=== PATIENT | male | born 1975 | race Caucasian/White ===

== ENCOUNTER 2017-05-19 12:49 | Emergency (ER) | payer OTHER ==
[2017-05-19] MEDS ORDERED: cefTRIAXone 250 MG VIAL IM STA (13:38)
[2017-05-19] MEDS ORDERED: metroNIDAZOLE 500 MG TAB PO STA (13:38)
[2017-05-19] MEDS ORDERED: HYDROcodone/APAP 7.5-325MG 1 EACH TAB PO ONE (13:38)
[2017-05-19] MEDS ORDERED: AZITHROMYCIN 500 MG TAB PO STA (13:38)
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
[2017-05-19 14:44] VITALS: BP 125/80; PULSE 99; RESP 18; TEMP 97.6
== END 2017-05-19 14:45 | disposition home or self-care (01) ==
LOC: EC 12:49
DX: N48.5 Ulcer of penis (principal); F17.200 Nicotine dependence, unspecified, uncomplicated
CPT/HCPCS: 99283; 96372; J0696

== ENCOUNTER 2017-05-25 21:03 | Emergency (ER) | payer OTHER ==
[2017-05-25 21:48] VITALS: RESP 18
[2017-05-25 22:52] VITALS: BP 121/72; PULSE 88; TEMP 97.8
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
--- NOTE | 2017-05-25 23:05 | XR ---
EXAM: XR Left Foot Complete, 3 or More Views XR Right Foot Complete, 3 or More Views CLINICAL HISTORY: Reason: Pain TECHNIQUE: Frontal, lateral and oblique views of the bilateral feet. COMPARISON: No relevant prior studies available. FINDINGS: Bones/joints: Tiny calcaneal spurs are seen bilaterally. No acute fracture. No dislocation. Soft tissues: Unremarkable. No radiopaque foreign body. Other findings: Patient is status post ORIF of the bilateral calcanei. IMPRESSION: Patient is status post ORIF of the bilateral calcanei. No evidence of acute findings. Correlation with prior studies may be performed to assess hardware more thoroughly.
[2017-05-25] MEDS ORDERED: IBUPROFEN 800 MG TAB PO STA (23:20)
== END 2017-05-25 23:17 | disposition home or self-care (01) ==
LOC: EC 21:03
DX: M79.672 Pain in left foot (principal); M79.671 Pain in right foot; G89.29 Other chronic pain; F17.200 Nicotine dependence, unspecified, uncomplicated; Z79.899 Other long term (current) drug therapy; Z88.5 Allergy status to narcotic agent; Z88.8 Allergy status to other drugs, medicaments and biological substances
CPT/HCPCS: 99283

== ENCOUNTER 2017-05-26 19:19 | Emergency (ER) | payer OTHER ==
[2017-05-26 19:28] VITALS: BP 134/81; PULSE 112; RESP 20; TEMP 98.7
--- NOTE | 2017-05-26 19:45 | ED ---
General Adult HPI - General Chief complaint: Back Pain/Injury Stated complaint: feet & back pain Time Seen by Provider: 05/26/17 19:36 Source: patient, RN notes reviewed Mode of arrival: ambulatory Limitations: no limitations - History of Present Illness Initial comments: This a 41-year-old male presents emergency for department for chronic pain. Patient states that his chronic feet, back and multiple other orthopedic issues. Patient states he recently moved back to the area and has not seen a local physician. Patient denies any new injuries. Patient seen in emergency department last night and one week ago. Patient states he just needs pain medication. Patient is requesting narcotics at this time. Patient did state he had back pain to she has been mention of back pain to me. Patient denies any bowel bladder incontinence or retention. Patient states that he feels that his muscles are . - Related Data Home Medications Medication Instructions Recorded Confirmed Baclofen [Lioresal] 10 mg PO TID 05/25/17 05/26/17 Gabapentin 800 mg PO TID 05/25/17 05/26/17 Ibuprofen [Motrin] 800 mg PO TID PRN 05/25/17 05/26/17 Metoprolol Tartrate [Lopressor] 25 mg PO BID 05/26/17 05/26/17 Previous Rx's Medication Instructions Recorded traMADol HCl [Ultram] 50 mg PO Q6H PRN #12 tab 05/25/17 Allergies Allergy/AdvReac Type Severity Reaction Status Date / Time ketorolac [From Toradol] Allergy Swelling Verified 05/26/17 19:36 oxycodone Allergy Swelling Verified 05/26/17 19:36 Review of Systems ROS Statement: Those systems with pertinent positive or pertinent negative responses have been documented in the HPI. ROS Other: All systems not noted in ROS Statement are negative. Past Medical History Past Medical History: No Reported History History of Any Multi-Drug Resistant Organisms: None Reported Past Surgical History: Back Surgery, Orthopedic Surgery Additional Past Surgical History / Comment(s): pins and plates in feet Past Psychological History: No Psychological Hx Reported, Bipolar Smoking Status: Current every day smoker Past Alcohol Use History: None Reported Past Drug Use History: None Reported General Exam Limitations: no limitations General appearance: alert, in no apparent distress Head exam: Present: atraumatic, normocephalic, normal inspection Eye exam: Present: normal appearance, PERRL, EOMI. Absent: scleral icterus, conjunctival injection, periorbital swelling Respiratory exam: Present: normal lung sounds bilaterally. Absent: respiratory distress, wheezes, rales, rhonchi, stridor Cardiovascular Exam: Present: regular rate, normal rhythm, normal heart sounds. Absent: systolic murmur, diastolic murmur, rubs, gallop, clicks GI/Abdominal exam: Present: soft, normal bowel sounds. Absent: distended, tenderness, guarding, rebound, rigid Extremities exam: Present: other (Bilateral lower extremities full range of motion, patient is reported pain over the heel the right foot. There is old surgical scars noted neurovascular intact) Back exam: Present: full ROM. Absent: tenderness Neurological exam: Present: alert, oriented X3, CN II-XII intact, reflexes normal. Absent: motor sensory deficit Course Vital Signs 05/26/17 19:24 Temperature 98.7 F Pulse Rate 112 H Respiratory 20 Rate Blood Pressure 134/81 O2 Sat by Pulse 96 Oximetry Medical Decision Making - Medical Decision Making 41-year-old male presented emergency department for chronic pain. Patient has no new injury. Patient is requesting narcotic pain medication which he states he did not prescribe for chronic pain. He'll be follow-up with orthopedics return parameters were discussed. Disposition Clinical Impression: Foot pain, bilateral, Chronic foot pain Disposition: HOME SELF-CARE Condition: Stable Instructions: Chronic Pain (ED) Additional Instructions: Please return to the Emergency Department if symptoms worsen or any other concerns. Referrals: None,Stated [Primary Care Provider] - 1-2 days Audi Henning MD [Medical Doctor] - 1-2 days Time of Disposition: 19:45
== END 2017-05-26 19:58 | disposition home or self-care (01) ==
LOC: EC 19:19
DX: M79.671 Pain in right foot (principal); M79.672 Pain in left foot; G89.29 Other chronic pain; M54.9 Dorsalgia, unspecified; F31.9 Bipolar disorder, unspecified; F17.200 Nicotine dependence, unspecified, uncomplicated; Z79.899 Other long term (current) drug therapy; Z88.5 Allergy status to narcotic agent; Z88.6 Allergy status to analgesic agent
CPT/HCPCS: 99283

== ENCOUNTER 2017-06-03 10:13 | Emergency (ER) | payer OTHER ==
[2017-06-03 10:21] VITALS: BP 121/77; PULSE 77; RESP 18; TEMP 97.6
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
== END 2017-06-03 10:47 | disposition home or self-care (01) ==
LOC: EC 10:13
DX: G89.29 Other chronic pain (principal); M79.671 Pain in right foot; F31.9 Bipolar disorder, unspecified; F17.200 Nicotine dependence, unspecified, uncomplicated; Z79.899 Other long term (current) drug therapy; Z88.6 Allergy status to analgesic agent; Z88.8 Allergy status to other drugs, medicaments and biological substances
CPT/HCPCS: 99283

== ENCOUNTER 2017-06-05 03:09 | Emergency (ER) | payer OTHER ==
[2017-06-05 03:18] VITALS: BP 110/60; PULSE 83; RESP 16; TEMP 96.3
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
== END 2017-06-05 04:59 | disposition home or self-care (01) ==
LOC: EC 03:09
DX: G89.4 Chronic pain syndrome (principal); M79.671 Pain in right foot; M54.9 Dorsalgia, unspecified; F17.200 Nicotine dependence, unspecified, uncomplicated; Z88.6 Allergy status to analgesic agent; Z88.5 Allergy status to narcotic agent; Z79.899 Other long term (current) drug therapy
CPT/HCPCS: 99283

== ENCOUNTER 2017-06-09 13:54 | Emergency (ER) | payer OTHER ==
[2017-06-09 13:59] VITALS: TEMP 98.6
--- NOTE | 2017-06-09 14:15 | ED ---
General Adult HPI - General Chief complaint: Back Pain/Injury Stated complaint: Back and Feet Pain Time Seen by Provider: 06/09/17 14:00 Source: patient Mode of arrival: ambulatory Limitations: no limitations - History of Present Illness Initial comments: This 41-year-old white male presents complaining of chronic pain issues. He is complaining of chronic pain to his bilateral feet stemming from an old injury. He is also complaining of chronic back pain. This has been going on for years. He previously was under pain management. He states that he is noted to the area and has not followed up with orthopedics or primary care as of yet. He has been to the emergency department 5 times previously this month for chronic pain issues. He is requesting admission to the hospital for pain management. He is also requesting narcotic medications. He denies any recent injuries. No other modifying factors or complaints. - Related Data Home Medications Medication Instructions Recorded Confirmed Baclofen [Lioresal] 10 mg PO TID 05/25/17 06/09/17 Gabapentin 800 mg PO TID 05/25/17 06/09/17 Ibuprofen [Motrin] 800 mg PO TID PRN 05/25/17 06/09/17 Metoprolol Tartrate [Lopressor] 25 mg PO BID 05/26/17 06/09/17 Aspirin EC [Ecotrin Low Dose] 81 mg PO DAILY 06/09/17 06/09/17 Previous Rx's Medication Instructions Recorded predniSONE 20 mg PO BID #10 tab 06/09/17 Allergies Allergy/AdvReac Type Severity Reaction Status Date / Time ketorolac [From Toradol] Allergy Swelling Verified 06/09/17 14:06 oxycodone Allergy Swelling Verified 06/09/17 14:06 Review of Systems ROS Statement: Those systems with pertinent positive or pertinent negative responses have been documented in the HPI. ROS Other: All systems not noted in ROS Statement are negative. Past Medical History Past Medical History: No Reported History Additional Past Medical History / Comment(s): back pain, spinal and sacral fractures History of Any Multi-Drug Resistant Organisms: None Reported Past Surgical History: Back Surgery, Orthopedic Surgery Additional Past Surgical History / Comment(s): pins and plates in feet Past Psychological History: Bipolar Smoking Status: Current every day smoker Past Alcohol Use History: None Reported Past Drug Use History: None Reported General Exam Limitations: no limitations General appearance: alert, in no apparent distress Extremities exam: Present: tenderness (Tenderness to bilateral feet. There is no swelling noted. There are old surgical scars noted to the lateral posterior aspects of both feet. There is no ankle pain or swelling. There is excellent range of motion to bilateral feet.) Back exam: Present: normal inspection, full ROM, tenderness (There is some mild back tenderness inferiorly. There is no swelling identified. There is no muscle spasm noted. Patient has excellent range of motion without any difficulty.) Neurological exam: Present: alert, oriented X3. Absent: motor sensory deficit Psychiatric exam: Present: normal affect, normal mood Skin exam: Absent: rash Course Vital Signs 06/09/17 13:57 Temperature 98.6 F Pulse Rate 83 Respiratory 18 Rate Blood Pressure 113/59 O2 Sat by Pulse 98 Oximetry Medical Decision Making - Medical Decision Making The patient was seen and examined. Old records were reviewed. His been here 5 times previously this month for chronic pain issues. He is previously been told that he would not be receiving any further narcotics from the ER. It is not felt as though he requires admission to the hospital for pain management. It is not felt as though he requires any narcotic medications. Is instructed to follow-up with primary care physician and orthopedics as previously instructed. He is agreeable to a prednisone prescription and leaves in no distress. Disposition Clinical Impression: Chronic foot pain, Chronic back pain Disposition: HOME SELF-CARE Condition: Good Instructions: Chronic Back Pain (ED), Chronic Pain (ED) Prescriptions: predniSONE 20 mg PO BID #10 tab Referrals: None,Stated [Primary Care Provider] - 1-2 days Time of Disposition: 14:14
[2017-06-09 14:38] VITALS: BP 132/78; PULSE 68; RESP 20
== END 2017-06-09 14:38 | disposition home or self-care (01) ==
LOC: EC 13:54
DX: G89.29 Other chronic pain (principal); M54.9 Dorsalgia, unspecified; M79.672 Pain in left foot; M79.671 Pain in right foot; F17.200 Nicotine dependence, unspecified, uncomplicated; Z79.82 Long term (current) use of aspirin; Z79.899 Other long term (current) drug therapy; Z88.6 Allergy status to analgesic agent; Z88.8 Allergy status to other drugs, medicaments and biological substances; Z87.828 Personal history of other (healed) physical injury and trauma; Z98.890 Other specified postprocedural states
CPT/HCPCS: 99283

== ENCOUNTER 2017-06-10 06:30 | Emergency (ER) | payer OTHER ==
[2017-06-10 06:47] VITALS: BP 129/77; PULSE 91; RESP 20; TEMP 97.6
--- NOTE | 2017-06-10 08:45 | ED ---
General Adult HPI - General Chief complaint: Extremity Injury, Lower Stated complaint: pain Time Seen by Provider: 06/10/17 07:00 Source: patient, RN notes reviewed Mode of arrival: ambulatory Limitations: no limitations - History of Present Illness Initial comments: This is a 41-year-old male with a history of chronic pain who is here again today with complaints of right foot pain he states he wants be admitted to have the pain taken care of. He has been referred to orthopedics he did recently moved back to this area from [place] where he had his surgery done. He was previously advised needs to follow up outpatient. He states he can't take Motrin for pain he has taken Ultram for pain in the past he has taken morphine and Vicodin in the past. He does have a history depression and he is not suicidal or homicidal. - Related Data Home Medications Medication Instructions Recorded Confirmed Baclofen [Lioresal] 10 mg PO TID 05/25/17 06/10/17 Gabapentin 800 mg PO TID 05/25/17 06/10/17 Ibuprofen [Motrin] 800 mg PO TID PRN 05/25/17 06/10/17 Metoprolol Tartrate [Lopressor] 25 mg PO BID 05/26/17 06/10/17 Aspirin EC [Ecotrin Low Dose] 81 mg PO DAILY 06/09/17 06/10/17 Previous Rx's Medication Instructions Recorded predniSONE 20 mg PO BID #10 tab 06/09/17 Ibuprofen 800 mg PO Q6HR PRN #20 tablet 06/10/17 traMADol HCL [Ultram] 50 mg PO Q6HR PRN #20 tab 06/10/17 Allergies Allergy/AdvReac Type Severity Reaction Status Date / Time ketorolac [From Toradol] Allergy Swelling Verified 06/10/17 08:08 oxycodone Allergy Swelling Verified 06/10/17 08:08 Review of Systems ROS Statement: Those systems with pertinent positive or pertinent negative responses have been documented in the HPI. ROS Other: All systems not noted in ROS Statement are negative. Past Medical History Past Medical History: No Reported History Additional Past Medical History / Comment(s): back pain, spinal and sacral fractures History of Any Multi-Drug Resistant Organisms: None Reported Past Surgical History: Back Surgery, Orthopedic Surgery Additional Past Surgical History / Comment(s): pins and plates in feet Past Psychological History: Bipolar Smoking Status: Current every day smoker Past Alcohol Use History: None Reported Past Drug Use History: None Reported General Exam - General Exam Comments Initial Comments: Is a well-developed well-nourished awake alert oriented 3 male the patient would not allow me to examine his foot other than by inspection Limitations: no limitations General appearance: alert, in no apparent distress Head exam: Present: atraumatic, normocephalic, normal inspection Eye exam: Present: normal appearance, PERRL, EOMI. Absent: scleral icterus, conjunctival injection, periorbital swelling ENT exam: Present: mucous membranes moist Neck exam: Present: normal inspection. Absent: tenderness, meningismus, lymphadenopathy Respiratory exam: Absent: respiratory distress, wheezes, rales, rhonchi, stridor Cardiovascular Exam: Present: normal heart sounds. Absent: systolic murmur, diastolic murmur, rubs, gallop, clicks GI/Abdominal exam: Present: normal bowel sounds. Absent: distended, tenderness , guarding, rebound, rigid Extremities exam: Present: normal inspection, full ROM, other (No obvious deformity well-healed scars are noted along the lateral aspect of the right foot. Color appears be normal). Absent: tenderness, pedal edema, joint swelling, calf tenderness Neurological exam: Present: alert, oriented X3, CN II-XII intact Psychiatric exam: Present: normal affect, normal mood Skin exam: Present: dry, intact, normal color. Absent: rash Course Vital Signs 06/10/17 06:37 Temperature 97.6 F Pulse Rate 91 Respiratory 20 Rate Blood Pressure 129/77 O2 Sat by Pulse 97 Oximetry - Reevaluation(s) Reevaluation #1: 06/10/17 08:43 Discussion with the patient regarding follow-up with orthopedics he does not require admission at the hospital at this time. He'll be given a prescription for tramadol and Motrin. He states the steroids made pain worse he is to stop those. He was offered crutches he states he can't use them he would take a wheelchair and the ramp which I did inform and was not reasonable at this time. He was noted to be inability without difficulty and the emergency department. Disposition Clinical Impression: Chronic foot pain Disposition: HOME SELF-CARE Condition: Good Prescriptions: Ibuprofen 800 mg PO Q6HR PRN #20 tablet PRN Reason: Pain traMADol HCL [Ultram] 50 mg PO Q6HR PRN #20 tab PRN Reason: Pain Referrals: None,Stated [Primary Care Provider] - 1-2 days
--- NOTE | 2017-06-10 08:48 | ED ---
Disposition Clinical Impression: Chronic foot pain Disposition: HOME SELF-CARE Condition: Good Instructions: Chronic Pain (ED) Additional Instructions: Ambulate as tolerated, follow up with orthopedics as previously planned. Stop taking the prednisone. Prescriptions: Ibuprofen 800 mg PO Q6HR PRN #20 tablet PRN Reason: Pain traMADol HCL [Ultram] 50 mg PO Q6HR PRN #20 tab PRN Reason: Pain Referrals: None,Stated [Primary Care Provider] - 1-2 days
== END 2017-06-10 08:56 | disposition home or self-care (01) ==
LOC: EC 06:30
DX: G89.29 Other chronic pain (principal); M79.671 Pain in right foot; F17.200 Nicotine dependence, unspecified, uncomplicated; Z79.82 Long term (current) use of aspirin; Z79.899 Other long term (current) drug therapy; Z88.6 Allergy status to analgesic agent; Z88.8 Allergy status to other drugs, medicaments and biological substances; Z87.39 Personal history of other diseases of the musculoskeletal system and connective tissue
CPT/HCPCS: 99282

== ENCOUNTER 2017-06-14 10:44 | Emergency (ER) | payer OTHER ==
[2017-06-14 10:52] VITALS: BP 136/81; PULSE 89; RESP 18; TEMP 98.2
--- NOTE | 2017-06-14 11:51 | ED ---
Extremity Problem HPI - General Chief complaint: Extremity Problem,Nontraumatic Stated complaint: Foot pain Time Seen by Provider: 06/14/17 10:44 Source: patient, RN notes reviewed Mode of arrival: ambulatory Limitations: no limitations - History of Present Illness Initial comments: This is a 42-year-old male who presents with complaints of bilateral foot pain. This is a chronic condition this is the eighth time in the last month he had been here for the same reason. He does have orthopedic follow-up. He does state he ran his pain medication and some other medication. He denies any fevers chills or sweats he was noted to be able ambulate without difficulty. EMS and per observation in the emergency department. MD Complaint: extremity pain - Related Data Home Medications Medication Instructions Recorded Confirmed Gabapentin 800 mg PO TID 05/25/17 06/14/17 Metoprolol Tartrate [Lopressor] 25 mg PO BID 05/26/17 06/14/17 Aspirin EC [Ecotrin Low Dose] 81 mg PO DAILY 06/09/17 06/14/17 Previous Rx's Medication Instructions Recorded Gabapentin 800 mg PO TID #45 tab 06/14/17 Metoprolol Tartrate 25 mg PO BID #30 tab 06/14/17 traMADol HCL [Ultram] 50 mg PO Q6HR PRN #20 tab 06/14/17 Allergies Allergy/AdvReac Type Severity Reaction Status Date / Time ketorolac [From Toradol] Allergy Swelling Verified 06/14/17 10:52 oxycodone Allergy Swelling Verified 06/14/17 10:52 Review of Systems ROS Statement: Those systems with pertinent positive or pertinent negative responses have been documented in the HPI. ROS Other: All systems not noted in ROS Statement are negative. Past Medical History Past Medical History: No Reported History Additional Past Medical History / Comment(s): back pain, spinal and sacral fractures History of Any Multi-Drug Resistant Organisms: None Reported Past Surgical History: Back Surgery, Orthopedic Surgery Additional Past Surgical History / Comment(s): pins and plates in feet Past Psychological History: Bipolar Smoking Status: Current every day smoker Past Alcohol Use History: None Reported Past Drug Use History: None Reported General Exam - General Exam Comments Initial Comments: This is a well-developed well-nourished awake alert oriented times female Limitations: no limitations General appearance: alert, in no apparent distress Head exam: Present: atraumatic, normocephalic, normal inspection Eye exam: Present: normal appearance, PERRL, EOMI. Absent: scleral icterus, conjunctival injection, periorbital swelling Neck exam: Present: normal inspection Respiratory exam: Present: normal lung sounds bilaterally. Absent: respiratory distress, wheezes, rales, rhonchi, stridor Cardiovascular Exam: Present: regular rate, normal rhythm, normal heart sounds. Absent: systolic murmur, diastolic murmur, rubs, gallop, clicks Extremities exam: Present: normal inspection, full ROM, normal capillary refill , other (No tenderness on my exam of the feet today he states the right one hurts more than the left the opposite of the last visit.). Absent: tenderness Back exam: Present: full ROM Neurological exam: Present: alert, oriented X3, CN II-XII intact Psychiatric exam: Present: normal affect, normal mood Skin exam: Present: warm, dry, intact, normal color. Absent: rash Course Vital Signs 06/14/17 10:48 Temperature 98.2 F Pulse Rate 89 Respiratory 18 Rate Blood Pressure 136/81 O2 Sat by Pulse 94 L Oximetry Medical Decision Making - Medical Decision Making At this time no further workup is indicated patient be given a prescription for Ultram and replace his needed prescriptions he is to keep his orthopedic follow- up in 3 days as planned Disposition Clinical Impression: Chronic foot pain Disposition: HOME SELF-CARE Condition: Good Prescriptions: Gabapentin 800 mg PO TID #45 tab Metoprolol Tartrate 25 mg PO BID #30 tab traMADol HCL [Ultram] 50 mg PO Q6HR PRN #20 tab PRN Reason: Pain Referrals: None,Stated [Primary Care Provider] - 1-2 days
[2017-06-14] MEDS ORDERED: traMADol 50 MG TAB PO STA (11:52)
== END 2017-06-14 12:02 | disposition home or self-care (01) ==
LOC: EC 10:44
DX: G89.29 Other chronic pain (principal); M79.671 Pain in right foot; M79.672 Pain in left foot; F17.200 Nicotine dependence, unspecified, uncomplicated; Z88.5 Allergy status to narcotic agent; Z79.82 Long term (current) use of aspirin; Z79.899 Other long term (current) drug therapy
CPT/HCPCS: 99283

== ENCOUNTER 2017-06-14 19:02 | Emergency (ER) | payer OTHER ==
[2017-06-14 19:14] VITALS: BP 131/80; PULSE 99; RESP 18; TEMP 98.2
--- NOTE | 2017-06-14 19:48 | ED ---
General Adult HPI - General Chief complaint: Extremity Injury, Lower Stated complaint: Foot Pain Time Seen by Provider: 06/14/17 19:32 Source: patient, RN notes reviewed Mode of arrival: ambulatory Limitations: no limitations - History of Present Illness Initial comments: patient is a 42-year-old male who presents emergency room today with chief complaint of chronic foot pain. He does admit that he has a chronic problem but believes that there is a chance getting worse. He states he has been here in the emergency room multiple times for this. He is requesting further pain medication as he states the medication that he was given earlier is not helping. Patient denies any new injury or trauma to the area. Patient denies any recent fever, chills, shortness of breath, chest pain, back pain, abdominal pain, nausea or vomiting, numbness or tingling, dysuria or hematuria, constipation or diarrhea, headaches or visual changes, or any other complaints. - Related Data Home Medications Medication Instructions Recorded Confirmed Gabapentin 800 mg PO TID 05/25/17 06/14/17 Metoprolol Tartrate [Lopressor] 25 mg PO BID 05/26/17 06/14/17 Aspirin EC [Ecotrin Low Dose] 81 mg PO DAILY 06/09/17 06/14/17 Previous Rx's Medication Instructions Recorded Gabapentin 800 mg PO TID #45 tab 06/14/17 Metoprolol Tartrate 25 mg PO BID #30 tab 06/14/17 traMADol HCL [Ultram] 50 mg PO Q6HR PRN #20 tab 06/14/17 Allergies Allergy/AdvReac Type Severity Reaction Status Date / Time ketorolac [From Toradol] Allergy Swelling Verified 06/14/17 19:13 oxycodone Allergy Swelling Verified 06/14/17 19:13 Review of Systems ROS Statement: Those systems with pertinent positive or pertinent negative responses have been documented in the HPI. ROS Other: All systems not noted in ROS Statement are negative. Past Medical History Past Medical History: No Reported History Additional Past Medical History / Comment(s): back pain, spinal and sacral fractures History of Any Multi-Drug Resistant Organisms: None Reported Past Surgical History: Back Surgery, Orthopedic Surgery Additional Past Surgical History / Comment(s): pins and plates in feet Past Psychological History: Bipolar Smoking Status: Current every day smoker Past Alcohol Use History: None Reported Past Drug Use History: None Reported General Exam - General Exam Comments Initial Comments: General: The patient is awake and alert, in no distress, and does not appear acutely ill. Eye: Pupils are equal, round and reactive to light, extra-ocular movements are intact. No nystagmus. There is normal conjunctiva bilaterally. No signs of icterus. Neck: there is no tenderness or JVD. Musculoskeletal: Normal ROM, no tenderness. Strength 5/5. Sensation intact. Pulses equal bilaterally 2+. Neurological: A&O x 3. CN II-XII intact, There are no obvious motor or sensory deficits. Coordination appears grossly intact. Speech is normal. Skin: Skin is warm and dry and no rashes or lesions are noted. Limitations: no limitations Course Vital Signs 06/14/17 19:09 Temperature 98.2 F Pulse Rate 99 Respiratory 18 Rate Blood Pressure 131/80 O2 Sat by Pulse 96 Oximetry Medical Decision Making - Medical Decision Making patient was seen here earlier in the day by attending physician Dr. Corcoran. I did discuss this case with him. Patient's requesting further pain medication. Denies patient that he would not receive any narcotics here that Ultram that was given to him earlier was all that we would be willing to give him for his chronic pain. He is advised that he does need to follow-up with specialist. Patient requesting to see physician and further pain medication. patient was refusing to leave and had to be escorted out by security. Disposition Clinical Impression: Chronic pain Disposition: HOME SELF-CARE Condition: Good Instructions: Chronic Pain (ED) Referrals: None,Stated [Primary Care Provider] - 1-2 days Time of Disposition: 19:47
== END 2017-06-14 19:48 | disposition home or self-care (01) ==
LOC: EC 19:02
DX: G89.29 Other chronic pain (principal); M79.673 Pain in unspecified foot; F17.200 Nicotine dependence, unspecified, uncomplicated; Z98.890 Other specified postprocedural states; Z79.82 Long term (current) use of aspirin; Z79.899 Other long term (current) drug therapy; Z88.6 Allergy status to analgesic agent; Z88.8 Allergy status to other drugs, medicaments and biological substances; Z53.8 Procedure and treatment not carried out for other reasons
CPT/HCPCS: 99283

== ENCOUNTER 2017-06-16 21:04 | Emergency (ER) | payer OTHER ==
[2017-06-16 21:14] VITALS: BP 144/74; PULSE 96; RESP 18; TEMP 97.4
[2017-06-16] MEDS ORDERED: HYDROcodone/APAP 5-325MG 1 EACH TAB PO STA (21:35)
--- NOTE | 2017-06-16 21:41 | ED ---
General Adult HPI - General Chief complaint: Extremity Injury, Lower Stated complaint: foot pain-revist Time Seen by Provider: 06/16/17 21:25 Source: patient, EMS, RN notes reviewed Mode of arrival: EMS Limitations: no limitations - History of Present Illness Initial comments: 42-year-old male presents to the emergency department with a chief complaint of right foot pain. Patient does suffer from chronic foot pain. Patient has had surgeries to the right from the past. He states that he is in excruciating pain. He was seen here 2 days ago and was given Ultram. He can have another prescription of something stronger. Patient states he used to have a pain doctor niece me and morphine but he does not get that anymore. He already takes baclofen as well as Motrin at home which are not helping him with his pain. Patient is concerned that something with his chronic foot pain is worsening. Patient states he has never followed up with or so for this pain just comes here and is hoping to have pain control.Patient denies any recent fever, chills, shortness of breath, chest pain, back pain, abdominal pain, nausea vomiting, numbness or tingling, dysuria or hematuria, constipation or diarrhea, headaches or visual changes, or any other current symptoms. - Related Data Home Medications Medication Instructions Recorded Confirmed Aspirin EC [Ecotrin Low Dose] 81 mg PO DAILY 06/09/17 06/16/17 Previous Rx's Medication Instructions Recorded Gabapentin 800 mg PO TID #45 tab 06/14/17 Metoprolol Tartrate 25 mg PO BID #30 tab 06/14/17 Allergies Allergy/AdvReac Type Severity Reaction Status Date / Time ketorolac [From Toradol] Allergy Swelling Verified 06/16/17 21:20 oxycodone Allergy Swelling Verified 06/16/17 21:20 Review of Systems ROS Statement: Those systems with pertinent positive or pertinent negative responses have been documented in the HPI. ROS Other: All systems not noted in ROS Statement are negative. Past Medical History Past Medical History: No Reported History Additional Past Medical History / Comment(s): back pain, spinal and sacral fractures History of Any Multi-Drug Resistant Organisms: None Reported Past Surgical History: Back Surgery, Orthopedic Surgery Additional Past Surgical History / Comment(s): pins and plates in feet Past Psychological History: Bipolar Smoking Status: Current every day smoker Past Alcohol Use History: None Reported Past Drug Use History: None Reported General Exam - General Exam Comments Initial Comments: General: The patient is awake and alert, in no distress, and does not appear acutely ill. Neck: The neck is supple, there is no tenderness. Cardiovascular: There is a regular rate and rhythm. No murmur, rub or gallop is appreciated. Respiratory: Lungs are clear to auscultation, respirations are non-labored, breath sounds are equal. No wheezes, stridor, rales, or rhonchi. Musculoskeletal: Sensation sensation intact with 2+ pulses. She appeared friend [place] for ankle and right foot. Some tenderness patient of the left heel. Mild swelling noted to the ankle. Neurological: CN II-XII intact, There are no obvious motor or sensory deficits. Coordination appears grossly intact. Speech is normal. Skin: Skin is warm and dry and no rashes or lesions are noted. Psychiatric: Normal mood and affect. Limitations: no limitations Course Vital Signs 06/16/17 21:11 Temperature 97.4 F L Pulse Rate 96 Respiratory 18 Rate Blood Pressure 144/74 O2 Sat by Pulse 97 Oximetry Medical Decision Making - Medical Decision Making 41-year-old male presents for right foot pain. Patient has been seen here for the third time for this pain. This time we discussed that we will not be giving him a prescription of narcotics. We stated that we would give him one pill prior discharge. We did discuss with the patient as well that we will give him orthopedic follow-up. We did discuss to care of the area we did discuss return parameters and all his questions. He stated that he understood. He continued to ask for narcotic pain medication once we told him that we would not be giving a CBC and became very irritated and unhappy with his care. Disposition Clinical Impression: Chronic pain syndrome, Chronic foot pain Disposition: HOME SELF-CARE Condition: Stable Instructions: Foot Contusion (ED) Additional Instructions: Please use medication as discussed. Please follow up with family doctor if symptoms have not improved over the next two days. Please return to the emergency room if your symptoms increase or worsen or for any other concerns. Referrals: Lisseth Spence MD [STAFF PHYSICIAN] - 1-2 days Audi Henning MD [Medical Doctor] - 1-2 days Time of Disposition: 21:40
== END 2017-06-16 21:49 | disposition home or self-care (01) ==
LOC: EC 21:04
DX: G89.4 Chronic pain syndrome (principal); M79.671 Pain in right foot; F17.200 Nicotine dependence, unspecified, uncomplicated; Z88.6 Allergy status to analgesic agent; Z88.5 Allergy status to narcotic agent; Z79.82 Long term (current) use of aspirin
CPT/HCPCS: 99283

== ENCOUNTER 2017-06-18 12:27 | Emergency (ER) | payer OTHER ==
[2017-06-18 12:30] VITALS: BP 123/78; PULSE 102; RESP 20; TEMP 98.3
--- NOTE | 2017-06-18 12:36 | ED ---
General Adult HPI - General Chief complaint: Extremity Injury, Lower Stated complaint: foot pain Time Seen by Provider: 06/18/17 12:34 Source: patient, EMS, RN notes reviewed Mode of arrival: EMS Limitations: no limitations - History of Present Illness Initial comments: This a 42-year-old male presents emergency Department via EMS for chronic pain. Patient states that he has had for pain states this is new police 11 visits in one month here for same chronic pain. Patient had a reticulocyte injury years ago and has seen orthopedics in the past. Patient has not followed up as directed. Patient states that there is no paresthesias. Denies any fever, chills, erythema. Patient denies any rash. Patient offers no complaints. - Related Data Home Medications Medication Instructions Recorded Confirmed Aspirin EC [Ecotrin Low Dose] 81 mg PO DAILY 06/09/17 06/18/17 Previous Rx's Medication Instructions Recorded Gabapentin 800 mg PO TID #45 tab 06/14/17 Metoprolol Tartrate 25 mg PO BID #30 tab 06/14/17 Meloxicam [Mobic] 7.5 mg PO DAILY #14 tab 06/18/17 Allergies Allergy/AdvReac Type Severity Reaction Status Date / Time ketorolac [From Toradol] Allergy Swelling Verified 06/18/17 12:30 oxycodone Allergy Swelling Verified 06/18/17 12:30 Review of Systems ROS Statement: Those systems with pertinent positive or pertinent negative responses have been documented in the HPI. ROS Other: All systems not noted in ROS Statement are negative. Past Medical History Past Medical History: Asthma Additional Past Medical History / Comment(s): back pain, spinal and sacral fractures History of Any Multi-Drug Resistant Organisms: None Reported Past Surgical History: Back Surgery, Orthopedic Surgery Additional Past Surgical History / Comment(s): pins and plates in feet Past Psychological History: Bipolar Smoking Status: Current every day smoker Past Alcohol Use History: None Reported Past Drug Use History: None Reported General Exam Limitations: no limitations General appearance: alert, in no apparent distress Respiratory exam: Present: normal lung sounds bilaterally. Absent: respiratory distress, wheezes, rales, rhonchi, stridor Cardiovascular Exam: Present: regular rate, normal rhythm, normal heart sounds. Absent: systolic murmur, diastolic murmur, rubs, gallop, clicks Extremities exam: Present: other (Right foot there is old scars noted there is no erythema, swelling, rash. Patient has no tenderness with palpation patient' s reports she states is just pain all over dorsal palpation. Pedal pulses equal bilaterally) Neurological exam: Present: alert, CN II-XII intact, reflexes normal. Absent: motor sensory deficit Skin exam: Present: warm, dry, intact, normal color. Absent: rash Course Vital Signs 06/18/17 12:28 Temperature 98.3 F Pulse Rate 102 H Respiratory 20 Rate Blood Pressure 123/78 O2 Sat by Pulse 99 Oximetry Medical Decision Making - Medical Decision Making 42-year-old male presents emergency from for chronic pain. I did explain the patient that we do not do chronic pain management here. He needs to follow up with primary care physician with orthopedics as his been told in his previous visits. Explain that emergency department is not the place for chronic pain medication. That he'll not prescribe narcotics now or further visits. Disposition Clinical Impression: Drug-seeking behavior, Chronic pain, Chronic foot pain Disposition: HOME SELF-CARE Condition: Stable Instructions: Chronic Pain (ED) Additional Instructions: Please return to the Emergency Department if symptoms worsen or any other concerns. Prescriptions: Meloxicam [Mobic] 7.5 mg PO DAILY #14 tab Referrals: Dread Coley MD [REFERRING] - 1-2 days Time of Disposition: 12:34
== END 2017-06-18 12:45 | disposition home or self-care (01) ==
LOC: EC 12:27
DX: M79.671 Pain in right foot (principal); G89.29 Other chronic pain; F17.200 Nicotine dependence, unspecified, uncomplicated; Z76.5 Malingerer [conscious simulation]; Z79.82 Long term (current) use of aspirin; Z88.6 Allergy status to analgesic agent; Z88.8 Allergy status to other drugs, medicaments and biological substances; Z98.890 Other specified postprocedural states
CPT/HCPCS: 99283

== ENCOUNTER 2017-06-18 21:43 | Emergency (ER) | payer OTHER ==
[2017-06-18 21:46] VITALS: BP 118/70; PULSE 78; RESP 16; TEMP 97.8
--- NOTE | 2017-06-18 21:56 | ED ---
Lower Extremity Injury HPI - General Chief Complaint: Extremity Injury, Lower Stated Complaint: pain Time Seen by Provider: 06/18/17 21:47 Source: patient Mode of arrival: EMS Limitations: no limitations - History of Present Illness Initial Comments: This patient is a 42-year-old man who presents with complaint of right foot pain. Patient relates that he had foot fractures a number of years ago, which were repaired and that he has had chronic pain issues since that time. He indicates that the pain is located on the plantar aspect of the foot below the calcaneus and that is made worse with walking on it. Patient denies any acute injury. Denies any loss of neurologic function. MD Complaint: other -: year(s) Injury: Foot: Right Improves With: nothing Worsens With: weight bearing Context: other - Related Data Home Medications Medication Instructions Recorded Confirmed Aspirin EC [Ecotrin Low Dose] 81 mg PO DAILY 06/09/17 06/18/17 Previous Rx's Medication Instructions Recorded Gabapentin 800 mg PO TID #45 tab 06/14/17 Metoprolol Tartrate 25 mg PO BID #30 tab 06/14/17 Meloxicam [Mobic] 7.5 mg PO DAILY #14 tab 06/18/17 Allergies Allergy/AdvReac Type Severity Reaction Status Date / Time ketorolac [From Toradol] Allergy Swelling Verified 06/18/17 22:01 oxycodone Allergy Swelling Verified 06/18/17 22:01 Review of Systems ROS Statement: Those systems with pertinent positive or pertinent negative responses have been documented in the HPI. ROS Other: All systems not noted in ROS Statement are negative. Constitutional: Denies: fever, chills, weakness Musculoskeletal: Reports: as per HPI, arthralgia Skin: Denies: rash, lesions Neurological: Denies: weakness, numbness, paresthesias Past Medical History Past Medical History: Asthma Additional Past Medical History / Comment(s): back pain, spinal and sacral fractures History of Any Multi-Drug Resistant Organisms: None Reported Past Surgical History: Back Surgery, Orthopedic Surgery Additional Past Surgical History / Comment(s): pins and plates in feet Past Psychological History: Bipolar Smoking Status: Current every day smoker Past Alcohol Use History: None Reported Past Drug Use History: None Reported General Exam Limitations: no limitations General appearance: alert, in no apparent distress Cardiovascular Exam: Present: other (Normal dorsalis pedis pulse and capillary refill) Extremities exam: Present: normal inspection, full ROM, normal capillary refill , other (There is an old surgical incision which is well-healed. I'm not able to elicit any tenderness on the exam. Neurovascular function throughout the foot is normal.). Absent: tenderness, pedal edema Neurological exam: Present: normal gait. Absent: motor sensory deficit Skin exam: Present: warm, dry, intact, normal color. Absent: rash Course Vital Signs 06/18/17 21:45 Temperature 97.8 F Pulse Rate 78 Respiratory 16 Rate Blood Pressure 118/70 O2 Sat by Pulse 100 Oximetry Medical Decision Making - Medical Decision Making Patient is a 42-year-old man with history of chronic foot pain was requesting narcotic medication. There is no evidence of acute injury. The patient is observed to ambulate throughout the department without any difficulty. The patient does display number behaviors which raises concern for dispensing medication at this time. I had seen the patient previously and did provide prescription with instructions that he needs to find a local physician to manage his chronic pain. HE has not done so, and I will refer him to a paint grinder for dispensing any further narcotic medications. I discussed return parameters. Disposition Clinical Impression: Chronic pain Disposition: HOME SELF-CARE Condition: Good Instructions: Chronic Pain (ED), Arthralgia (ED) Referrals: Chi Cabrera MD [STAFF PHYSICIAN] - 1-2 days Naveen Merino MD [STAFF PHYSICIAN] - 1-2 days
== END 2017-06-18 22:03 | disposition home or self-care (01) ==
LOC: EC 21:43
DX: G89.29 Other chronic pain (principal); M79.671 Pain in right foot; F17.200 Nicotine dependence, unspecified, uncomplicated; Z79.82 Long term (current) use of aspirin; Z88.6 Allergy status to analgesic agent; Z88.8 Allergy status to other drugs, medicaments and biological substances; Z98.890 Other specified postprocedural states
CPT/HCPCS: 99283

== ENCOUNTER 2017-06-25 11:36 | Emergency (ER) | payer OTHER ==
[2017-06-25] MEDS ORDERED: ACETAMINOPHEN TAB 500 MG TAB PO STA (11:59)
--- NOTE | 2017-06-25 12:25 | XR ---
EXAMINATION TYPE: XR thoracic spine complete DATE OF EXAM: 06/25/2017 CLINICAL HISTORY: pain TECHNIQUE: Frontal, lateral, and swimmer's view of thoracic spine are obtained. COMPARISON: None. FINDINGS: Thoracic spine show satisfactory alignment without evidence of acute fracture or dislocatio n. Vertebral body heights are preserved. Disc spaces are well preserved. Visualized ribs are unrem arkable. Mild curvature convex to the right. IMPRESSION: No acute fracture or dislocation is seen in the thoracic spine. ICD 10 NO FRACTURE, INIT IAL EVALUATION
--- NOTE | 2017-06-25 12:26 | XR ---
EXAMINATION TYPE: XR lumbar spine 2 or 3V DATE OF EXAM: 06/25/2017 CLINICAL HISTORY: pain TECHNIQUE: Three views of the lumbar spine are submitted. COMPARISON: None. FINDINGS: There are 5 lumbar type vertebral bodies identified. The lumbar spine shows satisfactory alignment w ithout evidence of acute fracture or dislocation. Vertebral body heights are within normal limits. Disc spaces are within normal limits. The overlying soft tissue appears unremarkable. IMPRESSION: No acute fracture or dislocation is seen in the lumbar spine. ICD 10 NO FRACTURE, INITIAL EVALUATION
[2017-06-25 12:28] VITALS: BP 123/83; PULSE 89; RESP 20; TEMP 97
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
== END 2017-06-25 13:00 | disposition home or self-care (01) ==
LOC: EC 11:36
DX: M79.671 Pain in right foot (principal); M54.2 Cervicalgia; M54.9 Dorsalgia, unspecified; F17.200 Nicotine dependence, unspecified, uncomplicated; Z79.1 Long term (current) use of non-steroidal anti-inflammatories (NSAID); Z79.82 Long term (current) use of aspirin; Z79.899 Other long term (current) drug therapy; Z88.6 Allergy status to analgesic agent; Z88.8 Allergy status to other drugs, medicaments and biological substances; Z98.890 Other specified postprocedural states; Z53.29 Procedure and treatment not carried out because of patient's decision for other reasons
CPT/HCPCS: 72072; 72100; 99283

== ENCOUNTER 2017-06-28 16:51 | Emergency (ER) | payer OTHER ==
[2017-06-28 17:02] VITALS: BP 104/68; PULSE 106; RESP 18; TEMP 99.4
--- NOTE | 2017-06-28 17:24 | ED ---
General Adult HPI - General Chief complaint: Back Pain/Injury Stated complaint: Leg/sciatica pain Time Seen by Provider: 06/28/17 17:12 Source: patient, RN notes reviewed Mode of arrival: wheelchair Limitations: no limitations - History of Present Illness Initial comments: 42-year-old male presents emergency department requesting pain management for chronic pain. He states that he wants tramadol or Narco for his pain. He does not want Toradol he states it does not work. He is enjoying no improvement. Patient states isn't like his normal pain in his legs and tenderness of the it seems to getting worse. He has follow-up with his family care doctor pain specialist that he has not made his family care doctor yet. Patient denies any other symptoms with this. Patient states he simply needs something to help with his pain.Patient denies any recent fever, chills, shortness of breath, chest pain, abdominal pain, nausea vomiting, numbness or tingling, dysuria or hematuria, constipation or diarrhea, headaches or visual changes, or any other current symptoms. - Related Data Home Medications Medication Instructions Recorded Confirmed Baclofen [Lioresal] 10 - 20 mg PO TID 06/18/17 06/25/17 Ibuprofen [Motrin] 800 mg PO Q8H PRN 06/18/17 06/25/17 Metoprolol Tartrate 25 mg PO DAILY 06/18/17 06/25/17 Aspirin EC [Ecotrin Low Dose] 81 mg PO DAILY 06/25/17 06/25/17 Meloxicam [Mobic] 7.5 mg PO DAILY 06/25/17 06/25/17 Previous Rx's Medication Instructions Recorded traMADol HCl [Ultram] 50 mg PO Q6H PRN #10 tab 06/25/17 Naproxen [Naprosyn] 250 mg PO BID #10 tab 06/28/17 Allergies Allergy/AdvReac Type Severity Reaction Status Date / Time ketorolac [From Toradol] Allergy Swelling Verified 06/28/17 17:02 oxycodone Allergy Swelling Verified 06/28/17 17:02 Review of Systems ROS Statement: Those systems with pertinent positive or pertinent negative responses have been documented in the HPI. ROS Other: All systems not noted in ROS Statement are negative. Past Medical History Past Medical History: Asthma Additional Past Medical History / Comment(s): back pain, spinal and sacral fractures, chronic foot and shoulder pain History of Any Multi-Drug Resistant Organisms: None Reported Past Surgical History: Back Surgery, Orthopedic Surgery Additional Past Surgical History / Comment(s): pins and plates in feet Past Psychological History: Bipolar Smoking Status: Current every day smoker Past Alcohol Use History: None Reported Past Drug Use History: None Reported General Exam Limitations: no limitations General appearance: alert, in no apparent distress Neck exam: Present: normal inspection. Absent: tenderness, meningismus, lymphadenopathy Respiratory exam: Present: normal lung sounds bilaterally. Absent: respiratory distress, wheezes, rales, rhonchi, stridor Cardiovascular Exam: Present: regular rate, normal rhythm, normal heart sounds. Absent: systolic murmur, diastolic murmur, rubs, gallop, clicks Back exam: Present: normal inspection, full ROM. Absent: tenderness Neurological exam: Present: alert, oriented X3 Psychiatric exam: Present: normal affect, normal mood Course Vital Signs 06/28/17 16:59 Temperature 99.4 F Pulse Rate 106 H Respiratory 18 Rate Blood Pressure 104/68 O2 Sat by Pulse 96 Oximetry Medical Decision Making - Medical Decision Making 42-year-old male presents emergency requesting narcotic pain medication for pain control. We discussed will not be giving him narcotics he has multiple visits here to the emergency department multiple providers providing him with multiple different narcotic prescriptions. We stated that we will give him naproxen. He requested Neurontin however we did not see a current prescription of this. This time patient stated that he understood and he is in agreement plan. All questions have been answered. He will be discharged. Disposition Clinical Impression: Chronic pain Disposition: HOME SELF-CARE Condition: Stable Instructions: Chronic Pain (ED) Additional Instructions: Please use medication as discussed. Please follow up with family doctor if symptoms have not improved over the next two days. Please return to the emergency room if your symptoms increase or worsen or for any other concerns. Prescriptions: Naproxen [Naprosyn] 250 mg PO BID #10 tab Referrals: Peri Kaye MD [STAFF PHYSICIAN] - 1-2 days Time of Disposition: 17:25
== END 2017-06-28 17:34 | disposition home or self-care (01) ==
LOC: EC 16:51
DX: G89.29 Other chronic pain (principal); M54.9 Dorsalgia, unspecified; J45.909 Unspecified asthma, uncomplicated; F31.9 Bipolar disorder, unspecified; F17.200 Nicotine dependence, unspecified, uncomplicated; Z79.82 Long term (current) use of aspirin; Z79.1 Long term (current) use of non-steroidal anti-inflammatories (NSAID); Z79.899 Other long term (current) drug therapy; Z88.6 Allergy status to analgesic agent; Z88.8 Allergy status to other drugs, medicaments and biological substances
CPT/HCPCS: 99283

== ENCOUNTER 2017-07-03 13:58 | Emergency (ER) | payer OTHER ==
[2017-07-03 14:06] VITALS: BP 107/62; PULSE 100; RESP 18; TEMP 97.6
--- NOTE | 2017-07-03 14:25 | ED ---
General Adult HPI - General Chief complaint: Extremity Injury, Lower Stated complaint: feet & back pain Time Seen by Provider: 07/03/17 14:07 Source: patient, RN notes reviewed Mode of arrival: ambulatory Limitations: no limitations - History of Present Illness Initial comments: 42-year-old male presents to the emergency department with a chief complaint of excruciating pain. Patient suffers from chronic pain is seen here often for this. Patient is requesting narcotic medication help this pain. He states he is taking Motrin Tylenol with no relief. Patient does come frequently. He requests to be admitted because he tried follow-up and he is sleeping on paperwork to see the doctors. Patient states he hasn't had any new falls or injuries. Patient states is exactly like his chronic pain. Patient states he is trying Motrin he's been taking more than he has been prescribed and still not helping. Patient denies any recent fever, chills, shortness of breath, chest pain, back pain, abdominal pain, nausea vomiting, numbness or tingling, dysuria or hematuria, constipation or diarrhea, headaches or visual changes, or any other current symptoms. - Related Data Home Medications Medication Instructions Recorded Confirmed Baclofen [Lioresal] 10 - 20 mg PO TID 06/18/17 06/25/17 Ibuprofen [Motrin] 800 mg PO Q8H PRN 06/18/17 06/25/17 Metoprolol Tartrate 25 mg PO DAILY 06/18/17 06/25/17 Aspirin EC [Ecotrin Low Dose] 81 mg PO DAILY 06/25/17 06/25/17 Meloxicam [Mobic] 7.5 mg PO DAILY 06/25/17 06/25/17 Previous Rx's Medication Instructions Recorded traMADol HCl [Ultram] 50 mg PO Q6H PRN #10 tab 06/25/17 Naproxen [Naprosyn] 250 mg PO BID #10 tab 06/28/17 Naproxen [Naprosyn] 250 mg PO TID #10 tab 07/03/17 Allergies Allergy/AdvReac Type Severity Reaction Status Date / Time ketorolac [From Toradol] Allergy Swelling Verified 07/03/17 14:01 oxycodone Allergy Swelling Verified 07/03/17 14:01 Review of Systems ROS Statement: Those systems with pertinent positive or pertinent negative responses have been documented in the HPI. ROS Other: All systems not noted in ROS Statement are negative. Past Medical History Past Medical History: Asthma Additional Past Medical History / Comment(s): back pain, spinal and sacral fractures, chronic foot and shoulder pain History of Any Multi-Drug Resistant Organisms: None Reported Past Surgical History: Back Surgery, Orthopedic Surgery Additional Past Surgical History / Comment(s): pins and plates in feet Past Psychological History: Bipolar Smoking Status: Current every day smoker Past Alcohol Use History: None Reported Past Drug Use History: None Reported General Exam Limitations: no limitations General appearance: alert, in no apparent distress ENT exam: Present: normal exam, mucous membranes moist Neck exam: Present: normal inspection. Absent: tenderness, meningismus, lymphadenopathy Respiratory exam: Present: normal lung sounds bilaterally. Absent: respiratory distress, wheezes, rales, rhonchi, stridor Cardiovascular Exam: Present: regular rate, normal rhythm, normal heart sounds. Absent: systolic murmur, diastolic murmur, rubs, gallop, clicks Extremities exam: Present: normal inspection, full ROM, normal capillary refill. Absent: tenderness, pedal edema, joint swelling, calf tenderness Neurological exam: Present: alert, oriented X3 Psychiatric exam: Present: normal affect, normal mood Skin exam: Present: warm, dry, intact, normal color. Absent: rash Course Vital Signs 07/03/17 14:02 Temperature 97.6 F Pulse Rate 100 Respiratory 18 Rate Blood Pressure 107/62 O2 Sat by Pulse 95 Oximetry Medical Decision Making - Medical Decision Making 42-year-old male presents emergency Department chief complaint of chronic pain. We discussed we will give him naproxen help with his discomfort. We did discuss follow-up with or so in the pain clinic which is very been referred to. We discussed return parameters all patient's questions. He stated he understood and he is given plan. All questions have been answered. He will be discharged. Disposition Clinical Impression: Chronic pain Disposition: HOME SELF-CARE Condition: Stable Instructions: Chronic Pain (ED) Additional Instructions: Please use medication as discussed. Please follow up with family doctor if symptoms have not improved over the next two days. Please return to the emergency room if your symptoms increase or worsen or for any other concerns. Prescriptions: Naproxen [Naprosyn] 250 mg PO TID #10 tab Referrals: Lisseth Spence MD [STAFF PHYSICIAN] - 1-2 days Time of Disposition: 14:25
== END 2017-07-03 14:34 | disposition home or self-care (01) ==
LOC: EC 13:58
DX: G89.29 Other chronic pain (principal); M54.9 Dorsalgia, unspecified; M79.673 Pain in unspecified foot; F17.200 Nicotine dependence, unspecified, uncomplicated; Z88.5 Allergy status to narcotic agent; Z79.1 Long term (current) use of non-steroidal anti-inflammatories (NSAID); Z79.82 Long term (current) use of aspirin; Z79.899 Other long term (current) drug therapy
CPT/HCPCS: 99283

== ENCOUNTER 2017-07-09 10:51 | Emergency (ER) | payer OTHER ==
[2017-07-09 11:22] VITALS: BP 119/79; PULSE 89; RESP 16; TEMP 98.7
[2017-07-09] MEDS ORDERED: traMADol 50 MG TAB PO STA (12:19)
[2017-07-09] MEDS ORDERED: IBUPROFEN 800 MG TAB PO STA (12:19)
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
--- NOTE | 2017-07-09 12:40 | ED ---
Disposition Clinical Impression: Chronic pain Disposition: HOME SELF-CARE Condition: Good Instructions: Chronic Pain (ED) Additional Instructions: Follow-up with your insurance carrier and get assigned to a physician. Prescriptions: Ibuprofen 800 mg PO Q6HR PRN #20 tablet PRN Reason: Pain traMADol HCL [Ultram] 50 mg PO Q6HR PRN #12 tab PRN Reason: Pain Referrals: None,Stated [Primary Care Provider] - 1-2 days
== END 2017-07-09 12:45 | disposition home or self-care (01) ==
LOC: EC 10:51
DX: G89.29 Other chronic pain (principal); M79.671 Pain in right foot; M79.672 Pain in left foot; S05.11XA Contusion of eyeball and orbital tissues, right eye, initial encounter; F17.200 Nicotine dependence, unspecified, uncomplicated; Z79.82 Long term (current) use of aspirin; Z88.5 Allergy status to narcotic agent; Z88.6 Allergy status to analgesic agent; Z87.39 Personal history of other diseases of the musculoskeletal system and connective tissue; Z98.890 Other specified postprocedural states; W22.8XXA Striking against or struck by other objects, initial encounter
CPT/HCPCS: 99283

== ENCOUNTER 2017-07-22 11:36 | Emergency (ER) | payer OTHER ==
[2017-07-22 12:23] VITALS: BP 113/70; PULSE 103; RESP 18; TEMP 98.3
--- NOTE | 2017-07-22 13:38 | ED ---
Back Pain HPI - General Chief Complaint: Back Pain/Injury Stated Complaint: Feet Pain Time Seen by Provider: 07/22/17 13:05 Source: patient Limitations: physical limitation - History of Present Illness Initial Comments: 42-year-old male patient presents for evaluation of lower back and foot pain. Patient states that he has chronic pain in his lower back from a history of sacral fractures and lower back surgery. He states that he has also had surgery performed on both of his feet with several pins and plates placed. He states that his pain has been worsening over the last couple of weeks. Patient states he has been seen here for this before. States that his primary care physician will only give him anti-inflammatory pain medication which does not help his pain. He denies any new symptoms. Denies any new injuries. States this pain is consistent with his usual chronic pain symptoms. He states that he has been to see the orthopedic physician however then changes his story and states that he has an appointment with an orthopedic physician in [place]. He states that he was in to see a pain specialist however they told him they would only do injections for him and would not give him prescriptions so he is trying to get in to see someone else. He denies any loss of bowel or bladder control, denies any saddle anesthesia, denies any current numbness or tingling to his lower extremities. Patient denies any recent fever, chills, shortness breath, chest pain, abdominal pain, nausea, vomiting, diarrhea, constipation, weakness, headache, visual changes, hematuria, dysuria, urinary frequency, urinary urgency , or any other complaints. - Related Data Home Medications Medication Instructions Recorded Confirmed Acetaminophen [Tylenol] 650 mg PO BID PRN 07/09/17 07/09/17 Ibuprofen [Motrin] 400 mg PO Q6HR PRN 07/09/17 07/09/17 Baclofen [Baclofen] 10 - 20 mg PO TID 07/22/17 07/22/17 Metoprolol Tartrate [Metoprolol 25 mg PO DAILY 07/22/17 07/22/17 Tartrate] Previous Rx's Medication Instructions Recorded Naproxen [EC-Naprosyn] 500 mg PO BID PRN #30 tablet. 07/22/17 Allergies Allergy/AdvReac Type Severity Reaction Status Date / Time ketorolac [From Toradol] Allergy Swelling Verified 07/22/17 13:37 oxycodone Allergy Swelling Verified 07/22/17 13:37 Review of Systems ROS Statement: Those systems with pertinent positive or pertinent negative responses have been documented in the HPI. ROS Other: All systems not noted in ROS Statement are negative. Past Medical History Past Medical History: Asthma Additional Past Medical History / Comment(s): back pain, spinal and sacral fractures, chronic foot and shoulder pain History of Any Multi-Drug Resistant Organisms: None Reported Past Surgical History: Back Surgery, Orthopedic Surgery Additional Past Surgical History / Comment(s): pins and plates in feet Past Psychological History: Bipolar Smoking Status: Current every day smoker Past Alcohol Use History: None Reported Past Drug Use History: None Reported General Exam Limitations: physical limitation General appearance: alert, in no apparent distress, other (This is a well- developed, well-nourished adult male patient in no acute distress. Vital signs on presentation temperature 98.3F, pulse 103, respirations 18, blood pressure 113/70, pulse ox 99% on room air.) Neck exam: Present: normal inspection. Absent: tenderness, meningismus, lymphadenopathy Respiratory exam: Present: normal lung sounds bilaterally. Absent: respiratory distress, wheezes, rales, rhonchi, stridor Cardiovascular Exam: Present: regular rate, normal rhythm, normal heart sounds. Absent: systolic murmur, diastolic murmur, rubs, gallop, clicks GI/Abdominal exam: Present: soft, normal bowel sounds. Absent: distended, tenderness, guarding, rebound, rigid Extremities exam: Present: normal inspection, full ROM, tenderness (Tenderness to the plantar aspect of the right and left heel.), normal capillary refill, other (Skin to bilateral feet is pink, warm, and dry. Well-healed surgical scars noted. Cap refill is less than 3 seconds. Pedal pulses are 2+ and equal bilaterally.). Absent: pedal edema, joint swelling, calf tenderness Back exam: Present: normal inspection, other (Well-healed surgical scar over the lumbar vertebrae. No evidence of rash. Skin is pink, warm, and dry.). Absent: tenderness, vertebral tenderness Neurological exam: Present: alert, oriented X3, CN II-XII intact Psychiatric exam: Present: normal affect, normal mood Skin exam: Present: warm, dry, intact, normal color. Absent: rash Course Vital Signs 07/22/17 07/22/17 12:20 13:54 Temperature 98.3 F 98.3 F Pulse Rate 103 H 103 H Respiratory 18 18 Rate Blood Pressure 113/70 113/70 O2 Sat by Pulse 99 99 Oximetry Medical Decision Making - Medical Decision Making 42-year-old male patient presented for evaluation of chronic lower back and foot pain. Patient was requesting narcotic pain prescriptions as his anti- inflammatory prescriptions do not work. I did explain to patient that we do not give narcotics for chronic pain in the emergency department. I did do a physical exam which was unremarkable. Patient had no concerning symptoms. He does have follow-up appointments with orthopedics and pain management. I did refill his naproxen prescription for him. He was also requesting a refill on his 800 mg Neurontin as he has been unable to get in to see his psychiatrist. I informed him that this is not our specialty and that he should follow-up with his primary doctor or his psychiatrist for refills of this medication. I instructed him to return here for any new, worsening, or concerning symptoms. He verbalized understanding and agreed with this plan. Disposition Clinical Impression: Chronic back pain, Chronic foot pain Disposition: HOME SELF-CARE Condition: Good Instructions: Arthralgia (ED), Chronic Back Pain (ED) Additional Instructions: Take medications as directed. Follow-up with orthopedics and pain management as you have scheduled. Follow up with her primary care physician for recheck in 1-2 days. Return here immediately for any new, worsening, or concerning symptoms. Prescriptions: Naproxen [EC-Naprosyn] 500 mg PO BID PRN #30 tablet.dr DEL ROSARIO Reason: Pain Referrals: None,Stated [Primary Care Provider] - 1-2 days Time of Disposition: 13:37
== END 2017-07-22 13:54 | disposition home or self-care (01) ==
LOC: EC 11:36
DX: M54.5 Low back pain (principal); M79.671 Pain in right foot; M79.672 Pain in left foot; G89.29 Other chronic pain; F17.200 Nicotine dependence, unspecified, uncomplicated; Z98.890 Other specified postprocedural states; Z79.899 Other long term (current) drug therapy; Z88.5 Allergy status to narcotic agent; Z88.6 Allergy status to analgesic agent
CPT/HCPCS: 99283

== ENCOUNTER 2017-07-24 10:13 | Emergency (ER) | payer OTHER ==
[2017-07-24 10:25] VITALS: BP 110/74; PULSE 81; RESP 18; TEMP 98.8
--- NOTE | 2017-07-24 10:54 | ED ---
General Adult HPI - General Chief complaint: Extremity Injury, Lower Stated complaint: Feet and lower back pain Time Seen by Provider: 07/24/17 10:27 Source: patient, RN notes reviewed Mode of arrival: ambulatory Limitations: no limitations - History of Present Illness Initial comments: Patient is a pleasant 42-year-old male presenting to the emergency department with complaints of chronic pain. Patient states pain has been present since 1994. Patient states he had maximum at that point. Patient states since that time he has had chronic back and chronic bilateral foot pain. Patient requests pain medication. Patient states he is new to the area because he did not like the medical care in the area he was previously at. Patient did go once to see her primary care physician however only saw a practitioner and will not go back there. Patient aggressively negotiates for narcotic pain medication. Patient admits no new problems. Patient denies any weakness. -: year(s) - Related Data Home Medications Medication Instructions Recorded Confirmed Acetaminophen [Tylenol] 650 mg PO BID PRN 07/09/17 07/24/17 Ibuprofen [Motrin] 400 mg PO Q6HR PRN 07/09/17 07/24/17 Baclofen [Baclofen] 10 - 20 mg PO TID 07/22/17 07/24/17 Metoprolol Tartrate [Metoprolol 25 mg PO DAILY 07/22/17 07/24/17 Tartrate] Previous Rx's Medication Instructions Recorded Naproxen [EC-Naprosyn] 500 mg PO BID PRN #30 tablet. 07/22/17 Allergies Allergy/AdvReac Type Severity Reaction Status Date / Time ketorolac [From Toradol] Allergy Swelling Verified 07/24/17 10:27 oxycodone Allergy Swelling Verified 07/24/17 10:27 Review of Systems ROS Statement: Those systems with pertinent positive or pertinent negative responses have been documented in the HPI. ROS Other: All systems not noted in ROS Statement are negative. Constitutional: Denies: fever Eyes: Denies: eye pain ENT: Denies: ear pain Respiratory: Denies: cough Cardiovascular: Denies: chest pain Endocrine: Denies: fatigue Gastrointestinal: Denies: abdominal pain Genitourinary: Denies: dysuria Musculoskeletal: Reports: back pain (Chronic) Skin: Denies: rash Neurological: Denies: weakness Past Medical History Past Medical History: Asthma Additional Past Medical History / Comment(s): back pain, spinal and sacral fractures, chronic foot and shoulder pain History of Any Multi-Drug Resistant Organisms: None Reported Past Surgical History: Back Surgery, Orthopedic Surgery Additional Past Surgical History / Comment(s): pins and plates in feet Past Psychological History: Bipolar Smoking Status: Current every day smoker Past Alcohol Use History: None Reported Past Drug Use History: None Reported General Exam Limitations: no limitations General appearance: alert, in no apparent distress Head exam: Present: atraumatic Eye exam: Present: normal appearance, PERRL ENT exam: Present: normal oropharynx Neck exam: Present: normal inspection Respiratory exam: Present: normal lung sounds bilaterally Cardiovascular Exam: Present: regular rate, normal rhythm Expanded Peripheral pulses: 2+: Dorsalis Pedis (R), Dorsalis Pedis (L) GI/Abdominal exam: Present: soft. Absent: tenderness Extremities exam: Absent: tenderness Back exam: Present: normal inspection. Absent: tenderness Neurological exam: Present: alert. Absent: motor sensory deficit Expanded Sensory exam: Lower Extremity Light Touch: Normal Motor strength exam: RLE: 5, LLE: 5 Psychiatric exam: Present: normal affect, normal mood Skin exam: Present: normal color Course Vital Signs 07/24/17 10:22 Temperature 98.8 F Pulse Rate 81 Respiratory 18 Rate Blood Pressure 110/74 O2 Sat by Pulse 99 Oximetry - Reevaluation(s) Reevaluation #1: 07/24/17 10:53 MAPS report was done. Medical Decision Making - Medical Decision Making Patient reevaluated and resting comfortably in bed. Patient continues to repeatedly request narcotic pain medication. Patient updated on results and need to follow-up with primary care physician. Patient refuses anti- inflammatories when offered. - Radiology Data Radiology results: image reviewed (Lumbar x-ray reveals no acute process) Disposition Clinical Impression: Chronic pain Disposition: HOME SELF-CARE Condition: Stable Instructions: Chronic Pain (ED) Additional Instructions: Please follow-up with primary care physician in the next day or 2 for recheck. Return for change or worsening of symptoms. Referrals: Peri Kaye MD [STAFF PHYSICIAN] - 1-2 days Abhijit Valentine DO [Doctor of Osteopathic Medicine] - 1-2 days Raymond Gonzalez DPM [STAFF PHYSICIAN] - 1-2 days Time of Disposition: 12:00
--- NOTE | 2017-07-24 11:24 | XR ---
EXAMINATION TYPE: XR lumbar spine 2 or 3V DATE OF EXAM: 07/24/2017 CLINICAL HISTORY: pain TECHNIQUE: Three views of the lumbar spine are submitted. COMPARISON: None. FINDINGS: There are 5 lumbar type vertebral bodies identified. The lumbar spine shows satisfactory alignment w ithout evidence of acute fracture or dislocation. Vertebral body heights are within normal limits. Disc spaces are within normal limits. The overlying soft tissue appears unremarkable. IMPRESSION: No acute fracture or dislocation is seen in the lumbar spine. ICD 10 NO FRACTURE, INITIAL EVALUATION
== END 2017-07-24 12:20 | disposition home or self-care (01) ==
LOC: EC 10:13
DX: G89.29 Other chronic pain (principal); M54.5 Low back pain; M79.672 Pain in left foot; M79.671 Pain in right foot; F17.200 Nicotine dependence, unspecified, uncomplicated; Z79.899 Other long term (current) drug therapy; Z88.5 Allergy status to narcotic agent; Z88.6 Allergy status to analgesic agent; Z87.39 Personal history of other diseases of the musculoskeletal system and connective tissue; Z98.890 Other specified postprocedural states
CPT/HCPCS: 72100; 99283

== ENCOUNTER 2017-07-28 11:44 | Emergency (ER) | payer OTHER ==
[2017-07-28 11:56] VITALS: BP 126/59; PULSE 80; RESP 16; TEMP 97.7
[2017-07-28] MEDS ORDERED: IBUPROFEN 800 MG TAB PO STA (12:31)
[2017-07-28] MEDS ORDERED: HYDROmorphone 0.5 MG/0.5 ML SYRINGE IVP STA (12:31)
--- NOTE | 2017-07-28 12:36 | ED ---
General Adult HPI - General Chief complaint: Back Pain/Injury Stated complaint: Back Pain Time Seen by Provider: 07/28/17 11:59 Source: patient, RN notes reviewed, old records reviewed Mode of arrival: ambulatory Limitations: no limitations - History of Present Illness Initial comments: This is a 42-year-old male to the ER for evaluation. This patient presents today for evaluation regarding back pain. Acute on chronic back pain history of chronic back pain. Patient coming dearly is a second visit in 3 days as needed follow-up back pain for pain. Patient has history of multiple surgeries , denies any new trauma. No significant neurological deficit - Related Data Home Medications Medication Instructions Recorded Confirmed Baclofen [Baclofen] 10 - 20 mg PO TID 07/22/17 07/28/17 Metoprolol Tartrate [Metoprolol 25 mg PO BID 07/22/17 07/28/17 Tartrate] Aspirin EC [Ecotrin Low Dose] 81 mg PO DAILY 07/28/17 07/28/17 Gabapentin 800 mg PO TID 07/28/17 07/28/17 Ibuprofen [Motrin] 800 mg PO Q8H PRN 07/28/17 07/28/17 Previous Rx's Medication Instructions Recorded Naproxen [EC-Naprosyn] 500 mg PO BID PRN #30 tablet. 07/22/17 Allergies Allergy/AdvReac Type Severity Reaction Status Date / Time ketorolac [From Toradol] Allergy Unknown Verified 07/28/17 12:15 oxycodone Allergy Unknown Verified 07/28/17 12:15 Review of Systems ROS Statement: Those systems with pertinent positive or pertinent negative responses have been documented in the HPI. ROS Other: All systems not noted in ROS Statement are negative. Past Medical History Past Medical History: Asthma Additional Past Medical History / Comment(s): back pain, spinal and sacral fractures, chronic foot and shoulder pain History of Any Multi-Drug Resistant Organisms: None Reported Past Surgical History: Back Surgery, Orthopedic Surgery Additional Past Surgical History / Comment(s): pins and plates in feet Past Psychological History: Bipolar Smoking Status: Current every day smoker Past Alcohol Use History: None Reported Past Drug Use History: None Reported General Exam Limitations: no limitations General appearance: alert, in no apparent distress Head exam: Present: atraumatic, normocephalic, normal inspection Eye exam: Present: normal appearance, PERRL, EOMI. Absent: scleral icterus, conjunctival injection, periorbital swelling ENT exam: Present: normal exam, mucous membranes moist Neck exam: Present: normal inspection. Absent: tenderness, meningismus, lymphadenopathy Respiratory exam: Present: normal lung sounds bilaterally. Absent: respiratory distress, wheezes, rales, rhonchi, stridor Cardiovascular Exam: Present: regular rate, normal rhythm, normal heart sounds. Absent: systolic murmur, diastolic murmur, rubs, gallop, clicks GI/Abdominal exam: Present: soft, normal bowel sounds. Absent: distended, tenderness, guarding, rebound, rigid Extremities exam: Present: normal inspection, full ROM, normal capillary refill. Absent: tenderness, pedal edema, joint swelling, calf tenderness Back exam: Present: normal inspection Neurological exam: Present: alert, oriented X3, CN II-XII intact Psychiatric exam: Present: normal affect, normal mood Skin exam: Present: warm, dry, intact, normal color. Absent: rash Course Vital Signs 07/28/17 11:54 Temperature 97.7 F Pulse Rate 80 Respiratory 16 Rate Blood Pressure 126/59 O2 Sat by Pulse 98 Oximetry - Reevaluation(s) Reevaluation #1: 07/28/17 12:35 medical record is reviewed Medical Decision Making - Medical Decision Making 42 maleate with acute on chronic back pain. Patient's back pain is chronic in nature as well as heel pain. Patient will be given follow-up for podiatry regarding heel pain and back pain medication for his chronic pain Disposition Clinical Impression: Chronic pain, Chronic back pain, Chronic foot pain Disposition: HOME SELF-CARE Condition: Good Instructions: Acute Low Back Pain (ED), Chronic Back Pain (ED) Referrals: Raymond Gonzalez DPM [STAFF PHYSICIAN] - 1-2 days
[2017-07-28] MEDS ORDERED: HYDROmorphone 2 MG/ML 1 ML SYRINGE IVP STA (12:40)
== END 2017-07-28 12:50 | disposition home or self-care (01) ==
LOC: EC 11:44
DX: G89.29 Other chronic pain (principal); M54.9 Dorsalgia, unspecified; M79.673 Pain in unspecified foot; F17.200 Nicotine dependence, unspecified, uncomplicated; Z88.5 Allergy status to narcotic agent; Z79.82 Long term (current) use of aspirin; Z79.899 Other long term (current) drug therapy
CPT/HCPCS: 99284 ×2; 96374 ×2; J1170

== ENCOUNTER 2017-08-05 10:08 | Emergency (ER) | payer OTHER ==
[2017-08-05 10:17] VITALS: BP 116/62; PULSE 82; RESP 16; TEMP 98.2
[2017-08-05] MEDS ORDERED: ACETAMINOPHEN TAB 500 MG TAB PO STA (10:36)
--- NOTE | 2017-08-05 10:41 | ED ---
General Adult HPI - General Chief complaint: Back Pain/Injury Stated complaint: Lower Back and Feet Pain Time Seen by Provider: 08/05/17 10:24 Source: patient, RN notes reviewed Mode of arrival: ambulatory Limitations: no limitations - History of Present Illness Initial comments: 42-year-old male presents to the emergency department with a chief complaint of chronic pain. He states that he would like something better than Motrin. . He states that this is a chronic pain and he always has. He states that he sustained see a fitness sales associate sneezing pain management. He states that he is here for something to help control his pain. He states that his pain is excruciating.Patient denies any recent fever, chills, shortness of breath, chest pain, abdominal pain, nausea vomiting, numbness or tingling, dysuria or hematuria, constipation or diarrhea, headaches or visual changes, or any other current symptoms. - Related Data Home Medications Medication Instructions Recorded Confirmed Baclofen [Baclofen] 10 - 20 mg PO TID 07/22/17 08/05/17 Metoprolol Tartrate [Metoprolol 25 mg PO BID 07/22/17 08/05/17 Tartrate] Aspirin EC [Ecotrin Low Dose] 81 mg PO DAILY 07/28/17 08/05/17 Ibuprofen [Motrin] 800 mg PO Q8H PRN 07/28/17 08/05/17 Previous Rx's Medication Instructions Recorded Naproxen [EC-Naprosyn] 500 mg PO BID PRN #30 tablet. 07/22/17 Allergies Allergy/AdvReac Type Severity Reaction Status Date / Time No Known Allergies Allergy Verified 08/05/17 10:27 Review of Systems ROS Statement: Those systems with pertinent positive or pertinent negative responses have been documented in the HPI. ROS Other: All systems not noted in ROS Statement are negative. Past Medical History Past Medical History: Asthma Additional Past Medical History / Comment(s): back pain, spinal and sacral fractures, chronic foot and shoulder pain History of Any Multi-Drug Resistant Organisms: None Reported Past Surgical History: Back Surgery, Orthopedic Surgery Additional Past Surgical History / Comment(s): pins and plates in feet Past Psychological History: Bipolar Smoking Status: Current every day smoker Past Alcohol Use History: None Reported Past Drug Use History: None Reported General Exam Limitations: no limitations General appearance: alert, in no apparent distress ENT exam: Present: normal exam, mucous membranes moist Neck exam: Present: normal inspection. Absent: tenderness, meningismus, lymphadenopathy Respiratory exam: Present: normal lung sounds bilaterally. Absent: respiratory distress, wheezes, rales, rhonchi, stridor Cardiovascular Exam: Present: regular rate, normal rhythm, normal heart sounds. Absent: systolic murmur, diastolic murmur, rubs, gallop, clicks Extremities exam: Present: normal inspection, full ROM, normal capillary refill. Absent: tenderness, pedal edema, joint swelling, calf tenderness Back exam: Present: normal inspection, full ROM. Absent: tenderness Neurological exam: Present: alert, oriented X3 Psychiatric exam: Present: normal affect, normal mood Course Vital Signs 08/05/17 10:15 Temperature 98.2 F Pulse Rate 82 Respiratory 16 Rate Blood Pressure 116/62 O2 Sat by Pulse 98 Oximetry Medical Decision Making - Medical Decision Making 42-year-old male who is a frequent visitor to the emergency department who frequently once narcotic medication and whose maps report shows multiple medications is requesting a narcotic prescription. This time we discussed we will give him Tylenol for his pain. We discussed will not give him any narcotics. We did discuss that he needs to follow-up with his primary care doctor or pain management doctor for further pain issues. At this time the patient will be discharged. He stated he understood. Return parameters were discussed. Disposition Clinical Impression: Chronic back pain, Drug-seeking behavior Disposition: HOME SELF-CARE Condition: Stable Instructions: Chronic Back Pain (ED) Additional Instructions: Please use medication as discussed. Please follow up with family doctor if symptoms have not improved over the next two days. Please return to the emergency room if your symptoms increase or worsen or for any other concerns. Referrals: Boston Dwyer MD [STAFF PHYSICIAN] - 1-2 days Time of Disposition: 10:41
== END 2017-08-05 10:57 | disposition home or self-care (01) ==
LOC: EC 10:08
DX: M54.5 Low back pain (principal); G89.29 Other chronic pain; M79.671 Pain in right foot; M79.672 Pain in left foot; Z76.5 Malingerer [conscious simulation]; F17.200 Nicotine dependence, unspecified, uncomplicated; Z98.890 Other specified postprocedural states; Z79.82 Long term (current) use of aspirin; Z79.899 Other long term (current) drug therapy
CPT/HCPCS: 99283

== ENCOUNTER 2017-08-06 10:52 | Emergency (ER) | payer OTHER ==
[2017-08-06 10:56] VITALS: BP 140/77; PULSE 90; RESP 20; TEMP 98
--- NOTE | 2017-08-06 11:11 | ED ---
General Adult HPI - General Chief complaint: Back Pain/Injury Stated complaint: feet and lower back pain Time Seen by Provider: 08/06/17 10:55 Source: patient, RN notes reviewed Mode of arrival: ambulatory Limitations: no limitations - History of Present Illness Initial comments: This is a 42-year-old male who presents emergency Department asking for pain medication. Patient has been emergency department many times in the last 2 months asking for pain medication. Patient states she's got chronic pain in his feet and his back. Patient denies any recent fever chills patient denies any new injury or trauma. Patient states all the pain that he is here for is chronic. Patient states he wants pain medication when I informed him that he was not going to get any pain medication he got up and left. - Related Data Home Medications Medication Instructions Recorded Confirmed Baclofen [Baclofen] 10 - 20 mg PO TID 07/22/17 08/06/17 Metoprolol Tartrate [Metoprolol 25 mg PO BID 07/22/17 08/06/17 Tartrate] Aspirin EC [Ecotrin Low Dose] 81 mg PO DAILY 07/28/17 08/06/17 Ibuprofen [Motrin] 800 mg PO Q8H PRN 07/28/17 08/06/17 Previous Rx's Medication Instructions Recorded Naproxen [EC-Naprosyn] 500 mg PO BID PRN #30 tablet. 07/22/17 Allergies Allergy/AdvReac Type Severity Reaction Status Date / Time No Known Allergies Allergy Verified 08/06/17 11:01 Review of Systems ROS Statement: Those systems with pertinent positive or pertinent negative responses have been documented in the HPI. ROS Other: All systems not noted in ROS Statement are negative. Past Medical History Past Medical History: Asthma Additional Past Medical History / Comment(s): back pain, spinal and sacral fractures, chronic foot and shoulder pain History of Any Multi-Drug Resistant Organisms: None Reported Past Surgical History: Back Surgery, Orthopedic Surgery Additional Past Surgical History / Comment(s): pins and plates in feet Past Psychological History: Bipolar Smoking Status: Current every day smoker Past Alcohol Use History: None Reported Past Drug Use History: None Reported General Exam - General Exam Comments Initial Comments: GENERAL Patient is well-developed and well-nourished. Patient is in no acute distress EYES Patient's pupils are equal and round. Extraocular motion is intact SKIN Unremarkable NEURO The patient is alert and oriented 3 PYSCH Patient has normal interpersonal interactions. MUSCULOSKELETAL All 4 times and full range of motion Limitations: no limitations Course Vital Signs 08/06/17 10:54 Temperature 98.0 F Pulse Rate 90 Respiratory 20 Rate Blood Pressure 140/77 O2 Sat by Pulse 98 Oximetry Disposition Clinical Impression: Drug-seeking behavior, Chronic foot pain Disposition: HOME SELF-CARE Referrals: None,Stated [Primary Care Provider] - 1-2 days Time of Disposition: 11:10
== END 2017-08-06 11:26 | disposition home or self-care (01) ==
LOC: EC 10:52
DX: M79.671 Pain in right foot (principal); M79.672 Pain in left foot; G89.29 Other chronic pain; M54.5 Low back pain; Z76.5 Malingerer [conscious simulation]; F17.200 Nicotine dependence, unspecified, uncomplicated; Z79.82 Long term (current) use of aspirin; Z79.899 Other long term (current) drug therapy; Z98.890 Other specified postprocedural states
CPT/HCPCS: 99282

== ENCOUNTER 2017-08-11 10:51 | Emergency (ER) | payer OTHER ==
[2017-08-11 11:09] VITALS: BP 141/88; PULSE 102; RESP 16; TEMP 98
--- NOTE | 2017-08-11 11:52 | ED ---
General Adult HPI - General Chief complaint: Back Pain/Injury Stated complaint: Foot/Back pain Time Seen by Provider: 08/11/17 11:15 Source: patient, RN notes reviewed, old records reviewed Mode of arrival: ambulatory Limitations: no limitations - History of Present Illness Initial comments: Patient is a 42-year-old male who is well-known to the emergency room who is presenting for chronic pain. He states that he is to see dial painter. He states he has chronic back and chronic feet pain. Patient states that he does not have any pain medication at home. He denies any injury or trauma. Patient states that he would like to be admitted to the hospital for his chronic problem specific recent surgery for them. He states he has been trying follow-up with a new pain specialist. He is unsure the name. He states he did go to a nurses director earlier who would not provide pain management for him. Patient denies any new symptoms. He denies any new injuries. Patient denies any recent fever, chills, shortness of breath, chest pain, abdominal pain , nausea or vomiting, dysuria or hematuria, constipation or diarrhea, headaches or visual changes, or any other complaints. - Related Data Home Medications Medication Instructions Recorded Confirmed Baclofen [Baclofen] 10 - 20 mg PO TID 07/22/17 08/11/17 Metoprolol Tartrate [Metoprolol 25 mg PO DAILY 07/22/17 08/11/17 Tartrate] Aspirin EC [Ecotrin Low Dose] 81 mg PO DAILY 07/28/17 08/11/17 Ibuprofen [Motrin] 800 mg PO Q8H PRN 07/28/17 08/11/17 Previous Rx's Medication Instructions Recorded Naproxen [EC-Naprosyn] 500 mg PO BID PRN #30 tablet. 07/22/17 Allergies Allergy/AdvReac Type Severity Reaction Status Date / Time No Known Allergies Allergy Verified 08/11/17 11:19 Review of Systems ROS Statement: Those systems with pertinent positive or pertinent negative responses have been documented in the HPI. ROS Other: All systems not noted in ROS Statement are negative. Past Medical History Past Medical History: Asthma Additional Past Medical History / Comment(s): back pain, spinal and sacral fractures, chronic foot and shoulder pain History of Any Multi-Drug Resistant Organisms: None Reported Past Surgical History: Back Surgery, Orthopedic Surgery Additional Past Surgical History / Comment(s): pins and plates in feet Past Psychological History: Bipolar Smoking Status: Current every day smoker Past Alcohol Use History: None Reported Past Drug Use History: None Reported General Exam - General Exam Comments Initial Comments: General: The patient is awake and alert, in no distress, and does not appear acutely ill. Eye: Pupils are equal, round and reactive to light, extra-ocular movements are intact. No nystagmus. There is normal conjunctiva bilaterally. No signs of icterus. Ears, nose, mouth and throat: There are moist mucous membranes and no oral lesions. Neck: The neck is supple, there is no tenderness or JVD. Musculoskeletal: Normal ROM. Strength 5/5. Sensation intact. Pulses equal bilaterally 2+. Neurological: A&O x 3. CN II-XII intact, There are no obvious motor or sensory deficits. Coordination appears grossly intact. Speech is normal. Skin: Skin is warm and dry and no rashes or lesions are noted. Psychiatric: Cooperative, appropriate mood & affect, normal judgment. Limitations: no limitations Course Vital Signs 08/11/17 11:07 Temperature 98.0 F Pulse Rate 102 H Respiratory 16 Rate Blood Pressure 141/88 O2 Sat by Pulse 97 Oximetry Medical Decision Making - Medical Decision Making Case discussed in detail with attending physician Dr. Turner. Long conversation was had with patient at bedside about his chronic pain. He is advised that we will not be able to fill any of his chronic pain medications. He is advised that he does need follow-up with a pain specialist. Is advised to is no reason that he needs to be admitted here today for these chronic conditions. Patient states he has been trying follow-up with pain management. He is advised he may also try to follow-up with orthopedic doctor. He will be provided the vehicle monitor technician [place] as a option. Patient will be discharged. Disposition Clinical Impression: Chronic pain Disposition: HOME SELF-CARE Condition: Good Instructions: Chronic Back Pain (ED) Additional Instructions: Please continue to follow up with pain management as discussed. Please follow- up with orthopedic doctor. Please return here to the emergency room symptoms increase worsen appropriate concerns. Referrals: None,Stated [Primary Care Provider] - 1-2 days Audi Henning MD [Medical Doctor] - 1-2 days Time of Disposition: 11:50
== END 2017-08-11 12:11 | disposition home or self-care (01) ==
LOC: EC 10:51
DX: G89.29 Other chronic pain (principal); M54.9 Dorsalgia, unspecified; M79.671 Pain in right foot; M79.672 Pain in left foot; F17.200 Nicotine dependence, unspecified, uncomplicated; Z79.82 Long term (current) use of aspirin; Z79.899 Other long term (current) drug therapy
CPT/HCPCS: 99283

== ENCOUNTER 2017-08-25 10:52 | Emergency (ER) | payer OTHER ==
[2017-08-25 11:03] VITALS: BP 117/80; PULSE 76; RESP 16; TEMP 97.8
[2017-08-25] MEDS ORDERED: ORPHENADRINE 30 MG/ML 2 ML VIAL IM STA (11:28)
--- NOTE | 2017-08-25 11:30 | ED ---
Extremity Problem HPI - General Chief complaint: Extremity Problem,Nontraumatic Stated complaint: Foot Pain Time Seen by Provider: 08/25/17 11:06 Source: patient, RN notes reviewed, old records reviewed Mode of arrival: ambulatory Limitations: no limitations - History of Present Illness Initial comments: This is a 42-year-old male presents emergency Department chief complaining of chronic pain in his back and feet. Patient reports no recent falls or any new trauma. Patient states that he believes that he is a candidate for narcotic pain medicine. He states multiple times that he used to be on morphine, and now he does not get this anymore. Patient states that he feels like he has not been treated well here in the past. Patient states that he has no recent fever or chills, denies any saddle anesthesias. Patient reports that his pain is mainly in his bilateral feet. He reports he has surgery 1994 to repair bilateral calcaneal fractures after he fell. Patient has well-healed incisions.Patient denies any recent fever, chills, shortness of breath, chest pain, back pain, abdominal pain, nausea vomiting, numbness or tingling, dysuria or hematuria, constipation or diarrhea, headaches or visual changes, or any other current symptoms - Related Data Home Medications Medication Instructions Recorded Confirmed Baclofen [Baclofen] 10 - 20 mg PO TID 07/22/17 08/25/17 Previous Rx's Medication Instructions Recorded Naproxen [EC-Naprosyn] 500 mg PO BID PRN #30 tablet. 07/22/17 Aspirin EC [Ecotrin Low Dose] 81 mg PO DAILY #30 tablet. 08/19/17 Ibuprofen [Motrin] 800 mg PO Q8H PRN 30 Days tab 08/19/17 Metoprolol Tartrate [Metoprolol 25 mg PO DAILY #30 tablet 08/19/17 Tartrate] predniSONE 50 mg PO DAILY #5 tab 08/19/17 Allergies Allergy/AdvReac Type Severity Reaction Status Date / Time No Known Allergies Allergy Verified 08/25/17 11:18 Review of Systems ROS Statement: Those systems with pertinent positive or pertinent negative responses have been documented in the HPI. ROS Other: All systems not noted in ROS Statement are negative. Past Medical History Past Medical History: Asthma Additional Past Medical History / Comment(s): back pain, spinal and sacral fractures, chronic foot and shoulder pain History of Any Multi-Drug Resistant Organisms: None Reported Past Surgical History: Back Surgery, Orthopedic Surgery Additional Past Surgical History / Comment(s): pins and plates in feet Past Psychological History: Bipolar Smoking Status: Current every day smoker Past Alcohol Use History: None Reported Past Drug Use History: None Reported General Exam - General Exam Comments Initial Comments: This is a 42-year-old. No acute distress. Limitations: no limitations General appearance: alert, in no apparent distress Head exam: Present: atraumatic, normocephalic, normal inspection Eye exam: Present: normal appearance, PERRL, EOMI. Absent: scleral icterus, conjunctival injection, periorbital swelling ENT exam: Present: normal exam, mucous membranes moist Neck exam: Present: normal inspection. Absent: tenderness, meningismus, lymphadenopathy Respiratory exam: Present: normal lung sounds bilaterally. Absent: respiratory distress, wheezes, rales, rhonchi, stridor Cardiovascular Exam: Present: regular rate, normal rhythm, normal heart sounds. Absent: systolic murmur, diastolic murmur, rubs, gallop, clicks GI/Abdominal exam: Present: soft, normal bowel sounds. Absent: distended, tenderness, guarding, rebound, rigid Extremities exam: Present: normal inspection, full ROM, normal capillary refill , other (Healed incision site over bilateral feet. No erythema. Normal pulses distally. Normal capillary refill. Normal sensation.). Absent: tenderness, pedal edema, joint swelling, calf tenderness Back exam: Present: normal inspection Neurological exam: Present: alert, oriented X3, CN II-XII intact Psychiatric exam: Present: normal affect, normal mood Skin exam: Present: warm, dry, intact, normal color. Absent: rash Course Vital Signs 08/25/17 11:00 Temperature 97.8 F Pulse Rate 76 Respiratory 16 Rate Blood Pressure 117/80 O2 Sat by Pulse 100 Oximetry Medical Decision Making - Medical Decision Making 42-year-old male presents emergency room chief complaint chronic pain in his back and bilateral feet. Patient states that he feels that he is a candidate for narcotic pain medicine. Discussed that will not manage his chronic pain in the emergency department. He has been seen multiple times for similar complaints. He has normal sensation in his feet, normal pulses distally. No erythema or obvious deformities. His back also appears to be normal. Patient made multiple statements stating that he needs narcotic pain medicine. Discussed I can give him a shot of Toradol and Norflex. Patient states he does not take Toradol as it does not work. She was offered 39 g of Norflex IM. Patient was given this. Patient will be discharged with follow-up with pain management. Disposition Clinical Impression: Drug-seeking behavior, Chronic pain Disposition: HOME SELF-CARE Condition: Good Instructions: Chronic Pain (ED) Additional Instructions: Patient advised to continue to take Motrin and Tylenol for pain. Follow-up with ear ornamental painter. Return to emergency department if any alarming signs or symptoms occur. Referrals: None,Stated [Primary Care Provider] - 1-2 days Time of Disposition: 11:29
== END 2017-08-25 11:47 | disposition home or self-care (01) ==
LOC: EC 10:52
DX: G89.29 Other chronic pain (principal); M79.671 Pain in right foot; M79.672 Pain in left foot; M54.9 Dorsalgia, unspecified; Z76.5 Malingerer [conscious simulation]; F31.9 Bipolar disorder, unspecified; F17.200 Nicotine dependence, unspecified, uncomplicated; Z87.828 Personal history of other (healed) physical injury and trauma; Z79.899 Other long term (current) drug therapy
CPT/HCPCS: 99283; 96372; J2360

== ENCOUNTER 2017-09-08 14:40 | Emergency (ER) | payer OTHER ==
[2017-09-08 14:44] VITALS: BP 128/91; PULSE 88; RESP 20; TEMP 97.8
[2017-09-08] MEDS ORDERED: KETOROLAC 30 MG/ML 1 ML VIAL IM STA (15:03)
--- NOTE | 2017-09-08 15:16 | ED ---
General Adult HPI - General Chief complaint: Recheck/Abnormal Lab/Rx Stated complaint: pain Time Seen by Provider: 09/08/17 14:47 Source: patient, RN notes reviewed Mode of arrival: ambulatory Limitations: no limitations - History of Present Illness Initial comments: This is a 42-year-old male who presents to the emergency department chief complaint of feet pain. Patient has a known history of chronic pain and has been seen at the emergency department multiple times for this complaint. He states that he believes he has compound fractures in both feet, however he states he ambulates normally. He states he was seen by his PCP this morning who refused to prescribe him pain medication other than Ultram and ibuprofen. He states that his PCP is no longer his PCP and will not see him in the future. He states he believes he should be receiving narcotic pain medication for his chronic, excruciating pain. Patient denies any new falls, injury or trauma. Patient states that if he receives x-rays of his feet today in the emergency department he would like to be monitored and have me read the x-rays myself so that he is not "duped." He states in the past he was seen at an emergency department and they misdiagnosed him on purpose. Refuses x-ray of feet when told fractures of feet do not warrant admission to the hospital. Denies recent fever, chills, chest pain, shortness of breath, abdominal pain, nausea or vomiting, constipation or diarrhea, dysuria or hematuria, numbness or tingling, headache or vision changes. - Related Data Home Medications Medication Instructions Recorded Confirmed Baclofen [Baclofen] 10 - 20 mg PO TID 07/22/17 08/25/17 Previous Rx's Medication Instructions Recorded Naproxen [EC-Naprosyn] 500 mg PO BID PRN #30 tablet. 07/22/17 Aspirin EC [Ecotrin Low Dose] 81 mg PO DAILY #30 tablet. 08/19/17 Ibuprofen [Motrin] 800 mg PO Q8H PRN 30 Days tab 08/19/17 Metoprolol Tartrate [Metoprolol 25 mg PO DAILY #30 tablet 08/19/17 Tartrate] predniSONE 50 mg PO DAILY #5 tab 08/19/17 Allergies Allergy/AdvReac Type Severity Reaction Status Date / Time No Known Allergies Allergy Verified 09/08/17 14:44 Review of Systems ROS Statement: Those systems with pertinent positive or pertinent negative responses have been documented in the HPI. ROS Other: All systems not noted in ROS Statement are negative. Past Medical History Past Medical History: Asthma Additional Past Medical History / Comment(s): back pain, spinal and sacral fractures, chronic foot and shoulder pain History of Any Multi-Drug Resistant Organisms: None Reported Past Surgical History: Back Surgery, Orthopedic Surgery Additional Past Surgical History / Comment(s): pins and plates in feet Past Psychological History: Bipolar Smoking Status: Current every day smoker Past Alcohol Use History: None Reported Past Drug Use History: None Reported General Exam - General Exam Comments Initial Comments: General: Awake and alert, well-developed; in no apparent distress. HEENT: Head atraumatic, normocephalic. Pupils are equal, round and reactive to light. Extraocular movements intact. Oropharynx moist without erythema or exudate. Neck: Supple. Normal ROM. Cardiovascular: Regular rate and rhythm. No murmurs, rubs or gallops. Chest symmetrical. Respiratory: Lungs clear to auscultation bilaterally. No wheezes, rales or rhonchi. Normal respiratory effort with no use of accessory muscles. Musculoskeletal: Normal ROM and no tenderness on palpation of bilateral feet. Sensation is intact. Pedal pulses are 2+ equal and palpable bilaterally. No swelling or erythema noted. Skin: [place], warm and dry without rashes or lesions. Neurological: Alert and oriented x3. CN II-XII grossly intact. Speech is fluent and answers are appropriate. No focal neuro deficits. Psychiatric: Normal mood and affect. No overt signs of depression or anxiety noted. Limitations: no limitations Course Vital Signs 09/08/17 14:42 Temperature 97.8 F Pulse Rate 88 Respiratory 20 Rate Blood Pressure 128/91 O2 Sat by Pulse 98 Oximetry Medical Decision Making - Medical Decision Making This is a 42-year-old male who presents to the emergency department with chief complaint of bilateral foot pain. He believes he has compound fractures, however states he is ambulating normally. Refuses x-ray of bilateral feet when informed that feet fractures do not warrant admission to the hospital. Patient has been seen here multiple times with complaints of chronic pain. Discussed with patient that we will not manage chronic pain in the emergency department. Recommended follow-up with his primary care provider. Offered Toradol to the patient, which he accepted. He is in no acute distress. Patient will be discharged home. Disposition Clinical Impression: Chronic pain, Drug-seeking behavior Disposition: HOME SELF-CARE Condition: Good Instructions: Non-pharmacological Pain Management Therapies for Adults (ED) Additional Instructions: Take ibuprofen or Motrin as needed for pain management. Please follow up with primary care provider within 1-2 days. Return to emergency department if alarming symptoms should occur. Referrals: None,Stated [Primary Care Provider] - 1-2 days Time of Disposition: 15:17
== END 2017-09-08 15:30 | disposition home or self-care (01) ==
LOC: EC 14:40
DX: G89.29 Other chronic pain (principal); M79.671 Pain in right foot; M79.672 Pain in left foot; F17.200 Nicotine dependence, unspecified, uncomplicated; Z76.5 Malingerer [conscious simulation]; Z79.899 Other long term (current) drug therapy
CPT/HCPCS: 99283; 96372; J1885

== ENCOUNTER 2017-09-13 10:07 | Emergency (ER) | payer OTHER ==
[2017-09-13 10:18] VITALS: BP 109/72; PULSE 99; RESP 18; TEMP 98
--- NOTE | 2017-09-13 11:11 | ED ---
General Adult HPI - General Chief complaint: Back Pain/Injury Stated complaint: pain in feet and back Time Seen by Provider: 09/13/17 10:38 Source: patient, RN notes reviewed Mode of arrival: ambulatory Limitations: no limitations - History of Present Illness Initial comments: Patient is a 42-year-old male who presents emergency room today with a chief complaint of chronic back and foot pain. Patient's been seen multiple times for this complaint in the emergency room. He states that he needs something for his pain. He states he has been trying to follow-up family doctor. He denies any new injury or trauma. Patient denies any recent fever, chills, shortness of breath, chest pain, headaches or visual changes, or any other complaints. - Related Data Home Medications Medication Instructions Recorded Confirmed Baclofen [Baclofen] 10 - 20 mg PO TID 07/22/17 08/25/17 Previous Rx's Medication Instructions Recorded Naproxen [EC-Naprosyn] 500 mg PO BID PRN #30 tablet. 07/22/17 Aspirin EC [Ecotrin Low Dose] 81 mg PO DAILY #30 tablet. 08/19/17 Ibuprofen [Motrin] 800 mg PO Q8H PRN 30 Days tab 08/19/17 Metoprolol Tartrate [Metoprolol 25 mg PO DAILY #30 tablet 08/19/17 Tartrate] predniSONE 50 mg PO DAILY #5 tab 08/19/17 Baclofen 10 mg PO TID #20 tab 09/13/17 Ibuprofen [Motrin] 800 mg PO Q6HR #30 tab 09/13/17 Allergies Allergy/AdvReac Type Severity Reaction Status Date / Time No Known Allergies Allergy Verified 09/13/17 10:18 Review of Systems ROS Statement: Those systems with pertinent positive or pertinent negative responses have been documented in the HPI. ROS Other: All systems not noted in ROS Statement are negative. Past Medical History Past Medical History: Asthma Additional Past Medical History / Comment(s): back pain, spinal and sacral fractures, chronic foot and shoulder pain History of Any Multi-Drug Resistant Organisms: None Reported Past Surgical History: Back Surgery, Orthopedic Surgery Additional Past Surgical History / Comment(s): pins and plates in feet Past Psychological History: Bipolar Smoking Status: Current every day smoker Past Alcohol Use History: None Reported Past Drug Use History: None Reported General Exam - General Exam Comments Initial Comments: General: The patient is awake and alert, in no distress, and does not appear acutely ill. Eye: Pupils are equal, round and reactive to light, extra-ocular movements are intact. No nystagmus. There is normal conjunctiva bilaterally. No signs of icterus. Ears, nose, mouth and throat: There are moist mucous membranes and no oral lesions. Neck: The neck is supple, there is no tenderness or JVD. Musculoskeletal: Normal ROM, no tenderness. Strength 5/5. Sensation intact. Pulses equal bilaterally 2+. Neurological: A&O x 3. CN II-XII intact, There are no obvious motor or sensory deficits. Coordination appears grossly intact. Speech is normal. Skin: Skin is warm and dry and no rashes or lesions are noted. Psychiatric: Cooperative, appropriate mood & affect, normal judgment. Limitations: no limitations Course Vital Signs 09/13/17 10:16 Temperature 98.0 F Pulse Rate 99 Respiratory 18 Rate Blood Pressure 109/72 O2 Sat by Pulse 95 Oximetry Medical Decision Making - Medical Decision Making I advised patient that we would not write him any narcotic pain medications. He has requested refills HIS ibuprofen and baclofen. We will try to refills for this prescription today. Advised that he needs to follow-up with pain management or family doctor for any narcotic prescription. Disposition Clinical Impression: Chronic pain Disposition: HOME SELF-CARE Condition: Good Instructions: Chronic Back Pain (ED) Additional Instructions: Please use medication as discussed. Please follow-up with family doctor in the next 2 days of symptoms have not improved. Please return to emergency room if the symptoms increase or worsen or for any other concerns. Prescriptions: Baclofen 10 mg PO TID #20 tab Ibuprofen [Motrin] 800 mg PO Q6HR #30 tab Referrals: None,Stated [Primary Care Provider] - 1-2 days Time of Disposition: 11:10
== END 2017-09-13 11:18 | disposition home or self-care (01) ==
LOC: EC 10:07
DX: G89.29 Other chronic pain (principal); M54.9 Dorsalgia, unspecified; M79.671 Pain in right foot; M79.672 Pain in left foot; F17.200 Nicotine dependence, unspecified, uncomplicated; Z79.899 Other long term (current) drug therapy; Z98.890 Other specified postprocedural states
CPT/HCPCS: 99283

== ENCOUNTER 2018-03-14 09:33 | Emergency (ER) | payer OTHER ==
[2018-03-14 09:41] VITALS: BP 157/87; PULSE 88; RESP 18; TEMP 98
--- NOTE | 2018-03-14 10:37 | ED ---
Skin/Abscess/FB HPI - General Source: patient, EMS, RN notes reviewed Mode of arrival: EMS Limitations: no limitations <Joaquin Keller - Last Filed: 03/14/18 10:33> <Ruben Corcoran - Last Filed: 03/14/18 12:02> - General Chief complaint: Skin/Abscess/Foreign Body Stated complaint: Sore on bottom Time Seen by Provider: 03/14/18 10:31 - History of Present Illness Initial comments: 42-year-old male presents emergency Department chief complaint of sore to his right buttocks region. Patient states has been present for 1 week. Patient believes he sat on something punctured area. Patient states that he's had no fever no chills he states his been draining some blood in process like material. Patient has no history of skin infections no history of MRSA VRE. ( Joaquin Keller) - Related Data Home Medications Medication Instructions Recorded Confirmed Baclofen [Baclofen] 10 - 20 mg PO TID 07/22/17 09/22/17 Previous Rx's Medication Instructions Recorded Aspirin EC [Ecotrin Low Dose] 81 mg PO DAILY #30 tablet. 08/19/17 Metoprolol Tartrate [Metoprolol 25 mg PO DAILY #30 tablet 08/19/17 Tartrate] Ibuprofen [Motrin] 800 mg PO Q6HR #30 tab 09/13/17 Naproxen [Naprosyn] 500 mg PO Q12HR #20 tab 09/20/17 valACYclovir HCL [Valtrex] 2,000 mg PO Q12HR #4 tab 09/20/17 Ibuprofen [Motrin] 600 mg PO Q8HR PRN #30 tab 03/14/18 Mupirocin 2% Oint [Bactroban 2% 1 applic TOPICAL TID #22 gm 03/14/18 Oint] Sulfamethox-Tmp 800-160Mg [Bactrim 1 each PO Q12HR #20 tab 03/14/18 Ds] Allergies Allergy/AdvReac Type Severity Reaction Status Date / Time No Known Allergies Allergy Verified 09/22/17 09:45 Review of Systems ROS Other: All systems not noted in ROS Statement are negative. <Joaquin Keller - Last Filed: 03/14/18 10:33> ROS Other: All systems not noted in ROS Statement are negative. <Ruben Corcoran - Last Filed: 03/14/18 12:02> ROS Statement: Those systems with pertinent positive or pertinent negative responses have been documented in the HPI. Past Medical History Past Medical History: Asthma Additional Past Medical History / Comment(s): back pain, spinal and sacral fractures, chronic foot and shoulder pain History of Any Multi-Drug Resistant Organisms: None Reported Past Surgical History: Back Surgery, Orthopedic Surgery Additional Past Surgical History / Comment(s): pins and plates in feet Past Psychological History: Anxiety, Bipolar, Depression Smoking Status: Current every day smoker Past Alcohol Use History: None Reported Past Drug Use History: None Reported <Joaquin Keller - Last Filed: 03/14/18 10:33> General Exam Limitations: no limitations General appearance: alert, in no apparent distress Head exam: Present: atraumatic, normocephalic, normal inspection Respiratory exam: Present: normal lung sounds bilaterally. Absent: respiratory distress, wheezes, rales, rhonchi, stridor Cardiovascular Exam: Present: regular rate, normal rhythm, normal heart sounds. Absent: systolic murmur, diastolic murmur, rubs, gallop, clicks Skin exam: Present: other (Right buttocks, right upper thigh region there is a 2 and half some your open wound with no obvious drainage there is some mild blood-tinged area mild surrounding erythema there is open and nonfluctuant at this time.) <Joaquin Keller - Last Filed: 03/14/18 10:33> Course <Joaquin Keller - Last Filed: 03/14/18 10:33> <Ruben Corcoran - Last Filed: 03/14/18 12:02> Vital Signs 03/14/18 09:37 Temperature 98 F Pulse Rate 88 Respiratory 18 Rate Blood Pressure 157/87 O2 Sat by Pulse 97 Oximetry - Reevaluation(s) Reevaluation #1: 03/14/18 11:54 I did personally do a [id number] evaluation the patient was very obnoxious to staff members demanding pain medication that was not ibuprofen. Patient was given a prescription for ibuprofen he was directed to get this filled. Patient is demonstrated evidence of a mood disorder. (Ruben Corcoran) Medical Decision Making <Joaquin Keller - Last Filed: 03/14/18 10:33> <Ruben Corcoran - Last Filed: 03/14/18 12:02> - Medical Decision Making 42 year old male presented for sore on buttocks. Patient has open infected wound and will be started on antibiotics and topical ointment. Patient will be given ibuprofen for his pain. Return parameters were discussed. He is advised to have a recheck within 48 hours. (Joaquin Keller) Disposition Is patient prescribed a controlled substance at d/c from ED?: No Time of Disposition: 10:36 <Joaquin Keller - Last Filed: 03/14/18 10:33> Is patient prescribed a controlled substance at d/c from ED?: No <Ruben Corcoran - Last Filed: 03/14/18 12:02> Clinical Impression: Open wound of buttock, Cellulitis of buttock, right, Mood disorder Disposition: HOME SELF-CARE Condition: Stable Instructions: Cellulitis (ED) Additional Instructions: Please return to the Emergency Department if symptoms worsen or any other concerns. Prescriptions: Ibuprofen [Motrin] 600 mg PO Q8HR PRN #30 tab PRN Reason: Pain Mupirocin 2% Oint [Bactroban 2% Oint] 1 applic TOPICAL TID #22 gm Sulfamethox-Tmp 800-160Mg [Bactrim Ds] 1 each PO Q12HR #20 tab Referrals: Shane Rosas MD [STAFF PHYSICIAN] - 1-2 days
== END 2018-03-14 10:50 | disposition home or self-care (01) ==
LOC: EC 09:33
DX: S31.819A Unspecified open wound of right buttock, initial encounter (principal); L03.317 Cellulitis of buttock; F39 Unspecified mood [affective] disorder; L08.9 Local infection of the skin and subcutaneous tissue, unspecified; G89.29 Other chronic pain; F17.200 Nicotine dependence, unspecified, uncomplicated; Z79.899 Other long term (current) drug therapy; X58.XXXA Exposure to other specified factors, initial encounter
CPT/HCPCS: 99283

== ENCOUNTER 2018-04-18 10:08 | Emergency (ER) | payer OTHER ==
[2018-04-18 10:24] VITALS: BP 123/86; PULSE 83; RESP 16; TEMP 98.4
--- NOTE | 2018-04-18 10:39 | ED ---
Extremity Problem HPI - General Chief complaint: Extremity Problem,Nontraumatic Stated complaint: Feet Pain Time Seen by Provider: 04/18/18 10:25 Source: patient, RN notes reviewed Mode of arrival: ambulatory Limitations: no limitations - History of Present Illness Initial comments: This a 42-year-old male presented to the emergency Department with chief complaint of chronic pain of his feet. Patient states that he's had pins and surgery in the past. He was seen Dr. Christie but states he had an argument with him and he is out of his morphine. Patient is requesting pain medications with no new injuries. Patient denies any swelling redness discoloration. Denies any trauma. Patient is requesting be admitted for his chronic issues. Patient denies any calf pain no other injuries. - Related Data Home Medications Medication Instructions Recorded Confirmed Baclofen 10 - 20 mg PO TID 07/22/17 09/22/17 Previous Rx's Medication Instructions Recorded Aspirin EC [Ecotrin Low Dose] 81 mg PO DAILY #30 tablet. 08/19/17 Metoprolol Tartrate 25 mg PO DAILY #30 tablet 08/19/17 Ibuprofen [Motrin] 800 mg PO Q6HR #30 tab 09/13/17 Naproxen [Naprosyn] 500 mg PO Q12HR #20 tab 09/20/17 valACYclovir HCL [Valtrex] 2,000 mg PO Q12HR #4 tab 09/20/17 Ibuprofen [Motrin] 600 mg PO Q8HR PRN #30 tab 03/14/18 Mupirocin 2% Oint [Bactroban 2% 1 applic TOPICAL TID #22 gm 03/14/18 Oint] Sulfamethox-Tmp 800-160Mg [Bactrim 1 each PO Q12HR #20 tab 03/14/18 Ds] Naproxen 500 mg PO BID #30 tablet 04/18/18 Allergies Allergy/AdvReac Type Severity Reaction Status Date / Time No Known Allergies Allergy Verified 04/18/18 10:24 Review of Systems ROS Statement: Those systems with pertinent positive or pertinent negative responses have been documented in the HPI. ROS Other: All systems not noted in ROS Statement are negative. Past Medical History Past Medical History: Asthma Additional Past Medical History / Comment(s): back pain, spinal and sacral fractures, chronic foot and shoulder pain History of Any Multi-Drug Resistant Organisms: None Reported Past Surgical History: Back Surgery, Orthopedic Surgery Additional Past Surgical History / Comment(s): pins and plates in feet Past Psychological History: Anxiety, Bipolar, Depression Smoking Status: Current every day smoker Past Alcohol Use History: None Reported Past Drug Use History: None Reported General Exam Limitations: no limitations General appearance: alert, in no apparent distress Head exam: Present: atraumatic, normocephalic, normal inspection Respiratory exam: Present: normal lung sounds bilaterally. Absent: respiratory distress, wheezes, rales, rhonchi, stridor Cardiovascular Exam: Present: regular rate, normal rhythm, normal heart sounds. Absent: systolic murmur, diastolic murmur, rubs, gallop, clicks Extremities exam: Present: other (Bilateral lower extremities neurovascular intact pedal pulses equal bilaterally there is no discoloration no erythema there is no change in warmth of either extremity compared. There is old scars noted there is no localized tenderness.) Course Vital Signs 04/18/18 10:22 Temperature 98.4 F Pulse Rate 83 Respiratory 16 Rate Blood Pressure 123/86 O2 Sat by Pulse 98 Oximetry Medical Decision Making - Medical Decision Making 42-year-old male presented requesting pain meds for his chronic pain. I did explain that he will not receive a refill of his morphine that he needs to see a pain management for morphine and he'll be started on naproxen. Patient also advised that he can follow-up with his PCP for further meds. Disposition Clinical Impression: Chronic foot pain Disposition: HOME SELF-CARE Condition: Stable Instructions: Chronic Pain (ED) Additional Instructions: Please return to the Emergency Department if symptoms worsen or any other concerns. Prescriptions: Naproxen 500 mg PO BID #30 tablet Is patient prescribed a controlled substance at d/c from ED?: No Referrals: None,Stated [Primary Care Provider] - 1-2 days Time of Disposition: 10:38
== END 2018-04-18 10:46 | disposition home or self-care (01) ==
LOC: EC 10:08
DX: G89.29 Other chronic pain (principal); M79.672 Pain in left foot; M79.671 Pain in right foot; F17.200 Nicotine dependence, unspecified, uncomplicated; Z79.899 Other long term (current) drug therapy
CPT/HCPCS: 99283

== ENCOUNTER 2018-05-12 10:35 | Emergency (ER) | payer OTHER ==
[2018-05-12] MEDS ORDERED: ACETAMINOPHEN TAB 500 MG TAB PO STA (11:19)
--- NOTE | 2018-05-12 11:58 | XR ---
EXAMINATION TYPE: XR foot complete bilateral DATE OF EXAM: 05/12/2018 COMPARISON: 05/25/2017 HISTORY: 42-year-old male bilateral foot pain TECHNIQUE: 3 views each side FINDINGS: There is mild degenerative change at both first MTP joints. Bilateral osteopenia is demonstrated Prior plate and screw fixation of the bilateral calcaneus. There appears to be some sclerosis along t he subarticular portions of the subtalar joint. No acute fracture is seen. On the right, the distal aspect of the lateral plate abuts the proximal cuboid. Tiny calcaneal heel spurs. 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 IMPRESSION: 1. Osteopenia. 2. Lateral plate and screw fixation of the bilateral calcanei. 3. On the left, the distal aspect of the plate abuts the proximal cuboid. Correlate as to if this con tributes to some of the patient's symptoms. 4. 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 5. 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
--- NOTE | 2018-05-12 12:01 | ED ---
Lower Extremity Injury HPI - General Chief Complaint: Extremity Injury, Lower Stated Complaint: Foot Pain Time Seen by Provider: 05/12/18 11:04 Source: EMS Mode of arrival: EMS Limitations: no limitations - History of Present Illness Initial Comments: 42 years old male sets with the pain in the both feet he said the pain is ongoing for quite a long time he denies any new trauma to the feet and is mostly on the dorsal surface of the both feet and it affects the middle area of the both feet she'll complaining about the pain over the both heels. He is requesting a admission and requesting a surgery on his feet because he believe that would help his pain. Also complaining about term lumbar area pain which is ongoing for a long long time he has a MRI disc with him which was done approximately 2 years ago and he has a severe disc disease. He denies any recent trauma or fall or recent injury to his back weakness of his lower extremity denies any bowel or bladder dysfunction. Requesting to have his morphine and he felt and now admission and emergent surgery on his back area denies any headaches no neck stiffness no chest pain or shortness of breath no abdominal pain no frequency urgency dysuria - Related Data Home Medications Medication Instructions Recorded Confirmed Ibuprofen [Motrin] 800 mg PO Q6HR PRN 05/12/18 05/12/18 Metoprolol Tartrate 25 mg PO BID 05/12/18 05/12/18 methylPREDNISolone [Medrol Dose See Taper PO DIRECTED 05/12/18 05/12/18 Pack] traZODone HCL 150 mg PO HS 05/12/18 05/12/18 Previous Rx's Medication Instructions Recorded Aspirin EC [Ecotrin Low Dose] 81 mg PO DAILY #30 tablet. 08/19/17 Naproxen [Naprosyn] 500 mg PO Q12HR #20 tab 09/20/17 HYDROcodone/APAP 5-325MG [[place] 5] 1 each PO Q6HR PRN #8 tab 05/12/18 Allergies Allergy/AdvReac Type Severity Reaction Status Date / Time No Known Allergies Allergy Verified 05/12/18 10:43 Review of Systems ROS Statement: Those systems with pertinent positive or pertinent negative responses have been documented in the HPI. ROS Other: All systems not noted in ROS Statement are negative. Past Medical History Past Medical History: Asthma Additional Past Medical History / Comment(s): back pain, spinal and sacral fractures, chronic foot and shoulder pain History of Any Multi-Drug Resistant Organisms: None Reported Past Surgical History: Back Surgery, Orthopedic Surgery Additional Past Surgical History / Comment(s): pins and plates in feet Past Psychological History: Anxiety, Bipolar, Depression Smoking Status: Current every day smoker Past Alcohol Use History: None Reported Past Drug Use History: None Reported General Exam - General Exam Comments Initial Comments: General: The patient is awake and alert, in no distress, and does not appear acutely ill. Skin: Skin is warm and dry and no rashes or lesions are noted. Eye: Pupils are equal, round and reactive to light, extra-ocular movements are intact; there is normal conjunctiva bilaterally. Ears, nose, mouth and throat: There are moist mucous membranes and no oral lesions. Neck: The neck is supple, there is no tenderness or signs of any meningitis no focal tenderness noticed over the cervical spine Cardiovascular: There is a regular rate and rhythm. No murmur, rub or gallop is appreciated. Respiratory: To auscultation bilateral, no wheezing no rhonchi no distress respiratory reece noticed Gastrointestinal: Soft, non-distended, non-tender abdomen without masses or organomegaly noted. There is no rebound or guarding present. Bowel sounds are unremarkable. Back: palpation of the lumbar spine Musculoskeletal: Examination of the both feet reveals no signs of any infection obvious deformity noticed no neurovascular compromise noticed Neurological: CN II-XII intact, Cranial nerves III through XII are intact. There are no obvious motor or sensory deficits. Coordination appears grossly intact. Speech is normal. Psychiatric: Cooperative, appropriate mood & affect, normal judgment. Limitations: no limitations Course Vital Signs 05/12/18 05/12/18 10:57 11:16 Temperature 97.9 F Pulse Rate 94 98 Respiratory 16 18 Rate Blood Pressure 98/61 102/72 O2 Sat by Pulse 98 97 Oximetry Itching of his feet as well as lumbar spine was reviewed and some chronic changes he has a chronic sacral fracture deformity with a posterior displaced displacement and he also has some hardware in his both feet with the trauma was long time ago no new fracture noticed these findings were discussed with the patient is requesting some pain medication he was used to get some morphine from his family doctor and is trying to get into a pain management clinic and he does not have a family doctor this point Disposition Clinical Impression: Chronic back pain Disposition: HOME SELF-CARE Condition: Good Instructions: Foot Sprain (ED), Chronic Back Pain (ED) Prescriptions: HYDROcodone/APAP 5-325MG [[place] 5] 1 each PO Q6HR PRN #8 tab PRN Reason: Pain Is patient prescribed a controlled substance at d/c from ED?: Yes Referrals: None,Stated [Primary Care Provider] - 1-2 days
--- NOTE | 2018-05-12 12:02 | XR ---
EXAMINATION TYPE: XR lumbar spine 2 or 3V DATE OF EXAM: 05/12/2018 COMPARISON: 07/24/2017 and 05/01/2012. HISTORY: 42-year-old male with chronic low back pain TECHNIQUE: 3 views FINDINGS: 5 lumbar type vertebral bodies. Minimal anterior wedging at L2 and L3 remain unchanged from 2017. No new vertebral body height loss. Facet arthropathy lower lumbar spine. There appears to be an anterior angulation deformity along the upper sacrum with posterior displacement. This was present back on . IMPRESSION: Chronic upper sacral fracture deformity with posterior displacement and anterior angulation. Slight a nterior wedging of L2 and L3 are also unchanged. The patient's sacral fractures are probably contribu tory to the clinical symptoms.
[2018-05-12 12:58] VITALS: BP 100/69; PULSE 92; RESP 16; TEMP 98
== END 2018-05-12 12:55 | disposition home or self-care (01) ==
LOC: EC 10:35
DX: M54.5 Low back pain (principal); G89.29 Other chronic pain; M53.3 Sacrococcygeal disorders, not elsewhere classified; M79.672 Pain in left foot; M79.671 Pain in right foot; F31.9 Bipolar disorder, unspecified; F41.9 Anxiety disorder, unspecified; F17.200 Nicotine dependence, unspecified, uncomplicated; Z79.899 Other long term (current) drug therapy; Z98.890 Other specified postprocedural states
CPT/HCPCS: 72100; 99283

== ENCOUNTER 2018-06-04 09:41 | Emergency (ER) | payer OTHER ==
[2018-06-04 09:48] VITALS: RESP 16; TEMP 98.9
--- NOTE | 2018-06-04 10:42 | ED ---
General Adult HPI - General Chief complaint: Skin/Abscess/Foreign Body Stated complaint: FEET AND BUTTOCKS PAIN Time Seen by Provider: 06/04/18 10:19 Source: patient Mode of arrival: EMS Limitations: no limitations - History of Present Illness Initial comments: 42 years old male who was doing some follow-up on his chronic wound on his right buttocks, he said this wound has been there for about 3 months now noticed some discharge from there denies any fever no chills no recent trauma. He also has a chronic pain syndrome he said he has been discharged from his primary care doctor and is waiting to see the pain management doctor he has chronic fractures we sent he is requesting some pain medication. Denies any headaches no chest pain or shortness of breath no abdominal pain, no frequency urgency dysuria no symptoms of TIA or CVA - Related Data Home Medications Medication Instructions Recorded Confirmed Ibuprofen [Motrin] 800 mg PO Q6HR PRN 05/12/18 06/04/18 Metoprolol Tartrate 25 mg PO BID 05/12/18 06/04/18 traZODone HCL 150 mg PO HS 05/12/18 06/04/18 Previous Rx's Medication Instructions Recorded Aspirin EC [Ecotrin Low Dose] 81 mg PO DAILY #30 tablet. 08/19/17 Naproxen [Naprosyn] 500 mg PO Q12HR #20 tab 09/20/17 Cephalexin [Keflex] 500 mg PO TID #30 capsule 06/04/18 Pregabalin [Lyrica] 50 mg PO TID 3 Days #9 cap 06/04/18 Allergies Allergy/AdvReac Type Severity Reaction Status Date / Time No Known Allergies Allergy Verified 06/04/18 09:57 Review of Systems ROS Statement: Those systems with pertinent positive or pertinent negative responses have been documented in the HPI. ROS Other: All systems not noted in ROS Statement are negative. Past Medical History Past Medical History: Asthma Additional Past Medical History / Comment(s): back pain, spinal and sacral fractures, chronic foot and shoulder pain History of Any Multi-Drug Resistant Organisms: None Reported Past Surgical History: Back Surgery, Orthopedic Surgery Additional Past Surgical History / Comment(s): pins and plates in feet Past Psychological History: Anxiety, Bipolar, Depression Smoking Status: Current every day smoker Past Alcohol Use History: None Reported Past Drug Use History: None Reported General Exam - General Exam Comments Initial Comments: General: The patient is awake and alert, in no distress, and does not appear acutely ill. Skin: Skin is warm and dry and no rashes or lesions are noted. Noticed a wound on his right buttocks, it some 4 x 4 centimeter mild discharge noticed no surrounding induration noticed. Eye: Pupils are equal, round and reactive to light, extra-ocular movements are intact; there is normal conjunctiva bilaterally. Ears, nose, mouth and throat: There are moist mucous membranes and no oral lesions. Neck: The neck is supple, there is no tenderness or JVD. Cardiovascular: There is a regular rate and rhythm. No murmur, rub or gallop is appreciated. Respiratory: To auscultation bilateral, no wheezing no rhonchi no distress respiratory reece noticed Gastrointestinal: Soft, non-distended, non-tender abdomen without masses or organomegaly noted. There is no rebound or guarding present. Bowel sounds are unremarkable. Back: There is no tenderness to palpation in the midline. There is no obvious deformity. Musculoskeletal: Normal ROM, no tenderness, There is no pedal edema. There is no calf tenderness or swelling. No cords were appreciated. Neurological: CN II-XII intact, Cranial nerves III through XII are intact. There are no obvious motor or sensory deficits. Coordination appears grossly intact. Speech is normal. Psychiatric: Cooperative, appropriate mood & affect, normal judgment. Limitations: no limitations Course Vital Signs 06/04/18 09:43 Temperature 98.9 F Pulse Rate 97 Respiratory 16 Rate Blood Pressure 140/63 O2 Sat by Pulse 99 Oximetry Disposition Clinical Impression: Chronic pain syndrome, Wound of right buttock Disposition: HOME SELF-CARE Condition: Good Instructions: Chronic Wounds (ED) Prescriptions: Cephalexin [Keflex] 500 mg PO TID #30 capsule Pregabalin [Lyrica] 50 mg PO TID 3 Days #9 cap Is patient prescribed a controlled substance at d/c from ED?: No Referrals: None,Stated [Primary Care Provider] - 1-2 days Ricky Baldwin MD [STAFF PHYSICIAN] - 1-2 days
[2018-06-04 12:43] VITALS: BP 132/63; PULSE 95
== END 2018-06-04 12:43 | disposition home or self-care (01) ==
LOC: EC 09:41
DX: S31.819A Unspecified open wound of right buttock, initial encounter (principal); G89.4 Chronic pain syndrome; M79.673 Pain in unspecified foot; F31.9 Bipolar disorder, unspecified; F41.9 Anxiety disorder, unspecified; F17.200 Nicotine dependence, unspecified, uncomplicated; Z79.899 Other long term (current) drug therapy
CPT/HCPCS: 87070; 87205; 99284

== ENCOUNTER 2018-12-26 17:31 | Emergency (ER) | payer OTHER ==
[2018-12-26 17:40] VITALS: BP 109/70; PULSE 78; RESP 18; TEMP 98.3
[2018-12-26] MEDS ORDERED: KETOROLAC 60 MG/2 ML VIAL IM STA (17:41)
--- NOTE | 2018-12-26 17:45 | ED ---
Extremity Problem HPI - General Chief complaint: Extremity Problem,Nontraumatic Stated complaint: lumbar and foot pain Time Seen by Provider: 12/26/18 17:34 Source: patient, EMS, RN notes reviewed Mode of arrival: EMS Limitations: no limitations - History of Present Illness Initial comments: 43-year-old male presents emergency Department with complaints of chronic pain. Patient is chronic for, back pain. Patient also states he has an open wound on his buttocks. Patient states he has not seen anybody for this recently. Patient denies any fevers or chills. Patient states that the wound has been on and off for over a year. Patient denies any difficulty and bleeding other than pain. Denies any bowel bladder incontinence or retention. Patient denies any abdominal pain. Patient offers no complaints. - Related Data Home Medications Medication Instructions Recorded Confirmed Ibuprofen [Motrin] 800 mg PO Q6HR PRN 05/12/18 06/04/18 Metoprolol Tartrate 25 mg PO BID 05/12/18 06/04/18 traZODone HCL 150 mg PO HS 05/12/18 06/04/18 Previous Rx's Medication Instructions Recorded Aspirin EC [Ecotrin Low Dose] 81 mg PO DAILY #30 tablet. 08/19/17 Naproxen [Naprosyn] 500 mg PO Q12HR #20 tab 09/20/17 Cephalexin [Keflex] 500 mg PO TID #30 capsule 06/04/18 Pregabalin [Lyrica] 50 mg PO TID 3 Days #9 cap 06/04/18 Etodolac [Lodine] 200 mg PO Q8HR #15 capsule 12/26/18 Mupirocin 2% Oint [Bactroban 2% 1 applic TOPICAL TID #22 gm 12/26/18 Oint] Sulfamethox-Tmp 800-160Mg [Bactrim 1 each PO Q12HR #20 tab 12/26/18 Ds] Allergies Allergy/AdvReac Type Severity Reaction Status Date / Time No Known Allergies Allergy Verified 12/26/18 17:35 Review of Systems ROS Statement: Those systems with pertinent positive or pertinent negative responses have been documented in the HPI. ROS Other: All systems not noted in ROS Statement are negative. Past Medical History Past Medical History: Asthma Additional Past Medical History / Comment(s): back pain, spinal and sacral fractures, chronic foot and shoulder pain History of Any Multi-Drug Resistant Organisms: None Reported Past Surgical History: Back Surgery, Orthopedic Surgery Additional Past Surgical History / Comment(s): pins and plates in feet Past Psychological History: Anxiety, Bipolar, Depression Smoking Status: Current every day smoker Past Alcohol Use History: None Reported Past Drug Use History: None Reported General Exam Limitations: no limitations General appearance: alert, in no apparent distress Head exam: Present: atraumatic, normocephalic, normal inspection Neck exam: Present: normal inspection. Absent: tenderness, meningismus, lymphadenopathy Respiratory exam: Present: normal lung sounds bilaterally. Absent: respiratory distress, wheezes, rales, rhonchi, stridor Cardiovascular Exam: Present: regular rate, normal rhythm, normal heart sounds. Absent: systolic murmur, diastolic murmur, rubs, gallop, clicks Extremities exam: Present: other (Lower extremity neurovascular intact, full range of motion ulcers no scars noted, no focal tenderness.) Back exam: Present: normal inspection, full ROM, paraspinal tenderness. Absent: tenderness, vertebral tenderness Neurological exam: Present: alert, oriented X3, CN II-XII intact, reflexes normal. Absent: motor sensory deficit Skin exam: Present: warm, dry, intact, normal color, other (Right buttocks there is no open wound approximately 2 and half centimeters in diameter, irregular, mild. Drainage no surrounding erythema, no deep tracking noted). Absent: rash Course Vital Signs 12/26/18 17:35 Temperature 98.3 F Pulse Rate 78 Respiratory 18 Rate Blood Pressure 109/70 O2 Sat by Pulse 98 Oximetry Medical Decision Making - Medical Decision Making 43-year-old male presented for open wound on his buttocks, chronic pain. Patient given Toradol. Patient be given antibiotics for his wound, topical antibiotics and follow-up with wound center. Disposition Clinical Impression: Chronic ulcer of buttock, Chronic pain Disposition: HOME SELF-CARE Condition: Stable Instructions (If sedation given, give patient instructions): Chronic Pain (ED), Care For Your Stitches (ED), Chronic Wound Care (ED) Additional Instructions: Please return to the Emergency Department if symptoms worsen or any other concerns. Prescriptions: Sulfamethox-Tmp 800-160Mg [Bactrim Ds] 1 each PO Q12HR #20 tab Mupirocin 2% Oint [Bactroban 2% Oint] 1 applic TOPICAL TID #22 gm Etodolac [Lodine] 200 mg PO Q8HR #15 capsule Is patient prescribed a controlled substance at d/c from ED?: No Referrals: Nonstaff,Physician [Primary Care Provider] - 1-2 days Time of Disposition: 17:45
== END 2018-12-26 17:55 | disposition home or self-care (01) ==
LOC: EC 17:31 → SUPCPDRO 17:31 → EC 17:55
DX: L98.419 Non-pressure chronic ulcer of buttock with unspecified severity (principal); G89.29 Other chronic pain; F32.9 Major depressive disorder, single episode, unspecified; F41.9 Anxiety disorder, unspecified; F17.200 Nicotine dependence, unspecified, uncomplicated; Z79.899 Other long term (current) drug therapy; Z96.698 Presence of other orthopedic joint implants
CPT/HCPCS: 99283; 96372; J1885

== ENCOUNTER 2019-01-02 09:27 | Emergency (ER) | payer OTHER ==
[2019-01-02 09:34] VITALS: RESP 18; TEMP 97.9
[2019-01-02] MEDS ORDERED: HYDROcodone/APAP 5-325MG 1 EACH TAB PO STA (10:10)
--- NOTE | 2019-01-02 10:14 | ED ---
General Adult HPI - General Chief complaint: Extremity Injury, Lower Stated complaint: BILATERAL FOOT PAIN, BACK PAIN Time Seen by Provider: 01/02/19 09:34 Source: patient Mode of arrival: ambulatory Limitations: no limitations - History of Present Illness Initial comments: Dictation was produced using [employer] dictation software. please excuse any grammatical, word or spelling errors. Chief Complaint: 43-year-old male who is homeless presents with bilateral foot pain and back pain. History of Present Illness: Patient's 43-year-old male. He has history of bilateral calcaneal fracture and lumbar fracture. Patient is homeless. [place] Patient states [place] 1994 he had acute traumatic bilateral fracture lumbar fracture. He has had multiple surgeries for this. States he is homeless. Patient is been ambulatory without much complication. He states his pain has been worse over the past 24 hours. Patient does have chronic pain. He requests that he be admitted to the hospital. The ROS documented in this emergency department record has been reviewed and confirmed by me. Those systems with pertinent positive or negative responses have been documented in the HPI. All other systems are other negative and/or noncontributory. PHYSICAL EXAM: General Impression: Alert and oriented x3, not in acute distress HEENT: Normocephalic atraumatic, extra-ocular movements intact, pupils equal and reactive to light bilaterally, mucous membranes moist. Cardiovascular: Heart regular rate and rhythm, S1&S2 audible, no murmurs, rubs or gallops Chest: Lungs clear to auscultation bilaterally, no rhonchi, no wheeze, no rales Abdomen: Bowel sounds present, abdomen soft, non-tender, non-distended, no organomegaly Musculoskeletal: Pulses present and equal in all extremities, no peripheral edema Motor: no focal deficits noted Neurological: CN II-XII grossly intact, no focal motor or sensory deficits noted Skin: Intact with no visualized rashes Psych: Normal affect and mood Bilateral foot: No tenderness to palpation about the whole bilateral feet ED course: 43-year-old male presents with acute on chronic lower back pain and bilateral calcaneal pain. Vital signs upon arrival are within acceptable limits. Patient openly states that he is homeless. Patient and motor in the emergency department without complications. X-rays of the bilateral feet shows no acute osseous lesions. Patient given information on homeless shelters. Patient given by mouth analgesia. Patient clear for discharge. Given outpatient referral to primary care physician and orthopedic foot and ankle specialist. - Related Data Home Medications Medication Instructions Recorded Confirmed Metoprolol Tartrate 25 mg PO BID 05/12/18 01/02/19 traZODone HCL 150 mg PO HS 05/12/18 01/02/19 Baclofen [Lioresal] 10 mg PO TID 01/02/19 01/02/19 Buprenorphine [Butrans 10 MCG/HOUR] 1 patch TRANSDERM Q7D 01/02/19 01/02/19 Ibuprofen [Motrin] 600 mg PO Q8HR PRN 01/02/19 01/02/19 Naproxen Sodium [Aleve] 220 mg PO DAILY 01/02/19 01/02/19 traMADol HCL [Ultram] 50 mg PO Q6HR PRN 01/02/19 01/02/19 Allergies Allergy/AdvReac Type Severity Reaction Status Date / Time No Known Allergies Allergy Verified 01/02/19 10:17 Review of Systems ROS Statement: Those systems with pertinent positive or pertinent negative responses have been documented in the HPI. ROS Other: All systems not noted in ROS Statement are negative. Past Medical History Past Medical History: Asthma Additional Past Medical History / Comment(s): back pain, spinal and sacral fractures, chronic foot and shoulder pain History of Any Multi-Drug Resistant Organisms: None Reported Past Surgical History: Back Surgery, Orthopedic Surgery Additional Past Surgical History / Comment(s): pins and plates in feet Past Psychological History: Anxiety, Bipolar, Depression Smoking Status: Current every day smoker Past Alcohol Use History: None Reported Past Drug Use History: None Reported General Exam Limitations: no limitations Course Vital Signs 01/02/19 09:29 Temperature 97.9 F Pulse Rate 66 Respiratory 18 Rate Blood Pressure 120/76 O2 Sat by Pulse 98 Oximetry Disposition Clinical Impression: Ankle pain, chronic, Back pain Disposition: HOME SELF-CARE Condition: Good Instructions (If sedation given, give patient instructions): Arthralgia (ED) Is patient prescribed a controlled substance at d/c from ED?: No Referrals: Dread Coley MD [REFERRING] - 1-2 days Audi Henning MD [Medical Doctor] - 1-2 days Time of Disposition: 11:42
--- NOTE | 2019-01-02 10:49 | XR ---
EXAMINATION TYPE: XR foot complete bilateral , 6 VIEWS DATE OF EXAM ORDERED: 01/02/2019 HISTORY: Pain. COMPARISON: Previous study dated 05/12/2018. FINDINGS: There is been previous sideplate and screw fixation of both calcanei. The side plate on th e left abuts the adjacent cuboid. There is a tiny calcaneal spur seen on the left. No fracture or dislocation is seen. IMPRESSION: 1. NO ACUTE OSSEOUS LESION. 2. POSTSURGICAL CHANGE.
--- NOTE | 2019-01-02 11:54 | ED ---
Disposition Clinical Impression: Ankle pain, chronic, Back pain Disposition: HOME SELF-CARE Condition: Good Instructions (If sedation given, give patient instructions): Arthralgia (ED) Prescriptions: traMADol HCL [Ultram] 50 mg PO Q6HR PRN 3 Days #10 tab PRN Reason: Pain Is patient prescribed a controlled substance at d/c from ED?: Yes If prescribed controlled substance>3 days was MAPS reviewed?: Prescribed <3 Days Referrals: Dread Coley MD [REFERRING] - 1-2 days Audi Henning MD [Medical Doctor] - 1-2 days
[2019-01-02 12:19] VITALS: BP 112/70; PULSE 87
== END 2019-01-02 12:49 | disposition home or self-care (01) ==
LOC: EC 09:27
DX: M25.579 Pain in unspecified ankle and joints of unspecified foot (principal); G89.29 Other chronic pain; M54.5 Low back pain; M79.671 Pain in right foot; M79.672 Pain in left foot; F17.200 Nicotine dependence, unspecified, uncomplicated; Z79.1 Long term (current) use of non-steroidal anti-inflammatories (NSAID); Z79.891 Long term (current) use of opiate analgesic; Z79.899 Other long term (current) drug therapy; Z87.81 Personal history of (healed) traumatic fracture; Z96.698 Presence of other orthopedic joint implants; Z59.0 Homelessness; Z98.890 Other specified postprocedural states
CPT/HCPCS: 99283

== ENCOUNTER 2019-01-15 12:24 | Emergency (ER) | payer OTHER ==
[2019-01-15] MEDS ORDERED: traMADol 50 MG TAB PO STA ×2 (13:10→18:32)
--- NOTE | 2019-01-15 13:13 | ED ---
General Adult HPI - General Chief complaint: Psychiatric Symptoms Stated complaint: Mental health Time Seen by Provider: 01/15/19 12:51 Source: patient, RN notes reviewed, old records reviewed Mode of arrival: ambulatory Limitations: no limitations - History of Present Illness Initial comments: 43-year-old male patient with past medical history of chronic pain, chronic lumbar back pain presents to ED with approximately 3 days of fleeting suicidal ideations. Patient denies any plan to hurt himself or any other people. Patient denies any actions taken hurt himself or hurt any other people. Patient states that he takes trazodone, states that he is also prescribed tramadol however has been on his medications since 01/11. Patient has significant compl aint of chronic lumbar back pain. Patient denies any recent falls, recent trauma, red flag symptoms. Pt denies all other complaints. Systemic: Pt denies fatigue, fever/chills, rash. Pt denies weakness, night sweats, weight loss. Neuro: Pt denies headache, visual disturbances, syncope or pre-syncope. HEENT: Pt denies ocular discharge or irritation, otalgia, rhinorrhea, pharyngitis or notable lymphadenopathy. Cardiopulmonary: Pt denies chest pain, SOB, heart palpitations, dyspnea on exertion. Abdominal/GI: Pt denies abdominal pain, n/v/d. : Pt denies dysuria, burning w/ urination, frequency/urgency. Denies new onset urinary or bowel incontinence. MSK: Pt denies loss of strength or function in extremities. Neuro: Pt denies new onset weakness, paresthesias. - Related Data Home Medications Medication Instructions Recorded Confirmed Metoprolol Tartrate 25 mg PO BID 05/12/18 01/15/19 traZODone HCL 150 mg PO HS 05/12/18 01/15/19 Baclofen [Lioresal] 10 mg PO TID 01/02/19 01/15/19 Buprenorphine [Butrans 10 MCG/HOUR] 1 patch TRANSDERM Q7D 01/02/19 01/15/19 Aspirin EC [Ecotrin Low Dose] 81 mg PO DAILY 01/03/19 01/15/19 traMADol HCL [Ultram] 50 mg PO QID PRN 01/03/19 01/15/19 Ibuprofen [Motrin] 800 mg PO TID PRN 01/15/19 01/15/19 Allergies Allergy/AdvReac Type Severity Reaction Status Date / Time No Known Allergies Allergy Verified 01/15/19 13:02 Review of Systems ROS Statement: Those systems with pertinent positive or pertinent negative responses have been documented in the HPI. ROS Other: All systems not noted in ROS Statement are negative. Past Medical History Past Medical History: Asthma Additional Past Medical History / Comment(s): back pain, spinal and sacral fractures, chronic foot and shoulder pain History of Any Multi-Drug Resistant Organisms: None Reported Past Surgical History: Back Surgery, Orthopedic Surgery Additional Past Surgical History / Comment(s): pins and plates in feet Past Psychological History: Anxiety, Bipolar, Depression Smoking Status: Current every day smoker Past Alcohol Use History: None Reported Past Drug Use History: None Reported General Exam - General Exam Comments Initial Comments: Constitutional: NAD, AOX3, Pt has pleasant affect. HEENT: NC/AT, trachea midline, neck supple, no lymphadenopathy. Posterior pharynx non erythematous, without exudates. External ears appear normal, without discharge. Mucous membranes moist. Eyes PERRLA, EOM intact. There is no scleral icterus. No pallor noted. Cardiopulmonary: RRR, no murmurs, rubs or gallops, no JVD noted. Lungs CTAB in anterior and posterior mancia. No peripheral edema. Abdominal exam: Abdomen soft and non-distended. Abdomen non-tender to palpation in all 4 quadrants. Bowel sounds active in LLQ. No hepatosplenomegaly. No ecchymosis Neuro: CN II-XII grossly intact. No nuchal rigidity. MSK: No posterior calf tenderness bilaterally, homans sign negative bilaterally. Posterior tibialis and radial pulse +2 bilaterally. Sensation intact in upper and lower extremities. Full active ROM in upper and lower extremities, 5/5 stregnth. Limitations: no limitations Course Vital Signs 01/15/19 01/15/19 12:46 14:15 Temperature 98.2 F Pulse Rate 114 H Respiratory 20 16 Rate Blood Pressure 120/75 O2 Sat by Pulse 99 Oximetry Medical Decision Making - Medical Decision Making 43-year-old male patient with past medical history of chronic pain, chronic lumbar back pain presents to ED with approximately 3 days of fleeting suicidal ideations. Patient denies any plan to hurt himself or any other people. Patient denies any actions taken hurt himself or hurt any other people. Patient states that he takes trazodone, states that he is also prescribed tramadol however has been on his medications since 01/11. Patient has secondary complaint of chronic lumbar back pain. Patient denies any recent falls, recent trauma, red flag symptoms. Pt denies all other complaints. Physical exam did not display acute pathology. Patient administered home dose of pain medication. EPS evaluated Patient and recommended discharge. Repeat exam, patient denies any suicidal ideations. States that he will not hurt himself or hurt people. Patient provided outpatient psychiatric resources. Patient will follow-up with primary care provider in 1-2 days. Patient will return to ER if condition worsens in any way. Case discussed with Dr. Che. - Lab Data Lab Results 01/15/19 Range/Units 13:00 Urine Opiates Screen Not Detected (NotDetected) Ur Oxycodone Screen Not Detected (NotDetected) Urine Methadone Screen Not Detected (NotDetected) Ur Propoxyphene Screen Not Detected (NotDetected) Ur Barbiturates Screen Not Detected (NotDetected) U Tricyclic Antidepress Not Detected (NotDetected) Ur Phencyclidine Scrn Not Detected (NotDetected) Ur Amphetamines Screen Not Detected (NotDetected) U Methamphetamines Scrn Not Detected (NotDetected) U Benzodiazepines Scrn Detected H (NotDetected) Urine Cocaine Screen Not Detected (NotDetected) U Marijuana (THC) Screen Not Detected (NotDetected) Disposition Clinical Impression: Depression Disposition: HOME SELF-CARE Condition: Stable Instructions (If sedation given, give patient instructions): Depression (ED) Additional Instructions: Patient to adhere to previously discussed treatment plan and will take med ication(s) as directed. Patient to follow up with PCP in 1-2 days. Patient to return to ED if symptoms do not improve. This follow-up with psychiatric resource tomorrow. Is patient prescribed a controlled substance at d/c from ED?: No Referrals: None,Stated [Primary Care Provider] - 1-2 days [facility] [NON-STAFF] - 1-2 days
[2019-01-15 13:49] LABS: Amphetamine Screen,Urine Not Detected (NotDetected); Barbiturate Screen,Urine Not Detected (NotDetected); Benzodiazepines Screen,Urine Detected (NotDetected); Cocaine Screen,Urine Not Detected (NotDetected); Methadone Screen, Urine Not Detected (NotDetected); Opiate Screen,Urine Not Detected (NotDetected); Oxycodone Screen, Urine Not Detected (NotDetected); Phencyclidine Screen,Urine Not Detected (NotDetected); Tricyclic Antidepressant,Urine Not Detected (NotDetected); Urn Cannabinoid Scrn Not Detected (NotDetected)
[2019-01-15 15:09] VITALS: RESP 16
[2019-01-15 19:54] VITALS: BP 121/79; PULSE 85; TEMP 98.4
== END 2019-01-15 18:50 | disposition home or self-care (01) ==
LOC: EC 12:24
DX: F31.30 Bipolar disorder, current episode depressed, mild or moderate severity, unspecified (principal); M54.5 Low back pain; G89.29 Other chronic pain; R45.851 Suicidal ideations; F41.9 Anxiety disorder, unspecified; F17.200 Nicotine dependence, unspecified, uncomplicated; Z79.82 Long term (current) use of aspirin; Z79.891 Long term (current) use of opiate analgesic; Z79.899 Other long term (current) drug therapy; Z96.698 Presence of other orthopedic joint implants
CPT/HCPCS: 80306; 99285

== ENCOUNTER 2019-01-19 15:31 | Emergency (ER) | payer OTHER ==
[2019-01-19] MEDS ORDERED: traMADol 50 MG STARTER PACK 3 TAB BTL PO STA (15:37)
--- NOTE | 2019-01-19 15:39 | ED ---
General Adult HPI - General Stated complaint: back/leg pain Time Seen by Provider: 01/19/19 15:33 Source: patient, EMS, RN notes reviewed Mode of arrival: EMS Limitations: no limitations - History of Present Illness Initial comments: 43-year-old male presents emergency department for chronic pain. Patient states that he has an appointment 2 weeks with his physician for performed pain meds. Patient has chronic symptoms including low back pain, leg pain, foot pain. Patient states is all no new injuries. Patient denies any bowel bladder incontinence or retention. Denies any abdominal pain. Patient offers no other complaints. - Related Data Home Medications Medication Instructions Recorded Confirmed Metoprolol Tartrate 25 mg PO BID 05/12/18 01/15/19 traZODone HCL 150 mg PO HS 05/12/18 01/15/19 Baclofen [Lioresal] 10 mg PO TID 01/02/19 01/15/19 Buprenorphine [Butrans 10 MCG/HOUR] 1 patch TRANSDERM Q7D 01/02/19 01/15/19 Aspirin EC [Ecotrin Low Dose] 81 mg PO DAILY 01/03/19 01/15/19 traMADol HCL [Ultram] 50 mg PO QID PRN 01/03/19 01/15/19 Ibuprofen [Motrin] 800 mg PO TID PRN 01/15/19 01/15/19 Allergies Allergy/AdvReac Type Severity Reaction Status Date / Time No Known Allergies Allergy Verified 01/15/19 13:02 Review of Systems ROS Statement: Those systems with pertinent positive or pertinent negative responses have been documented in the HPI. ROS Other: All systems not noted in ROS Statement are negative. Past Medical History Past Medical History: Asthma Additional Past Medical History / Comment(s): back pain, spinal and sacral fractures, chronic foot and shoulder pain History of Any Multi-Drug Resistant Organisms: None Reported Past Surgical History: Back Surgery, Orthopedic Surgery Additional Past Surgical History / Comment(s): pins and plates in feet Past Psychological History: Anxiety, Bipolar, Depression Smoking Status: Current every day smoker Past Alcohol Use History: None Reported Past Drug Use History: None Reported General Exam General appearance: alert, in no apparent distress Head exam: Present: atraumatic, normocephalic, normal inspection Neck exam: Present: normal inspection, full ROM. Absent: tenderness, lymphadenopathy, thyromegaly Respiratory exam: Present: normal lung sounds bilaterally. Absent: respiratory distress, wheezes, rales, rhonchi, stridor Cardiovascular Exam: Present: regular rate, normal rhythm, normal heart sounds. Absent: systolic murmur, diastolic murmur, rubs, gallop, clicks GI/Abdominal exam: Present: soft, normal bowel sounds. Absent: distended, tenderness, guarding, rebound, rigid Extremities exam: Present: other (Bilateral lower shunted full range of motion neurovascular intact equal strength equal color equal warmth) Back exam: Present: full ROM, tenderness, paraspinal tenderness. Absent: CVA tenderness (R), CVA tenderness (L), vertebral tenderness Neurological exam: Present: alert, oriented X3, CN II-XII intact, reflexes normal. Absent: motor sensory deficit Medical Decision Making - Medical Decision Making 43-year-old male presented for pain. This pain is chronic in nature. Patient has no red flag symptoms. Patient has no new injury. Patient will be discharged this time return parameters were discussed. Disposition Clinical Impression: Chronic pain, Back pain Disposition: HOME SELF-CARE Condition: Stable Instructions (If sedation given, give patient instructions): Chronic Back Pain (ED) Additional Instructions: Please return to the Emergency Department if symptoms worsen or any other concerns. Is patient prescribed a controlled substance at d/c from ED?: No Referrals: None,Stated [Primary Care Provider] - 1-2 days Time of Disposition: 15:38
== END 2019-01-19 16:07 | disposition home or self-care (01) ==
LOC: EC 15:31
DX: G89.29 Other chronic pain (principal); M54.5 Low back pain; F41.9 Anxiety disorder, unspecified; F32.9 Major depressive disorder, single episode, unspecified; M79.606 Pain in leg, unspecified; M79.673 Pain in unspecified foot; F17.200 Nicotine dependence, unspecified, uncomplicated; Z87.81 Personal history of (healed) traumatic fracture; Z79.82 Long term (current) use of aspirin; Z79.899 Other long term (current) drug therapy
CPT/HCPCS: 99283

== ENCOUNTER 2019-01-22 09:50 | Emergency (ER) | payer OTHER ==
[2019-01-22 10:06] VITALS: RESP 16
[2019-01-22] MEDS ORDERED: KETOROLAC 30 MG/ML 1 ML VIAL IVP STA (10:40)
--- NOTE | 2019-01-22 10:45 | ED ---
Back Pain HPI - General Chief Complaint: Back Pain/Injury Stated Complaint: Back pain Time Seen by Provider: 01/22/19 10:12 Source: patient, RN notes reviewed Limitations: no limitations - History of Present Illness Initial Comments: This a 43-year-old male who presents with complaints of increasing chronic low back pain and pain in his feet. He states he had a fall 25 years ago where he broke his heel and had lumbar fractures. He has had surgery since then. [facility] did [facility] [place] [facility] [place]. He has pending appointments apparently with his previous providers. He is on nonsteroidal anti-inflammatories at this time is run out of his other pain medication. He denies any fevers chills nausea vomiting sweats he states he does have a wound on his right buttock to he's had for over a year that is not healing. MD Complaint: back pain, other - Related Data Home Medications Medication Instructions Recorded Confirmed Metoprolol Tartrate 25 mg PO BID 05/12/18 01/22/19 traZODone HCL 150 mg PO HS 05/12/18 01/22/19 Baclofen [Lioresal] 10 mg PO QID 01/02/19 01/22/19 Ibuprofen [Motrin] 800 mg PO QID PRN 01/15/19 01/22/19 Acetaminophen [Tylenol Extra 1,000 mg PO TID 01/22/19 01/22/19 Strength] Naproxen 500 mg PO BID PRN 01/22/19 01/22/19 Previous Rx's Medication Instructions Recorded Buprenorphine [Buprenorphine 1 patch TRANSDERM WEEKLY #1 patch 01/22/19 10MCG/HR] traMADol HCL [Conzip] 100 mg PO DAILY #28 cap 01/22/19 Allergies Allergy/AdvReac Type Severity Reaction Status Date / Time No Known Allergies Allergy Verified 01/22/19 10:15 Review of Systems ROS Statement: Those systems with pertinent positive or pertinent negative responses have been documented in the HPI. ROS Other: All systems not noted in ROS Statement are negative. Past Medical History Past Medical History: Asthma Additional Past Medical History / Comment(s): back pain, spinal and sacral fractures, chronic foot and shoulder pain History of Any Multi-Drug Resistant Organisms: None Reported Past Surgical History: Back Surgery, Orthopedic Surgery Additional Past Surgical History / Comment(s): pins and plates in feet Past Psychological History: Anxiety, Bipolar, Depression Smoking Status: Current every day smoker Past Alcohol Use History: None Reported Past Drug Use History: None Reported General Exam - General Exam Comments Initial Comments: This is a well-developed well-nourished awake alert oriented 3 male Limitations: no limitations General appearance: alert, anxious, in distress Head exam: Present: atraumatic, normocephalic, normal inspection Eye exam: Present: normal appearance, PERRL, EOMI. Absent: scleral icterus, conjunctival injection, periorbital swelling ENT exam: Present: normal exam, mucous membranes moist Neck exam: Present: normal inspection. Absent: tenderness, meningismus, lymphadenopathy Respiratory exam: Present: normal lung sounds bilaterally. Absent: respiratory distress, wheezes, rales, rhonchi, stridor Cardiovascular Exam: Present: regular rate, normal rhythm, normal heart sounds. Absent: systolic murmur, diastolic murmur, rubs, gallop, clicks GI/Abdominal exam: Present: soft, normal bowel sounds. Absent: distended, tenderness, guarding, rebound, rigid Extremities exam: Present: full ROM, normal capillary refill, other (There is a wound on the right buttock approximately 3.5 x 3 cm in the area). Absent: tenderness, pedal edema, joint swelling, calf tenderness Back exam: Present: normal inspection Neurological exam: Present: alert, oriented X3, CN II-XII intact Psychiatric exam: Present: normal mood, flat affect Skin exam: Present: warm, dry, normal color. Absent: intact (He has noted above in the right buttock), rash Course Vital Signs 01/22/19 01/22/19 10:03 13:18 Temperature 98.3 F 98.2 F Pulse Rate 86 76 Respiratory 16 16 Rate Blood Pressure 102/73 104/64 O2 Sat by Pulse 97 98 Oximetry Medical Decision Making - Medical Decision Making Patient did finally some relief after pain medication. He does have an appointment at 24th of this month to see his doctor. He is follow-up as planned she will be given a short course of pain medication. - Lab Data Result diagrams: 01/22/19 10:52 01/22/19 10:52 Lab Results 01/22/19 01/22/19 01/22/19 Range/Units 10:52 10:52 10:52 WBC 6.3 (3.8-10.6) k/uL RBC 3.79 L (4.30-5.90) m/uL Hgb 12.7 L (13.0-17.5) gm/dL Hct 38.0 L (39.0-53.0) % MCV 100.1 H (80.0-100.0) fL MCH 33.6 (25.0-35.0) pg MCHC 33.6 (31.0-37.0) g/dL RDW 14.2 (11.5-15.5) % Plt Count 444 (150-450) k/uL Neutrophils % 61 % Lymphocytes % 26 % Monocytes % 4 % Eosinophils % 6 % Basophils % 1 % Neutrophils # 3.8 (1.3-7.7) k/uL Lymphocytes # 1.6 (1.0-4.8) k/uL Monocytes # 0.3 (0-1.0) k/uL Eosinophils # 0.4 (0-0.7) k/uL Basophils # 0.1 (0-0.2) k/uL Sodium 138 (137-145) mmol/L Potassium 4.3 (3.5-5.1) mmol/L Chloride 107 (98-107) mmol/L Carbon Dioxide 22 (22-30) mmol/L Anion Gap 9 mmol/L BUN 9 (9-20) mg/dL Creatinine 0.73 (0.66-1.25) mg/dL Est GFR (CKD-EPI)AfAm >90 (>60 ml/min/1.73 sqM) Est GFR (CKD-EPI)NonAf >90 (>60 ml/min/1.73 sqM) Glucose 84 (74-99) mg/dL Calcium 9.0 (8.4-10.2) mg/dL Magnesium 2.2 (1.6-2.3) mg/dL Total Bilirubin 0.4 (0.2-1.3) mg/dL AST 18 (17-59) U/L ALT 18 L (21-72) U/L Alkaline Phosphatase 67 (38-126) U/L Total Creatine Kinase 132 (55-170) U/L CK-MB (CK-2) 1.7 (0.0-2.4) ng/mL CK-MB (CK-2) Rel Index 1.3 Total Protein 6.3 (6.3-8.2) g/dL Albumin 3.7 (3.5-5.0) g/dL Urine Color Urine Appearance (Clear) Urine pH (5.0-8.0) Ur Specific [place] (1.001-1.035) Urine Protein (Negative) Urine Glucose (UA) (Negative) Urine Ketones (Negative) Urine Blood (Negative) Urine Nitrite (Negative) Urine Bilirubin (Negative) Urine Urobilinogen (<2.0) mg/dL Ur Leukocyte Esterase (Negative) 01/22/19 Range/Units 11:45 WBC (3.8-10.6) k/uL RBC (4.30-5.90) m/uL Hgb (13.0-17.5) gm/dL Hct (39.0-53.0) % MCV (80.0-100.0) fL MCH (25.0-35.0) pg MCHC (31.0-37.0) g/dL RDW (11.5-15.5) % Plt Count (150-450) k/uL Neutrophils % % Lymphocytes % % Monocytes % % Eosinophils % % Basophils % % Neutrophils # (1.3-7.7) k/uL Lymphocytes # (1.0-4.8) k/uL Monocytes # (0-1.0) k/uL Eosinophils # (0-0.7) k/uL Basophils # (0-0.2) k/uL Sodium (137-145) mmol/L Potassium (3.5-5.1) mmol/L Chloride (98-107) mmol/L Carbon Dioxide (22-30) mmol/L Anion Gap mmol/L BUN (9-20) mg/dL Creatinine (0.66-1.25) mg/dL Est GFR (CKD-EPI)AfAm (>60 ml/min/1.73 sqM) Est GFR (CKD-EPI)NonAf (>60 ml/min/1.73 sqM) Glucose (74-99) mg/dL Calcium (8.4-10.2) mg/dL Magnesium (1.6-2.3) mg/dL Total Bilirubin (0.2-1.3) mg/dL AST (17-59) U/L ALT (21-72) U/L Alkaline Phosphatase (38-126) U/L Total Creatine Kinase (55-170) U/L CK-MB (CK-2) (0.0-2.4) ng/mL CK-MB (CK-2) Rel Index Total Protein (6.3-8.2) g/dL Albumin (3.5-5.0) g/dL Urine Color Light Yellow Urine Appearance Clear (Clear) Urine pH 6.5 (5.0-8.0) Ur Specific [place] 1.006 (1.001-1.035) Urine Protein Negative (Negative) Urine Glucose (UA) Negative (Negative) Urine Ketones Negative (Negative) Urine Blood Negative (Negative) Urine Nitrite Negative (Negative) Urine Bilirubin Negative (Negative) Urine Urobilinogen <2.0 (<2.0) mg/dL Ur Leukocyte Esterase Negative (Negative) - Radiology Data Radiology results: report reviewed (I did review the imaging and report no acute findings.), image reviewed Disposition Clinical Impression: Mechanical back pain, Chronic ulcer of buttock, Chronic pain Disposition: HOME SELF-CARE Condition: Good Instructions (If sedation given, give patient instructions): Chronic Back Pain (ED) Prescriptions: Buprenorphine [Buprenorphine 10MCG/HR] 1 patch TRANSDERM WEEKLY #1 patch traMADol HCL [Conzip] 100 mg PO DAILY #28 cap Is patient prescribed a controlled substance at d/c from ED?: Yes When asked, does pt state using other controlled substances?: Yes If prescribed controlled substance>3 days was MAPS reviewed?: Yes If opioid is for acute pain is fill amount 7 days or less?: Yes If Rx opioid, was Start Talking consent form obtained?: Yes Referrals: None,Stated [Primary Care Provider] - 1-2 days
[2019-01-22 11:18] LABS: Basophils # (A) 0.1 k/uL (0-0.2); Basophils % (A) 1 %; Eosinophils # (A) 0.4 k/uL (0-0.7); Eosinophils % (A) 6 %; HGB 12.7 gm/dL (13.0-17.5); Lymphocytes # (A) 1.6 k/uL (1.0-4.8); Lymphocytes % (A) 26 %; MCH 33.6 pg (25.0-35.0); MCHC 33.6 g/dL (31.0-37.0); MCV 100.1 fL (80.0-100.0); Mean Platelet Volume 6.5; Monocytes # (A) 0.3 k/uL (0-1.0); Monocytes % (A) 4 %; Neutrophils # (A) 3.8 k/uL (1.3-7.7); Neutrophils % (A) 61 %; Platelet Count 444 k/uL (150-450); RBC 3.79 m/uL (4.30-5.90); RDW 14.2 % (11.5-15.5); WBC 6.3 k/uL (3.8-10.6)
[2019-01-22] MEDS ORDERED: fentaNYL (PF) 50 MCG/ML 2 ML AMP IVP STA (11:23)
--- NOTE | 2019-01-22 11:26 | XR ---
EXAMINATION TYPE: XR chest 2V DATE OF EXAM: 01/22/2019 COMPARISON: 07/16/2012 HISTORY: Chest pain TECHNIQUE: Frontal and lateral views of the chest are obtained. FINDINGS: There is no focal air space opacity. No evidence for pneumothorax. No pleural effusion. The cardiac silhouette size is within normal limits. The osseous structures are grossly intact. IMPRESSION: 1. No acute cardiopulmonary process.
[2019-01-22 11:27] LABS: ALT 18 U/L (21-72); AST 18 U/L (17-59); Albumin 3.7 g/dL (3.5-5.0); Alkaline Phosphatase 67 U/L (38-126); Anion Gap 9 mmol/L; Blood Urea Nitrogen 9 mg/dL (9-20); Carbon Dioxide 22 mmol/L (22-30); Chloride 107 mmol/L (98-107); Glucose 84 mg/dL (74-99); Magnesium 2.2 mg/dL (1.6-2.3); Potassium 4.3 mmol/L (3.5-5.1); Sodium 138 mmol/L (137-145); Total Bilirubin 0.4 mg/dL (0.2-1.3); Total Protein 6.3 g/dL (6.3-8.2)
--- NOTE | 2019-01-22 11:27 | XR ---
EXAMINATION TYPE: XR lumbosacral spine min 4V DATE OF EXAM: 01/22/2019 CLINICAL HISTORY: pain COMPARISON: 05/12/2018 TECHNIQUE: Frontal, lateral, and oblique images of the lumbar spine are obtained. FINDINGS: There are 5 lumbar type vertebral bodies identified. The lumbar spine shows satisfactory alignment without evidence of acute fracture or dislocation. Vertebral body heights are within normal limits. Degenerative change L5-S1 unchanged from prior study. Facet joint arthropathy also noted. The overlying soft tissue appears unremarkable. IMPRESSION: No acute fracture or dislocation is seen in the lumbar spine.ICD 10 NO FRACTURE, INITIAL EVALUATION
[2019-01-22 11:46] LABS: Creatine Kinase MB 1.7 ng/mL (0.0-2.4)
[2019-01-22 11:54] LABS: Appearance,Urine Clear (Clear); Bilirubin,Urine Negative (Negative); Blood,Urine Negative (Negative); Color,Urine Light Yellow; Glucose,Urine (UA) Negative (Negative); Ketones,Urine Negative (Negative); Leukocyte Esterase,Urine Negative (Negative); Nitrite,Urine Negative (Negative); PH, Urine 6.5 (5.0-8.0); Protein,Urine Negative (Negative); Specific Gravity,Urine 1.006 (1.001-1.035); Urobilinogen,Urine <2.0 mg/dL (<2.0)
[2019-01-22] MEDS ORDERED: traMADol 50 MG TAB PO STA (12:33)
[2019-01-22 14:07] VITALS: BP 106/67; PULSE 75; TEMP 97.9
== END 2019-01-22 14:06 | disposition home or self-care (01) ==
LOC: EC 09:50
DX: G89.29 Other chronic pain (principal); M54.5 Low back pain; L98.419 Non-pressure chronic ulcer of buttock with unspecified severity; F41.9 Anxiety disorder, unspecified; F31.9 Bipolar disorder, unspecified; F17.200 Nicotine dependence, unspecified, uncomplicated; Z79.899 Other long term (current) drug therapy
CPT/HCPCS: 36415; 80053; 82550; 82553; 83735; 85025; 81003; 72110; 71046; 99283; 96374; J3010

== ENCOUNTER 2019-01-28 09:15 | Emergency (ER) | payer OTHER ==
[2019-01-28 09:19] VITALS: BP 105/76; PULSE 75; RESP 16; TEMP 98.6
[2019-01-28] MEDS ORDERED: LIDOCAINE 5% PATCH TOPICAL STA (09:48)
[2019-01-28] MEDS ORDERED: traMADol 50 MG STARTER PACK 3 TAB BTL PO STA (09:50)
--- NOTE | 2019-01-28 09:57 | ED ---
Back Pain HPI - General Chief Complaint: Back Pain/Injury Stated Complaint: back, neck and foot pain Time Seen by Provider: 01/28/19 09:22 Source: patient, RN notes reviewed, old records reviewed Limitations: no limitations - History of Present Illness Initial Comments: Patient is a 43-year-old male well-known to the emergency department for chronic pain and drug-seeking behavior. He presents today with complaints of bilateral foot pain and back pain. Patient states this is chronic pain. He denies any falls or recent trauma. No red flag symptoms. Patient states that he was given a prescription for Ultram last week as well as beeping her friend. Patient is unable to fill the EpiPen or from patch. Patient has had a maps report completed and is positive for multiple providers for her medications within the past month. Patient has not established with a primary care doctor as of this time. Patient states that he recently moved back from [place]. He Patient re ports is chronic pain stems from a traumatic injury in 1994. - Related Data Home Medications Medication Instructions Recorded Confirmed Metoprolol Tartrate 25 mg PO BID 05/12/18 01/28/19 traZODone HCL 150 mg PO HS 05/12/18 01/28/19 Baclofen [Lioresal] 10 mg PO QID 01/02/19 01/28/19 Ibuprofen [Motrin] 800 mg PO QID PRN 01/15/19 01/28/19 Aspirin EC [Ecotrin Low Dose] 81 mg PO DAILY 01/28/19 01/28/19 Previous Rx's Medication Instructions Recorded traMADol HCL [Conzip] 100 mg PO DAILY #28 cap 01/22/19 Allergies Allergy/AdvReac Type Severity Reaction Status Date / Time No Known Allergies Allergy Verified 01/28/19 09:43 Review of Systems ROS Statement: Those systems with pertinent positive or pertinent negative responses have been documented in the HPI. ROS Other: All systems not noted in ROS Statement are negative. Past Medical History Past Medical History: Asthma Additional Past Medical History / Comment(s): back pain, spinal and sacral f ractures, chronic foot and shoulder pain History of Any Multi-Drug Resistant Organisms: None Reported Past Surgical History: Back Surgery, Orthopedic Surgery Additional Past Surgical History / Comment(s): pins and plates in feet Past Psychological History: Anxiety, Bipolar, Depression Smoking Status: Current every day smoker Past Alcohol Use History: None Reported Past Drug Use History: None Reported General Exam - General Exam Comments Initial Comments: 43-year-old male. Well appearing and pudding without difficulty. No significant distress. Limitations: no limitations General appearance: alert, in no apparent distress Head exam: Present: atraumatic, normocephalic, normal inspection Eye exam: Present: normal appearance, PERRL, EOMI. Absent: scleral icterus, conjunctival injection, periorbital swelling ENT exam: Present: normal exam, mucous membranes moist Neck exam: Present: normal inspection. Absent: tenderness, meningismus, lymphadenopathy Respiratory exam: Present: normal lung sounds bilaterally. Absent: respiratory distress, wheezes, rales, rhonchi, stridor Cardiovascular Exam: Present: regular rate, normal rhythm, normal heart sounds. Absent: systolic murmur, diastolic murmur, rubs, gallop, clicks GI/Abdominal exam: Present: soft, normal bowel sounds. Absent: distended, tenderness, guarding, rebound, rigid Extremities exam: Present: normal inspection, full ROM, normal capillary refill. Absent: tenderness, pedal edema, joint swelling, calf tenderness Back exam: Present: normal inspection, other (Extremities are warm and dry. Less than 2 second capillary refill. Full range of motion of the extremities.) Neurological exam: Present: alert, oriented X3, CN II-XII intact Psychiatric exam: Present: normal affect, normal mood Skin exam: Present: warm, dry, intact, normal color. Absent: rash Course Vital Signs 01/28/19 09:16 Temperature 98.6 F Pulse Rate 75 Respiratory 16 Rate Blood Pressure 105/76 O2 Sat by Pulse 98 Oximetry Medical Decision Making - Medical Decision Making 33-year-old male presents for his from today for chronic pain exacerbation. He is having a difficult time having to be better for patch filled by prescription. Patient presents today with complaints of bilateral foot pain and back pain. At this time report was ran. He said multiple prescriptions for tramadol. I discussed no further prescriptions from the ER at this time. She give Patient one dose of tramadol and ED. Patient will be given a lidocaine patch. I discussed that he needs follow-up with a primary care doctor. He is adamant he wants me to check his insurance as to why he cannot get his buprenorphine patch. Discussed this is not a appropriate for ED personal. Discussed strict return parameters. 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 Is patient prescribed a controlled substance at d/c from ED?: No Referrals: None,Stated [Primary Care Provider] - 1-2 days Dread Coley MD [REFERRING] - 1-2 days Peri Kaye MD [STAFF PHYSICIAN] - 1-2 days Chi Cabrera MD [STAFF PHYSICIAN] - 1-2 days Time of Disposition: 09:56
== END 2019-01-28 10:19 | disposition home or self-care (01) ==
LOC: EC 09:15
DX: G89.29 Other chronic pain (principal); M25.571 Pain in right ankle and joints of right foot; M25.572 Pain in left ankle and joints of left foot; M54.9 Dorsalgia, unspecified; M54.2 Cervicalgia; M79.671 Pain in right foot; M79.672 Pain in left foot; F32.9 Major depressive disorder, single episode, unspecified; F41.9 Anxiety disorder, unspecified; F17.200 Nicotine dependence, unspecified, uncomplicated; Z98.890 Other specified postprocedural states; Z87.81 Personal history of (healed) traumatic fracture; Z79.82 Long term (current) use of aspirin; Z79.899 Other long term (current) drug therapy
CPT/HCPCS: 99284

== ENCOUNTER 2019-02-01 08:39 | Emergency (ER) | payer OTHER ==
[2019-02-01 09:01] VITALS: RESP 18
[2019-02-01] MEDS ORDERED: ACETAMINOPHEN TAB 325 MG TAB PO STA (09:49)
--- NOTE | 2019-02-01 09:51 | ED ---
Back Pain HPI - General Chief Complaint: Back Pain/Injury Stated Complaint: Neck/back pain Time Seen by Provider: 02/01/19 09:35 Source: patient, RN notes reviewed Mode of arrival: ambulatory Limitations: no limitations - History of Present Illness Initial Comments: This a 43-year-old male well-known emergency department presents today for chronic pain issues. Patient has had no new injuries. This pain is chronic in nature and has been there for several years with no acute changes. Patient states he has feet, leg, back, neck pain. Patient is requesting pain medication. Patient has had multiple ER visits and has received tramadol starter packs. Patient states that he is not continued come emergency from for pain meds because he does not have a primary care doctor nor has he attempted to sit up pain management. Patient denies any bowel bladder incontinence or retention. Denies fevers or chills. Denies any trauma at this time. - Related Data Home Medications Medication Instructions Recorded Confirmed Metoprolol Tartrate 25 mg PO BID 05/12/18 02/01/19 traZODone HCL 150 mg PO HS 05/12/18 02/01/19 Baclofen [Lioresal] 10 mg PO QID 01/02/19 02/01/19 Ibuprofen [Motrin] 800 mg PO QID PRN 01/15/19 02/01/19 Aspirin EC [Ecotrin Low Dose] 81 mg PO DAILY 01/28/19 02/01/19 Allergies Allergy/AdvReac Type Severity Reaction Status Date / Time No Known Allergies Allergy Verified 02/01/19 09:45 Review of Systems ROS Statement: Those systems with pertinent positive or pertinent negative responses have been documented in the HPI. ROS Other: All systems not noted in ROS Statement are negative. Past Medical History Past Medical History: Asthma Additional Past Medical History / Comment(s): back pain, spinal and sacral fractures, chronic foot and shoulder pain History of Any Multi-Drug Resistant Organisms: None Reported Past Surgical History: Back Surgery, Orthopedic Surgery Additional Past Surgical History / Comment(s): pins and plates in feet Past Psychological History: Anxiety, Bipolar, Depression Smoking Status: Current every day smoker Past Alcohol Use History: None Reported Past Drug Use History: None Reported General Exam Limitations: no limitations General appearance: alert, in no apparent distress Head exam: Present: atraumatic, normocephalic, normal inspection Respiratory exam: Present: normal lung sounds bilaterally. Absent: respiratory distress, wheezes, rales, rhonchi, stridor Cardiovascular Exam: Present: regular rate, normal rhythm, normal heart sounds. Absent: systolic murmur, diastolic murmur, rubs, gallop, clicks Extremities exam: Present: full ROM, normal capillary refill. Absent: normal inspection (Old scarring noted of the feet), tenderness, pedal edema, joint swelling, calf tenderness Back exam: Present: full ROM, tenderness (Patient reports diffuse tenderness with palpation), paraspinal tenderness, vertebral tenderness Skin exam: Present: warm, dry, intact, normal color. Absent: rash Course Vital Signs 02/01/19 08:59 Temperature 98.8 F Pulse Rate 75 Respiratory 18 Rate Blood Pressure 123/80 O2 Sat by Pulse 100 Oximetry Medical Decision Making - Medical Decision Making 43-year-old male presented for chronic pain. I did have discussion with the patient that the ER is not the place for chronic pain management. Patient is requesting that he received his pain meds as he does not have a primary care physician and that he needs to be on tramadol. I did explain that he has had multiple ER visits for this and has received them. Patient we given Tylenol today he is advised to follow-up with PCP or pain management and he is to schedule this appointment for that. Patient understands that he will not receive any further prescriptions from emergency department for his chronic pain. Disposition Clinical Impression: Chronic pain Disposition: HOME SELF-CARE Condition: Stable Instructions (If sedation given, give patient instructions): Chronic Back Pain (ED) Additional Instructions: Please return to the Emergency Department if symptoms worsen or any other concerns. Is patient prescribed a controlled substance at d/c from ED?: No Referrals: None,Stated [Primary Care Provider] - 1-2 days Time of Disposition: 09:51
[2019-02-01 10:27] VITALS: BP 128/78; PULSE 78; TEMP 98.3
== END 2019-02-01 10:27 | disposition home or self-care (01) ==
LOC: EC 08:39
DX: G89.29 Other chronic pain (principal); M54.9 Dorsalgia, unspecified; M54.2 Cervicalgia; F31.9 Bipolar disorder, unspecified; F41.9 Anxiety disorder, unspecified; F17.200 Nicotine dependence, unspecified, uncomplicated; Z79.82 Long term (current) use of aspirin; Z79.899 Other long term (current) drug therapy
CPT/HCPCS: 99283

== ENCOUNTER 2019-02-04 09:25 | Emergency (ER) | payer OTHER ==
[2019-02-04 09:33] VITALS: BP 123/75; PULSE 78; RESP 18; TEMP 98.3
[2019-02-04] MEDS ORDERED: ACETAMINOPHEN TAB 325 MG TAB PO STA (09:38)
--- NOTE | 2019-02-04 09:39 | ED ---
Back Pain HPI - General Chief Complaint: Back Pain/Injury Stated Complaint: Severe Body Pain Time Seen by Provider: 02/04/19 09:35 Source: patient, RN notes reviewed Limitations: no limitations - History of Present Illness Initial Comments: 43-year-old male presents emergency from for chronic pain issues. Patient is well-known emergency d who is new to him and did not prescribe pain meds and he was advised to see pain management. Patient has been told emergency department that he see pain management. Patient denies any new injuries, trauma. Patient states is chronic back, neck, leg, foot pain. Patient denies any red flag symptoms. Patient denies any abdominal pain no fevers or chills. Patient offers no other complaints.epartment. Patient states she saw PCP yesterday - Related Data Home Medications Medication Instructions Recorded Confirmed Metoprolol Tartrate 25 mg PO BID 05/12/18 02/01/19 traZODone HCL 150 mg PO HS 05/12/18 02/01/19 Baclofen [Lioresal] 10 mg PO QID 01/02/19 02/01/19 Ibuprofen [Motrin] 800 mg PO QID PRN 01/15/19 02/01/19 Aspirin EC [Ecotrin Low Dose] 81 mg PO DAILY 01/28/19 02/01/19 Allergies Allergy/AdvReac Type Severity Reaction Status Date / Time No Known Allergies Allergy Verified 02/04/19 09:33 Review of Systems ROS Statement: Those systems with pertinent positive or pertinent negative responses have been documented in the HPI. ROS Other: All systems not noted in ROS Statement are negative. Past Medical History Past Medical History: Asthma Additional Past Medical History / Comment(s): back pain, spinal and sacral fractures, chronic foot and shoulder pain History of Any Multi-Drug Resistant Organisms: None Reported Past Surgical History: Back Surgery, Orthopedic Surgery Additional Past Surgical History / Comment(s): pins and plates in feet Past Psychological History: Anxiety, Bipolar, Depression Smoking Status: Current every day smoker Past Alcohol Use History: None Reported Past Drug Use History: None Reported General Exam Limitations: no limitations General appearance: alert, in no apparent distress Neck exam: Present: normal inspection, tenderness, full ROM. Absent: meningismus, lymphadenopathy Respiratory exam: Present: normal lung sounds bilaterally. Absent: respiratory distress, wheezes, rales, rhonchi, stridor Cardiovascular Exam: Present: regular rate, normal rhythm, normal heart sounds. Absent: systolic murmur, diastolic murmur, rubs, gallop, clicks GI/Abdominal exam: Present: soft, normal bowel sounds. Absent: distended, tenderness, guarding, rebound, rigid Extremities exam: Present: normal inspection, full ROM, normal capillary refill. Absent: tenderness, pedal edema, joint swelling, calf tenderness Back exam: Present: normal inspection, full ROM, tenderness (diffuse nonfocal), paraspinal tenderness, vertebral tenderness Neurological exam: Present: alert, oriented X3, CN II-XII intact Skin exam: Present: warm, dry, intact, normal color. Absent: rash Course Vital Signs 02/04/19 09:31 Temperature 98.3 F Pulse Rate 78 Respiratory 18 Rate Blood Pressure 123/75 O2 Sat by Pulse 98 Oximetry Medical Decision Making - Medical Decision Making 43-year-old male presented for chronic pain issues. Patient has had no new injuries. Patient is here for narcotic pain meds. Patient was advised that he'll not receive narcotic pain meds and he was advised that he'll not receive narcotics for chronic pain in emergency department on further visits. Patient is advised follow-up with PCP or pain management for chronic pain meds. Disposition Clinical Impression: Chronic pain Disposition: HOME SELF-CARE Condition: Stable Instructions (If sedation given, give patient instructions): Chronic Back Pain (ED) Additional Instructions: Please return to the Emergency Department if symptoms worsen or any other concerns. Is patient prescribed a controlled substance at d/c from ED?: No Referrals: None,Stated [Primary Care Provider] - 1-2 days Time of Disposition: 09:39
== END 2019-02-04 09:51 | disposition home or self-care (01) ==
LOC: EC 09:25
DX: G89.29 Other chronic pain (principal); M54.2 Cervicalgia; M54.9 Dorsalgia, unspecified; M79.673 Pain in unspecified foot; F41.9 Anxiety disorder, unspecified; F31.9 Bipolar disorder, unspecified; F17.200 Nicotine dependence, unspecified, uncomplicated; Z79.82 Long term (current) use of aspirin; Z79.899 Other long term (current) drug therapy
CPT/HCPCS: 99283

== ENCOUNTER 2019-02-06 09:22 | Emergency (ER) | payer OTHER ==
[2019-02-06 09:27] VITALS: BP 116/73; PULSE 73; RESP 18; TEMP 97.7
[2019-02-06] MEDS ORDERED: ACETAMINOPHEN TAB 500 MG TAB PO STA (09:55)
--- NOTE | 2019-02-06 09:57 | ED ---
General Adult HPI - General Chief complaint: Back Pain/Injury Stated complaint: Feet/back Pain Time Seen by Provider: 02/06/19 09:36 Source: patient, RN notes reviewed Mode of arrival: ambulatory Limitations: no limitations - History of Present Illness Initial comments: Patient is a pleasant 43-year-old male returning to the emergency department for chronic pain. Patient states he is recently new to the area again. Patient states he does not see a primary care physician because his pain is too great. Patient then later admits that he does see a practitioner with [facility]. Patient feels his medications are not controlling his pain good enough. Patient complains of chronic back and chronic foot pain. Patient states his open present for greater than 20 years. No recent change. No weakness. No fevers. - Related Data Home Medications Medication Instructions Recorded Confirmed Metoprolol Tartrate 25 mg PO BID 05/12/18 02/01/19 traZODone HCL 150 mg PO HS 05/12/18 02/01/19 Baclofen [Lioresal] 10 mg PO QID 01/02/19 02/01/19 Ibuprofen [Motrin] 800 mg PO QID PRN 01/15/19 02/01/19 Aspirin EC [Ecotrin Low Dose] 81 mg PO DAILY 01/28/19 02/01/19 Allergies Allergy/AdvReac Type Severity Reaction Status Date / Time No Known Allergies Allergy Verified 02/04/19 09:33 Review of Systems ROS Statement: Those systems with pertinent positive or pertinent negative responses have been documented in the HPI. ROS Other: All systems not noted in ROS Statement are negative. Constitutional: Denies: fever Eyes: Denies: eye pain ENT: Denies: ear pain Respiratory: Denies: cough Cardiovascular: Denies: chest pain Endocrine: Denies: fatigue Gastrointestinal: Denies: abdominal pain Genitourinary: Denies: dysuria Musculoskeletal: Reports: back pain (Chronic) Skin: Denies: rash Neurological: Denies: weakness Past Medical History Past Medical History: Asthma Additional Past Medical History / Comment(s): back pain, spinal and sacral fractures, chronic foot and shoulder pain History of Any Multi-Drug Resistant Organisms: None Reported Past Surgical History: Back Surgery, Orthopedic Surgery Additional Past Surgical History / Comment(s): pins and plates in feet Past Psychological History: Anxiety, Bipolar, Depression Smoking Status: Current every day smoker Past Alcohol Use History: None Reported Past Drug Use History: None Reported General Exam Limitations: no limitations General appearance: alert, in no apparent distress Head exam: Present: atraumatic Neck exam: Present: normal inspection. Absent: tenderness Respiratory exam: Present: normal lung sounds bilaterally Cardiovascular Exam: Present: regular rate, normal rhythm GI/Abdominal exam: Present: soft. Absent: tenderness Extremities exam: Present: normal inspection. Absent: tenderness Back exam: Present: normal inspection. Absent: tenderness, vertebral tenderness Neurological exam: Present: alert. Absent: motor sensory deficit Psychiatric exam: Present: normal affect, normal mood Skin exam: Present: normal color Course Vital Signs 02/06/19 09:24 Temperature 97.7 F Pulse Rate 73 Respiratory 18 Rate Blood Pressure 116/73 O2 Sat by Pulse 100 Oximetry Disposition Clinical Impression: Chronic pain Disposition: HOME SELF-CARE Condition: Stable Instructions (If sedation given, give patient instructions): Chronic Back Pain (ED) Additional Instructions: Please do follow-up with primary care physician and orthopedics for your chronic pain. Return for worsening or changing symptoms. Is patient prescribed a controlled substance at d/c from ED?: No Referrals: Dread Coley MD [REFERRING] - 1-2 days Brendon Neal DO [Doctor of Osteopathic Medicine] - 1-2 days Time of Disposition: 09:57
== END 2019-02-06 10:29 | disposition home or self-care (01) ==
LOC: EC 09:22
DX: G89.29 Other chronic pain (principal); M54.9 Dorsalgia, unspecified; M79.673 Pain in unspecified foot; F32.9 Major depressive disorder, single episode, unspecified; F17.200 Nicotine dependence, unspecified, uncomplicated; Z79.82 Long term (current) use of aspirin; Z79.899 Other long term (current) drug therapy; Z96.698 Presence of other orthopedic joint implants; Z98.890 Other specified postprocedural states
CPT/HCPCS: 99283

== ENCOUNTER 2019-02-07 10:04 | Emergency (ER) | payer OTHER ==
[2019-02-07 10:11] VITALS: BP 115/79; PULSE 96; RESP 16; TEMP 97.4
--- NOTE | 2019-02-07 10:47 | ED ---
General Adult HPI - General Chief complaint: Back Pain/Injury Stated complaint: Pain Time Seen by Provider: 02/07/19 10:13 Source: patient, RN notes reviewed Mode of arrival: ambulatory Limitations: no limitations - History of Present Illness Initial comments: Patient is a pleasant 43-year-old male returning to the emergency department for chronic back pain. Patient states he has had this for years. Patient states he took Tylenol and Motrin this morning. Patient states he also took baclofen this morning. Patient states he is supposed be on narcotic pain medication and requests this. Patient states there are 3 narcotics she is supposed to be on including a patch. No change in symptoms. No weakness. No tendons retention of bowel or bladder. - Related Data Home Medications Medication Instructions Recorded Confirmed Metoprolol Tartrate 25 mg PO BID 05/12/18 02/01/19 traZODone HCL 150 mg PO HS 05/12/18 02/01/19 Baclofen [Lioresal] 10 mg PO QID 01/02/19 02/01/19 Ibuprofen [Motrin] 800 mg PO QID PRN 01/15/19 02/01/19 Aspirin EC [Ecotrin Low Dose] 81 mg PO DAILY 01/28/19 02/01/19 Allergies Allergy/AdvReac Type Severity Reaction Status Date / Time No Known Allergies Allergy Verified 02/07/19 10:11 Review of Systems ROS Statement: Those systems with pertinent positive or pertinent negative responses have been documented in the HPI. ROS Other: All systems not noted in ROS Statement are negative. Constitutional: Denies: fever Eyes: Denies: eye pain ENT: Denies: ear pain Respiratory: Denies: cough Cardiovascular: Denies: chest pain Endocrine: Denies: fatigue Gastrointestinal: Denies: abdominal pain Genitourinary: Denies: dysuria Musculoskeletal: Reports: as per HPI, back pain Skin: Denies: rash Neurological: Denies: weakness Past Medical History Past Medical History: Asthma Additional Past Medical History / Comment(s): back pain, spinal and sacral fractures, chronic foot and shoulder pain History of Any Multi-Drug Resistant Organisms: None Reported Past Surgical History: Back Surgery, Orthopedic Surgery Additional Past Surgical History / Comment(s): pins and plates in feet Past Psychological History: Anxiety, Bipolar, Depression Smoking Status: Current every day smoker Past Alcohol Use History: None Reported Past Drug Use History: None Reported General Exam Limitations: no limitations General appearance: alert, in no apparent distress Head exam: Present: atraumatic Eye exam: Present: normal appearance Neck exam: Present: normal inspection Respiratory exam: Present: normal lung sounds bilaterally Cardiovascular Exam: Present: regular rate, normal rhythm Expanded Peripheral pulses: 2+: Posterior Tibialis (R), Posterior Tibialis (L) GI/Abdominal exam: Present: soft. Absent: tenderness Extremities exam: Present: normal inspection Back exam: Present: normal inspection. Absent: tenderness Neurological exam: Present: alert. Absent: motor sensory deficit Psychiatric exam: Present: normal affect, normal mood Skin exam: Present: normal color Course Vital Signs 02/07/19 10:09 Temperature 97.4 F L Pulse Rate 96 Respiratory 16 Rate Blood Pressure 115/79 O2 Sat by Pulse 100 Oximetry Disposition Clinical Impression: Chronic pain, Drug-seeking behavior Disposition: HOME SELF-CARE Condition: Stable Instructions (If sedation given, give patient instructions): Chronic Back Pain (ED), Pain Management (ED), Opioid Use Disorder (ED) Additional Instructions: Follow-up with primary care physician tomorrow. Please do establish a primary care physician. Return for change or worsening symptoms, weakness, incontinence or retention of bowel or bladder, or other concerns. Is patient prescribed a controlled substance at d/c from ED?: No Referrals: Dread Coley MD [REFERRING] - 1-2 days Time of Disposition: 10:42
== END 2019-02-07 10:52 | disposition home or self-care (01) ==
LOC: EC 10:04
DX: G89.29 Other chronic pain (principal); M54.9 Dorsalgia, unspecified; Z76.5 Malingerer [conscious simulation]; F32.9 Major depressive disorder, single episode, unspecified; F41.9 Anxiety disorder, unspecified; F17.200 Nicotine dependence, unspecified, uncomplicated; Z79.82 Long term (current) use of aspirin; Z79.899 Other long term (current) drug therapy; Z98.890 Other specified postprocedural states; Z96.698 Presence of other orthopedic joint implants
CPT/HCPCS: 99283

== ENCOUNTER 2019-02-13 08:35 | Emergency (ER) | payer OTHER ==
[2019-02-13 08:38] VITALS: BP 124/78; PULSE 77; RESP 18; TEMP 98.1
[2019-02-13] MEDS ORDERED: KETOROLAC 30 MG/ML 1 ML VIAL IM STA (08:50)
[2019-02-13] MEDS ORDERED: ACETAMINOPHEN TAB 500 MG TAB PO STA ×2 (08:53→08:54)
--- NOTE | 2019-02-13 08:55 | ED ---
General Adult HPI - General Chief complaint: Back Pain/Injury Stated complaint: Feet pain Time Seen by Provider: 02/13/19 08:39 Source: patient, RN notes reviewed Mode of arrival: ambulatory Limitations: no limitations - History of Present Illness Initial comments: 43-year-old male well to know to the ED with a past medical history of chronic foot pain presents to the emergency department for a chief complaint of chronic foot pain. States this has been ongoing since he lived in [place] where the streets were very uneven. States usually his pain management doctor writes tramadol so he is requesting this. Patient states his primary care doctor here in [place] will not refill this. Patient denies any worsening pain. Denies any saddle anesthesia, bladder or bowel changes. Denies any fevers or chills.Patient has no other complaints at this time including shortness of breath, chest pain, abdominal pain, nausea or vomiting, headache, or visual ch anges. - Related Data Home Medications Medication Instructions Recorded Confirmed Naproxen [Naprosyn] 500 mg PO Q12HR PRN 02/13/19 02/13/19 Allergies Allergy/AdvReac Type Severity Reaction Status Date / Time No Known Allergies Allergy Verified 02/13/19 08:52 Review of Systems ROS Statement: Those systems with pertinent positive or pertinent negative responses have been documented in the HPI. ROS Other: All systems not noted in ROS Statement are negative. Past Medical History Past Medical History: Asthma Additional Past Medical History / Comment(s): back pain, spinal and sacral fractures, chronic foot and shoulder pain History of Any Multi-Drug Resistant Organisms: None Reported Past Surgical History: Back Surgery, Orthopedic Surgery Additional Past Surgical History / Comment(s): pins and plates in feet Past Psychological History: Anxiety, Bipolar, Depression Smoking Status: Current every day smoker Past Alcohol Use History: None Reported Past Drug Use History: None Reported General Exam Limitations: no limitations General appearance: alert, in no apparent distress Head exam: Present: atraumatic, normocephalic, normal inspection Eye exam: Present: normal appearance, PERRL, EOMI. Absent: scleral icterus, conjunctival injection, periorbital swelling ENT exam: Present: normal exam, mucous membranes moist Neck exam: Present: normal inspection, full ROM. Absent: tenderness, meningismus, lymphadenopathy Respiratory exam: Present: normal lung sounds bilaterally. Absent: respiratory distress, wheezes, rales, rhonchi, stridor Cardiovascular Exam: Present: regular rate, normal rhythm, normal heart sounds. Absent: systolic murmur, diastolic murmur, rubs, gallop, clicks Extremities exam: Present: normal inspection, full ROM (In bilateral lower extremities), normal capillary refill (Vinnie refill less than 2 seconds, DP pulse 2+ bilaterally). Absent: tenderness, pedal edema, joint swelling, calf tenderness Back exam: Present: full ROM. Absent: tenderness, vertebral tenderness Neurological exam: Present: alert, oriented X3, CN II-XII intact, normal gait (Patient ambulatory) Psychiatric exam: Present: normal affect, normal mood Course Vital Signs 02/13/19 08:37 Temperature 98.1 F Pulse Rate 77 Respiratory 18 Rate Blood Pressure 124/78 O2 Sat by Pulse 100 Oximetry Medical Decision Making - Medical Decision Making 43-year-old male with a past medical history of chronic pain presents to the emergency department for a chief complaint of chronic foot pain. Patient is well-known to this emergency department for similar complaints. Patient denies any worsening symptoms states this has been ongoing since you have been [place]. Exam is unremarkable. Neurovascular status intact in bilateral lower extremities. Patient denies any saddle anesthesia or bladder or bowel changes. Patient is requesting tramadol, showing signs of drug-seeking behavior. Vitals are stable. At this time patient will be given Tylenol. Discussed he will not be giving he manage her medications emergency department and he will need to follow up with primary care for this. Discussed returning here if he has any worsening symptoms. Disposition Clinical Impression: Chronic pain, Drug-seeking behavior Disposition: HOME SELF-CARE Condition: Good Instructions (If sedation given, give patient instructions): Chronic Pain (ED), Chronic Back Pain (ED) Additional Instructions: Please follow up with primary care for pain management. Please return here to the emergency department if you have any worsening symptoms. Is patient prescribed a controlled substance at d/c from ED?: No Referrals: [facility] [Primary Care Provider] - 1-2 days Time of Disposition: 08:54
== END 2019-02-13 09:11 | disposition home or self-care (01) ==
LOC: SUPCPDRO 08:35 → EC 08:35
DX: G89.29 Other chronic pain (principal); M79.671 Pain in right foot; M79.672 Pain in left foot; Z76.5 Malingerer [conscious simulation]; F17.200 Nicotine dependence, unspecified, uncomplicated; Z96.698 Presence of other orthopedic joint implants; Z53.8 Procedure and treatment not carried out for other reasons
CPT/HCPCS: 99283

== ENCOUNTER 2019-02-13 13:17 | Emergency (ER) | payer OTHER ==
[2019-02-13 13:24] VITALS: BP 112/74; PULSE 98; RESP 18; TEMP 98
--- NOTE | 2019-02-13 13:39 | ED ---
General Adult HPI - General Chief complaint: Back Pain/Injury Stated complaint: Back pain Time Seen by Provider: 02/13/19 13:20 Source: patient, RN notes reviewed Mode of arrival: ambulatory Limitations: no limitations - History of Present Illness Initial comments: Patient states he has chronic foot pain and he wants pain medications his primary medical doctor would not give him any pain medications. Patient states his been no recent injury he just is out of all pain medications. Patient states it's like at least a prescription for tramadol. When I told the patient he would not get any pain medications he would not show me his feet and he demanded to be admitted to the hospital. Patient denies any other problems at this time. - Related Data Home Medications Medication Instructions Recorded Confirmed Naproxen [Naprosyn] 500 mg PO Q12HR PRN 02/13/19 02/13/19 Allergies Allergy/AdvReac Type Severity Reaction Status Date / Time No Known Allergies Allergy Verified 02/13/19 13:24 Review of Systems ROS Statement: Those systems with pertinent positive or pertinent negative responses have been documented in the HPI. ROS Other: All systems not noted in ROS Statement are negative. Past Medical History Past Medical History: Asthma Additional Past Medical History / Comment(s): back pain, spinal and sacral fractures, chronic foot and shoulder pain History of Any Multi-Drug Resistant Organisms: None Reported Past Surgical History: Back Surgery, Orthopedic Surgery Additional Past Surgical History / Comment(s): pins and plates in feet Past Psychological History: Anxiety, Bipolar, Depression Smoking Status: Current every day smoker Past Alcohol Use History: None Reported Past Drug Use History: None Reported General Exam - General Exam Comments Initial Comments: GENERAL Patient is well-developed and well-nourished. Patient is in mild distress. EYES Patient's pupils are equal and round. Extraocular motion is intact SKIN Unremarkable NEURO The patient is alert and oriented 3 PYSCH Patient has normal interpersonal interactions. MUSCULOSKELETAL Patient was able to ambulate as he normally does. Limitations: no limitations Course Vital Signs 02/13/19 13:22 Temperature 98.0 F Pulse Rate 98 Respiratory 18 Rate Blood Pressure 112/74 O2 Sat by Pulse 99 Oximetry Disposition Clinical Impression: Drug-seeking behavior Disposition: HOME SELF-CARE Additional Instructions: Stopped seeking drugs in the emergency department Is patient prescribed a controlled substance at d/c from ED?: No Referrals: None,Stated [Primary Care Provider] - 1-2 days Time of Disposition: 13:38
== END 2019-02-13 13:55 | disposition home or self-care (01) ==
LOC: EC 13:17
DX: Z76.5 Malingerer [conscious simulation] (principal); F17.200 Nicotine dependence, unspecified, uncomplicated
CPT/HCPCS: 99283

== ENCOUNTER 2019-02-13 18:01 | Emergency (ER) | payer OTHER ==
[2019-02-13 18:19] VITALS: BP 102/65; PULSE 94; RESP 18; TEMP 98.4
--- NOTE | 2019-02-13 18:51 | ED ---
General Adult HPI - General Source: patient, RN notes reviewed Limitations: no limitations <Camron Monroy - Last Filed: 02/17/19 03:38> <Henny Wade - Last Filed: 02/17/19 04:32> - General Chief complaint: Psychiatric Symptoms Stated complaint: Mental Health Time Seen by Provider: 02/13/19 18:21 - History of Present Illness Initial comments: 43-year-old male presents to the emergency department for a chief complaint of suicidal thoughts. Patient states he has chronic pain in his neck back and feet. Patient states he ran out of his pain medication. Patient has been to the ER 3 times today for this pain medication. Patient has been seen several times over the past month for prescription refills of pain medication. Denies any acute injury. Patient does have a history of bipolar disorder, he is stating he is taking his medications. Patient does not have a plan of suicide.Patient has no other complaints at this time including shortness of breath, chest pain, abdominal pain, nausea or vomiting, headache, or visual changes. (Camron Monroy) - Related Data Home Medications Medication Instructions Recorded Confirmed Naproxen [Naprosyn] 500 mg PO Q12HR PRN 02/13/19 02/15/19 Allergies Allergy/AdvReac Type Severity Reaction Status Date / Time No Known Allergies Allergy Verified 02/15/19 10:02 Review of Systems ROS Other: All systems not noted in ROS Statement are negative. <Camron Monroy - Last Filed: 02/17/19 03:38> ROS Other: All systems not noted in ROS Statement are negative. <Henny Wade P - Last Filed: 02/17/19 04:32> ROS Statement: Those systems with pertinent positive or pertinent negative responses have been documented in the HPI. Past Medical History Past Medical History: Asthma Additional Past Medical History / Comment(s): back pain, spinal and sacral fractures, chronic foot and shoulder pain History of Any Multi-Drug Resistant Organisms: None Reported Past Surgical History: Back Surgery, Orthopedic Surgery Additional Past Surgical History / Comment(s): pins and plates in feet Past Psychological History: Anxiety, Bipolar, Depression Smoking Status: Current every day smoker Past Alcohol Use History: None Reported Past Drug Use History: None Reported <Camron Monroy - Last Filed: 02/17/19 03:38> General Exam Limitations: no limitations General appearance: alert, in no apparent distress Head exam: Present: atraumatic, normocephalic, normal inspection Eye exam: Present: normal appearance, PERRL, EOMI. Absent: scleral icterus, conjunctival injection, periorbital swelling ENT exam: Present: normal exam, mucous membranes moist Neck exam: Present: normal inspection, full ROM. Absent: tenderness, meningismus, lymphadenopathy Respiratory exam: Present: normal lung sounds bilaterally. Absent: respiratory distress, wheezes, rales, rhonchi, stridor Cardiovascular Exam: Present: regular rate, normal rhythm, normal heart sounds. Absent: systolic murmur, diastolic murmur, rubs, gallop, clicks Extremities exam: Present: normal capillary refill (Capillary refill less than 2 seconds in bilateral lower extremities) Neurological exam: Present: alert, oriented X3, CN II-XII intact Psychiatric exam: Present: normal affect, normal mood <Camron Monroy P - Last Filed: 02/17/19 03:38> Course Vital Signs 02/13/19 18:16 Temperature 98.4 F Pulse Rate 94 Respiratory 18 Rate Blood Pressure 102/65 O2 Sat by Pulse 97 Oximetry Medical Decision Making <Camron Monroy P - Last Filed: 02/17/19 03:38> <Henny Wade P - Last Filed: 02/17/19 04:32> - Medical Decision Making 43-year-old male presents for suicidal thoughts. Patient has a history of bi polar disorder, currently taking medications. Patient denies plan for suicide. Patient states his chronic pain is what is causing him to have these thoughts. Patient has been seen multiple times throughout this month for pain medication refills in this emergency department. In fact, he has been seen 3 times today. Patient is overdosed risk or a 570 and shows drug seeking tendencies. Patient was evaluated by EPS, recommend discharge home for outpatient follow-up. Referrals given. (Camron Monroy) I personally saw and evaluated the patient after he had been evaluated by EPS. Patient been medically cleared for discharge home. I advised the patient of this. Patient insisted that because his ankles crack when he is walking his feet are both broken despite his ability to walk on it. He also states that his broken back for months or years ago has been not misdiagnosed and explored. Patient requesting to be admitted for IV narcotic pain medications. I advised the patient that he should follow-up with his primary care physician or pain management physician for management of his chronic pain. Patient was discharged home. (Henny Wade) Disposition Is patient prescribed a controlled substance at d/c from ED?: No <Camron Monroy P - Last Filed: 02/17/19 03:38> Is patient prescribed a controlled substance at d/c from ED?: No <Henny Wade P - Last Filed: 02/17/19 04:32> Clinical Impression: Chronic pain Disposition: HOME SELF-CARE Condition: Stable Instructions (If sedation given, give patient instructions): Chronic Back Pain (ED), Lower Back Exercises (ED), Neck Pain (ED) Referrals: [facility] [Primary Care Provider] - 1-2 days
== END 2019-02-13 22:10 | disposition home or self-care (01) ==
LOC: EC 18:01
DX: G89.29 Other chronic pain (principal); M54.2 Cervicalgia; M54.9 Dorsalgia, unspecified; M79.673 Pain in unspecified foot; F31.9 Bipolar disorder, unspecified; F17.200 Nicotine dependence, unspecified, uncomplicated
CPT/HCPCS: 82075; 99283; 99284

== ENCOUNTER 2019-02-15 09:56 | Emergency (ER) | payer OTHER ==
[2019-02-15 10:02] VITALS: BP 112/72; PULSE 103; RESP 18; TEMP 97.9
--- NOTE | 2019-02-15 10:25 | ED ---
Back Pain HPI - General Chief Complaint: Back Pain/Injury Stated Complaint: in excrutiating pain Time Seen by Provider: 02/15/19 10:03 Source: patient, RN notes reviewed Limitations: no limitations - History of Present Illness Initial Comments: 43-year-old male presents emergency Department for chronic pain issues. Patient has had no new injuries. Denies any bowel bladder incontinence or retention with his back pain. Patient states he has neck back foot states he has pain all over. Patient claims that he has not been seen by outpatient resources because they will not see him. Patient denies any nausea vomiting diarrhea constipation denies any illicit drug use. States he has no current pain meds. - Related Data Home Medications Medication Instructions Recorded Confirmed Naproxen [Naprosyn] 500 mg PO Q12HR PRN 02/13/19 02/15/19 Allergies Allergy/AdvReac Type Severity Reaction Status Date / Time No Known Allergies Allergy Verified 02/15/19 10:02 Review of Systems ROS Statement: Those systems with pertinent positive or pertinent negative responses have been documented in the HPI. ROS Other: All systems not noted in ROS Statement are negative. Past Medical History Past Medical History: Asthma Additional Past Medical History / Comment(s): back pain, spinal and sacral fractures, chronic foot and shoulder pain History of Any Multi-Drug Resistant Organisms: None Reported Past Surgical History: Back Surgery, Orthopedic Surgery Additional Past Surgical History / Comment(s): pins and plates in feet Past Psychological History: Anxiety, Bipolar, Depression Smoking Status: Current every day smoker Past Alcohol Use History: None Reported Past Drug Use History: None Reported General Exam Limitations: no limitations General appearance: alert, in no apparent distress Head exam: Present: atraumatic, normocephalic, normal inspection Neck exam: Present: normal inspection. Absent: tenderness, meningismus, lymphadenopathy Respiratory exam: Present: normal lung sounds bilaterally. Absent: respiratory distress, wheezes, rales, rhonchi, stridor Cardiovascular Exam: Present: regular rate, normal rhythm, normal heart sounds. Absent: systolic murmur, diastolic murmur, rubs, gallop, clicks Extremities exam: Present: other (All extremities IS FULL RANGE OF MOTION, PATIENT REPORTS PAIN WITH ANY PALPATION TO EXTREMITIES) Back exam: Present: full ROM, tenderness, paraspinal tenderness, vertebral tenderness Neurological exam: Present: alert, oriented X3, CN II-XII intact, reflexes normal. Absent: motor sensory deficit Course Vital Signs 02/15/19 09:59 Temperature 97.9 F Pulse Rate 103 H Respiratory 18 Rate Blood Pressure 112/72 O2 Sat by Pulse 97 Oximetry Medical Decision Making - Medical Decision Making 43-year-old male well-known emergency department for chronic pain. He's had no new injuries. Patient is advised follow-up with outpatient resources. We did have a discussion that emergency Department is not for chronic pain. He will follow-up pain management as directed multiple times and return for any worsening symptoms. Disposition Clinical Impression: Drug-seeking behavior, Chronic pain Disposition: HOME SELF-CARE Condition: Stable Instructions (If sedation given, give patient instructions): Chronic Back Pain (ED) Additional Instructions: Please return to the Emergency Department if symptoms worsen or any other concerns. Is patient prescribed a controlled substance at d/c from ED?: No [facility]errals: [facility] [Primary Care Provider] - 1-2 days Jamie Munoz MD [Medical Doctor] - 1-2 days Shaan Yost MD [STAFF PHYSICIAN] - 1-2 days Chi Cabrera MD [STAFF PHYSICIAN] - 1-2 days Mann Amezcua MD [STAFF PHYSICIAN] - 1-2 days Time of Disposition: 10:25
== END 2019-02-15 11:03 | disposition home or self-care (01) ==
LOC: EC 09:56
DX: G89.29 Other chronic pain (principal); Z76.5 Malingerer [conscious simulation]; M54.9 Dorsalgia, unspecified; M54.2 Cervicalgia; M79.673 Pain in unspecified foot; F17.200 Nicotine dependence, unspecified, uncomplicated; Z87.81 Personal history of (healed) traumatic fracture; Z98.890 Other specified postprocedural states
CPT/HCPCS: 99283

== ENCOUNTER 2019-02-19 17:44 | Emergency (ER) | payer OTHER ==
[2019-02-19 18:14] VITALS: RESP 16
[2019-02-19] MEDS ORDERED: HYDROcodone/APAP 7.5-325MG 1 EACH TAB PO ONE (18:48)
--- NOTE | 2019-02-19 19:36 | XR ---
EXAMINATION TYPE: XR ribs LT w pa chest xray DATE OF EXAM: 02/19/2019 COMPARISON: NONE HISTORY: Left-sided rib pain TECHNIQUE: 5 views FINDINGS: Heart and mediastinum are normal. Lungs are clear. There is no sign of pleural effusion or pneumothorax. The left ribs appear intact. Left shoulder appears intact. IMPRESSION: Negative chest x-ray. Negative left rib exam.
[2019-02-19 19:37] VITALS: BP 142/82; PULSE 62; TEMP 98
--- NOTE | 2019-02-19 19:50 | ED ---
Back Pain HPI - General Chief Complaint: Back Pain/Injury Stated Complaint: left side pain/headache Time Seen by Provider: 02/19/19 18:36 Source: patient Limitations: no limitations - History of Present Illness Initial Comments: 43-year-old male presenting for left rib pain. Patient states she was moving boxes overhead when he fell hitting him in the left ribs in the head. He states the box and hit him in the head was at the heavy he states he has a slight headache. He states he is not concerned as much but the headache as he is the left rib pain. Patient states he has pain with deep inspiration he denies any short of breath or chest pain and absence of deep inspiration. Patient denies any bruising or trauma to the chest including laceration or abrasion. Patient denies loss of consciousness nausea vomiting he denies visual changes speech changes muscle weakness of the upper or lower extremity. Remaining review of systems negative patient denies falling or trauma to the lower back or neck. Upon arrival patient appears well and play without difficulty no signs of acute distress or visible discomfort. - Related Data Home Medications Medication Instructions Recorded Confirmed Naproxen [Naprosyn] 500 mg PO Q12HR PRN 02/13/19 02/15/19 Allergies Allergy/AdvReac Type Severity Reaction Status Date / Time No Known Allergies Allergy Verified 02/19/19 18:14 Review of Systems ROS Statement: Those systems with pertinent positive or pertinent negative responses have been documented in the HPI. ROS Other: All systems not noted in ROS Statement are negative. Past Medical History Past Medical History: Asthma Additional Past Medical History / Comment(s): back pain, spinal and sacral fractures, chronic foot and shoulder pain History of Any Multi-Drug Resistant Organisms: None Reported Past Surgical History: Back Surgery, Orthopedic Surgery Additional Past Surgical History / Comment(s): pins and plates in feet Past Psychological History: Anxiety, Bipolar, Depression Smoking Status: Current every day smoker Past Alcohol Use History: None Reported Past Drug Use History: None Reported General Exam - General Exam Comments Initial Comments: General: The patient is awake and alert, in no distress, and does not appear acutely ill. Eye: Pupils are equal, round and reactive to light, extra-ocular movements are intact. No nystagmus. There is normal conjunctiva bilaterally. No signs of icterus. Ears, nose, mouth and throat: There are moist mucous membranes and no oral lesions. Neck: The neck is supple, there is no tenderness or JVD. Cardiovascular: There is a regular rate and rhythm. No murmur, rub or gallop is appreciated. Respiratory: Lungs are clear to auscultation, respirations are non-labored, breath sounds are equal. No wheezes, stridor, rales, or rhonchi. Present in all lung mancia Gastrointestinal: Soft, non-distended, non-tender abdomen without masses or organomegaly noted. There is no rebound or guarding present. No CVA tenderness. Bowel sounds are unremarkable. Musculoskeletal: Normal ROM, no tenderness. Strength 5/5. Sensation intact. Radial pulses equal bilaterally 2+. Neurological: A&O x 3. CN II-XII intact, There are no obvious motor or sensory deficits. Coordination appears grossly intact. Speech is normal. Skin: Skin is warm and dry and no rashes or lesions are noted. Psychiatric: Cooperative, appropriate mood & affect, normal judgment. Limitations: no limitations Course Vital Signs 02/19/19 02/19/19 18:11 19:36 Temperature 98.1 F 98 F Pulse Rate 89 62 Respiratory 16 16 Rate Blood Pressure 113/78 142/82 O2 Sat by Pulse 97 96 Oximetry Medical Decision Making - Medical Decision Making XR left lateral ribs and AP CXR (-) for acute process, including displaced fracture or thorax. Patient has lung sounds present in all lung mancia. He appears well. Has what he states is mild headache, no focal neurological deficits. He is well-appearing. He states there is no smoking trauma to the head or face. This information is stable for discharge with outpatient symptomatic treatment. Patient is agreeable to plan of care as well as discharge. Spoke with Dr. Corcoran over the phone prior to discharge. Disposition Clinical Impression: Rib pain on left side, Headache Disposition: HOME SELF-CARE Condition: Good Instructions (If sedation given, give patient instructions): Rib Contusion (ED) Additional Instructions: Please use medication as discussed. Please follow-up with family doctor in the next 2 days of symptoms have not improved. Please return to emergency room if the symptoms increase or worsen or for any other concerns. Is patient prescribed a controlled substance at d/c from ED?: No Referrals: None,Stated [Primary Care Provider] - 1-2 days [facility]2 [facility] Time of Disposition: 19:50
== END 2019-02-19 19:58 | disposition home or self-care (01) ==
LOC: EC 17:44
DX: R07.81 Pleurodynia (principal); R51 Headache; F17.200 Nicotine dependence, unspecified, uncomplicated; W22.8XXA Striking against or struck by other objects, initial encounter
CPT/HCPCS: 99283

== ENCOUNTER 2019-02-25 10:35 | Emergency (ER) | payer OTHER ==
[2019-02-25 10:38] VITALS: BP 134/83; PULSE 94; RESP 18; TEMP 98
[2019-02-25] MEDS ORDERED: ACETAMINOPHEN TAB 500 MG TAB PO STA (11:05)
--- NOTE | 2019-02-25 11:07 | ED ---
General Adult HPI - General Chief complaint: Extremity Problem,Nontraumatic Stated complaint: leg/foot pain Time Seen by Provider: 02/25/19 10:49 Source: patient, RN notes reviewed Mode of arrival: ambulatory Limitations: no limitations - History of Present Illness Initial comments: 43-year-old male presents to the emergency department for a chief complaint of chronic pain. Patient is complaining of chronic bilateral foot and back pain. Denies any difficulty urinating. Denies any saddle anesthesia. Denies any weakness in the lower extremities or numbness or tingling. States that he tried to follow-up with his primary care provider who would not write him a prescription for pain medication so he presented here for pain medication. States he just "needs a favor" and needs something for his pain. Patient has no other complaints at this time including shortness of breath, chest pain, abdominal pain, nausea or vomiting, headache, or visual changes. - Related Data Home Medications Medication Instructions Recorded Confirmed No Known Home Medications 02/25/19 02/25/19 Allergies Allergy/AdvReac Type Severity Reaction Status Date / Time No Known Allergies Allergy Verified 02/25/19 11:07 Review of Systems ROS Statement: Those systems with pertinent positive or pertinent negative responses have been documented in the HPI. ROS Other: All systems not noted in ROS Statement are negative. Past Medical History Past Medical History: Asthma Additional Past Medical History / Comment(s): back pain, spinal and sacral fractures, chronic foot and shoulder pain History of Any Multi-Drug Resistant Organisms: None Reported Past Surgical History: Back Surgery, Orthopedic Surgery Additional Past Surgical History / Comment(s): pins and plates in feet Past Psychological History: Anxiety, Bipolar, Depression Smoking Status: Current every day smoker Past Alcohol Use History: None Reported Past Drug Use History: None Reported General Exam Limitations: no limitations General appearance: alert, in no apparent distress Head exam: Present: atraumatic, normocephalic, normal inspection Eye exam: Present: normal appearance, PERRL, EOMI. Absent: scleral icterus, conjunctival injection, periorbital swelling ENT exam: Present: normal exam, mucous membranes moist Neck exam: Present: normal inspection, full ROM. Absent: tenderness, meningismus, lymphadenopathy Respiratory exam: Present: normal lung sounds bilaterally. Absent: respiratory distress, wheezes, rales, rhonchi, stridor Cardiovascular Exam: Present: regular rate, normal rhythm, normal heart sounds. Absent: systolic murmur, diastolic murmur, rubs, gallop, clicks Extremities exam: Present: normal inspection, full ROM (Of lower extremities bilaterally), normal capillary refill (Capillary refill less than 2 seconds in the lower extremities bilaterally, DP pulse 2+ bilaterally). Absent: tenderness, pedal edema, joint swelling, calf tenderness (Negative Homans sign, no tenderness of the calves), other (No evidence of traumatic injury of feet, ) Course Vital Signs 02/25/19 10:36 Temperature 98.0 F Pulse Rate 94 Respiratory 18 Rate Blood Pressure 134/83 O2 Sat by Pulse 98 Oximetry Medical Decision Making - Medical Decision Making 43-year-old male presents to the emergency department for chronic leg and foot pain. States this has been ongoing for several years. States his physician will not give him pain medication so he presented here for "a fever." Exam is unremarkable. Bilateral lower extremity. Normal limits. Neurovascular status is intact. Patient is ambulatory without any difficulty whatsoever. Patient is often seen in this emergency department for narcotics. I discussed with the patient that I will not be giving him narcotics so will give Tylenol. Patient became very angry and is showing drug-seeking tendencies. Patient left before Tylenol given and walked out of the emergency department without any difficulty. He was given referrals to primary care and orthopedics. Disposition Clinical Impression: Chronic pain, Drug-seeking behavior Disposition: HOME SELF-CARE Condition: Good Instructions (If sedation given, give patient instructions): Chronic Pain (ED) Additional Instructions: Please follow up with primary care and orthopedics in one to 2 days. Return to the emergency department for any worsening symptoms. Is patient prescribed a controlled substance at d/c from ED?: No Referrals: Peri Kaye MD [STAFF PHYSICIAN] - 1-2 days Brendon Neal DO [Doctor of Osteopathic Medicine] - 1-2 days Time of Disposition: 11:05
== END 2019-02-25 11:20 | disposition home or self-care (01) ==
LOC: EC 10:35
DX: G89.29 Other chronic pain (principal); M79.671 Pain in right foot; M79.672 Pain in left foot; M54.9 Dorsalgia, unspecified; F17.200 Nicotine dependence, unspecified, uncomplicated; Z76.5 Malingerer [conscious simulation]
CPT/HCPCS: 99283

== ENCOUNTER 2019-03-02 18:57 | Emergency (ER) | payer OTHER ==
[2019-03-02 19:09] VITALS: TEMP 97.7
--- NOTE | 2019-03-02 19:53 | XR ---
EXAMINATION TYPE: XR foot complete bilateral DATE OF EXAM: 03/02/2019 COMPARISON: NONE HISTORY: Bilateral foot pain. 3 views of each foot were obtained. FINDINGS: There is a plate with screws fixating the right calcaneus. There is similar plate with scre ws fixing the left calcaneus. There is some deformity of the subtalar joint left foot. The metatarsal s are intact. I see no acute fracture nor dislocation. IMPRESSION: Bilateral calcaneus surgery. No acute bony abnormality. 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
[2019-03-02] MEDS ORDERED: KETOROLAC 30 MG/ML 1 ML VIAL IM STA (20:17)
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
[2019-03-02 20:41] VITALS: BP 118/77; PULSE 82; RESP 16
== END 2019-03-02 20:45 | disposition home or self-care (01) ==
LOC: EC 18:57
DX: M79.672 Pain in left foot (principal); M79.671 Pain in right foot; F17.200 Nicotine dependence, unspecified, uncomplicated; Z79.1 Long term (current) use of non-steroidal anti-inflammatories (NSAID)
CPT/HCPCS: 73630; 99283; J1885

== ENCOUNTER 2019-03-19 10:42 | Emergency (ER) | payer OTHER ==
[2019-03-19 10:51] VITALS: BP 109/71; PULSE 99; RESP 18; TEMP 98.5
--- NOTE | 2019-03-19 11:05 | ED ---
Psych HPI - General Chief Complaint: Psychiatric Symptoms Stated Complaint: Mental Health Time Seen by Provider: 03/19/19 10:56 Source: patient, RN notes reviewed Mode of arrival: ambulatory Limitations: no limitations - History of Present Illness Initial Comments: This a 43-year-old male presents emergency Department with chief complaint of suicidal ideation. Patient states that he is suicidal for a while because he said chronic pain. He has no new complaints and no new injuries. Denies any alcohol or drug abuse. Patient denies any fevers chills nausea vomiting diarrhea constipation denies being homicidal. Patient does have underlying depression. - Related Data Home Medications Medication Instructions Recorded Confirmed Acetaminophen Tab [Tylenol] 1,000 mg PO TID 03/02/19 03/19/19 Ibuprofen [Motrin Ib] 800 mg PO QID 03/02/19 03/19/19 Naproxen 500 mg PO BID 03/02/19 03/19/19 Allergies Allergy/AdvReac Type Severity Reaction Status Date / Time No Known Allergies Allergy Verified 03/19/19 11:05 Review of Systems ROS Statement: Those systems with pertinent positive or pertinent negative responses have been documented in the HPI. ROS Other: All systems not noted in ROS Statement are negative. Past Medical History Past Medical History: Asthma Additional Past Medical History / Comment(s): back pain, spinal and sacral fractures, chronic foot and shoulder pain History of Any Multi-Drug Resistant Organisms: None Reported Past Surgical History: Back Surgery, Orthopedic Surgery Additional Past Surgical History / Comment(s): pins and plates in feet Past Psychological History: Anxiety, Bipolar, Depression Smoking Status: Current every day smoker Past Alcohol Use History: None Reported Past Drug Use History: None Reported General Exam Limitations: no limitations General appearance: alert, in no apparent distress Head exam: Present: atraumatic, normocephalic, normal inspection Eye exam: Present: normal appearance, PERRL, EOMI. Absent: scleral icterus, conjunctival injection, periorbital swelling Neck exam: Present: normal inspection, full ROM. Absent: tenderness, meningismus, lymphadenopathy Respiratory exam: Present: normal lung sounds bilaterally. Absent: respiratory distress, wheezes, rales, rhonchi, stridor Cardiovascular Exam: Present: regular rate, normal rhythm, normal heart sounds. Absent: systolic murmur, diastolic murmur, rubs, gallop, clicks Neurological exam: Present: alert, oriented X3, CN II-XII intact Psychiatric exam: Present: depressed, flat affect Skin exam: Present: warm, dry, intact, normal color. Absent: rash Course Vital Signs 03/19/19 10:49 Temperature 98.5 F Pulse Rate 99 Respiratory 18 Rate Blood Pressure 109/71 O2 Sat by Pulse 97 Oximetry Medical Decision Making - Medical Decision Making 43-year-old male presented for psychiatric evaluation. Patient was by EPS and case discussed with on-call psychiatrist does not recommend inpatient treatment. Patient will be discharged and advised to follow-up with psychiatry and chronic pain management - Lab Data Lab Results 03/19/19 Range/Units 11:25 Urine Opiates Screen Not Detected (NotDetected) Ur Oxycodone Screen Not Detected (NotDetected) Urine Methadone Screen Not Detected (NotDetected) Ur Propoxyphene Screen Not Detected (NotDetected) Ur Barbiturates Screen Not Detected (NotDetected) U Tricyclic Antidepress Not Detected (NotDetected) Ur Phencyclidine Scrn Not Detected (NotDetected) Ur Amphetamines Screen Not Detected (NotDetected) U Methamphetamines Scrn Detected H (NotDetected) U Benzodiazepines Scrn Not Detected (NotDetected) Urine Cocaine Screen Not Detected (NotDetected) U Marijuana (THC) Screen Not Detected (NotDetected) Disposition Clinical Impression: Depression, Chronic pain, Methamphetamine use Disposition: HOME SELF-CARE Condition: Stable Instructions (If sedation given, give patient instructions): Depression (ED) Additional Instructions: Please return to the Emergency Department if symptoms worsen or any other concerns. Is patient prescribed a controlled substance at d/c from ED?: No Referrals: [facility] [Primary Care Provider] - 1-2 days Time of Disposition: 12:17
[2019-03-19 12:06] LABS: Amphetamine Screen,Urine Not Detected (NotDetected); Barbiturate Screen,Urine Not Detected (NotDetected); Benzodiazepines Screen,Urine Not Detected (NotDetected); Cocaine Screen,Urine Not Detected (NotDetected); Methadone Screen, Urine Not Detected (NotDetected); Opiate Screen,Urine Not Detected (NotDetected); Phencyclidine Screen,Urine Not Detected (NotDetected); Tricyclic Antidepressant,Urine Not Detected (NotDetected); Urn Cannabinoid Scrn Not Detected (NotDetected)
[2019-03-19 12:07] LABS: Oxycodone Screen, Urine Not Detected (NotDetected)
== END 2019-03-19 13:07 | disposition home or self-care (01) ==
LOC: EC 10:42
DX: F32.9 Major depressive disorder, single episode, unspecified (principal); G89.29 Other chronic pain; F15.90 Other stimulant use, unspecified, uncomplicated; R45.851 Suicidal ideations; M25.519 Pain in unspecified shoulder; M79.673 Pain in unspecified foot; M54.9 Dorsalgia, unspecified; F17.200 Nicotine dependence, unspecified, uncomplicated; Z79.1 Long term (current) use of non-steroidal anti-inflammatories (NSAID); Z79.899 Other long term (current) drug therapy
CPT/HCPCS: 80306; 82075; 99285

== ENCOUNTER 2023-01-22 20:40 | Inpatient (IN) | payer MEDICAID, OTHER ==
[2023-01-22] MEDS ORDERED: MAG HYDROX/AL HYDROX/SIMETH 30 ML CUP PO PRN (20:51)
[2023-01-22] MEDS ORDERED: MAGNESIUM HYDROXIDE 2,400 MG/10 ML CUP PO PRN (20:51)
[2023-01-22] MEDS ORDERED: HALOPERIDOL LACTATE 5 MG/ML 1 ML VIAL IM PRN (20:51)
[2023-01-22] MEDS ORDERED: haloperidoL 5 MG TAB PO PRN (20:52)
[2023-01-22] MEDS ORDERED: LORazepam 2 MG/ML INJ IM PRN (20:53)
[2023-01-23] MEDS: ACETAMINOPHEN TAB 325 MG TAB PO PRN ×3 (08:56→20:46)
[2023-01-23] MEDS: NICOTINE 14MG/24HR PATCH TRANSDERM SCH (08:56)
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
[2023-01-23] MEDS: LORazepam 1 MG TAB PO PRN (15:12)
[2023-01-23] MEDS: risperiDONE 2 MG TAB PO SCH (20:46)
--- NOTE | 2023-01-24 00:09 | P.HPIM ---
History of Present Illness H&P Date: 01/24/23 The patient is a 47-year-old male with a PMH of spinal DJD who initially presented to [facility] emergency room with paranoia and delusional behavior as well as some depression and suicidal ideation. The patient was subsequently transferred to [facility] unit where he was seen and evaluated. The patient reports long-standing history of multiple fractures and chronic pain. He denied any new complaints. He denied experiencing chest discomfort, shortness of breath, fever, chills, cough, nausea, vomiting, abdominal pain, diarrhea. Reports ongoing tobacco use with one pack of cigarettes daily. He denies substance or alcohol use. Review of systems: Pertinent positives and negatives as discussed in HPI, a complete review of systems was performed and all other systems are negative. Physical examination: General: non toxic, no distress, appears at stated age, normal weight Derm: no unusual rashes/lesions, no unusual ecchymoses, warm, dry Head: atraumatic, normocephalic, symmetric Eyes: EOMI, no lid lag, anicteric sclera ENT: Nose and ears atraumatic, no thrush, no pharyngeal erythema Neck: trachea midline, supple Mouth: no lip lesion, mucus membranes moist Cardiovascular: S1S2 reg, no murmur, no edema Lungs: CTA bilateral, no rhonchi, no rales , no accessory muscle use Abdominal: soft, nontender to palpation, no guarding Ext: no gross muscle atrophy, no contractures, Neuro: No gross focal neuro deficits noted Psych: Alert, oriented, appropriate affect Assessment: Spinal DJD Depression and suicidal ideation with psychosis Imaging: None performed Plan: Advised patient on side effects of long-term NSAID use. Strongly urged patient to follow-up with pain management Defer management of depression and suicidal ideation with psychosis to primary psychiatry service Thank you for allowing us to participate in the care of this patient. We will follow peripherally. Do not hesitate to contact us with questions. Someone can be reached from the [facility] hospitalist group at all hours of the day at [phone]. Past Medical History Past Medical History: Asthma Additional Past Medical History / Comment(s): back pain, spinal and sacral fractures, chronic foot and shoulder pain History of Any Multi-Drug Resistant Organisms: None Reported Past Surgical History: Back Surgery, Orthopedic Surgery Additional Past Surgical History / Comment(s): pins and plates in feet Past Psychological History: Anxiety, Bipolar, Depression Smoking Status: Current every day smoker Past Alcohol Use History: None Reported Past Drug Use History: Marijuana - Past Family History Mother Family Medical History: CVA/TIA Medications and Allergies Home Medications Medication Instructions Recorded Confirmed Type Acetaminophen Tab [Tylenol] 1,000 mg PO TID 03/02/19 01/23/23 History Ibuprofen [Motrin Ib] 800 mg PO QID 03/02/19 01/23/23 History Naproxen 500 mg PO BID 03/02/19 01/23/23 History Allergies Allergy/AdvReac Type Severity Reaction Status Date / Time No Known Allergies Allergy Verified 01/23/23 03:42 Physical Exam Vitals: Vital Signs Temp Pulse Resp BP Pulse Ox 01/23/23 02:39 99.0 F 98 16 148/91 95 Thrombosis Risk Factor Assmnt - Choose All That Apply Any of the Below Risk Factors Present?: Yes Each Factor Represents 1 point: Age 41-60 years, Obesity (BMI >25) Other Risk Factors: No Other congenital or acquired thrombophilia - If yes, enter type in comment: No Thrombosis Risk Factor Assessment Total Risk Factor Score: 2 Thrombosis Risk Factor Assessment Level: Low Risk
[2023-01-24] MEDS: LORazepam 1 MG TAB PO PRN ×2 (08:09→19:57)
[2023-01-24] MEDS: ACETAMINOPHEN TAB 325 MG TAB PO PRN (08:09)
[2023-01-24] MEDS: NICOTINE 14MG/24HR PATCH TRANSDERM SCH (08:09)
[2023-01-24] MEDS: DULoxetine HCL 30 MG CAPSULE.DR PO SCH (16:46)
[2023-01-24] MEDS: IBUPROFEN 600 MG TAB PO PRN (16:46)
[2023-01-24] MEDS: risperiDONE 2 MG TAB PO SCH (19:58)
[2023-01-25] MEDS: NICOTINE 14MG/24HR PATCH TRANSDERM SCH (08:04)
[2023-01-25] MEDS: DULoxetine HCL 30 MG CAPSULE.DR PO SCH (08:04)
[2023-01-25] MEDS: LORazepam 1 MG TAB PO PRN ×2 (08:04→17:25)
[2023-01-25] MEDS: IBUPROFEN 600 MG TAB PO PRN ×2 (08:05→17:22)
--- NOTE | 2023-01-25 18:04 | P.PN ---
Progress Note - Text Progress Note Date: 01/24/23 Interval History: I evaluated patient on 01/24/23. Patient was seen resting in bed and was directable, and agreeable to speak with justowriter operator in the office. He appears withdrawn, isolative. He reports his mood is "not so good". He reports feeling "depressed". He reports he has tried Prozac in the past, and may have tried cymbalta as well. He prefers to restart Cymbalta. At this time, patient denies any suicidal or homicidal ideation, intent or plan. Patient denies any auditory, visual hallucinations, and denies any paranoia or delusions. Patient denies any side effects from the medications and has been compliant with meds. He reports chronic pain and requests pain medications, and we discussed he can have motrin for pain. Mental Status Exam: General Appearance: Patient appears to be stated age is alert, directable, and cooperative. Behavior: Patient is calmly laying in bed without any agitated behavior, appears withdrawn and isolative. Speech: Patient's speech is fluent and non-pressured. Mood/Affect: Mood is "depressed", affect is congruent and constricted. Suicidality/Homicidality: Patient denies having any suicidal or homicidal ideation intent or plan. Perceptions: Patient denies any visual hallucinations and denies any auditory hallucinations. Though content/process: There is no evidence of any delusional thought content and thought process is linear and goal-directed. Memory and concentration: AOX3, grossly intact for the purposes of this session Judgment and insight: Improving mildly Assessment Major depressive disorder, recurrent Cannabis use disorder, unspecified Plan: -Patient continues to meet criteria for inpatient psychiatric admission for symptom stabilization and safety. -Medications: Start Cymbalta 30 mg daily for depression. Start Motrin 600 mg Q8H PRN for pain. Continue Risperdal 2 mg QHS for mood/psychosis. -When necessary Ativan and Haldol for agitation/aggression. -NRT - nicotine patch -SW on board for discharge planning. Encouraged the patient to participate in milieu.
--- NOTE | 2023-01-25 18:28 | P.PN ---
Progress Note - Text Progress Note Date: 01/25/23 Interval History: I evaluated patient on 01/25/23. Patient was seen standing in the dining room, filling his coffee. He appears to be in jovial mood. On assessment he reports he is having a better day today, has showered, however he continues to seek pain medications for his chronic pain. He has been compliant with his medication and denies side effects. He declines an increase in his Cymbalta today, and requests pain meds. At this time, patient denies any suicidal or homicidal ideation, intent or plan. Patient denies any auditory, visual hallucinations, and denies any paranoia or delusions. He reports chronic pain and requests pain medications, and we discussed he can have increase in dose of his motrin for pain. He is homeless. Mental Status Exam: General Appearance: Patient appears to be stated age, showered, dressed in hospital gown. Behavior: Patient is calmly laying in bed without any agitated behavior, appears withdrawn and isolative. Speech: Patient's speech is fluent and non-pressured. Mood/Affect: Mood is "ummmm, maybe more agitated", affect is mood-incongruent and constricted. Suicidality/Homicidality: Patient denies having any suicidal or homicidal ideation intent or plan. Perceptions: Patient denies any visual hallucinations and denies any auditory hallucinations. Though content/process: There is no evidence of any delusional thought content and thought process is linear and goal-directed. Memory and concentration: AOX3, grossly intact for the purposes of this session Judgment and insight: Improving mildly Assessment: Major depressive disorder, recurrent Cannabis use disorder, unspecified Plan: -Patient continues to meet criteria for inpatient psychiatric admission for symptom stabilization and safety. -Medications: Continue Cymbalta 30 mg daily for depression. Increase Motrin to 800 mg Q8H PRN for pain. Continue Risperdal 2 mg QHS for mood/psychosis. -When necessary Ativan and Haldol for agitation/aggression. -NRT - nicotine patch -SW on board for discharge planning. Encouraged the patient to participate in milieu.
[2023-01-25] MEDS: risperiDONE 2 MG TAB PO SCH (20:23)
[2023-01-26] MEDS: NICOTINE 14MG/24HR PATCH TRANSDERM SCH (08:03)
[2023-01-26] MEDS: DULoxetine HCL 30 MG CAPSULE.DR PO SCH ×2 (08:03→20:32)
[2023-01-26] MEDS: LORazepam 1 MG TAB PO PRN ×2 (08:03→16:47)
[2023-01-26] MEDS: IBUPROFEN 800 MG TAB PO PRN (08:04)
[2023-01-26] MEDS: NICOTINE GUM (POLACRILEX) 2 MG GUM BUCCAL PRN (17:08)
--- NOTE | 2023-01-26 18:45 | P.PN ---
Progress Note - Text Progress Note Date: 01/26/23 Interval History: I evaluated patient on 01/26/23. Patient was seen resting in bed and appears to be in irritable mood. He reports improved sleep but mood is "not so great", reports feeling irritable and "a little depressed". He reports feeling "agitated and angry". He has been compliant with his medication and denies side effects. At this time, patient denies any suicidal or homicidal ideation, intent or plan. Patient denies any auditory, visual hallucinations, and denies any paranoia or delusions. He reports chronic pain in his feet that limits his mobility, however later in the day he was seen walking on the unit. He requests nicotine gum. Mental Status Exam: General Appearance: Patient appears to be stated age, showered, dressed in hospital gown. Behavior: Patient is calmly laying in bed without any agitated behavior, appears withdrawn with irritable edge. Speech: Patient's speech is fluent and non-pressured. Mood/Affect: Mood is "agitated and angry", affect is mood-congruent and constricted. Suicidality/Homicidality: Patient denies having any suicidal or homicidal ideation intent or plan. Perceptions: Patient denies any visual hallucinations and denies any auditory hallucinations. Though content/process: There is no evidence of any delusional thought content and thought process is linear and goal-directed. Memory and concentration: AOX3, grossly intact for the purposes of this session Judgment and insight: Fair Assessment: Major depressive disorder, recurrent Cannabis use disorder, unspecified Plan: -Patient continues to meet criteria for inpatient psychiatric admission for symptom stabilization and safety. -Medications: Increase Cymbalta to 30 mg BID for depression. Increase Risperdal to 0.5 mg daily plus 2 mg QHS for mood/psychosis. -When necessary Ativan and Haldol for agitation/aggression. -NRT - nicotine patch -SW on board for discharge planning. Encouraged the patient to participate in milieu.
[2023-01-26] MEDS: risperiDONE 2 MG TAB PO SCH (20:32)
[2023-01-27] MEDS: NICOTINE GUM (POLACRILEX) 2 MG GUM BUCCAL PRN ×4 (04:16→20:02)
[2023-01-27] MEDS: IBUPROFEN 800 MG TAB PO PRN ×2 (04:16→12:10)
[2023-01-27] MEDS: LORazepam 1 MG TAB PO PRN ×2 (04:17→16:07)
[2023-01-27] MEDS: risperiDONE 0.5 MG TAB PO SCH (08:31)
[2023-01-27] MEDS: ACETAMINOPHEN TAB 325 MG TAB PO PRN ×3 (08:32→20:02)
[2023-01-27] MEDS: DULoxetine HCL 30 MG CAPSULE.DR PO SCH ×2 (08:35→20:01)
--- NOTE | 2023-01-27 18:02 | P.PN ---
Progress Note - Text Progress Note Date: 01/27/23 Interval History: I evaluated patient on 01/27/23. Patient was in his room and was agreeable to meet with this comic book writer. He reports his mood is improving with the increase in the Cymbalta and Risperdal. He reports feeling "lonely". He continues to seek pain medications, reports his feet cause him pain, but he is observed to ambulate without difficulty. He has been compliant with his medication and denies side effects. At this time, patient denies any suicidal or homicidal ideation, intent or plan. Patient denies any auditory, visual hallucinations, and denies any paranoia or delusions. He reports chronic pain and we discussed he can be referred to an outpatient pain clinic but he is ambivalent. Mental Status Exam: General Appearance: Patient appears to be stated age, hair brushed with part, dressed in hospital gown. Behavior: Patient is calmly sitting on his bed without any agitated behavior, appears withdrawn with irritable edge. Speech: Patient's speech is fluent and non-pressured. Mood/Affect: Mood is "lonely", affect is mood-congruent and constricted. Suicidality/Homicidality: Patient denies having any suicidal or homicidal ideation intent or plan. Perceptions: Patient denies any visual hallucinations and denies any auditory hallucinations. Though content/process: There is no evidence of any delusional thought content and thought process is linear and goal-directed. Memory and concentration: AOX3, grossly intact for the purposes of this session Judgment and insight: Fair Assessment: Major depressive disorder, recurrent Cannabis use disorder, unspecified Rule out opioid use disorder Plan: -Patient continues to meet criteria for inpatient psychiatric admission for symptom stabilization and safety. He is awaiting court hearing. -Medications: Continue Cymbalta 30 mg BID for depression. Continue Risperdal 0.5 mg daily plus 2 mg QHS for mood/psychosis. -When necessary Ativan and Haldol for agitation/aggression. -NRT - nicotine gum -SW on board for discharge planning. Encouraged the patient to participate in milieu.
[2023-01-27] MEDS: risperiDONE 2 MG TAB PO SCH (20:01)
[2023-01-28] MEDS: NICOTINE GUM (POLACRILEX) 2 MG GUM BUCCAL PRN ×4 (07:39→20:54)
[2023-01-28] MEDS: DULoxetine HCL 30 MG CAPSULE.DR PO SCH (08:48)
[2023-01-28] MEDS: risperiDONE 0.5 MG TAB PO SCH (08:48)
[2023-01-28] MEDS: IBUPROFEN 800 MG TAB PO PRN ×2 (08:49→20:54)
[2023-01-28] MEDS: LORazepam 1 MG TAB PO PRN (09:42)
--- NOTE | 2023-01-28 12:04 | P.PN ---
Progress Note - Text Progress Note Date: 01/28/23 Interval History: Patient was seen wandering the hallways today after group and was agreeable to speak to play writer in the office. patient was speaking of his situation before coming into the hospital and having an increase in his depression. He states that the Cymbalta has been helping however continues to have anxiety. He was asking about controlled medications for pain which we spoke about the different options that are nonscheduled. Patient was also speaking about being homeless and different options for housing. He states that he did not sleep well last night, has a mildly improving appetite. He states that he is going to some groups. At this time, patient denies any suicidal or homicidal ideation, intent or plan. Patient denies any auditory, visual hallucinations, and denies any paranoia or delusions. He reports chronic pain and we discussed he can be re ferred to an outpatient pain clinic but he is ambivalent. Mental Status Exam: General Appearance: Patient appears to be unshaven, stated age, hair brushed with part, dressed in hospital gown. Behavior: Patient is calmly sitting on his bed without any agitated behavior, appears withdrawn, improving mildly Speech: Patient's speech is fluent and non-pressured. Mood/Affect: Mood is "a little bit better", affect is mood-congruent and constricted, improving mildly Suicidality/Homicidality: Patient denies having any suicidal or homicidal ideation intent or plan. Perceptions: Patient denies any visual hallucinations and denies any auditory hallucinations. Though content/process: There is no evidence of any delusional thought content and thought process is linear and goal-directed. Manti Memory and concentration: AOX3, grossly intact for the purposes of this session Judgment and insight: Fair Assessment: depressive disorder, r/o bipolar depression Cannabis use disorder, unspecified Rule out opioid use disorder Plan: -Patient continues to meet criteria for inpatient psychiatric admission for symptom stabilization and safety. He is awaiting court hearing, currently involuntary. -Medications: increase Cymbalta 90 mg HS for depression/anxiety/pain, Continue Risperdal 0.5 mg daily plus 2 mg QHS for mood/psychosis. -When necessary Ativan and Haldol for agitation/aggression. -NRT - nicotine gum -SW on board for discharge planning. Encouraged the patient to participate in milieu. will await deferral today. likely discharge tomorrow vs with referral to long-term.
[2023-01-28] MEDS: ACETAMINOPHEN TAB 325 MG TAB PO PRN ×2 (12:48→16:19)
[2023-01-28] MEDS: risperiDONE 2 MG TAB PO SCH (20:52)
[2023-01-28] MEDS ORDERED: DULoxetine HCL 30 MG CAPSULE.DR PO SCH (21:00)
[2023-01-29] MEDS: ACETAMINOPHEN TAB 325 MG TAB PO PRN ×2 (04:34→10:45)
[2023-01-29] MEDS: NICOTINE GUM (POLACRILEX) 2 MG GUM BUCCAL PRN ×2 (04:34→08:41)
[2023-01-29 04:36] VITALS: BP 136/96; PULSE 85; RESP 18; TEMP 97.1
[2023-01-29] MEDS: risperiDONE 0.5 MG TAB PO SCH (08:40)
[2023-01-29] MEDS: LORazepam 1 MG TAB PO PRN (08:41)
[2023-01-29] MEDS: IBUPROFEN 800 MG TAB PO PRN (08:42)
[2023-01-29] MEDS ORDERED: DULoxetine HCL 30 MG CAPSULE.DR PO SCH (10:15)
--- NOTE | 2023-01-29 10:35 | P.DS ---
Providers Date of admission: 01/23/23 02:38 Expected date of discharge: 01/29/23 Attending physician: Brandon Charles MD Consults: 01/22/23 20:51 Consult Physician Routine Consulting Provider: Jared Physician Consult Reason/Comments: H&P Do you want consulting provider notified?: Yes Primary care physician: Stated None - Discharge Diagnosis(es) (1) Depressive disorder Current Visit: Yes Status: Acute Priority: High (2) Cannabis use disorder Current Visit: Yes Status: Acute Priority: Medium (3) Nicotine dependence Current Visit: Yes Status: Acute Priority: Low Hospital Course: Admission HPI: Admission note was completed by Dr Irby "Tripp Schneider is a 47 years old single white male from [facility]. He was sent here from [facility] since he was thought to be psychotic. He is here under a mental health petition. Patient is not a good reliable consistent historian. When he was asked for the reasons for coming here he went on saying that he has been in severe depression agitated and has been without medication not able to sleep well, was in assisted for a while and when he came out he didn't go and see the doctor for his treatment. Then he went on saying he has bipolar disorder for about 30 years and was treated on and off. When he was asked to describe the symptoms of bipolar disorder he was not able to say anything he said he was never manic. He said he has been depressed for 30 some years off and on later on he said the depression is continuous and gets worse at times and could not tell me how long it status worse. He also said he does not talk much and does not mingle with other people. He said when he is depressed he cries sometimes. He said he was never been suicidal, does not hear voices and his mind does not play tricks on him he said he does not have any anger issues. Even though earlier he had told me that he was not able to sleep later on he said he sleeps very well. He could not tell me work as a reason he was in the assisted for or for how long. He said he does not remember all the details." Hospital course: Upon admission to the unit patient was directable and agreeable to commence treatment. Patient mainly kept to himself treatment he eventually got along well with other patients on the unit and followed unit protocol. Patient was compliant with the medications and denied any side effects throughout hospital course. Patient was started on Cymbalta and increased to a dose of 30 mg twice a day for depression/anxiety/pain, Risperdal was started at 0.5 mg daily +2 mg daily at bedtime for mood stabilization/adjunct. Patient spoke of his stressors and engaged in therapy both group and individual. Patient was also seen by medical team for history and physical exam. Throughout the course of the hospitalization patient gradually improved with regards to mood, anxiety, mood lability, sleep and returned back to their baseline level of functioning. On the day of discharge patient denied any suicidal or homicidal ideations intent or plan denied any auditory or visual hallucinations. Patient endorsed wanting to live for his future and to find housing, and health. The patient denied any access to guns or weapons. Patient denied any paranoia and did not endorse any delusions. Patient does have a significant history of substance abuse and was counseled on abstaining from all substances including alcohol and marijuana. Patient was offered however declined inpatient substance-abuse rehab. Patient was also counseled on the medications and need for regular compliance and was encouraged to follow-up with their outpatient appointment for mental health and also for primary care. Patient will be discharged today to care home with [facility] follow-up. Mental status exam: General Appearance: Patient appears to be then, unshaven, stated age is alert, pleasant, and cooperative. Patient is in no acute distress and has improved hygiene and grooming Behavior: Patient is calmly seated without any agitated behavior. Speech: Patient's speech is fluent and nonpressured. Mood/Affect: Patient reports their mood is "good", affect is congruent Suicidality/Homicidality: Patient denies having any suicidal or homicidal ideation intent or plan. Perceptions: Patient denies any auditory or visual hallucinations. Though content/process: There is no evidence of any delusional thought content and thought process is linear and goal-directed. Memory and concentration: AOX3, grossly intact for the purposes of this session. Can spell "WORLD" backwards correctly. Judgment and insight: chronically poor, however has improved with guarded prognosis Impression: Depressive disorder unspecified, rule out bipolar depression Cannabis use disorder Nicotine dependence Plan: -Continue with discharge today as patient has improved and stabilized psychiatrically and is not currently an imminent threat to himself and/or others. Patient will remain at chronically elevated risk for harm to self and/or others due to his impulsivity and substance abuse. -Continue medications: Cymbalta 30 mg twice a day for depression/anxiety/pain, Risperdal 0.5 mg daily +2 mg daily at bedtime for mood stabilization/adjunct. -Patient was counseled on the need for medication compliance and appropriate follow-up at mental health and also primary care for medical issues. Patient verbalized understanding and agreed. -Social work to help patient with referral to care home today and transportation. Social work also to arrange for patients follow up appointments with [facility] for psychiatric care along with follow up with primary care provider. -Patient counseled on abstaining from recreational drugs and marijuana and al cohol. Was informed/educated on the adverse effects on their physical and mental health. Patient verbally agreed and understood. Patient was offered substance abuse treatment however declined at this time. -Patient was instructed to return to the hospital or seek immediate medical care if their psychiatric or medical symptoms do worsen or reoccur. Allergies Allergy/AdvReac Type Severity Reaction Status Date / Time No Known Allergies Allergy Verified 01/23/23 03:42 Vital Signs Temp 97.1 F L 01/29/23 04:35 Pulse 85 01/29/23 04:35 Resp 18 01/29/23 04:35 BP 136/96 01/29/23 04:35 Pulse Ox 98 01/29/23 04:35 FiO2 Patient Condition at Discharge: Stable Plan - Discharge Summary Discharge Rx Participant: Yes New Discharge Prescriptions: New DULoxetine HCL [Cymbalta] 30 mg PO BID 30 Days #60 cap Acetaminophen Tab [Tylenol] 650 mg PO Q6HR PRN #120 tab PRN Reason: Pain/Discomfort Ibuprofen [Motrin] 800 mg PO Q8H PRN 30 Days #90 tab PRN Reason: Moderate To Severe Pain (4-10) Nicotine Gum (Polacrilex) [Nicorette] 2 mg BUCCAL Q4HR PRN 28 Days #168 pieceofgum PRN Reason: Nicotine Cravings risperiDONE [RisperDAL] 0.5 mg PO DAILY 30 Days #30 tab risperiDONE [RisperDAL] 2 mg PO HS 30 Days #30 tab Discontinued Ibuprofen [Motrin Ib] 800 mg PO QID Acetaminophen Tab [Tylenol] 1,000 mg PO TID Naproxen 500 mg PO BID Discharge Medication List Acetaminophen Tab [Tylenol] 650 mg PO Q6HR PRN #120 tab 01/29/23 [Rx] DULoxetine HCL [Cymbalta] 30 mg PO BID 30 Days #60 cap 01/29/23 [Rx] Ibuprofen [Motrin] 800 mg PO Q8H PRN 30 Days #90 tab 01/29/23 [Rx] Nicotine Gum (Polacrilex) [Nicorette] 2 mg BUCCAL Q4HR PRN 28 Days #168 pieceofgum 01/29/23 [Rx] risperiDONE [RisperDAL] 0.5 mg PO DAILY 30 Days #30 tab 01/29/23 [Rx] risperiDONE [RisperDAL] 2 mg PO HS 30 Days #30 tab 01/29/23 [Rx] Patient Instructions/Handouts: How to Stop Smoking (DC), Depression (DC) Activity/Diet/Wound Care/Special Instructions: Avoid the use of street drugs and alcohol. Take all medications as prescribed. When you are in need of refills on your medications, please contact your medical provider and/or outpatient psychiatrist to have this done. Please go to scheduled outpatient appointments for aftercare treatment. If symptoms return or become worse, call the crisis line at and/or go to the nearest emergency room for evaluation. Discharge Disposition: OTHER INSTITUTION NOT DEFINED
== END 2023-01-29 12:05 | disposition home or self-care (01) | DRG 754 ==
LOC: 3MHU 01-23 02:38
PROVIDERS: ADMIT Psychiatry & Neurology Psychiatry; ATTEND Psychiatry & Neurology Psychiatry
DX: F32.A Depression, unspecified (principal); F41.9 Anxiety disorder, unspecified; G89.29 Other chronic pain; M79.673 Pain in unspecified foot; M25.519 Pain in unspecified shoulder; R45.851 Suicidal ideations; Z55.5 Less than a high school diploma; I10 Essential (primary) hypertension; F12.10 Cannabis abuse, uncomplicated; F17.210 Nicotine dependence, cigarettes, uncomplicated; F22 Delusional disorders; J45.909 Unspecified asthma, uncomplicated; M47.9 Spondylosis, unspecified; Z79.899 Other long term (current) drug therapy; Z71.51 Drug abuse counseling and surveillance of drug abuser; Z71.89 Other specified counseling; Z28.310 Unvaccinated for COVID-19; Z28.21 Immunization not carried out because of patient refusal; Z79.1 Long term (current) use of non-steroidal anti-inflammatories (NSAID)

== ENCOUNTER 2023-02-10 19:53 | Inpatient (IN) | payer MEDICAID, OTHER ==
--- NOTE | 2023-02-10 22:25 | ED ---
General Adult HPI - General Chief complaint: Psychiatric Symptoms Stated complaint: MENTAL HEALTH Time Seen by Provider: 02/10/23 21:59 Source: patient Mode of arrival: ambulatory - History of Present Illness Initial comments: Dictation was produced using [employer] ASA dictation software. please excuse any grammatical, word or spelling errors. Chief Complaint: This 47-year-old male presents emergency department for suicidal ideation History of Present Illness: Patient is a 47-year-old male he is feeling suicidal. Patient states he has a history of chronic orthopedic issues. He suffered lower extremity injuries several years ago. Since then he's been having chronic pain. He reports that a lot of his issues have been unaddressed which is causing to suffer from chronic pain and he is feeling suicidal because of that. Patient has any homicidal ideation. He does not have a specific plan is to suicide. He does feel depressed. He has any visual or auditory hallucinations. Denies any medical complaints. The ROS documented in this emergency department record has been reviewed and confirmed by me. Those systems with pertinent positive or negative responses have been documented in the HPI. All other systems are other negative and/or noncontributory. - Related Data Home Medications Medication Instructions Recorded Confirmed No Known Home Medications 02/10/23 02/10/23 Allergies Allergy/AdvReac Type Severity Reaction Status Date / Time No Known Allergies Allergy Verified 02/10/23 22:29 Review of Systems ROS Statement: Those systems with pertinent positive or pertinent negative responses have been documented in the HPI. ROS Other: All systems not noted in ROS Statement are negative. Past Medical History Past Medical History: Asthma Additional Past Medical History / Comment(s): back pain, spinal and sacral fractures, chronic foot and shoulder pain History of Any Multi-Drug Resistant Organisms: None Reported Past Surgical History: Back Surgery, Orthopedic Surgery Additional Past Surgical History / Comment(s): pins and plates in feet Past Psychological History: Anxiety, Bipolar, Depression Smoking Status: Current every day smoker Past Alcohol Use History: None Reported Past Drug Use History: Marijuana - Past Family History Mother Family Medical History: CVA/TIA General Exam - General Exam Comments Initial Comments: PHYSICAL EXAM: General Impression: Alert and oriented x3, not in acute distress HEENT: Normocephalic atraumatic, extra-ocular movements intact, pupils equal and reactive to light bilaterally, mucous membranes moist. Cardiovascular: Heart regular rate and rhythm Chest: Able to complete full sentences, no retractions, no tachypnea Abdomen: abdomen soft, non-tender, non-distended, no organomegaly Musculoskeletal: Pulses present and equal in all extremities, no peripheral edema Motor: no focal deficits noted Neurological: CN II-XII grossly intact, no focal motor or sensory deficits noted Skin: Intact with no visualized rashes Psych: Normal affect and mood Course Vital Signs 02/10/23 20:36 Temperature 98.2 F Pulse Rate 107 H Respiratory 18 Rate Blood Pressure 142/77 O2 Sat by Pulse 95 Oximetry Medical Decision Making - Medical Decision Making Was pt. sent in by a medical professional or institution (, PA, GEOSCIENCE LABORATORY TECHNICIAN, urgent care, hospital, or half-way...) When possible be specific @ -No Did you speak to anyone other than the patient for history (EMS, parent, family, police, friend...)? What history was obtained from this source @ -No Did you review nursing and triage notes (agree or disagree)? Why? @ -I reviewed and agree with nursing and triage notes Were old charts reviewed (outside hosp., previous admission, EMS record, old EKG, old radiological studies, urgent care reports/EKG's, half-way records)? Report findings @ -No old charts were reviewed Differential Diagnosis (chest pain, altered mental status, abdominal pain women, abdominal pain men, vaginal bleeding, musculoskeletal, weakness, fever, dyspnea, syncope, headache, dizziness, GI bleed, back pain, seizure, CVA, palpatations, mental health)? @ -Differential Mental Health: Depression, anxiety, bipolar, psychosis, schizophrenia, borderline personality, situational depression, adjustment disorder, behavioral disorder, brain tumor, malingering, substance abuse, encephalopathy, medication reaction, dementia, hypothyroidism, degenerative neurologic disorder, lupus.... This is not meant to be all-inclusive list EKG interpreted by me (3pts min.). @ -None done X-rays interpreted by me (1pt min.). @ -None done CT interpreted by me (1pt min.). @ -None done U/S interpreted by me (1pt. min.). @ -None done What testing was considered but not performed or refused? (CT, X-rays, U/S, labs)? Why? @ -None What meds were considered but not given or refused? Why? @ -None Did you discuss the management of the patient with other professionals (professionals i.e. , PA, GEOSCIENCE LABORATORY TECHNICIAN, lab, RT, psych nurse, social science research assistant, shirt sorter, teacher, surface to air weapons officer, assistant case manager)? Give summary @ -No Was smoking cessation discussed for >3mins.? @ -No Was critical care preformed (if so, how long)? @ -No Were there social determinants of health that impacted care today? How? (Homelessness, low income, unemployed, alcoholism, drug addiction, transportation, low edu. Level, literacy, decrease access to med. care, senior care, rehab)? @ -No Was there de-escalation of care discussed even if they declined (Discuss DNR or withdrawal of care, Hospice)? DNR status @ -No What co-morbidities impacted this encounter? (DM, HTN, Smoking, COPD, CAD, Cancer, CVA, ARF, Chemo, Hep., AIDS, mental health diagnosis, sleep apnea, morbid obesity)? @ -Chronic pain Was patient admitted / discharged? Hospital course, mention meds given and route, prescriptions, significant lab abnormalities, going to OR and other pertinent info. @ -47 Year-old male presents with mental health evaluation for depression and suicidal ideation. Patient is to medical complaints. Cleared for EPS evaluation. EPS will admit patient to inpatient psychiatric unit. Undiagnosed new problem with uncertain prognosis? @ -No Drug Therapy requiring intensive monitoring for toxicity (Heparin, Nitro, Insulin, Cardizem)? @ -No Were any procedures done? @ -No Diagnosis/symptom? Acute, or Chronic, or Acute on Chronic? Uncomplicated (without systemic symptoms) or Complicated (systemic symptoms)? @ -1. Acute suicidal ideation Side effects of treatment? @ -No Exacerbation, Progression, or Severe Exacerbation? @ -No Poses a threat to life or bodily function? How? (Chest pain, [place], [place], pneumonia, PE, COPD, DKA, ARF, appy, cholecystitis, CVA, Diverticulitis, Homicidal, Suicidal, threat to staff... and all critical care pts) @ -yes - Lab Data Lab Results 02/11/23 Range/Units 00:40 Coronavirus (PCR) Not Detected (Not Detectd) Disposition Clinical Impression: Depression, Suicidal ideation Disposition: ADMITTED IP TO THIS HOSP Condition: Fair Referrals: None,Stated [Primary Care Provider] - 1-2 days
[2023-02-11] MEDS ORDERED: hydrOXYzine HCL 25 MG TAB PO PRN (00:18)
[2023-02-11] MEDS ORDERED: traZODone HCL 50 MG TAB PO PRN (00:18)
[2023-02-11] MEDS ORDERED: ACETAMINOPHEN TAB 325 MG TAB PO PRN (00:18)
[2023-02-11] MEDS ORDERED: IBUPROFEN 600 MG TAB PO PRN (00:18)
[2023-02-11] MEDS ORDERED: MAGNESIUM HYDROXIDE 2,400 MG/10 ML CUP PO PRN (00:18)
[2023-02-11] MEDS ORDERED: MAG HYDROX/AL HYDROX/SIMETH 30 ML CUP PO PRN (00:18)
--- NOTE | 2023-02-11 04:59 | P.PN ---
Progress Note - Text Progress Note Date: 02/11/23 notified of new consult , patient sedated and sleeping at this time
[2023-02-11] MEDS ORDERED: NICOTINE 14MG/24HR PATCH TRANSDERM SCH (09:00)
[2023-02-11] MEDS: ARIPiprazole 5 MG TAB PO SCH (11:51)
[2023-02-11] MEDS: DULoxetine HCL 30 MG CAPSULE.DR PO SCH (11:51)
[2023-02-11] MEDS: NAPROXEN 250 MG TAB PO SCH ×2 (11:52→20:33)
[2023-02-11] MEDS ORDERED: HALOPERIDOL LACTATE 5 MG/ML 1 ML VIAL IM PRN (12:02)
[2023-02-11] MEDS ORDERED: haloperidoL 5 MG TAB PO PRN (12:02)
[2023-02-11] MEDS ORDERED: hydrOXYzine pamoate 25 MG CAP PO PRN (12:03)
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
--- NOTE | 2023-02-11 14:21 | P.HPMEDMHU ---
History of Present Illness H&P Date: 02/11/23 Patient is a 47-year-old male with a history of hypertension and nicotine dependence presented with major depression. [facility] has been consulted for medical management. He claims that he was previously on metoprolol, but has not been taking his medications. Currently smokes 2 packs per day, denies any alcohol use or illicit drug use. He denies any chest pain, shortness of breath, abdominal pain, nausea, vomiting, diarrhea, constipation, or urinary complaints. Pertinent positives and negatives as discussed in HPI, a complete review of systems was performed and all other systems are negative. Patient seen and examined at bedside. Vital signs reviewed General: nontoxic, no distress, appears at stated age Derm: warm, dry Head: atraumatic, normocephalic, symmetric Eyes: EOMI, no lid lag, anicteric sclera, pupils equal round reactive to light ENT: Nose and ears atraumatic Neck: No thyromegaly, supple Mouth: no lip lesion, mucus membranes moist Cardiovascular: S1S2 reg, tachycardic, no murmur, no edema Lungs: clear to auscultation bilateral, no rhonchi, no rales, no wheeze, no accessory muscle use Abdominal: soft, nontender to palpation, no guarding, no appreciable organomegaly Ext: no gross muscle atrophy, muscle strength muscle strength 5 out of 5 in all 4 extremities, no contractures Neuro: CN II-XII grossly intact Psych: Alert, oriented, appropriate affect Assessment/Plan: Hypertension Nicotine dependence Major depression -Started on amlodipine 5 mg daily and hydrochlorothiazide 12.5 daily -Increased nicotine patch to 21 mg -Rest of the care per psychiatry Thank you for allowing us to participate in the care of this pleasant patient. Do not hesitate to contact us with questions. Someone can be reached from the [facility] hospitalist group all hours of the day at [phone] or via [employer]. Past Medical History Past Medical History: Asthma Additional Past Medical History / Comment(s): back pain, spinal and sacral fractures, chronic foot and shoulder pain History of Any Multi-Drug Resistant Organisms: None Reported Past Surgical History: Back Surgery, Orthopedic Surgery Additional Past Surgical History / Comment(s): pins and plates in feet Past Psychological History: Anxiety, Bipolar, Depression Smoking Status: Current every day smoker Past Alcohol Use History: None Reported Past Drug Use History: Marijuana - Past Family History Mother Family Medical History: CVA/TIA Medications and Allergies Home Medications Medication Instructions Recorded Confirmed Type No Known Home Medications 02/10/23 02/10/23 History Allergies Allergy/AdvReac Type Severity Reaction Status Date / Time No Known Allergies Allergy Verified 02/10/23 22:29 Physical Exam Vitals: Vital Signs Temp Pulse Pulse Resp BP BP Pulse Ox 02/11/23 02:45 97.4 F L 100 18 171/88 96 02/11/23 02:18 86 16 128/78 95 02/10/23 20:36 98.2 F 107 H 18 142/77 95 Intake and Output 02/10/23 02/11/23 02/11/23 22:59 06:59 14:59 Other: Weight 79.379 kg Cranial Nerve Examination - Cranial Nerves Cranial Nerve II- Optic: Intact Cranial Nerve III- Oculomotor: Intact Cranial Nerve IV- Trochlear: Intact Cranial Nerve V- Trigeminal: Intact Cranial Nerve - Abducens: Intact Cranial Nerve VII- Facial: Intact Cranial Nerve VIII- Auditory: Intact Cranial Nerve IX- Glossopharyngeal: Intact Cranial Nerve X- Vagus: Intact Cranial Nerve XI- Accessory: Intact Cranial Nerve XII- Hypoglossal: Intact Thrombosis Risk Factor Assmnt - Choose All That Apply Any of the Below Risk Factors Present?: Yes Each Factor Represents 1 point: Age 41-60 years Other Risk Factors: No Thrombosis Risk Factor Assessment Total Risk Factor Score: 1 Thrombosis Risk Factor Assessment Level: Low Risk
[2023-02-11] MEDS: NICOTINE 21MG/24HR PATCH TRANSDERM SCH (14:59)
[2023-02-11] MEDS: hydroCHLOROthiazide 12.5 MG CAP PO SCH (14:59)
[2023-02-11] MEDS: amLODIPine 5 MG TAB PO SCH (14:59)
[2023-02-11] MEDS: diphenhydrAMINE 25 MG CAP PO PRN (20:33)
[2023-02-12] MEDS: amLODIPine 5 MG TAB PO SCH (08:40)
[2023-02-12] MEDS: DULoxetine HCL 30 MG CAPSULE.DR PO SCH ×2 (08:40→20:53)
[2023-02-12] MEDS: ARIPiprazole 5 MG TAB PO SCH (08:40)
[2023-02-12] MEDS: NICOTINE 21MG/24HR PATCH TRANSDERM SCH (08:40)
[2023-02-12] MEDS: NAPROXEN 250 MG TAB PO SCH ×2 (08:40→20:52)
[2023-02-12] MEDS: hydroCHLOROthiazide 12.5 MG CAP PO SCH (08:41)
[2023-02-12] MEDS ORDERED: NAPROXEN 250 MG TAB PO STA (11:49)
--- NOTE | 2023-02-12 11:55 | P.PN ---
Progress Note - Text Progress Note Date: 02/12/23 Interval History: Patient was seen lying in bed today and was directable and agreeable to speak with insurance writer in the office. Patient continues to be preoccupied with his pain. In his feet. He states that this is an ongoing issue for him. He was complaining of the lower dose of the naproxen and wanted it increased. He continues to ask about opioid medications. She was asked about if he has seen a financial developer and he states that "I have and they stole my medication from me". When insurance writer asked more about this he states that "they're just junkies looking for pain meds". He was endorsing some paranoia towards others today and illogical thought process. He claims that he did sleep better last night about 7 hours. He continues to endorse depression and anxiety mainly relates to his pain. At this time patient denies any suicidal or homical ideations, intent or plan. Patient denies any auditory, visual hallucinations. Patient denies any side effects from the medications and has been compliant with meds. Mental Status Exam: General Appearance: Patient appears to be tall, currently hair, perez, stated age is alert, poor eye contact, irritable. Some paranoia, evasive, Patient appears to have poor hygiene and grooming. Behavior: Patient is seated without any agitated behavior. Poor eye contact. Bizarre at times. Speech: Patient's speech is fluent and nonpressured. [place]. Mood/Affect: Patient reports their mood is depressed and anxious, affect is congruent and constricted. Suicidality/Homicidality: Patient denies having any homicidal ideation intent or plan. Denies any suicidal ideations intent or plan Perceptions: Patient denies any visual hallucinations and denies any auditory hallucinations Though content/process: There is no evidence of any delusional thought content and thought process is linear and goal-directed. focused on pain medications and also somatically preoccupied. Memory and concentration: AOX3, grossly intact for the purposes of this session Judgment and insight: poor IMPRESSIONS: Major depressive disorder with psychotic features chronic pain possible opioid abuse homelessness cannabis use disorder mild nicotine dependence PLAN: -Patient is admitted under voluntary status to MHU for stabilization of psychiatric symptoms and safety. Patient has signed adult voluntary form and medication consent and is placed in patient's chart. -Medications : increase cymbalta 30 mg bid for mood/anxiety/pain. increase naprosyn 500 mg bid laron for pain, benadryl 25 mg qhs prn for sleep. increase abilify 5 mg daily for mood adjunct. -vistaril and Haldol PRN for agitation/aggression -Patient was informed of the risks, benefits and side effects of the medication and patient verbally consented to taking the medications. Patient signed med consent form and was placed in chart. -Internal Medicine consult to perform medical evaluation and physical. -NRT - nicotine patch -SW on board for discharge planning. Encourage patient to participate in groups to work on coping skills. patient is homeless and likely will need to be referred to nursing home upon d/c
[2023-02-12 16:48] LABS: Appearance,Urine Clear (Clear); Bilirubin,Urine Negative (Negative); Blood,Urine Negative (Negative); Color,Urine Light Yellow; Glucose,Urine (UA) Negative (Negative); Ketones,Urine Negative (Negative); Leukocyte Esterase,Urine Negative (Negative); Nitrite,Urine Negative (Negative); Protein,Urine Negative (Negative); Specific Gravity,Urine 1.007 (1.001-1.035); Urobilinogen,Urine <2.0 mg/dL (<2.0)
[2023-02-12] MEDS: diphenhydrAMINE 25 MG CAP PO PRN (20:54)
[2023-02-13] MEDS: NICOTINE 21MG/24HR PATCH TRANSDERM SCH (08:27)
[2023-02-13] MEDS: NAPROXEN 250 MG TAB PO SCH ×2 (08:27→20:49)
[2023-02-13] MEDS: ARIPiprazole 5 MG TAB PO SCH (08:28)
[2023-02-13] MEDS: amLODIPine 5 MG TAB PO SCH (08:28)
[2023-02-13] MEDS: DULoxetine HCL 30 MG CAPSULE.DR PO SCH ×2 (08:28→20:49)
[2023-02-13] MEDS: hydroCHLOROthiazide 12.5 MG CAP PO SCH (08:28)
[2023-02-13] MEDS: METOPROLOL TARTRATE 25 MG TAB PO SCH ×2 (10:23→20:49)
--- NOTE | 2023-02-13 10:24 | P.PN ---
Progress Note - Text Progress Note Date: 02/13/23 Interval History: Patient was seen lying in bed today and was directable and agreeable to speak with health technical writer in the office. Patient was less preoccupied with his pain today however was speaking significantly about his antihypertensive medications. He claims that they're not helping him and causing him bag side effects. He states that he did very well in the past with Lopressor 25 mg twice a day it was recommended by his product safety technician. Patient states that his mood is mildly improving since yesterday was to continue on the same medications. He claims that they Benadryl did not help him last night and once he switched onto a low- dose of trazodone. Claims that he is not interested in going to many groups. States that his appetite is fair at this time. Not endorsing paranoia today. At this time patient denies any suicidal or homical ideations, intent or plan. Patient denies any auditory, visual hallucinations. Patient denies any side effects from the medications and has been compliant with meds. Mental Status Exam: General Appearance: Patient appears to be tall, currently hair, perez, stated age is alert, poor eye contact, less irritable. evasive, Patient appears to have poor hygiene and grooming. Behavior: Patient is seated without any agitated behavior. Poor eye contact. Speech: Patient's speech is fluent and nonpressured. Mood/Affect: Patient reports their mood is mildly improving, affect is congruent and constricted. Suicidality/Homicidality: Patient denies having any homicidal ideation intent or plan. Denies any suicidal ideations intent or plan Perceptions: Patient denies any visual hallucinations and denies any auditory hallucinations Though content/process: There is no evidence of any delusional thought content and thought process is linear and goal-directed. focused on medications and also somatically preoccupied. Memory and concentration: AOX3, grossly intact for the purposes of this session Judgment and insight: poor IMPRESSIONS: Major depressive disorder with psychotic features chronic pain possible opioid abuse homelessness cannabis use disorder mild nicotine dependence PLAN: -Patient is admitted under voluntary status to MHU for stabilization of psychiatric symptoms and safety. Patient has signed adult voluntary form and medication consent and is placed in patient's chart. -Medications : continue cymbalta 30 mg bid for mood/anxiety/pain. naprosyn 500 mg bid laron for pain, d/c benadryl and replace with trazodone 25 mg qhs for sleep. abilify 5 mg daily for mood adjunct. -vistaril and Haldol PRN for agitation/aggression -patient claims that he is not tolerating his antihypertensives well and wanted to be switched back onto lopressor 25 mg bid as was recommended by his product safety technician. -NRT - nicotine patch -SW on board for discharge planning. Encourage patient to participate in groups to work on coping skills. patient is homeless and likely will need to be referred to half-way upon d/c
[2023-02-13] MEDS: ACETAMINOPHEN TAB 500 MG TAB PO PRN (17:04)
[2023-02-13] MEDS ORDERED: traZODone HCL 50 MG TAB PO SCH (21:00)
[2023-02-14] MEDS: NAPROXEN 250 MG TAB PO SCH ×2 (08:03→20:32)
[2023-02-14] MEDS: NICOTINE 21MG/24HR PATCH TRANSDERM SCH (08:03)
[2023-02-14] MEDS: ARIPiprazole 5 MG TAB PO SCH (08:03)
[2023-02-14] MEDS: ACETAMINOPHEN TAB 500 MG TAB PO PRN ×2 (08:03→14:14)
[2023-02-14] MEDS: METOPROLOL TARTRATE 25 MG TAB PO SCH ×2 (08:03→20:32)
[2023-02-14] MEDS: DULoxetine HCL 30 MG CAPSULE.DR PO SCH ×2 (08:03→20:32)
[2023-02-14] MEDS ORDERED: DULoxetine HCL 30 MG CAPSULE.DR PO ONE (10:12)
--- NOTE | 2023-02-14 10:20 | P.PN ---
Progress Note - Text Progress Note Date: 02/14/23 Interval History: Patient was seen lying in bed today and was directable and agreeable to speak with proposal lead writer in the office. Patient claims that he is still feeling depressed at this time. He claims that his anxiety is mildly improving however. We spoke about medication options and he is still not convinced that Cymbalta is helping him. We spoke about increasing the dose which he was okay with. He claims that he slept fairly last night however did want an increase in his current trazodone to 50 mg. He states that he feels his blood pressure is under better control with the metoprolol. Claims that he is only going to some groups however is not interested in them much. Claims that he is eating meals. He did ask proposal lead writer a bizarre question if he would be his "primary care doctor and psychiatrist" and states that he would pay him a "salary" that we could negotiate if he would accept. Not endorsing paranoia today. At this time patient denies any suicidal or homical ideations, intent or plan. Patient denies any auditory, visual hallucinations. Patient denies any side effects from the medications and has been compliant with meds. Mental Status Exam: General Appearance: Patient appears to be tall, currently hair, perez, stated age is alert, improving eye contact, less irritable. Patient appears to have improving hygiene and grooming. Behavior: Patient is seated without any agitated behavior. Improving eye contact. Speech: Patient's speech is fluent and nonpressured. Mood/Affect: Patient reports their mood is mildly improving, affect is congruent and constricted. Suicidality/Homicidality: Patient denies having any homicidal ideation intent or plan. Denies any suicidal ideations intent or plan Perceptions: Patient denies any visual hallucinations and denies any auditory hallucinations Though content/process: There is no evidence of any delusional thought content and thought process is linear and goal-directed. focused on medications and pain control. Memory and concentration: AOX3, grossly intact for the purposes of this session Judgment and insight: poor, improving mildly IMPRESSIONS: Major depressive disorder with psychotic features chronic pain possible opioid abuse homelessness cannabis use disorder mild nicotine dependence PLAN: -Patient is admitted under voluntary status to MHU for stabilization of psychiatric symptoms and safety. Patient has signed adult voluntary form and medication consent and is placed in patient's chart. -Medications : increase cymbalta 30 mg qhs + 60 mg daily for mood/anxiety/pain can increase over the weekend if needed. naprosyn 500 mg bid laron for pain, increase trazodone 50 mg qhs for sleep. abilify 5 mg daily for mood adjunct. -vistaril and Haldol PRN for agitation/aggression -NRT - nicotine patch -SW on board for discharge planning. Encourage patient to participate in groups to work on coping skills. patient is homeless and likely will need to be referred to [facility] upon d/c, likely discharge early next week.
[2023-02-14] MEDS: traZODone HCL 50 MG TAB PO SCH (20:32)
[2023-02-15] MEDS: NAPROXEN 250 MG TAB PO SCH ×2 (08:39→20:56)
[2023-02-15] MEDS: ACETAMINOPHEN TAB 500 MG TAB PO PRN ×2 (08:39→16:26)
[2023-02-15] MEDS: NICOTINE 21MG/24HR PATCH TRANSDERM SCH (08:39)
[2023-02-15] MEDS: DULoxetine HCL 60 MG CAPSULE.DR PO SCH (08:40)
[2023-02-15] MEDS: METOPROLOL TARTRATE 25 MG TAB PO SCH ×2 (08:40→20:57)
[2023-02-15] MEDS: ARIPiprazole 5 MG TAB PO SCH (08:40)
--- NOTE | 2023-02-15 15:52 | P.PN ---
Progress Note - Text Progress Note Date: 02/15/23 Interval History: Patient was seen in dining room and was directable and agreeable to speak with display card writer in the office. Patient is fixated on pain and states that "the predators "prevent him from being able to get pain medications. He states that his identity has been stolen and that people are "predatorial" towards him. He says that people do not give him any pain medications because they prefer to give them to predators. He reports doing adequate on Cymbalta but says that it's not been helpful for his pain and requests to be on "something stronger "for pain. Patient reports sleeping well and fair appetite. At this time patient denies any suicidal or homicidal ideations, intent or plan. Patient denies any auditory, visual hallucinations. Patient denies any side effects from the medications and has been compliant with meds. Mental Status Exam: General Appearance: Patient appears to be tall, currently hair, perez, stated age is alert, improving eye contact, less irritable. Patient appears to have improving hygiene and grooming. Behavior: Patient is seated without any agitated behavior. Improving eye contact. Speech: Patient's speech is fluent and nonpressured. Mood/Affect: Patient reports their mood is mildly improving, affect is congruent and constricted. Suicidality/Homicidality: Patient denies having any homicidal ideation intent or plan. Denies any suicidal ideations intent or plan Perceptions: Patient denies any visual hallucinations and denies any auditory hallucinations Though content/process: Persecutory delusions. focused on medications and pain control. Memory and concentration: AOX3, grossly intact for the purposes of this session Judgment and insight: poor, improving mildly IMPRESSIONS: Major depressive disorder with psychotic features chronic pain possible opioid abuse homelessness cannabis use disorder mild nicotine dependence PLAN: -Patient is admitted under voluntary status to MHU for stabilization of psychiatric symptoms and safety. Patient has signed adult voluntary form and medication consent and is placed in patient's chart. -Medications : cymbalta 30 mg qhs + 60 mg daily for mood/anxiety/pain can increase over the weekend if needed. naprosyn 500 mg bid laron for pain, trazodone 50 mg qhs for sleep. increase abilify to 10 mg daily for psychosis -vistaril and Haldol PRN for agitation/aggression -NRT - nicotine patch -SW on board for discharge planning. Encourage patient to participate in groups to work on coping skills. patient is homeless and likely will need to be referred to intermediate upon d/c, likely discharge early next week.
[2023-02-15] MEDS: DULoxetine HCL 30 MG CAPSULE.DR PO SCH (20:57)
[2023-02-15] MEDS: traZODone HCL 50 MG TAB PO SCH (20:57)
[2023-02-16] MEDS: DULoxetine HCL 60 MG CAPSULE.DR PO SCH (08:41)
[2023-02-16] MEDS: NICOTINE 21MG/24HR PATCH TRANSDERM SCH (08:41)
[2023-02-16] MEDS: NAPROXEN 250 MG TAB PO SCH ×2 (08:42→20:41)
[2023-02-16] MEDS: ARIPiprazole 10 MG TAB PO SCH (08:43)
[2023-02-16] MEDS: METOPROLOL TARTRATE 25 MG TAB PO SCH ×2 (08:44→20:41)
--- NOTE | 2023-02-16 13:33 | P.PN ---
Progress Note - Text Progress Note Date: 02/16/23 Interval History: Patient was directable and agreeable to speak with keno writer/runner bedside. Patient is fixated on pain and states that he needs better treatment for his pain. When attempted to ask about his mood, he states that it is "depressed "due to his pain issues. He was encouraged to see a outpatient pain doctor but patient said "I will have to go through lots of doctors to find a good one ". Discussed Cymbalta and potential for increasing it for mood/pain. However, patient became paranoid and said he would like to discuss this with his weekday psychiatrist and does not want it to be increased today. Patient reports sleeping well and fair appetite. At this time patient denies any suicidal or homicidal ideation, intent or plan. Patient denies any auditory, visual hallucinations. Patient denies any side effects from the medications and has been compliant with meds. Mental Status Exam: General Appearance: Patient appears to be tall, currently hair, perez, stated age is alert, improving eye contact, less irritable. Patient appears to have improving hygiene and grooming. Behavior: Patient is seated without any agitated behavior. poor eye contact Speech: Patient's speech is fluent and nonpressured. Mood/Affect: Patient reports their mood is mildly improving, affect is congruent and constricted. Suicidality/Homicidality: Patient denies having any homicidal ideation intent or plan. Denies any suicidal ideation intent or plan Perceptions: Patient denies any visual hallucinations and denies any auditory hallucinations Though content/process: Persecutory delusions. focused on medications and pain control. Memory and concentration: AOX3, grossly intact for the purposes of this session Judgment and insight: poor, improving mildly IMPRESSIONS: Major depressive disorder with psychotic features vs schizoaffective disorder, depressive type chronic pain possible opioid abuse homelessness cannabis use disorder mild nicotine dependence PLAN: -Patient is admitted under voluntary status to MHU for stabilization of psychiatric symptoms and safety. Patient has signed adult voluntary form and medication consent and is placed in patient's chart. -Medications : cymbalta 30 mg qhs + 60 mg daily for mood/anxiety/pain. naprosyn 500 mg bid laron for pain, trazodone 50 mg qhs for sleep. continue abilify 10 mg daily for psychosis -vistaril and Haldol PRN for agitation/aggression -NRT - nicotine patch -SW on board for discharge planning. Encourage patient to participate in groups to work on coping skills. patient is homeless and likely will need to be referred to half-way upon d/c, likely discharge early next week.
[2023-02-16] MEDS: ACETAMINOPHEN TAB 500 MG TAB PO PRN ×2 (14:25→20:41)
[2023-02-16] MEDS: DULoxetine HCL 30 MG CAPSULE.DR PO SCH (20:40)
[2023-02-16] MEDS: traZODone HCL 50 MG TAB PO SCH (20:40)
[2023-02-17] MEDS: ARIPiprazole 10 MG TAB PO SCH (08:54)
[2023-02-17] MEDS: METOPROLOL TARTRATE 25 MG TAB PO SCH ×2 (08:54→20:09)
[2023-02-17] MEDS: NICOTINE 21MG/24HR PATCH TRANSDERM SCH (08:54)
[2023-02-17] MEDS: DULoxetine HCL 60 MG CAPSULE.DR PO SCH (08:54)
[2023-02-17] MEDS: ACETAMINOPHEN TAB 500 MG TAB PO PRN ×2 (08:54→20:10)
[2023-02-17] MEDS: NAPROXEN 250 MG TAB PO SCH ×2 (08:54→20:09)
--- NOTE | 2023-02-17 11:37 | P.PN ---
Progress Note - Text Progress Note Date: 02/17/23 Interval History: Patient was seen lying in bed today and was directable and agreeable to speak with senior copywriter in the office. Patient claims that he is starting to feel a bit better today. He claims that he feels the medications are helping. We spoke about increasing his Cymbalta which she is okay with. He denied any significant issues over the weekend. He does state that he is homeless and does not know where he can go. He was asking about potentially going to a "half way house". He states that he does not have an ID so he is not allowed back at the [facility]. He states that his anxiety is also improving. He claims that he is able to sleep of 5 or 6 hours last night. He did request a mild increase in his trazodone for tonight. Claims that he is going to some groups. Continues to have fairly superficial/poor insight and judgment. Not endorsing any delusions or paranoia today. Claims that he is eating meals. At this time patient denies any suicidal or homical ideations, intent or plan. Patient denies any auditory, visual hallucinations. Patient denies any side effects from the medications and has been compliant with meds. Mental Status Exam: General Appearance: Patient appears to be tall, currently hair, perez, stated age is alert, improving eye contact, less irritable. Patient appears to have improving hygiene and grooming. Behavior: Patient is seated without any agitated behavior. Improving eye contact. Speech: Patient's speech is fluent and nonpressured. Mood/Affect: Patient reports their mood is mildly improving, affect is congruent and constricted. Suicidality/Homicidality: Patient denies having any homicidal ideation intent or plan. Denies any suicidal ideations intent or plan Perceptions: Patient denies any visual hallucinations and denies any auditory hallucinations Though content/process: There is no evidence of any delusional thought content and thought process is linear and goal-directed. rambles at times. no paranoia. Memory and concentration: AOX3, grossly intact for the purposes of this session Judgment and insight: chronically poor, improving mildly IMPRESSIONS: Major depressive disorder with psychotic features chronic pain possible opioid abuse homelessness cannabis use disorder mild nicotine dependence PLAN: -Patient is admitted under voluntary status to MHU for stabilization of psychiatric symptoms and safety. Patient has signed adult voluntary form and medication consent and is placed in patient's chart. -Medications : increase cymbalta 60 mg BID for mood/anxiety/pain. naprosyn 500 mg bid laron for pain, increase trazodone 75 mg qhs for sleep. continue with abilify 10 mg daily for mood adjunct. -vistaril and Haldol PRN for agitation/aggression -NRT - nicotine patch -SW on board for discharge planning. Encourage patient to participate in groups to work on coping skills. patient is homeless and likely will need to be referred to [facility] upon, likely discharge tomorrow.
[2023-02-17] MEDS ORDERED: traZODone HCL 50 MG TAB PO SCH (21:00)
[2023-02-17] MEDS ORDERED: DULoxetine HCL 60 MG CAPSULE.DR PO SCH (21:00)
[2023-02-18 06:47] VITALS: BP 111/74; PULSE 74; RESP 18; TEMP 98.1
[2023-02-18] MEDS: ACETAMINOPHEN TAB 500 MG TAB PO PRN (08:34)
[2023-02-18] MEDS: NICOTINE 21MG/24HR PATCH TRANSDERM SCH (08:35)
[2023-02-18] MEDS: METOPROLOL TARTRATE 25 MG TAB PO SCH (08:35)
[2023-02-18] MEDS: ARIPiprazole 10 MG TAB PO SCH (08:35)
[2023-02-18] MEDS: DULoxetine HCL 60 MG CAPSULE.DR PO SCH (08:35)
[2023-02-18] MEDS: NAPROXEN 250 MG TAB PO SCH (08:35)
--- NOTE | 2023-02-18 10:28 | P.DS ---
Providers Date of admission: 02/11/23 01:13 Expected date of discharge: 02/18/23 Attending physician: Brandon Charles MD Consults: 02/11/23 00:18 Consult Physician Routine Consulting Provider: Jared Physician Consult Reason/Comments: H and P Do you want consulting provider notified?: Yes, Notify in am Primary care physician: Stated None - Discharge Diagnosis(es) (1) Major depressive disorder with psychotic features Current Visit: Yes Status: Acute Priority: High (2) Chronic pain Current Visit: Yes Status: Acute Priority: Medium (3) Homelessness Current Visit: Yes Status: Acute Priority: High (4) Cannabis use disorder, mild, abuse Current Visit: Yes Status: Acute Priority: Medium (5) Nicotine dependence Current Visit: Yes Status: Acute Priority: Low Hospital Course: Admission HPI: Admission note was completed by bond underwriter "Tripp Schneider is a 47 years old single white male from [facility]. homeless staying in shelters, unemployed, SSI, no kids, single. History of present illness: Patient has a history of depression and cannabis abuse. He also has a history of chronic pain. Patient was last discharged from the mental health unit 1.5 weeks ago and referred to a half-way with [facility] follow-up. At that time patient was discharged on Cymbalta and risperidone. Patient came back to the hospital last night and was complaining of depression and suicidal thoughts. He was endorsing hopelessness and helplessness regarding his chronic pain and not getting sufficient treatment for it. Patient was admitted voluntarily to the mental health unit. Patient was seen taking part in group this morning agreeable to seek a bond underwriter. He states that "my pain got worse in my joints and in my back. She also described "osteopenia and my feet". He states that he has been trying to get sufficient pain medications from his doctors however states that nobody is prescribing him any opiates such as morphine and [place]'s which she was requesting. He states that he has been feeling very affected by being homeless and having more pain in his feet. He states that he has been "denied for housing" and feels very upset. He states that his family has not been very supportive of him. He claims that he has been having more suicidal thoughts lately" possibly cut myself". He was fairly preoccupied with pain medications during conversation. States that he is having depression and anxiety at this time. He claims that he is still having suicidal thoughts, no plan or intent today. Denying any homicidal ideations. He states that he does not have any auditory or visual hallucinations. He claims that his sleep and appetite are fair at this time. He states that he does use cigarettes and denies any other recreational drug use. Occasional marijuana use." Hospital course: Upon admission to the unit patient was directable and agreeable to commence treatment and signed adult voluntary form . Patient mainly kept to himself initially however with time and treatment he got along well with other patients on the unit and followed unit protocol. Patient was compliant with the medications and denied any side effects throughout hospital course. Patient was started on Cymbalta and increase to dose of 60 mg twice a day for mood/anxiety/pain, naproxen and Tylenol were added to his treatment regimen for his chronic pain. Patient was med seeking opiates however these were not prescribed for him on the unit. Trazodone was increased to a dose of 75 mg daily at bedtime for sleep/mood, Abilify 10 mg daily for mood adjunct/psychosis, Vistaril when necessary for anxiety. Patient spoke of his stressors and engaged in therapy both group and individual. Patient was also seen by medical team for history and physical exam. Throughout the course of the hospitalization patient gradually improved with regards to mood, anxiety, sleep and returned back to their baseline level of functioning. On the day of discharge patient denied any suicidal or homicidal ideations intent or plan denied any auditory or visual hallucinations. Patient endorsed wanting to live for his health and future. The patient denied any access to guns or weapons. Patient denied any paranoia and did not endorse any delusions. Patient does have a significant history of substance abuse and was counseled on abstaining from all substances including alcohol and marijuana. Patient elected to do outpatient substance use treatment program through [facility]. Patient was also counseled on the medications and need for regular compliance and was encouraged to follow-up with their outpatient appointment for mental health and also for primary care. patient will be discharged back to half-way today, he is refusing to go to half-way in [facility] and wants to stay in the area. Mental status exam: General Appearance: Patient appears to have curly vasquez hair, stated age is alert, directable, and cooperative. Patient is in no acute distress and has improved hygiene and grooming Behavior: Patient is calmly seated without any agitated behavior. Speech: Patient's speech is fluent and nonpressured. Rayne Mood/Affect: Patient reports their mood is "good", affect is congruent and constricted Suicidality/Homicidality: Patient denies having any suicidal or homicidal ideation intent or plan. Perceptions: Patient denies any auditory or visual hallucinations. Though content/process: There is no evidence of any delusional thought content and thought process is linear and goal-directed. more future oriented Memory and concentration: AOX3, grossly intact for the purposes of this session. Can spell "WORLD" backwards correctly. Judgment and insight: chronically poor, however has improved with guarded prognosis Impression: Major depressive disorder with psychotic features Chronic pain Cannabis use disorder mild Homelessness Nicotine dependence Plan: -Continue with discharge today as patient has improved and stabilized psychiatrically and is not currently an imminent threat to himself and/or others. Patient will remain at chronically elevated risk for harm to self and/or others due to his impulsivity and chronically poor insight and judgment. -Continue medications: Cymbalta 60 mg twice a day for mood/anxiety/pain, naproxen and Tylenol for pain, Abilify 10 mg daily for mood adjunct/psychosis, trazodone 75 mg daily at bedtime for sleep/mood, Vistaril when necessary for anxiety. -Patient was counseled on the need for medication compliance and appropriate follow-up at mental health and also primary care for medical issues. Patient verbalized understanding and agreed. -Social work to help Kennedi patient's discharge today and referral to half-way in the area. Social work also to arrange for patients follow up appointments with [facility] for psychiatric care along with follow up with primary care provider. -Patient counseled on abstaining from recreational drugs and marijuana and al cohol. Was informed/educated on the adverse effects on their physical and mental health. Patient verbally agreed and understood. -Patient was instructed to return to the hospital or seek immediate medical care if their psychiatric or medical symptoms do worsen or reoccur. Allergies Allergy/AdvReac Type Severity Reaction Status Date / Time No Known Allergies Allergy Verified 02/10/23 22:29 Laboratory Results Urine Color Light Yellow 02/12/23 15:36 Urine Appearance Clear (Clear) 02/12/23 15:36 Urine pH 7.0 (5.0-8.0) 02/12/23 15:36 Ur Specific [place] 1.007 (1.001-1.035) 02/12/23 15:36 Urine Protein Negative (Negative) 02/12/23 15:36 Urine Glucose (UA) Negative (Negative) 02/12/23 15:36 Urine Ketones Negative (Negative) 02/12/23 15:36 Urine Blood Negative (Negative) 02/12/23 15:36 Urine Nitrite Negative (Negative) 02/12/23 15:36 Urine Bilirubin Negative (Negative) 02/12/23 15:36 Urine Urobilinogen <2.0 mg/dL (<2.0) 02/12/23 15:36 Ur Leukocyte Esterase Negative (Negative) 02/12/23 15:36 Coronavirus (PCR) Not Detected (Not Detectd) 02/11/23 00:40 Vital Signs Temp 98.1 F 02/18/23 06:46 Pulse 74 02/18/23 06:46 Resp 18 02/18/23 06:46 BP 111/74 02/18/23 06:46 Pulse Ox 98 02/18/23 06:46 FiO2 Patient Condition at Discharge: Stable Plan - Discharge Summary New Discharge Prescriptions: New DULoxetine HCL [Cymbalta] 60 mg PO BID 30 Days #60 cap hydrOXYzine pamoate [Vistaril] 50 mg PO DAILY PRN 30 Days #60 cap PRN Reason: Anxiety ARIPiprazole [Abilify] 10 mg PO DAILY 30 Days #30 tab traZODone HCL [Desyrel] 75 mg PO HS 30 Days #90 tab Nicotine 21Mg/24Hr Patch [Habitrol] 1 patch TRANSDERM DAILY 14 Days #14 patch Metoprolol Tartrate [Lopressor] 25 mg PO BID 30 Days #60 tab Naproxen [Naprosyn] 500 mg PO BID 30 Days #120 tab Acetaminophen Tab [Tylenol] 1,000 mg PO TID PRN 30 Days #100 tab PRN Reason: Pain Discharge Medication List ARIPiprazole [Abilify] 10 mg PO DAILY 30 Days #30 tab 02/18/23 [Rx] Acetaminophen Tab [Tylenol] 1,000 mg PO TID PRN 30 Days #100 tab 02/18/23 [Rx] DULoxetine HCL [Cymbalta] 60 mg PO BID 30 Days #60 cap 02/18/23 [Rx] Metoprolol Tartrate [Lopressor] 25 mg PO BID 30 Days #60 tab 02/18/23 [Rx] Naproxen [Naprosyn] 500 mg PO BID 30 Days #120 tab 02/18/23 [Rx] Nicotine 21Mg/24Hr Patch [Habitrol] 1 patch TRANSDERM DAILY 14 Days #14 patch 02/18/23 [Rx] hydrOXYzine pamoate [Vistaril] 50 mg PO DAILY PRN 30 Days #60 cap 02/18/23 [Rx] traZODone HCL [Desyrel] 75 mg PO HS 30 Days #90 tab 02/18/23 [Rx] Follow up Appointment(s)/Referral(s): [facility] [Outside] - 02/19/23 12:30 pm (with Radha[facility] Week Patient Instructions/Handouts: How to Stop Smoking (DC), Depression (DC) Activity/Diet/Wound Care/Special Instructions: Avoid the use of street drugs and alcohol. Take all medications as prescribed. When you are in need of refills on your medications, please contact your medical provider and/or outpatient psychiatrist to have this done. Please go to scheduled outpatient appointments for aftercare treatment. If symptoms return or become worse, call the crisis line at and/or go to the nearest emergency room for evaluation. Discharge/Stand Alone Forms: AA Meetings [facility] Discharge Disposition: OTHER INSTITUTION NOT DEFINED
== END 2023-02-18 13:19 | disposition home or self-care (01) | DRG 751 ==
LOC: EC 19:53 → 3MHU 02-11 01:13
PROVIDERS: ADMIT Psychiatry & Neurology Psychiatry; ATTEND Psychiatry & Neurology Psychiatry
DX: F32.3 Major depressive disorder, single episode, severe with psychotic features (principal); R45.851 Suicidal ideations; M85.872 Other specified disorders of bone density and structure, left ankle and foot; M85.871 Other specified disorders of bone density and structure, right ankle and foot; G89.29 Other chronic pain; F17.210 Nicotine dependence, cigarettes, uncomplicated; F12.10 Cannabis abuse, uncomplicated; F11.10 Opioid abuse, uncomplicated; F41.9 Anxiety disorder, unspecified; J45.909 Unspecified asthma, uncomplicated; Z62.810 Personal history of physical and sexual abuse in childhood; Z62.819 Personal history of unspecified abuse in childhood; M25.519 Pain in unspecified shoulder; Z20.822 Contact with and (suspected) exposure to COVID-19; Z76.5 Malingerer [conscious simulation]; Z87.81 Personal history of (healed) traumatic fracture; Z79.899 Other long term (current) drug therapy; Z59.00 Homelessness unspecified; Z55.5 Less than a high school diploma; Z71.51 Drug abuse counseling and surveillance of drug abuser
CPT/HCPCS: 81003; 82075; 87635; 99285

== ENCOUNTER 2023-02-19 01:20 | Emergency (ER) | payer MEDICAID, OTHER ==
[2023-02-19 01:27] VITALS: BP 94/61; PULSE 74; RESP 20; TEMP 98.2
[2023-02-19] MEDS ORDERED: ACETAMINOPHEN TAB 325 MG TAB PO STA (01:41)
--- NOTE | 2023-02-19 02:04 | ED ---
Back Pain HPI - General Chief Complaint: Back Pain/Injury Stated Complaint: PAIN IN SPINE Time Seen by Provider: 02/19/23 01:33 Source: patient, RN notes reviewed Mode of arrival: ambulatory Limitations: no limitations - History of Present Illness Initial Comments: 47-year-old male presents emergency department for low back, sacral pain. Patient is well-known emergency department. Patient states his been ongoing issue feels it is worse today. He denies any bowel, bladder incontinence or retention. Denies any saddle anesthesia. Patient is requesting narcotic pain medication. Patient denies any chest pain shortness of breath no leg weakness. - Related Data Previous Rx's Medication Instructions Recorded ARIPiprazole [Abilify] 10 mg PO DAILY 30 Days #30 tab 02/18/23 Acetaminophen Tab [Tylenol] 1,000 mg PO TID PRN 30 Days #100 02/18/23 tab DULoxetine HCL [Cymbalta] 60 mg PO BID 30 Days #60 cap 02/18/23 Metoprolol Tartrate [Lopressor] 25 mg PO BID 30 Days #60 tab 02/18/23 Naproxen [Naprosyn] 500 mg PO BID 30 Days #120 tab 02/18/23 Nicotine 21Mg/24Hr Patch [Habitrol] 1 patch TRANSDERM DAILY 14 Days 02/18/23 #14 patch hydrOXYzine pamoate [Vistaril] 50 mg PO DAILY PRN 30 Days #60 cap 02/18/23 traZODone HCL [Desyrel] 75 mg PO HS 30 Days #90 tab 02/18/23 Allergies Allergy/AdvReac Type Severity Reaction Status Date / Time No Known Allergies Allergy Verified 02/19/23 01:26 Review of Systems ROS Statement: Those systems with pertinent positive or pertinent negative responses have been documented in the HPI. ROS Other: All systems not noted in ROS Statement are negative. Past Medical History Past Medical History: Asthma Additional Past Medical History / Comment(s): back pain, spinal and sacral fr actures, chronic foot and shoulder pain History of Any Multi-Drug Resistant Organisms: None Reported Past Surgical History: Back Surgery, Orthopedic Surgery Additional Past Surgical History / Comment(s): pins and plates in feet Past Psychological History: Anxiety, Bipolar, Depression Smoking Status: Current every day smoker Past Alcohol Use History: None Reported Past Drug Use History: Marijuana - Past Family History Mother Family Medical History: CVA/TIA General Exam Limitations: no limitations General appearance: alert, in no apparent distress Head exam: Present: atraumatic, normocephalic, normal inspection Respiratory exam: Present: normal lung sounds bilaterally. Absent: respiratory distress, wheezes, rales, rhonchi, stridor Cardiovascular Exam: Present: regular rate, normal rhythm, normal heart sounds. Absent: systolic murmur, diastolic murmur, rubs, gallop, clicks GI/Abdominal exam: Present: soft, normal bowel sounds. Absent: distended, tenderness, guarding, rebound, rigid Extremities exam: Present: normal inspection, full ROM, normal capillary refill. Absent: tenderness, pedal edema, joint swelling, calf tenderness Back exam: Present: full ROM, tenderness Neurological exam: Present: alert, reflexes normal. Absent: motor sensory deficit Course Vital Signs 02/19/23 01:22 Temperature 98.2 F Pulse Rate 74 Respiratory 20 Rate Blood Pressure 94/61 O2 Sat by Pulse 94 L Oximetry Medical Decision Making - Medical Decision Making Was pt. sent in by a medical professional or institution (, PA, JERKER, urgent care, hospital, or correction...) When possible be specific @ -No Did you speak to anyone other than the patient for history (EMS, parent, family, police, friend...)? What history was obtained from this source @ -No Did you review nursing and triage notes (agree or disagree)? Why? @ -I reviewed and agree with nursing and triage notes Were old charts reviewed (outside hosp., previous admission, EMS record, old EKG, old radiological studies, urgent care reports/EKG's, correction records)? Report findings @ -Reveal multiple prior charts including imaging, after studies Differential Diagnosis (chest pain, altered mental status, abdominal pain women, abdominal pain men, vaginal bleeding, weakness, fever, dyspnea, syncope, headache, dizziness, GI bleed, back pain, seizure, CVA, palpatations, mental health, musculoskeletal)? @ -[nDifferential Back Pain: Strain, zoster, cauda equina syndrome, epidural abscess, vertebral osteomyelitis, discitis, fracture, subluxation, disc herniation, DJD, spinal stenosis, dissection, AAA, pancreatitis, peptic ulcer disease, pyelonephritis, kidney stone, this is not meant to be an all-inclusive list. by me (3pts min.). @ -As above X-rays interpreted by me (1pt min.). @ -None done CT interpreted by me (1pt min.). @ -None done U/S interpreted by me (1pt. min.). @ -None done What testing was considered but not performed or refused? (CT, X-rays, U/S, labs)? Why? @ -None What meds were considered but not given or refused? Why? @ -None Did you discuss the management of the patient with other professionals (professionals i.e. Dr., PA, JERKER, lab, RT, psych nurse, social welfare administrator, chief ii dispatcher, te acher, access control officer, geriatric case manager)? Give summary @ -No Was smoking cessation discussed for >3mins.? @ -No Was critical care preformed (if so, how long)? @ -No Were there social determinants of health that impacted care today? How? (Homelessness, low income, unemployed, alcoholism, drug addiction, transportation, low edu. Level, literacy, decrease access to med. care, halfway, rehab)? @ -No Was there de-escalation of care discussed even if they declined (Discuss DNR or withdrawal of care, Hospice)? DNR status @ -No What co-morbidities impacted this encounter? (DM, HTN, Smoking, COPD, CAD, Cancer, CVA, ARF, Chemo, Hep., AIDS, mental health diagnosis, sleep apnea, morbid obesity)? @ -Chronic pain Was patient admitted / discharged? Hospital course, mention meds given and route, prescriptions, significant lab abnormalities, going to OR and other pertinent info. @ -Discharge x-ray does not show any acute changes he does have chronic changes. Patient is well-known emergency department course and requesting narcotic pain meds advised to follow-up with his PCP and return for any worsening symptoms. Undiagnosed new problem with uncertain prognosis? @ -No Drug Therapy requiring intensive monitoring for toxicity (Heparin, Nitro, Insulin, Cardizem)? @ -No Were any procedures done? @ -No Diagnosis/symptom? @ -Chronic back pain Acute, or Chronic, or Acute on Chronic? @ -Chronic Uncomplicated (without systemic symptoms) or Complicated (systemic symptoms)? @ -Uncomplicated Side effects of treatment? @ -No Exacerbation, Progression, or Severe Exacerbation? @ -No Poses a threat to life or bodily function? How? (Chest pain, [place], [place], pneumonia, PE, COPD, DKA, ARF, appy, cholecystitis, CVA, Diverticulitis, Homicidal, Suicidal, threat to staff... and all critical care pts) @ -No Disposition Clinical Impression: Chronic pain, Back pain Disposition: HOME SELF-CARE Condition: Stable Instructions (If sedation given, give patient instructions): Chronic Back Pain (DC) Additional Instructions: Please return to the Emergency Department if symptoms worsen or any other concerns. Is patient prescribed a controlled substance at d/c from ED?: No Referrals: None,Stated [Primary Care Provider] - 1-2 days Time of Disposition: 02:03
--- NOTE | 2023-02-19 02:31 | XR ---
EXAM: XR Lumbosacral Spine, 2 or 3 Views CLINICAL HISTORY: ITS.REASON XR Reason: pain TECHNIQUE: Frontal and lateral views of the lumbar spine and sacrum. COMPARISON: 01/22/2019 FINDINGS: Vertebrae: Stable mild wedging of the L1 vertebral body. Normal alignment of the lumbar spine with preservation of the remaining vertebral body heights. Sacrum/coccyx: Unremarkable as visualized. No acute fracture. Disc spaces: Facet degeneration bilaterally at L5-S1 is unchanged. Soft tissues: Prominent stool consistent with constipation. IMPRESSION: No acute findings in the lumbar spine.
== END 2023-02-19 02:09 | disposition home or self-care (01) ==
LOC: EC 01:20
DX: G89.29 Other chronic pain (principal); M54.50 Low back pain, unspecified; J45.909 Unspecified asthma, uncomplicated; F17.200 Nicotine dependence, unspecified, uncomplicated; F12.90 Cannabis use, unspecified, uncomplicated
CPT/HCPCS: 72110; 99283; 99284

== ENCOUNTER 2023-05-09 09:25 | Emergency (ER) | payer OTHER ==
--- NOTE | 2023-05-09 10:06 | ED ---
General Adult HPI - General Chief complaint: Psychiatric Symptoms Stated complaint: Wound Time Seen by Provider: 05/09/23 09:52 Source: patient, RN notes reviewed, old records reviewed Mode of arrival: ambulatory Limitations: no limitations - History of Present Illness Initial comments: 47-year-old male presenting for evaluation of a chronic wound on his right buttock. He is requesting that this be stitched closed. His been there for 8 years according to the patient. Patient denies fever. Denies current drainage. He states he currently does not have a primary care physician. - Related Data Previous Rx's Medication Instructions Recorded ARIPiprazole [Abilify] 10 mg PO DAILY 30 Days #30 tab 02/18/23 Acetaminophen Tab [Tylenol] 1,000 mg PO TID PRN 30 Days #100 02/18/23 tab DULoxetine HCL [Cymbalta] 60 mg PO BID 30 Days #60 cap 02/18/23 Metoprolol Tartrate [Lopressor] 25 mg PO BID 30 Days #60 tab 02/18/23 Naproxen [Naprosyn] 500 mg PO BID 30 Days #120 tab 02/18/23 Nicotine 21Mg/24Hr Patch [Habitrol] 1 patch TRANSDERM DAILY 14 Days 02/18/23 #14 patch hydrOXYzine pamoate [Vistaril] 50 mg PO DAILY PRN 30 Days #60 cap 02/18/23 traZODone HCL [Desyrel] 75 mg PO HS 30 Days #90 tab 02/18/23 Allergies Allergy/AdvReac Type Severity Reaction Status Date / Time No Known Allergies Allergy Verified 05/09/23 09:37 Review of Systems ROS Statement: Those systems with pertinent positive or pertinent negative responses have been documented in the HPI. ROS Other: All systems not noted in ROS Statement are negative. Past Medical History Past Medical History: Asthma Additional Past Medical History / Comment(s): back pain, spinal and sacral fractures, chronic foot and shoulder pain History of Any Multi-Drug Resistant Organisms: None Reported Past Surgical History: Back Surgery, Orthopedic Surgery Additional Past Surgical History / Comment(s): pins and plates in feet Past Psychological History: Anxiety, Bipolar, Depression Smoking Status: Current every day smoker Past Alcohol Use History: None Reported Past Drug Use History: None Reported - Past Family History Mother Family Medical History: CVA/TIA General Exam Limitations: no limitations General appearance: alert, in no apparent distress Head exam: Present: atraumatic, normocephalic Eye exam: Present: normal appearance, PERRL ENT exam: Present: normal exam Neck exam: Present: normal inspection. Absent: tenderness, meningismus Respiratory exam: Present: normal lung sounds bilaterally. Absent: respiratory distress, wheezes Cardiovascular Exam: Present: regular rate, normal rhythm GI/Abdominal exam: Present: soft, distended Extremities exam: Present: other (There is an open wound on the right buttock 1 cm ulceration without surrounding cellulitis, no induration, no drainage) Neurological exam: Present: alert, oriented X3 Psychiatric exam: Present: other (Delusional) Skin exam: Present: warm, dry Course Vital Signs 05/09/23 09:37 Temperature 97.9 F Pulse Rate 111 H Respiratory 18 Rate Blood Pressure 159/137 O2 Sat by Pulse 95 Oximetry Medical Decision Making - Medical Decision Making Was pt. sent in by a medical professional or institution (, ANNALISE, SOLE CONDITIONER, urgent care, hospital, or [facility]...) When possible be specific @ -No Did you speak to anyone other than the patient for history (EMS, parent, family, police, friend...)? What history was obtained from this source @ -No Did you review nursing and triage notes (agree or disagree)? Why? @ -I reviewed and agree with nursing and triage notes Were old charts reviewed (outside hosp., previous admission, EMS record, old EKG, old radiological studies, urgent care reports/EKG's, [facility] records)? Report findings @ -No old charts were reviewed Differential Diagnosis (chest pain, altered mental status, abdominal pain women, abdominal pain men, vaginal bleeding, weakness, fever, dyspnea, syncope, headache, dizziness, GI bleed, back pain, seizure, CVA, palpatations, mental health, musculoskeletal)? @Cellulitis abscess, chronic wound EKG interpreted by me (3pts min.). @ -As above X-rays interpreted by me (1pt min.). @ -None done CT interpreted by me (1pt min.). @ -None done U/S interpreted by me (1pt. min.). @ -None done What testing was considered but not performed or refused? (CT, X-rays, U/S, labs)? Why? @ -None What meds were considered but not given or refused? Why? @ -None Did you discuss the management of the patient with other professionals (professionals i.e. , PA, SOLE CONDITIONER, lab, RT, psych nurse, social work manager, printed circuit board pcb draftsman, teacher, chief privacy officer, case worker)? Give summary @ -No Was smoking cessation discussed for >3mins.? @ -No Was critical care preformed (if so, how long)? @ -No Were there social determinants of health that impacted care today? How? (Homelessness, low income, unemployed, alcoholism, drug addiction, transportation, low edu. Level, literacy, decrease access to med. care, senior care, rehab)? @ -No Was there de-escalation of care discussed even if they declined (Discuss DNR or withdrawal of care, Hospice)? DNR status @ -No What co-morbidities impacted this encounter? (DM, HTN, Smoking, COPD, CAD, Cancer, CVA, ARF, Chemo, Hep., AIDS, mental health diagnosis, sleep apnea, morbid obesity)? @ -None Was patient admitted / discharged? Hospital course, mention meds given and route, prescriptions, significant lab abnormalities, going to OR and other pertinent info. @27-year-old male with chronic wound he states his been there for 8 years. It does not currently appear infected. There is a 1 cm ulceration and this will require wound care. He is referred to both an internal medicine physician and the wound center. Undiagnosed new problem with uncertain prognosis? @ -No Drug Therapy requiring intensive monitoring for toxicity (Heparin, Nitro, Insulin, Cardizem)? @ -No Were any procedures done? @ -No Diagnosis/symptom? @ -Chronic wound Acute, or Chronic, or Acute on Chronic? @ -Chronic Uncomplicated (without systemic symptoms) or Complicated (systemic symptoms)? @ -default Side effects of treatment? @ -No Exacerbation, Progression, or Severe Exacerbation? @ -No Poses a threat to life or bodily function? How? (Chest pain, [place], [place], pneumonia, PE, COPD, DKA, ARF, appy, cholecystitis, CVA, Diverticulitis, Homicidal, Suicidal, threat to staff... and all critical care pts) @ -No Disposition Clinical Impression: Chronic wound Disposition: HOME SELF-CARE Condition: Fair Instructions (If sedation given, give patient instructions): Chronic Wound Care (ED) Is patient prescribed a controlled substance at d/c from ED?: No Referrals: None,Stated [Primary Care Provider] - 1-2 days Theo Nielsen MD [REFERRING] - 1-2 days [facility] [NON-STAFF] - 1-2 days Time of Disposition: 10:05
[2023-05-09 10:07] VITALS: BP 125/84; PULSE 104; RESP 20; TEMP 97.7
== END 2023-05-09 10:23 | disposition home or self-care (01) ==
LOC: EC 09:25
DX: S31.811A Laceration without foreign body of right buttock, initial encounter (principal); J45.909 Unspecified asthma, uncomplicated; F17.200 Nicotine dependence, unspecified, uncomplicated; Z86.59 Personal history of other mental and behavioral disorders; X58.XXXA Exposure to other specified factors, initial encounter
CPT/HCPCS: 99284

== ENCOUNTER 2023-05-30 00:40 | Inpatient (IN) | payer MEDICAID, OTHER ==
[2023-05-30] MEDS ORDERED: IPRATROPIUM 0.5 MG/2.5 ML NEBU INHALATION STA (01:04)
[2023-05-30] MEDS ORDERED: ALBUTEROL NEBULIZED 2.5 MG/3 ML INHALATION STA (01:04)
[2023-05-30] MEDS: DEXAMETHASONE SOD PHOSPHATE 10 MG/ML 1 ML VIAL IVP STA ×2 (01:23→01:25)
[2023-05-30] MEDS ORDERED: DEXAMETHASONE SOD PHOSPHATE 10 MG/ML 1 ML VIAL IM STA (01:24)
--- NOTE | 2023-05-30 01:33 | ED ---
General Adult HPI <Josh Turner - Last Filed: 05/30/23 11:11> - General Source: patient Mode of arrival: ambulatory Limitations: no limitations <Quan Ladd - Last Filed: 05/30/23 20:15> - General Chief complaint: Psychiatric Symptoms Stated complaint: Mental Health Time Seen by Provider: 05/30/23 00:56 - History of Present Illness Initial comments: This is a 47-year-old male with a past medical history including asthma and hypertension presents emergency department for multiple complaints. The patient stated that he had shortness of breath that started last 3 days as well as suicidal ideation. The patient stated that he was suicidal over the last several years and stated that he is worse today without a plan. The patient stated he also had shortness of breath over the last 4 days after he was exposed to bedbugs spray over the bed that he was sleeping in. The patient stated that he did not have any bedbugs in his home but stated that he was sleeping on a mattress that was sprayed with spray. The patient stated that a room and the place that he is staying at could have bedbugs. The patient continued had tangential thoughts but was able to answer questions appropriately. The patient was resting in bed comfortably with his arms behind his head and his legs crossed. The patient stated he had continued shortness of breath and was demanding a breathing treatment in triage. The patient denied any homicidal ideation as well as any auditory or visual hallucination. The patient also stated "ever since I got Covid I feel went to my brain because have continued heaviness and I had been misdiagnosed with a lot of orthopedic injuries that causing me pain, always." (Quan Ladd) - Related Data Home Medications Medication Instructions Recorded Confirmed No Known Home Medications 05/30/23 05/30/23 Allergies Allergy/AdvReac Type Severity Reaction Status Date / Time No Known Allergies Allergy Verified 05/30/23 13:43 Review of Systems ROS Other: All systems not noted in ROS Statement are negative. <Josh Turner - Last Filed: 05/30/23 11:11> ROS Other: All systems not noted in ROS Statement are negative. <Quan Ladd - Last Filed: 05/30/23 20:15> ROS Statement: Those systems with pertinent positive or pertinent negative responses have been documented in the HPI. Past Medical History Past Medical History: Asthma Additional Past Medical History / Comment(s): back pain, spinal and sacral fractures, chronic foot and shoulder pain History of Any Multi-Drug Resistant Organisms: None Reported Past Surgical History: Back Surgery, Orthopedic Surgery Additional Past Surgical History / Comment(s): pins and plates in feet Past Psychological History: Anxiety, Bipolar, Depression Smoking Status: Current every day smoker Past Alcohol Use History: None Reported Past Drug Use History: None Reported - Past Family History Mother Family Medical History: CVA/TIA <Quan Ladd - Last Filed: 05/30/23 20:15> General Exam Limitations: no limitations General appearance: alert, in no apparent distress Head exam: Present: atraumatic, normocephalic, normal inspection Eye exam: Present: normal appearance, PERRL Pupils: Present: normal accommodation ENT exam: Present: normal exam, normal oropharynx, mucous membranes moist Neck exam: Present: normal inspection, full ROM Respiratory exam: Present: wheezes (B/L expiratory wheezing) Cardiovascular Exam: Present: normal rhythm, tachycardia, normal heart sounds GI/Abdominal exam: Present: soft, normal bowel sounds Extremities exam: Present: normal inspection, full ROM Back exam: Present: normal inspection, full ROM Neurological exam: Present: alert, oriented X3, CN II-XII intact Psychiatric exam: Present: normal affect, normal mood Skin exam: Present: warm, dry <Quan Ladd - Last Filed: 05/30/23 20:15> Course Vital Signs 05/30/23 05/30/23 05/30/23 00:41 01:26 01:50 Temperature 98.4 F Pulse Rate 132 H 110 H 104 H Pulse Rate [ Right Sitting] Respiratory 20 20 Rate Blood Pressure 128/77 Blood Pressure [Left Arm Sitting] O2 Sat by Pulse 96 Oximetry 05/30/23 05/30/23 05/30/23 06:05 11:51 11:57 Temperature 97.1 F L 98.7 F Pulse Rate 78 Pulse Rate [ 101 H Right Sitting] Respiratory 16 20 16 Rate Blood Pressure 128/77 Blood Pressure 115/68 [Left Arm Sitting] O2 Sat by Pulse 95 98 Oximetry EKG Findings - EKG Comments: EKG Findings:: An EKG was obtained and was interpreted by myself showing a rate of 128, WY interval 108, QR moravian 98 and QTC of 361. This EKG showed a sinus tachycardia with a short WY interval. There was however no ST segment elevation or depression noted. There was peaked T waves noted in the lateral l divya. <Quan Ladd - Last Filed: 05/30/23 20:15> Medical Decision Making - Lab Data Result diagrams: 05/30/23 01:30 05/30/23 01:30 <Josh Turner - Last Filed: 05/30/23 11:11> - Lab Data Result diagrams: 05/30/23 01:30 05/30/23 01:30 <Quan Ladd - Last Filed: 05/30/23 20:15> - Medical Decision Making Was patient admitted / discharged? Hospital course, mention meds given and route, prescriptions, significant lab abnormalities, going to OR and other per tinent info. @ -Patient was evaluated by EPS and patient will be going up to the psychiatric floor. Undiagnosed new problem wih ncertain prognosis? @ -[No] Drug Therapy requiring intensive monitoring for toxicity (Heparin, Stanislav,Insulin, Cardizem)? @ -[No] Wee ny procedures done? @ -[No] Diagnosis/symptom? @ -Suicidal ideations Acute, or Chronic, or Acute on Chronic? @ -Acute Uncomplicated (without systemic symptoms) or Complicated (systemic symptoms)? @ -Complicated Thom efects of treatment? @ -[No] Exacerbation, Progression, r evere Exacerbation? @ -[No] Poses a threat to life or bodily function? How? (Chest pain, [place], [place], pneumonia, PE, COPD, DKA, ARF, appy, cholecystitis, CVA, Diverticulitis, Homicidal, Suicidal, threat to staff... andal critical care pts) @ -[No] (Josh Turner) Was pt. sent in by a medical professional or institution (, PA, SECURITY ESCORT, urgent care, hospital, or chcf...) When possible be specific @ -[No] Did you speak to anyone other than the patient for history (EMS, parent, family, police, friend...)? What history was obtained from this source @ -[No] Did you review nursing and triage notes (agree or disagree)? Why? @ -[I reviewed and agree with nursing and triage notes] Were old charts reviewed (outside hosp., previous admission, EMS record, old EKG, old radiological studies, urgent care reports/EKG's, [facility] records)? Report findings @ -[No old charts were reviewed] Differential Diagnosis (chest pain, altered mental status, abdominal pain women, abdominal pain men, vaginal bleeding, weakness, fever, dyspnea, syncope, headache, dizziness, GI bleed, back pain, seizure, CVA, palpatations, mental health)? @ -Pneumonia, pneumothorax, asthma exacerbation, suicidal ideation EKG interpreted by me (3pts min.). @ -[As above] X-rays interpreted by me (1pt min.). @ -Chest x-ray was obtained and was interpreted by myself showing possible infiltrate in the right lung. CT interpreted by me (1pt min.). @ -[None done] U/S interpreted by me (1pt. min.). @ -[None done] What testing was considered but not performed or refused? (CT, X-rays, U/S, labs)? Why? @ -[None] What meds were considered but not given or refused? Why? @ -[None] Did you discuss the management of the patient with other professionals (professionals i.e. , PA, SECURITY ESCORT, lab, RT, psych nurse, case management social worker, sales branch manager, teacher, escrow officer, onsite case manager)? Give summary @ -[No] Was smoking cessation discussed for >3mins.? @ -[No] Was critical care preformed (if so, how long)? @ -[No] Were there social determinants of health that impacted care today? How? (Homelessness, low income, unemployed, alcoholism, drug addiction, transportation, low edu. Level, literacy, decrease access to med. care, [facility], rehab)? @ -[No] Was there de-escalation of care discussed even if they declined (Discuss DNR or withdrawal of care, Hospice)? DNR status @ -[No] What co-morbidities impacted this encounter? (DM, HTN, Smoking, COPD, CAD, Cancer, CVA, ARF, Chemo, Hep., AIDS, mental health diagnosis, sleep apnea, morbid obesity)? @ -Asthma, hypertension, not on medications secondary to medical noncompliance Was patient admitted / discharged? Hospital course, mention meds given and route, prescriptions, significant lab abnormalities, going to OR and other pertinent info. @ -The patient was seen and evaluated emergency department. Physical exam, the patient was resting in bed comfortably. Vital signs admission were stable. Due to the nature the patient's complaints, laboratory workup was obtained as was chest x-ray and EKG. The patient did receive a breathing treatment and steroids and on reevaluation had improvement of his symptoms. The patient refused an IV at this time because "I don't need that and any fluid in my system." The patient did continue to remain stable and was stable and cleared medically for EPS to evaluate the patient. The patient be sent out to the oncoming physician, Dr. Turner pending EPS recommendations. (Quan Ladd) - Lab Data Lab Results 05/30/23 05/30/23 05/30/23 Range/Units 01:30 01:30 01:30 WBC 10.7 H (3.8-10.6) k/uL RBC 4.94 (4.30-5.90) m/uL Hgb 16.6 (13.0-17.5) gm/dL Hct 49.0 (39.0-53.0) % MCV 99.3 (80.0-100.0) fL MCH 33.7 (25.0-35.0) pg MCHC 33.9 (31.0-37.0) g/dL RDW 12.4 (11.5-15.5) % Plt Count 357 (150-450) k/uL MPV 7.2 Neutrophils % 64 % Lymphocytes % 20 % Monocytes % 6 % Eosinophils % 5 % Basophils % 1 % Neutrophils # 6.8 (1.3-7.7) k/uL Lymphocytes # 2.1 (1.0-4.8) k/uL Monocytes # 0.7 (0-1.0) k/uL Eosinophils # 0.6 (0-0.7) k/uL Basophils # 0.1 (0-0.2) k/uL PT 9.6 (9.0-12.0) sec INR 0.9 (<1.2) APTT 26.3 (22.0-30.0) sec Sodium 138 (137-145) mmol/L Potassium 4.3 (3.5-5.1) mmol/L Chloride 100 (98-107) mmol/L Carbon Dioxide 25 (22-30) mmol/L Anion Gap 13 mmol/L BUN 11 (9-20) mg/dL Creatinine 0.90 (0.66-1.25) mg/dL Est GFR (CKD-EPI)AfAm >90 (>60 ml/min/1.73 sqM) Est GFR (CKD-EPI)NonAf >90 (>60 ml/min/1.73 sqM) Glucose 109 H (74-99) mg/dL Calcium 9.6 (8.4-10.2) mg/dL Magnesium 2.4 H (1.6-2.3) mg/dL Total Bilirubin 0.6 (0.2-1.3) mg/dL AST 22 (17-59) U/L ALT 14 (4-49) U/L Alkaline Phosphatase 129 H (38-126) U/L Troponin I (0.000-0.034) ng/mL NT-Pro-B Natriuret Pep <20 pg/mL Total Protein 8.4 H (6.3-8.2) g/dL Albumin 4.7 (3.5-5.0) g/dL Lipase 109 (23-300) U/L Serum Alcohol <10 mg/dL Influenza Type A (PCR) (Not Detectd) Influenza Type B (PCR) (Not Detectd) RSV (PCR) (Not Detectd) SARS-CoV-2 (PCR) (Not Detectd) 05/30/23 05/30/23 Range/Units 01:30 01:52 WBC (3.8-10.6) k/uL RBC (4.30-5.90) m/uL Hgb (13.0-17.5) gm/dL Hct (39.0-53.0) % MCV (80.0-100.0) fL MCH (25.0-35.0) pg MCHC (31.0-37.0) g/dL RDW (11.5-15.5) % Plt Count (150-450) k/uL MPV Neutrophils % % Lymphocytes % % Monocytes % % Eosinophils % % Basophils % % Neutrophils # (1.3-7.7) k/uL Lymphocytes # (1.0-4.8) k/uL Monocytes # (0-1.0) k/uL Eosinophils # (0-0.7) k/uL Basophils # (0-0.2) k/uL PT (9.0-12.0) sec INR (<1.2) APTT (22.0-30.0) sec Sodium (137-145) mmol/L Potassium (3.5-5.1) mmol/L Chloride (98-107) mmol/L Carbon Dioxide (22-30) mmol/L Anion Gap mmol/L BUN (9-20) mg/dL Creatinine (0.66-1.25) mg/dL Est GFR (CKD-EPI)AfAm (>60 ml/min/1.73 sqM) Est GFR (CKD-EPI)NonAf (>60 ml/min/1.73 sqM) Glucose (74-99) mg/dL Calcium (8.4-10.2) mg/dL Magnesium (1.6-2.3) mg/dL Total Bilirubin (0.2-1.3) mg/dL AST (17-59) U/L ALT (4-49) U/L Alkaline Phosphatase (38-126) U/L Troponin I <0.012 (0.000-0.034) ng/mL NT-Pro-B Natriuret Pep pg/mL Total Protein (6.3-8.2) g/dL Albumin (3.5-5.0) g/dL Lipase (23-300) U/L Serum Alcohol mg/dL Influenza Type A (PCR) Not Detected (Not Detectd) Influenza Type B (PCR) Not Detected (Not Detectd) RSV (PCR) Not Detected (Not Detectd) SARS-CoV-2 (PCR) Not Detected (Not Detectd) Disposition Time of Disposition: 11:13 <Josh Turner - Last Filed: 05/30/23 11:11> <Quan Ladd - Last Filed: 05/30/23 20:15> Clinical Impression: Suicidal ideation Disposition: ADMITTED IP TO THIS HOSP
[2023-05-30 01:37] LABS: Basophils # (A) 0.1 k/uL (0-0.2); Basophils % (A) 1 %; Eosinophils # (A) 0.6 k/uL (0-0.7); Eosinophils % (A) 5 %; HGB 16.6 gm/dL (13.0-17.5); Lymphocytes # (A) 2.1 k/uL (1.0-4.8); Lymphocytes % (A) 20 %; MCH 33.7 pg (25.0-35.0); MCHC 33.9 g/dL (31.0-37.0); MCV 99.3 fL (80.0-100.0); Mean Platelet Volume 7.2; Monocytes # (A) 0.7 k/uL (0-1.0); Monocytes % (A) 6 %; Neutrophils # (A) 6.8 k/uL (1.3-7.7); Neutrophils % (A) 64 %; Platelet Count 357 k/uL (150-450); RBC 4.94 m/uL (4.30-5.90); RDW 12.4 % (11.5-15.5); WBC 10.7 k/uL (3.8-10.6)
[2023-05-30 01:47] LABS: ALT 14 U/L (4-49); AST 22 U/L (17-59); African American GFR (CKD) >90 (>60 ml/min/1.73 sqM); Albumin 4.7 g/dL (3.5-5.0); Alcohol <10 mg/dL; Alkaline Phosphatase 129 U/L (38-126); Anion Gap 13 mmol/L; Blood Urea Nitrogen 11 mg/dL (9-20); Calcium 9.6 mg/dL (8.4-10.2); Carbon Dioxide 25 mmol/L (22-30); Chloride 100 mmol/L (98-107); Glucose 109 mg/dL (74-99); Lipase 109 U/L (23-300); Magnesium 2.4 mg/dL (1.6-2.3); Non-African American GFR(CKD) >90 (>60 ml/min/1.73 sqM); Potassium 4.3 mmol/L (3.5-5.1); Sodium 138 mmol/L (137-145); Total Bilirubin 0.6 mg/dL (0.2-1.3); Total Protein 8.4 g/dL (6.3-8.2)
[2023-05-30 01:56] LABS: NT-Pro-B-Type Natriuretic Pept <20 pg/mL
[2023-05-30 02:04] LABS: INR 0.9 (<1.2); Partial Thromboplastin Time 26.3 sec (22.0-30.0); Prothrombin Time 9.6 sec (9.0-12.0)
[2023-05-30] MEDS ORDERED: NICOTINE 21MG/24HR PATCH TRANSDERM STA (02:18)
--- NOTE | 2023-05-30 06:54 | XR ---
EXAM: XR Chest, 2 Views CLINICAL HISTORY: ITS.REASON XR Reason: CP TECHNIQUE: Frontal and lateral views of the chest. COMPARISON: Single view of the chest multiple views of the left ribs February 19, 2019 IMPRESSION: 1. Right upper lobe consolidation which may be infectious in nature. 2. No other acute findings. 3. Consider cross-sectional imaging if there is further concern.
[2023-05-30] MEDS ORDERED: AZITHROMYCIN 500 MG TAB PO STA (06:55)
[2023-05-30] MEDS ORDERED: ACETAMINOPHEN TAB 500 MG TAB PO STA (07:15)
[2023-05-30] MEDS ORDERED: MAGNESIUM HYDROXIDE 2,400 MG/30 ML CUP PO PRN (11:52)
[2023-05-30] MEDS ORDERED: MAG HYDROX/AL HYDROX/SIMETH 30 ML CUP PO PRN (11:52)
[2023-05-30] MEDS ORDERED: LORazepam 2 MG/ML INJ IM PRN (11:56)
[2023-05-30] MEDS ORDERED: HALOPERIDOL LACTATE 5 MG/ML 1 ML VIAL IM PRN (11:58)
[2023-05-30] MEDS: IBUPROFEN 400 MG TAB PO PRN ×2 (12:31→20:16)
[2023-05-30] MEDS: ACETAMINOPHEN TAB 325 MG TAB PO PRN (19:32)
[2023-05-30] MEDS: LORazepam 1 MG TAB PO PRN (20:15)
--- NOTE | 2023-05-30 23:01 | P.CONS ---
History of Present Illness - Reason for Consult Consult date: 05/30/23 - History of Present Illness The patient is a 47-year-old with a PMH of hypertension, depression, and tobacco abuse who presented to the emergency room with complaints of erratic behavior. The patient reports that he has had a long-standing history of neck and lower back pain, which has been unchanged. He also reports history of osteopenia and surgical repair of his right foot. Reports daily multiple PACs tobacco use. Patient also reports shortness of breath over the past 3-4 days somewhat worse than usual with cough productive of yellow-green phlegm. Denied illicit substance use. Denied alcohol use. Also denied any additional complaints at the time of interview including chest discomfort, fever, chills, cough, nausea, vomiting, abdominal pain, diarrhea. Review of systems: Pertinent positives and negatives as discussed in HPI, a complete review of systems was performed and all other systems are negative. Physical examination: General: non toxic, no distress, appears at stated age, normal weight Derm: no unusual rashes/lesions, no unusual ecchymoses, warm, dry Head: atraumatic, normocephalic, symmetric Eyes: EOMI, no lid lag, anicteric sclera ENT: Nose and ears atraumatic, no thrush, no pharyngeal erythema Neck: trachea midline, supple Mouth: no lip lesion, mucus membranes moist Cardiovascular: S1S2 reg, no murmur, no edema Lungs: CTA bilateral, no rhonchi, no rales , no accessory muscle use Abdominal: soft, nontender to palpation, no guarding Ext: no gross muscle atrophy, no contractures, Neuro: No gross focal neuro deficits noted Psych: Alert, oriented, appropriate affect Assessment: Leukocytosis Tobacco abuse Community acquired pneumonia Imaging: Chest x-ray revealed a right upper lobe consolidation possibly infectious in nature. EKG revealed sinus a cardiac 128 bpm as reviewed by me. Data Review: Laboratory evaluation revealed leukocytosis of 10.7, glucose 109, magnesium 2.4, alk phos 129, and total protein 8.4. Plan: Start 5 day course of Augmentin Advised on the importance of cessation from tobacco use Thank you for allowing us to participate in the care of this patient. We will follow peripherally. Do not hesitate to contact us with questions. Someone can be reached from the [facility] hospitalist group at all hours of the day at [phone]. Past Medical History Past Medical History: Asthma Additional Past Medical History / Comment(s): back pain, spinal and sacral fr actures, chronic foot and shoulder pain History of Any Multi-Drug Resistant Organisms: None Reported Past Surgical History: Back Surgery, Orthopedic Surgery Additional Past Surgical History / Comment(s): pins and plates in feet Past Psychological History: Anxiety, Bipolar, Depression Smoking Status: Current every day smoker Past Alcohol Use History: None Reported Past Drug Use History: None Reported - Past Family History Mother Family Medical History: CVA/TIA Medications and Allergies Home Medications Medication Instructions Recorded Confirmed Type No Known Home Medications 05/30/23 05/30/23 History Allergies Allergy/AdvReac Type Severity Reaction Status Date / Time No Known Allergies Allergy Verified 05/30/23 13:43 Physical Exam Vitals: Vital Signs Temp Pulse Pulse Resp BP BP Pulse Ox 05/30/23 11:57 98.7 F 78 16 128/77 98 05/30/23 11:51 97.1 F L 101 H 20 115/68 95 05/30/23 06:05 16 05/30/23 01:50 104 H 05/30/23 01:26 110 H 20 05/30/23 00:41 98.4 F 132 H 20 128/77 96 Intake and Output 05/30/23 05/30/23 05/30/23 06:59 14:59 22:59 Other: Weight 79.379 kg 77.167 kg Results CBC & Chem 7: 05/30/23 01:30 05/30/23 01:30 Labs: Abnormal Lab Results - Last 24 Hours (Table) 05/30/23 05/30/23 Range/Units 01:30 01:30 WBC 10.7 H (3.8-10.6) k/uL Glucose 109 H (74-99) mg/dL Magnesium 2.4 H (1.6-2.3) mg/dL Alkaline Phosphatase 129 H (38-126) U/L Total Protein 8.4 H (6.3-8.2) g/dL
[2023-05-30] MEDS: AMOXIC-POT CLAV 875-125MG 1 EACH TAB PO SCH (23:31)
[2023-05-31] MEDS: NICOTINE 14MG/24HR PATCH TRANSDERM SCH (08:52)
[2023-05-31] MEDS: AMOXIC-POT CLAV 875-125MG 1 EACH TAB PO SCH ×2 (08:52→21:13)
[2023-05-31] MEDS: IBUPROFEN 400 MG TAB PO PRN ×2 (08:54→21:12)
[2023-05-31] MEDS: IPRATROPIUM-ALBUTEROL 3 ML NEB INHALATION PRN (10:23)
[2023-05-31] MEDS: predniSONE 20 MG TAB PO SCH ×2 (10:58→13:22)
--- NOTE | 2023-05-31 11:33 | P.HP ---
Psychiatric H&P - . H&P Date: 05/31/23 History & Physical: Allergies Allergy/AdvReac Type Severity Reaction Status Date / Time No Known Allergies Allergy Verified 05/30/23 13:43 Vital Signs Temp 98.7 F 05/30/23 11:57 Pulse 96 05/31/23 10:25 Resp 16 05/30/23 11:57 BP 128/77 05/30/23 11:57 Pulse Ox 98 05/30/23 11:57 FiO2 Intake & Output 05/30/23 05/31/23 05/31/23 18:59 06:59 18:59 Weight 77.167 kg Laboratory Last Values WBC 10.7 k/uL (3.8-10.6) H 05/30/23 01:30 RBC 4.94 m/uL (4.30-5.90) 05/30/23 01:30 Hgb 16.6 gm/dL (13.0-17.5) 05/30/23 01:30 Hct 49.0 % (39.0-53.0) 05/30/23 01:30 MCV 99.3 fL (80.0-100.0) 05/30/23 01:30 MCH 33.7 pg (25.0-35.0) 05/30/23 01:30 MCHC 33.9 g/dL (31.0-37.0) 05/30/23 01:30 RDW 12.4 % (11.5-15.5) 05/30/23 01:30 Plt Count 357 k/uL (150-450) 05/30/23 01:30 MPV 7.2 05/30/23 01:30 Neutrophils % 64 % 05/30/23 01:30 Lymphocytes % 20 % 05/30/23 01:30 Monocytes % 6 % 05/30/23 01:30 Eosinophils % 5 % 05/30/23 01:30 Basophils % 1 % 05/30/23 01:30 Neutrophils # 6.8 k/uL (1.3-7.7) 05/30/23 01:30 Lymphocytes # 2.1 k/uL (1.0-4.8) 05/30/23 01:30 Monocytes # 0.7 k/uL (0-1.0) 05/30/23 01:30 Eosinophils # 0.6 k/uL (0-0.7) 05/30/23 01:30 Basophils # 0.1 k/uL (0-0.2) 05/30/23 01:30 PT 9.6 sec (9.0-12.0) 05/30/23 01:30 INR 0.9 (<1.2) 05/30/23 01:30 APTT 26.3 sec (22.0-30.0) 05/30/23 01:30 Sodium 138 mmol/L (137-145) 05/30/23 01:30 Potassium 4.3 mmol/L (3.5-5.1) 05/30/23 01:30 Chloride 100 mmol/L (98-107) 05/30/23 01:30 Carbon Dioxide 25 mmol/L (22-30) 05/30/23 01:30 Anion Gap 13 mmol/L 05/30/23 01:30 BUN 11 mg/dL (9-20) 05/30/23 01:30 Creatinine 0.90 mg/dL (0.66-1.25) 05/30/23 01:30 Est GFR (CKD-EPI)AfAm >90 (>60 ml/min/1.73 sqM) 05/30/23 01:30 Est GFR (CKD-EPI)NonAf >90 (>60 ml/min/1.73 sqM) 05/30/23 01:30 Glucose 109 mg/dL (74-99) H 05/30/23 01:30 Calcium 9.6 mg/dL (8.4-10.2) 05/30/23 01:30 Magnesium 2.4 mg/dL (1.6-2.3) H 05/30/23 01:30 Total Bilirubin 0.6 mg/dL (0.2-1.3) 05/30/23 01:30 AST 22 U/L (17-59) 05/30/23 01:30 ALT 14 U/L (4-49) 05/30/23 01:30 Alkaline Phosphatase 129 U/L (38-126) H 05/30/23 01:30 Troponin I <0.012 ng/mL (0.000-0.034) 05/30/23 01:30 NT-Pro-B Natriuret Pep <20 pg/mL 05/30/23 01:30 Total Protein 8.4 g/dL (6.3-8.2) H 05/30/23 01:30 Albumin 4.7 g/dL (3.5-5.0) 05/30/23 01:30 Lipase 109 U/L (23-300) 05/30/23 01:30 Procalcitonin 0.05 ng/mL (0.02-0.09) 05/30/23 22:05 Serum Alcohol <10 mg/dL 05/30/23 01:30 Influenza Type A (PCR) Not Detected (Not Detectd) 05/30/23 01:52 Influenza Type B (PCR) Not Detected (Not Detectd) 05/30/23 01:52 RSV (PCR) Not Detected (Not Detectd) 05/30/23 01:52 SARS-CoV-2 (PCR) Not Detected (Not Detectd) 05/30/23 01:52 05/31/23 11:25 Initial psychiatric evaluation: This is a 47-year-old male with multiple psychiatric hospitalizations in the past who was hospitalized on the psych unit with complaints of depression which she claims to be getting worse Patient also reports that he's been having suicidal ideations where he wanted to cut his wrists and kill himself Patient is unable to give any specific stressors but states that he's been feeling increasingly depressed and helpless and hopeless He states that he currently lives alone but other times mentioned that he was homeless Patient admits that he used to take Prozac 40 mg a day would seem to work well for him He says that he was also taking trazodone at nighttime which does not seem to work too well He does not remember any other medications Patient denies any alcohol or substance use He says that he goes to a local mental health services for outpatient follow-up and care Past history personal social history Patient remains very vague and is unable to give much details A copy from [facility] evaluation reports that the patient has had multiple psychiatric hospitalizations in the past This evaluation dated was from 03/27/2023 Patient has had multiple psychotic hospitalizations for depression and anxiety He has periods of homelessness and threatening suicidal behaviors with cutting his wrists Patient has maintained not using any alcohol or drug use Medical history from the chart shows a history of hypertension history of spinal and sacral fractures chronic pain in the shoulder and feet and osteopenia in the feet Patient also has had sacral back surgery with pin implantation There has been no ALLERGIES mentioned to any medications Patient has a history of intermittent mental health services in the past as well as 5-6 inpatient psychiatric hospitalization since he was 15 years old His previous medications that that time include Cymbalta 60 mg twice a day Trazodone 100 mg at bedtime Hydroxyzine 25 mg twice a day And Abilify 10 mg daily Mental status examination: General Appearance: Patient appears to be stated age is alert, directable, and attempts to cooperate. Patient appears to have fair hygiene and poor dentition Behavior: Patient is laying down without any agitated behavior. mildly irritable. Speech: Patient's speech is fluent and nonpressured. Mood/Affect: Patient reports their mood is depressed and anxious, affect is congruent and constricted. Suicidality/Homicidality: Patient denies having any homicidal ideation intent or plan. Denies any suicidal ideations intent or plan at this time Perceptions: Patient denies any visual hallucinations and denies any auditory hallucinations Though content/process: There is no evidence of any delusional thought content and thought process is linear and goal-directed. Severance. Memory and concentration: AOX3, grossly intact for the purposes of this session. Can spell "WORLD" backwards Judgment and insight: poor/ STRENGTHS/WEAKNESSES: strength is that patient is resilient. Weakness is that patient has poor judgment and is impulsive INTELLECT: average IMPRESSIONS: Bipolar disorder mixed type Rule out personality disorder unspecified PLAN: -Patient is admitted under voluntary status to MHU for stabilization of psychiatric symptoms and safety. Patient has signed adult voluntary form and medication consent and is placed in patient's chart. -Medications : Will start patient on Prozac if not already started for mood stabilization/suicidal thoughts, -Ativan and Haldol PRN for agitation/aggression -Patient was informed of the risks, benefits and side effects of the medication and patient verbally consented to taking the medications. -Internal Medicine consult to perform medical evaluation and physical. -NRT - nicotine patch -SW on board for discharge planning. Encourage patient to participate in groups to work on coping skills. Roge Fonseca M.D. 05/31/2023
[2023-05-31] MEDS: ACETAMINOPHEN TAB 325 MG TAB PO PRN ×2 (13:24→21:12)
[2023-05-31] MEDS: LORazepam 1 MG TAB PO PRN (13:24)
[2023-06-01] MEDS: FLUoxetine HCL 20 MG CAP PO SCH (08:32)
[2023-06-01] MEDS: predniSONE 20 MG TAB PO SCH (08:32)
[2023-06-01] MEDS: NICOTINE 14MG/24HR PATCH TRANSDERM SCH (08:32)
[2023-06-01] MEDS: IBUPROFEN 400 MG TAB PO PRN ×2 (08:32→20:27)
[2023-06-01] MEDS: AMOXIC-POT CLAV 875-125MG 1 EACH TAB PO SCH ×2 (08:33→20:26)
--- NOTE | 2023-06-01 09:13 | P.PN ---
Subjective Progress Note Date: 06/01/23 Principal diagnosis: IMPRESSIONS: Bipolar disorder mixed type Rule out personality disorder unspecified 05/31/23 11:25 Initial psychiatric evaluation: The patient was seen for a follow-up today Patient was walking on the hallway and seemed to be easily irritated Patient snaps back stating that he is still depressed suicidal and has no place to live He states that he was not using any drugs or alcohol and that he will be needing a place to live Patient seems to maintain a sense of entitlement anger and projection Insight and his problem remains impaired Mental status examination: General Appearance: Patient appears to be stated age is alert, irritable with a sense of entitlement Patient appears to have fair hygiene and poor dentition Behavior: Patient is walking without any difficulty. mildly irritable. Speech: Patient's speech is fluent and nonpressured. Mood/Affect: Patient reports their mood is depressed and anxious, affect is congruent and constricted. Suicidality/Homicidality: Patient denies having any homicidal ideation intent or plan. States that he is suicidal but denies any plans Perceptions: Patient denies any visual hallucinations and denies any auditory hallucinations Though content/process: There is no evidence of any delusional thought content and thought process is linear and goal-directed. Sharon. Memory and concentration: AOX3, grossly intact for the purposes of this session. Can spell "WORLD" backwards Judgment and insight: poor/ STRENGTHS/WEAKNESSES: strength is that patient is resilient. Weakness is that patient has poor judgment and is impulsive INTELLECT: average IMPRESSIONS: Bipolar disorder mixed type Rule out personality disorder unspecified PLAN: -Patient is admitted under voluntary status to MHU for stabilization of psychiatric symptoms and safety. Patient has signed adult voluntary form and medication consent and is placed in patient's chart. -Medications : Will start patient on Prozac if not already started for mood stabilization/suicidal thoughts, -Ativan and Haldol PRN for agitation/aggression -Patient was informed of the risks, benefits and side effects of the medication and patient verbally consented to taking the medications. -Internal Medicine consult to perform medical evaluation and physical. -NRT - nicotine patch -SW on board for discharge planning. Encourage patient to participate in groups to work on coping skills. Roge Fonseca M.D. 06/01/2023 Objective - Vital Signs Vital signs: Vital Signs Temp 98.7 F 05/30/23 11:57 Pulse 97 05/31/23 10:34 Resp 16 05/30/23 11:57 BP 128/77 05/30/23 11:57 Pulse Ox 98 05/30/23 11:57 FiO2 - Labs CBC & Chem 7: 05/30/23 01:30 05/30/23 01:30
[2023-06-01] MEDS: LORazepam 1 MG TAB PO PRN (12:58)
[2023-06-01] MEDS: ACETAMINOPHEN TAB 325 MG TAB PO PRN ×2 (12:58→20:27)
[2023-06-01] MEDS: haloperidoL 5 MG TAB PO PRN (13:30)
[2023-06-02] MEDS: NICOTINE 14MG/24HR PATCH TRANSDERM SCH (08:48)
[2023-06-02] MEDS: FLUoxetine HCL 20 MG CAP PO SCH (08:48)
[2023-06-02] MEDS: AMOXIC-POT CLAV 875-125MG 1 EACH TAB PO SCH ×2 (08:49→21:08)
[2023-06-02] MEDS: predniSONE 20 MG TAB PO SCH (08:49)
[2023-06-02] MEDS: IBUPROFEN 400 MG TAB PO PRN ×3 (08:51→19:29)
[2023-06-02] MEDS: LORazepam 1 MG TAB PO PRN ×3 (08:51→20:43)
[2023-06-02] MEDS: ACETAMINOPHEN TAB 325 MG TAB PO PRN ×3 (08:51→19:29)
[2023-06-02] MEDS ORDERED: FLUoxetine HCL 20 MG CAP PO STA (09:42)
[2023-06-02] MEDS: IPRATROPIUM-ALBUTEROL 3 ML NEB INHALATION PRN (09:42)
--- NOTE | 2023-06-02 11:39 | P.PN ---
Progress Note - Text Progress Note Date: 06/02/23 Interval History: Patient was seen pacing in his room and was directable and agreeable to speak with policy writer in his room. Currently, the patient expresses that he is frustrated with having not received a breathing treatment. He reports that he feels like he is being ignored here on the psychiatric unit. He does express that he has been suicidal and depressed. He is unable to identify any specific stressors to this provider aside ongoing issues regarding physical pain from "osteopenia." He is not reporting any homicidal ideation. He reports no auditory or visual hallucinations. He denies any paranoia or other delusions. He has been adherent with his medications and is agreeable to further titration of Prozac. He reports that Prozac has been helpful. He does however admit to irritability and anger. He is agreeable to starting Abilify to address this. The patient does report that he has a home to return to upon discharge. Mental Status Exam: General Appearance: Patient appears to be stated age is alert, directable, and cooperative. Behavior: Patient is pacing in her room. Elevated psychomotor activity. Speech: Patient's speech is fluent and nonpressured. Mood/Affect: Mood is "irritated," affect is congruent and irritable. Expansive. Suicidality/Homicidality: Patient reports suicidal ideation. Denies any homicidal ideation. Perceptions: Patient denies any visual hallucinations and denies any auditory hallucinations Though content/process: Patient appears to be very demanding. 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 Patient has signed adult voluntary form and medication consent and was placed in patient's chart. -Medications: Increase Prozac to 40 mg by mouth daily for depression/anxiety Start Abilify 10 mg by mouth daily for mood augmentation/stabilization -When necessary Ativan and Haldol for agitation/aggression. -NRT - nicotine patch -SW on board for discharge planning. Encouraged the patient to participate in milieu.
[2023-06-02] MEDS: haloperidoL 5 MG TAB PO PRN (14:27)
[2023-06-02 15:38] LABS: Appearance,Urine Clear (Clear); Bilirubin,Urine Negative (Negative); Blood,Urine Negative (Negative); Color,Urine Light Yellow; Glucose,Urine (UA) Negative (Negative); Ketones,Urine Negative (Negative); Leukocyte Esterase,Urine Negative (Negative); Nitrite,Urine Negative (Negative); Protein,Urine Negative (Negative); Specific Gravity,Urine 1.008 (1.001-1.035); Urobilinogen,Urine <2.0 mg/dL (<2.0)
[2023-06-02 15:44] LABS: Amphetamine Screen,Urine Not Detected (NotDetected); Barbiturate Screen,Urine Not Detected (NotDetected); Benzodiazepines Screen,Urine Detected (NotDetected); Cocaine Screen,Urine Not Detected (NotDetected); Methadone Screen, Urine Not Detected (NotDetected); Opiate Screen,Urine Not Detected (NotDetected); Oxycodone Screen, Urine Not Detected (NotDetected); Phencyclidine Screen,Urine Not Detected (NotDetected); Tricyclic Antidepressant,Urine Not Detected (NotDetected); Urn Cannabinoid Scrn Detected (NotDetected)
[2023-06-03] MEDS: LORazepam 1 MG TAB PO PRN (05:41)
[2023-06-03] MEDS: IBUPROFEN 400 MG TAB PO PRN ×2 (05:41→08:26)
[2023-06-03 05:50] VITALS: BP 134/84; RESP 20; TEMP 97.5
[2023-06-03] MEDS: IPRATROPIUM-ALBUTEROL 3 ML NEB INHALATION PRN ×2 (06:01→12:59)
[2023-06-03] MEDS: AMOXIC-POT CLAV 875-125MG 1 EACH TAB PO SCH (08:25)
[2023-06-03] MEDS: predniSONE 20 MG TAB PO SCH (08:25)
[2023-06-03] MEDS: ACETAMINOPHEN TAB 325 MG TAB PO PRN ×2 (08:26→12:10)
[2023-06-03] MEDS ORDERED: ARIPiprazole 10 MG TAB PO SCH (09:00)
[2023-06-03] MEDS ORDERED: NICOTINE 21MG/24HR PATCH TRANSDERM SCH (09:00)
[2023-06-03] MEDS ORDERED: FLUoxetine HCL 20 MG CAP PO SCH (09:00)
[2023-06-03] MEDS ORDERED: IBUPROFEN 600 MG TAB PO STA (10:18)
--- NOTE | 2023-06-03 10:57 | P.DS ---
Providers Date of admission: 05/30/23 11:49 Expected date of discharge: 06/03/23 Attending physician: Nilo Ashley MD Consults: 05/30/23 11:52 Consult Physician Routine Consulting Provider: Jared Chris Consult Reason/Comments: medical management Do you want consulting provider notified?: Yes Primary care physician: Stated None - Discharge Diagnosis(es) (1) Bipolar affective, mixed, severe Current Visit: Yes Status: Acute Priority: High (2) Cluster B personality disorder Current Visit: Yes Status: Chronic Priority: Medium Hospital Course: Admission HPI: Initial psychiatric evaluation was completed by Dr. Fonseca on 05/31/2023 who wrote: This is a 47-year-old male with multiple psychiatric hospitalizations in the past who was hospitalized on the psych unit with complaints of depression which she claims to be getting worse Patient also reports that he's been having suicidal ideations where he wanted to cut his wrists and kill himself Patient is unable to give any specific stressors but states that he's been feeling increasingly depressed and helpless and hopeless He states that he currently lives alone but other times mentioned that he was homeless Patient admits that he used to take Prozac 40 mg a day would seem to work well for him He says that he was also taking trazodone at nighttime which does not seem to work too well He does not remember any other medications Patient denies any alcohol or substance use He says that he goes to a local mental health services for outpatient follow-up and care Past history personal social history Patient remains very vague and is unable to give much details A copy from [facility] evaluation reports that the patient has had multiple psychiatric hospitalizations in the past This evaluation dated was from 03/27/2023 Patient has had multiple psychotic hospitalizations for depression and anxiety He has periods of homelessness and threatening suicidal behaviors with cutting his wrists Patient has maintained not using any alcohol or drug use Hospital course: Upon admission to the unit patient was initially noted to be irritable, anxious, and at times demanding. Patient was however directable and agreeable to commence treatment. Patient got along well with other patients on the unit and followed unit protocol. Patient was compliant with the medications and denied any side effects throughout hospital course. Patient was started on Prozac for depression and suicidal ideation. Abilify was added to his regimen to address irritability and mood swings. Furthermore, the patient did endorse mild paranoia believing that people have been using his name to be prescribed medications that he himself would be unable to be prescribed. Patient spoke of his stressors and engaged in therapy both group and individual. Over the course of the hospitalization, the patient despite significant target symptoms of depression, anxiety, and suicidal ideation. The patient did report that he willingly chose to come into the psychiatric hospital because he wanted to have quicker access to more specialized care for his pain issues. He is future and goal oriented. He was also seen by the medical team for history and physical examination. On the day of discharge, the patient is not reporting any suicidal or homicidal ideation, intention, and/or plan. He is not reporting any auditory or visual hallucinations. He does express that he has been unhappy with how the medical system has been unable to address his issues of pain. He was informed that he would have to follow-up with an outpatient provider in order to coordinate his care with the necessary specialists. The patient acknowledges this however states that he has had difficulty with transportation. He reports desire to have his services set up immediately or to be directed to a specialist who would "provide me with what I need." However, the patient vehemently denies any history of narcotic use. was reviewed and revealed no inconsistencies or cause for concern. The patient was counseled at length on the importance of medication adherence appropriate outpatient follow-up. He reports no access to firearms or other weapons. He was also counseled on abstaining from substances including tobacco, alcohol, marijuana, and all illicit drugs. As the patient no longer met criteria for continued inpatient psychiatric hospitalization, he was subsequently discharged after appropriate safety planning. Aside from his general issues of musculoskeletal pain due to "osteopenia" he is not reporting any medical issues or concerns. He denies any chest pain, shortness breath, palpitations, akathisia, or tardive dyskinesia. Mental status exam: General Appearance: Patient appears to be stated age is alert, pleasant, and cooperative. Patient is in no acute distress and has fair hygiene and grooming Behavior: Patient is calmly seated without any agitated behavior. Speech: Patient's speech is fluent and nonpressured. Mood/Affect: Patient reports their mood is "I'm just in pain", affect is congruent and initially irritable but later friendly. Suicidality/Homicidality: Patient denies any suicidal or homicidal ideation, intention, and/or plan Perceptions: Patient denies any auditory or visual hallucinations. Though content/process: There is no evidence of any delusional thought content and thought process is linear and goal-directed. Patient is future oriented Memory and concentration: AOX3, grossly intact for the purposes of this session. Can spell "WORLD" backwards correctly. Judgment and insight: Improved with guarded prognosis Impression: Bipolar 2 disorder, mixed type Cluster B personality disorder Plan: -Continue with discharge today as patient has improved and stabilized psychiatrically and is not currently an imminent threat to himself and/or others. Patient will remain at chronically elevated risk due to his underlying personality disorder -Continue medications: Abilify 10 mg by mouth daily for mood stabilization Prozac 40 mg by mouth daily for depression/anxiety Continue medical medications of prednisone, amoxicillin, and Motrin -Patient was counseled on the need for medication compliance and appropriate follow-up at mental health and also primary care for medical issues. Patient v erbalized understanding and agreed. -Social work to arrange for and conduct family meeting to ensure safety upon discharge and answer any questions/concerns. Social work also to arrange for patients follow up appointments for psychiatric care along with follow up with primary care provider. -Patient counseled on abstaining from recreational drugs and marijuana and alcohol. Was informed/educated on the adverse effects on their physical and mental health. Patient verbally agreed and understood. -Patient was instructed to return to the hospital or seek immediate medical care if their psychiatric or medical symptoms do worsen or reoccur. -Psychoeducation and supportive therapy provided to patient. Risks and benefits of pharmacological treatment versus the risks and benefits of nontreatment weighed and discussed. Informed consent discussion held. Common side effects of psychotropics discussed such as, but not limited to headache, GI disturbance, sexual dysfunction, movement disorders, sedation, and orthostatic hypotension. Life threatening and blackbox warnings of prescribed medications also discussed. Potential risks of operating a vehicle or heavy machinery discussed with hoang nt at length. Advised on importance of compliance and a reliable and responsible manner. Patient advised to review FDA consumer labeling of all medications prior to taking. Patient verbalized understanding of potential risks, and agrees with current treatment plan. Patient advised to medically contact physician/emergency personnel if any acute changes in condition occur. Vital Signs Temp 97.5 F L 06/03/23 05:48 Pulse 100 06/03/23 06:13 Resp 20 06/03/23 05:48 BP 134/84 06/03/23 05:48 Pulse Ox 93 L 06/03/23 05:48 FiO2 Laboratory Results WBC 10.7 k/uL (3.8-10.6) H 05/30/23 01:30 RBC 4.94 m/uL (4.30-5.90) 05/30/23 01:30 Hgb 16.6 gm/dL (13.0-17.5) 05/30/23 01:30 Hct 49.0 % (39.0-53.0) 05/30/23 01:30 MCV 99.3 fL (80.0-100.0) 05/30/23 01:30 MCH 33.7 pg (25.0-35.0) 05/30/23 01:30 MCHC 33.9 g/dL (31.0-37.0) 05/30/23 01:30 RDW 12.4 % (11.5-15.5) 05/30/23 01:30 Plt Count 357 k/uL (150-450) 05/30/23 01:30 MPV 7.2 05/30/23 01:30 Neutrophils % 64 % 05/30/23 01:30 Lymphocytes % 20 % 05/30/23 01:30 Monocytes % 6 % 05/30/23 01:30 Eosinophils % 5 % 05/30/23 01:30 Basophils % 1 % 05/30/23 01:30 Neutrophils # 6.8 k/uL (1.3-7.7) 05/30/23 01:30 Lymphocytes # 2.1 k/uL (1.0-4.8) 05/30/23 01:30 Monocytes # 0.7 k/uL (0-1.0) 05/30/23 01:30 Eosinophils # 0.6 k/uL (0-0.7) 05/30/23 01:30 Basophils # 0.1 k/uL (0-0.2) 05/30/23 01:30 PT 9.6 sec (9.0-12.0) 05/30/23 01:30 INR 0.9 (<1.2) 05/30/23 01:30 APTT 26.3 sec (22.0-30.0) 05/30/23 01:30 Sodium 138 mmol/L (137-145) 05/30/23 01:30 Potassium 4.3 mmol/L (3.5-5.1) 05/30/23 01:30 Chloride 100 mmol/L (98-107) 05/30/23 01:30 Carbon Dioxide 25 mmol/L (22-30) 05/30/23 01:30 Anion Gap 13 mmol/L 05/30/23 01:30 BUN 11 mg/dL (9-20) 05/30/23 01:30 Creatinine 0.90 mg/dL (0.66-1.25) 05/30/23 01:30 Est GFR (CKD-EPI)AfAm >90 (>60 ml/min/1.73 sqM) 05/30/23 01:30 Est GFR (CKD-EPI)NonAf >90 (>60 ml/min/1.73 sqM) 05/30/23 01:30 Glucose 109 mg/dL (74-99) H 05/30/23 01:30 Calcium 9.6 mg/dL (8.4-10.2) 05/30/23 01:30 Magnesium 2.4 mg/dL (1.6-2.3) H 05/30/23 01:30 Total Bilirubin 0.6 mg/dL (0.2-1.3) 05/30/23 01:30 AST 22 U/L (17-59) 05/30/23 01:30 ALT 14 U/L (4-49) 05/30/23 01:30 Alkaline Phosphatase 129 U/L (38-126) H 05/30/23 01:30 Troponin I <0.012 ng/mL (0.000-0.034) 05/30/23 01:30 NT-Pro-B Natriuret Pep <20 pg/mL 05/30/23 01:30 Total Protein 8.4 g/dL (6.3-8.2) H 05/30/23 01:30 Albumin 4.7 g/dL (3.5-5.0) 05/30/23 01:30 Lipase 109 U/L (23-300) 05/30/23 01:30 Procalcitonin 0.05 ng/mL (0.02-0.09) 05/30/23 22:05 Urine Color Light Yellow 06/02/23 14:00 Urine Appearance Clear (Clear) 06/02/23 14:00 Urine pH 7.0 (5.0-8.0) 06/02/23 14:00 Ur Specific [place] 1.008 (1.001-1.035) 06/02/23 14:00 Urine Protein Negative (Negative) 06/02/23 14:00 Urine Glucose (UA) Negative (Negative) 06/02/23 14:00 Urine Ketones Negative (Negative) 06/02/23 14:00 Urine Blood Negative (Negative) 06/02/23 14:00 Urine Nitrite Negative (Negative) 06/02/23 14:00 Urine Bilirubin Negative (Negative) 06/02/23 14:00 Urine Urobilinogen <2.0 mg/dL (<2.0) 06/02/23 14:00 Ur Leukocyte Esterase Negative (Negative) 06/02/23 14:00 Urine Opiates Screen Not Detected (NotDetected) 05/30/23 14:00 Ur Oxycodone Screen Not Detected (NotDetected) 05/30/23 14:00 Urine Methadone Screen Not Detected (NotDetected) 05/30/23 14:00 Ur Propoxyphene Screen Not Detected (NotDetected) 05/30/23 14:00 Ur Barbiturates Screen Not Detected (NotDetected) 05/30/23 14:00 U Tricyclic Antidepress Not Detected (NotDetected) 05/30/23 14:00 Ur Phencyclidine Scrn Not Detected (NotDetected) 05/30/23 14:00 Ur Amphetamines Screen Not Detected (NotDetected) 05/30/23 14:00 U Methamphetamines Scrn Not Detected (NotDetected) 05/30/23 14:00 U Benzodiazepines Scrn Detected (NotDetected) H 05/30/23 14:00 Urine Cocaine Screen Not Detected (NotDetected) 05/30/23 14:00 U Marijuana (THC) Screen Detected (NotDetected) H 05/30/23 14:00 Serum Alcohol <10 mg/dL 05/30/23 01:30 Influenza Type A (PCR) Not Detected (Not Detectd) 05/30/23 01:52 Influenza Type B (PCR) Not Detected (Not Detectd) 05/30/23 01:52 RSV (PCR) Not Detected (Not Detectd) 05/30/23 01:52 SARS-CoV-2 (PCR) Not Detected (Not Detectd) 05/30/23 01:52 Allergies Allergy/AdvReac Type Severity Reaction Status Date / Time No Known Allergies Allergy Verified 05/30/23 13:43 Patient Condition at Discharge: Stable Plan - Discharge Summary New Discharge Prescriptions: New predniSONE [Deltasone] 40 mg PO DAILY 7 Days #14 tab ARIPiprazole [Abilify] 10 mg PO DAILY 15 Days #15 tab Amoxic-Pot Clav 875-125Mg [Augmentin 875-125] 1 each PO Q12HR 5 Days #10 tab Ibuprofen [Motrin] 400 mg PO TID PRN 7 Days #21 tab PRN Reason: Moderate Pain (Scale 4 To 6) FLUoxetine HCL [PROzac] 40 mg PO DAILY 15 Days #30 cap Discharge Medication List ARIPiprazole [Abilify] 10 mg PO DAILY 15 Days #15 tab 06/03/23 [Rx] Amoxic-Pot Clav 875-125Mg [Augmentin 875-125] 1 each PO Q12HR 5 Days #10 tab 06/03/23 [Rx] FLUoxetine HCL [PROzac] 40 mg PO DAILY 15 Days #30 cap 06/03/23 [Rx] Ibuprofen [Motrin] 400 mg PO TID PRN 7 Days #21 tab 06/03/23 [Rx] predniSONE [Deltasone] 40 mg PO DAILY 7 Days #14 tab 06/03/23 [Rx] Follow up Appointment(s)/Referral(s): [facility] [NON-STAFF] - 1 Week Patient Instructions/Handouts: How to Stop Smoking (DC), Depression (DC) Activity/Diet/Wound Care/Special Instructions: Avoid the use of street drugs and alcohol. Take all medications as prescribed. When you are in need of refills on your medications, please contact your medical provider and/or outpatient psychiatrist/provider to have this done. Please go to your scheduled outpatient appointment for aftercare treatment. If symptoms r eturn or become worse, call the crisis line at and/or go to the nearest emergency room for evaluation. National Suicide Hotline 978. Discharge Disposition: HOME SELF-CARE
[2023-06-03 13:07] VITALS: PULSE 104
== END 2023-06-03 13:39 | disposition home or self-care (01) | DRG 753 ==
LOC: EC 00:40 → 3MHU 11:49
PROVIDERS: ADMIT Psychiatry & Neurology Psychiatry; ATTEND Psychiatry & Neurology Psychiatry
DX: F31.63 Bipolar disorder, current episode mixed, severe, without psychotic features (principal); F60.89 Other specific personality disorders; R45.851 Suicidal ideations; F41.9 Anxiety disorder, unspecified; F17.200 Nicotine dependence, unspecified, uncomplicated; J45.909 Unspecified asthma, uncomplicated; F60.81 Narcissistic personality disorder; F60.2 Antisocial personality disorder; F60.4 Histrionic personality disorder; I10 Essential (primary) hypertension; M79.18 Myalgia, other site; M54.50 Low back pain, unspecified; M79.671 Pain in right foot; R45.4 Irritability and anger; M85.80 Other specified disorders of bone density and structure, unspecified site; J18.9 Pneumonia, unspecified organism; F22 Delusional disorders; M25.519 Pain in unspecified shoulder; R00.0 Tachycardia, unspecified; Z77.098 Contact with and (suspected) exposure to other hazardous, chiefly nonmedicinal, chemicals; Z20.822 Contact with and (suspected) exposure to COVID-19; Z91.51 Personal history of suicidal behavior; Z71.6 Tobacco abuse counseling
CPT/HCPCS: 36415; 71046; 80053; 80306; 80320; 81003; 82075; 83690; 83735; 83880; 84145; 84484; 85025; 85610; 85730; 87636; 93005; 94640; 96372; 99285

== ENCOUNTER 2023-06-28 07:54 | Emergency (ER) | payer OTHER ==
[2023-06-28 08:00] VITALS: BP 112/78; PULSE 111; RESP 18; TEMP 98.2
[2023-06-28] MEDS ORDERED: HYDROcodone/APAP 5-325MG 1 EACH TAB PO STA (08:20)
--- NOTE | 2023-06-28 08:29 | ED ---
Skin/Abscess/FB HPI - General Chief complaint: Skin/Abscess/Foreign Body Stated complaint: wound on buttock Time Seen by Provider: 06/28/23 08:09 Source: patient Mode of arrival: ambulatory Limitations: no limitations - History of Present Illness Initial comments: 48-year-old male patient presents ambulatory with complaints of a ulcer on his right buttock for 8 years concerned for infection. States has had increased drainage, no bleeding. Was seen in April for the same directed to follow-up with wound care but states that he did not do that. Denies any fevers. Does have chronic back pain and requesting pain medication. Does have a history of asthma, spinal fractures MD complaint: other (chronic right buttock ulcer) -: year(s) (8) Location: buttocks (right) Severity scale (1-10): 10 Quality: constant Consistency: constant Improves with: none Associated symptoms: denies other symptoms - Related Data Previous Rx's Medication Instructions Recorded ARIPiprazole [Abilify] 10 mg PO DAILY 15 Days #15 tab 06/03/23 Amoxic-Pot Clav 875-125Mg 1 tab PO Q12HR 1 Days #2 tab 06/03/23 [Augmentin 875-125] FLUoxetine HCL [PROzac] 40 mg PO DAILY 15 Days #30 cap 06/03/23 Ibuprofen [Motrin] 400 mg PO Q8HR PRN #20 tab 06/03/23 predniSONE [Deltasone] 40 mg PO DAILY #2 tab 06/03/23 Hydrocolloid Dressing [Duoderm] 1 applicate TOPICAL DAILY #10 each 06/28/23 Allergies Allergy/AdvReac Type Severity Reaction Status Date / Time No Known Allergies Allergy Verified 06/28/23 07:59 Review of Systems ROS Statement: Those systems with pertinent positive or pertinent negative responses have been documented in the HPI. ROS Other: All systems not noted in ROS Statement are negative. Past Medical History Past Medical History: Asthma Additional Past Medical History / Comment(s): back pain, spinal and sacral fractures, chronic foot and shoulder pain History of Any Multi-Drug Resistant Organisms: None Reported Past Surgical History: Back Surgery, Orthopedic Surgery Additional Past Surgical History / Comment(s): pins and plates in feet Past Psychological History: Anxiety, Bipolar, Depression Smoking Status: Current every day smoker Past Alcohol Use History: None Reported Past Drug Use History: None Reported - Past Family History Mother Family Medical History: CVA/TIA General Exam Limitations: no limitations General appearance: alert, in no apparent distress Head exam: Present: atraumatic Eye exam: Present: normal appearance. Absent: scleral icterus, conjunctival injection, periorbital swelling Neck exam: Present: full ROM. Absent: meningismus Respiratory exam: Absent: respiratory distress, accessory muscle use Cardiovascular Exam: Present: tachycardia GI/Abdominal exam: Present: soft. Absent: rigid Extremities exam: Present: normal capillary refill. Absent: pedal edema Neurological exam: Present: alert, oriented X3, normal gait Psychiatric exam: Present: normal affect, normal mood Skin exam: Present: warm, dry, normal color. Absent: cyanosis, diaphoretic Expanded Type of lesion: Present: other (Right buttock pressure ulcer 1 cm x 1 cm x 0.25 cm deep, no drainage, no erythema) Course Vital Signs 06/28/23 07:56 Temperature 98.2 F Pulse Rate 111 H Respiratory 18 Rate Blood Pressure 112/78 O2 Sat by Pulse 96 Oximetry Medical Decision Making - Medical Decision Making Was pt. sent in by a medical professional or institution (, PA, BACTERIOLOGY PROFESSOR, urgent care, hospital, or residential...) When possible be specific @ -No Did you speak to anyone other than the patient for history (EMS, parent, family, police, friend...)? What history was obtained from this source @ -No Did you review nursing and triage notes (agree or disagree)? Why? @ -I reviewed and agree with nursing and triage notes Were old charts reviewed (outside hosp., previous admission, EMS record, old EKG, old radiological studies, urgent care reports/EKG's, residential records)? Report findings @ -yes Previous records reviewed, patient had psych admission from 05/30-06/03 this year. Diagnosised with bipolar, cluster B personality disorder and he was started on Prozac at that time. Abilify was added. He was discharged on prednisone and Augmentin at this time. He was directed to follow-up with [facility] [place]. Differential Diagnosis (chest pain, altered mental status, abdominal pain women, abdominal pain men, vaginal bleeding, weakness, fever, dyspnea, syncope, headache, dizziness, GI bleed, back pain, seizure, CVA, palpatations, mental health, musculoskeletal)? @ -Chronic pressure ulcer right buttock EKG interpreted by me (3pts min.). @ -n/a X-rays interpreted by me (1pt min.). @ -None done CT interpreted by me (1pt min.). @ -None done U/S interpreted by me (1pt. min.). @ -None done What testing was considered but not performed or refused? (CT, X-rays, U/S, labs)? Why? @ -None What meds were considered but not given or refused? Why? @ -Antibiotics were considered however there is no evidence of erythema or drainage at this time, no concern for infection Did you discuss the management of the patient with other professionals (professionals i.e. , PA, BACTERIOLOGY PROFESSOR, lab, RT, psych nurse, social insurance specialist, lawyer real estate, teacher, light armored reconnaissance officer, director of casework department)? Give summary @ -No Was smoking cessation discussed for >3mins.? @ -No Was critical care preformed (if so, how long)? @ -No Were there social determinants of health that impacted care today? How? (Homelessness, low income, unemployed, alcoholism, drug addiction, transportation, low edu. Level, literacy, decrease access to med. care, residential, rehab)? @ -No Was there de-escalation of care discussed even if they declined (Discuss DNR or withdrawal of care, Hospice)? DNR status @ -No What co-morbidities impacted this encounter? (DM, HTN, Smoking, COPD, CAD, Cancer, CVA, ARF, Chemo, Hep., AIDS, mental health diagnosis, sleep apnea, mor bid obesity)? @ -Bipolar, personality disorder, chronic back pain, chronic pressure ulcer, asthma Was patient admitted / discharged? Hospital course, mention meds given and route, prescriptions, significant lab abnormalities, going to OR and other pertinent info. @ -Discharged 48-year-old male patient presents ambulatory with complaints of a ulcer on his right buttock for 8 years concerned for infection. States has had increased drainage, no bleeding. Was seen in April for the same directed to follow-up with wound care but states that he did not do that. Denies any fevers. Does have chronic back pain and requesting pain medication. Does have a history of asthma, spinal fractures On exam there is a 1 cm x 1 cm pressure ulcer right buttock approximately quarter centimeter deep with no drainage or bleeding. No erythema. No tenderness. Culture was obtained and sent due to patient's complaints of increased drainage however not evident on exam. Patient was given a prescription for Duoderm dressings. Directed to follow up with wound care as previously directed. He is agreeable to discharge with one [place] tablet. I explained he will not prescribe narcotics for him at this time, follow-up with PCP. Case discussed with Dr. Jones. Undiagnosed new problem with uncertain prognosis? @ -No Drug Therapy requiring intensive monitoring for toxicity (Heparin, Nitro, Insulin, Cardizem)? @ -No Were any procedures done? @ -No Diagnosis/symptom? @ -Chronic pressure ulcer right buttock Acute, or Chronic, or Acute on Chronic? @ -Chronic Uncomplicated (without systemic symptoms) or Complicated (systemic symptoms)? @ -Uncomplicated Side effects of treatment? @ -No Exacerbation, Progression, or Severe Exacerbation? @ -No Poses a threat to life or bodily function? How? (Chest pain, [place], [place], pneumonia, PE, COPD, DKA, ARF, appy, cholecystitis, CVA, Diverticulitis, Homicidal, Suicidal, threat to staff... and all critical care pts) @ -No Disposition Clinical Impression: Non-pressure chronic ulcer of buttock Disposition: HOME SELF-CARE Condition: Good Instructions (If sedation given, give patient instructions): Chronic Wound Care (ED) Additional Instructions: Use duoderm dressings as prescribed, 1 dressing every 3-4 days. Follow-up with the wound care center and your primary care doctor next week. Prescriptions: Hydrocolloid Dressing [Duoderm] 1 applicate TOPICAL DAILY #10 each Is patient prescribed a controlled substance at d/c from ED?: No Referrals: None,Stated [Primary Care Provider] - 1-2 days Time of Disposition: 08:25
== END 2023-06-28 08:41 | disposition home or self-care (01) ==
LOC: EC 07:54
DX: L98.419 Non-pressure chronic ulcer of buttock with unspecified severity (principal); J45.909 Unspecified asthma, uncomplicated; F17.200 Nicotine dependence, unspecified, uncomplicated; Z86.59 Personal history of other mental and behavioral disorders
CPT/HCPCS: 87070; 87077; 87186; 87205; 99283

== ENCOUNTER 2023-06-30 09:21 | Emergency (ER) | payer OTHER ==
[2023-06-30 09:45] VITALS: BP 155/80; PULSE 106; RESP 20
--- NOTE | 2023-06-30 10:27 | ED ---
Wound/Laceration HPI - General Chief Complaint: Wound/Laceration Stated Complaint: Wound on R Buttocks,Orthopedic issues Time Seen by Provider: 06/30/23 09:46 Source: patient, RN notes reviewed Mode of arrival: ambulatory Limitations: no limitations - History of Present Illness Initial Comments: 48-year-old male presents emergency Department with chief complaint of chronic wound. Patient states it's on his right buttocks. This has been there for 8 years. Patient seen here 3 days for for similar complaints. Patient was given wound care supplies but states it was not covered by his insurance. Patient has not attempted follow-up with Wound Center. Denies any recent fevers or chills her some drainage from the site denies any fevers, redness. States it's clear liquid. - Related Data Previous Rx's Medication Instructions Recorded ARIPiprazole [Abilify] 10 mg PO DAILY 15 Days #15 tab 06/03/23 Amoxic-Pot Clav 875-125Mg 1 tab PO Q12HR 1 Days #2 tab 06/03/23 [Augmentin 875-125] FLUoxetine HCL [PROzac] 40 mg PO DAILY 15 Days #30 cap 06/03/23 Ibuprofen [Motrin] 400 mg PO Q8HR PRN #20 tab 06/03/23 predniSONE [Deltasone] 40 mg PO DAILY #2 tab 06/03/23 Hydrocolloid Dressing [Duoderm] 1 applicate TOPICAL DAILY #10 each 06/28/23 Allergies Allergy/AdvReac Type Severity Reaction Status Date / Time No Known Allergies Allergy Verified 06/30/23 09:36 Review of Systems ROS Statement: Those systems with pertinent positive or pertinent negative responses have been documented in the HPI. ROS Other: All systems not noted in ROS Statement are negative. Past Medical History Past Medical History: Asthma Additional Past Medical History / Comment(s): back pain, spinal and sacral fractures, chronic foot and shoulder pain History of Any Multi-Drug Resistant Organisms: None Reported Past Surgical History: Back Surgery, Orthopedic Surgery Additional Past Surgical History / Comment(s): pins and plates in feet Past Psychological History: Anxiety, Bipolar, Depression Smoking Status: Current every day smoker Past Alcohol Use History: None Reported Past Drug Use History: None Reported - Past Family History Mother Family Medical History: CVA/TIA General Exam Limitations: no limitations General appearance: alert, in no apparent distress Head exam: Present: atraumatic, normocephalic, normal inspection Respiratory exam: Present: normal lung sounds bilaterally. Absent: respiratory distress, wheezes, rales, rhonchi, stridor Cardiovascular Exam: Present: regular rate, normal rhythm, normal heart sounds. Absent: systolic murmur, diastolic murmur, rubs, gallop, clicks GI/Abdominal exam: Present: soft, normal bowel sounds. Absent: distended, tenderness, guarding, rebound, rigid Extremities exam: Present: other (Right buttocks inferior aspect there is non- erythematous open wound with serosanguineous drainage) Course Vital Signs 06/30/23 06/30/23 09:34 10:50 Temperature 98.3 F 98.1 F Pulse Rate 106 H Respiratory 20 Rate Blood Pressure 155/80 O2 Sat by Pulse 94 L Oximetry Medical Decision Making - Medical Decision Making Was pt. sent in by a medical professional or institution (, PA, ACID MIXER, urgent care, hospital, or senior care...) When possible be specific @ -No Did you speak to anyone other than the patient for history (EMS, parent, family, police, friend...)? What history was obtained from this source @ -No Did you review nursing and triage notes (agree or disagree)? Why? @ -I reviewed and agree with nursing and triage notes Were old charts reviewed (outside hosp., previous admission, EMS record, old EKG, old radiological studies, urgent care reports/EKG's, senior care records)? Report findings @ -Reviewed charts from 2 days ago. Differential Diagnosis (chest pain, altered mental status, abdominal pain women, abdominal pain men, vaginal bleeding, weakness, fever, dyspnea, syncope, hea dache, dizziness, GI bleed, back pain, seizure, CVA, palpatations, mental health, musculoskeletal)? @ -Chronic wound, cellulitis EKG interpreted by me (3pts min.). @ -None X-rays interpreted by me (1pt min.). @ -None done CT interpreted by me (1pt min.). @ -None done U/S interpreted by me (1pt. min.). @ -None done What testing was considered but not performed or refused? (CT, X-rays, U/S, labs)? Why? @ -None What meds were considered but not given or refused? Why? @ -None Did you discuss the management of the patient with other professionals (professionals i.e. , PA, ACID MIXER, lab, RT, psych nurse, social sciences lecturer, deli slicer, teacher, artillery officer, vocational case manager)? Give summary @ -No Was smoking cessation discussed for >3mins.? @ -No Was critical care preformed (if so, how long)? @ -No Were there social determinants of health that impacted care today? How? (Homelessness, low income, unemployed, alcoholism, drug addiction, transportation, low edu. Level, literacy, decrease access to med. care, longterm, rehab)? @ -No Was there de-escalation of care discussed even if they declined (Discuss DNR or withdrawal of care, Hospice)? DNR status @ -No What co-morbidities impacted this encounter? (DM, HTN, Smoking, COPD, CAD, Cancer, CVA, ARF, Chemo, Hep., AIDS, mental health diagnosis, sleep apnea, morbid obesity)? @ -None Was patient admitted / discharged? Hospital course, mention meds given and route, prescriptions, significant lab abnormalities, going to OR and other pertinent info. @ -Discharge patient is advised follow-up for wound care is chronic wound with no obvious signs of infection. Patient is demanding pain meds advised that he does not right pain meds that he can follow-up with his PCP. Undiagnosed new problem with uncertain prognosis? @ -[No] Drug Therapy requiring intensive monitoring for toxicity (Heparin, Nitro, Insulin, Cardizem)? @ -[No] Were any procedures done? @ -[No] Diagnosis/symptom? @ -[Chronic buttocks wound] Acute, or Chronic, or Acute on Chronic? @ -[Acute] Uncomplicated (without systemic symptoms) or Complicated (systemic symptoms)? @ -[Uncomplicated] Side effects of treatment? @ -[No] Exacerbation, Progression, or Severe Exacerbation? @ -[No] Poses a threat to life or bodily function? How? (Chest pain, [place], [place], pneumonia, PE, COPD, DKA, ARF, appy, cholecystitis, CVA, Diverticulitis, Homicidal, Suicidal, threat to staff... and all critical care pts) @ -[No] Disposition Clinical Impression: Chronic wound Disposition: HOME SELF-CARE Condition: Stable Instructions (If sedation given, give patient instructions): Chronic Wound Care (ED) Additional Instructions: Please return to the Emergency Department if symptoms worsen or any other concerns. Is patient prescribed a controlled substance at d/c from ED?: No Referrals: None,Stated [Primary Care Provider] - 1-2 days [facility] [NON-STAFF] - 1-2 days Time of Disposition: 10:27
[2023-06-30 10:54] VITALS: TEMP 98.1
== END 2023-06-30 10:53 | disposition home or self-care (01) ==
LOC: EC 09:21
DX: S31.819A Unspecified open wound of right buttock, initial encounter (principal); J45.909 Unspecified asthma, uncomplicated; F17.200 Nicotine dependence, unspecified, uncomplicated; Z86.59 Personal history of other mental and behavioral disorders; X58.XXXA Exposure to other specified factors, initial encounter
CPT/HCPCS: 99283

== ENCOUNTER 2023-09-05 17:42 | Emergency (ER) | payer OTHER ==
--- NOTE | 2023-09-05 18:08 | ED ---
General Adult HPI - General Chief complaint: Skin/Abscess/Foreign Body Stated complaint: wound on buttock Source: patient, RN notes reviewed Mode of arrival: ambulatory Limitations: no limitations - History of Present Illness Initial comments: 48 year old male presents to the emergency department with chief complaint of right-sided buttock wound. He states that this is been present for around 8 years. He states that he follows wound care in the past but has not recently. They did recommend a wound VAC but he did not get it. He denies fever, chills, nausea, vomiting. - Related Data Previous Rx's Medication Instructions Recorded ARIPiprazole [Abilify] 10 mg PO DAILY 15 Days #15 tab 06/03/23 Amoxic-Pot Clav 875-125Mg 1 tab PO Q12HR 1 Days #2 tab 06/03/23 [Augmentin 875-125] FLUoxetine HCL [PROzac] 40 mg PO DAILY 15 Days #30 cap 06/03/23 Ibuprofen [Motrin] 400 mg PO Q8HR PRN #20 tab 06/03/23 predniSONE [Deltasone] 40 mg PO DAILY #2 tab 06/03/23 Hydrocolloid Dressing [Duoderm] 1 applicate TOPICAL DAILY #10 each 06/28/23 Cephalexin [Keflex] 500 mg PO Q6HR #28 cap 09/05/23 Allergies Allergy/AdvReac Type Severity Reaction Status Date / Time No Known Allergies Allergy Verified 09/05/23 18:04 Review of Systems ROS Statement: Those systems with pertinent positive or pertinent negative responses have been documented in the HPI. ROS Other: All systems not noted in ROS Statement are negative. Past Medical History Past Medical History: Asthma Additional Past Medical History / Comment(s): back pain, spinal and sacral fractures, chronic foot and shoulder pain History of Any Multi-Drug Resistant Organisms: None Reported Past Surgical History: Back Surgery, Orthopedic Surgery Additional Past Surgical History / Comment(s): pins and plates in feet Past Psychological History: Anxiety, Bipolar, Depression Smoking Status: Current every day smoker Past Alcohol Use History: None Reported Past Drug Use History: None Reported - Past Family History Mother Family Medical History: CVA/TIA General Exam - General Exam Comments Initial Comments: Visual Physical Exam Vital signs reviewed General: Well-appearing, nontoxic, no acute distress. Head: Normocephalic, atraumatic Eyes: PERRLA, EOMI ENT: Airway patent Chest: Nonlabored breathing Skin: No visual rash, normal skin tone Neuro: Alert and oriented 3 Musculoskeletal: No gross abnormalities Limitations: no limitations General appearance: alert, in no apparent distress Head exam: Present: atraumatic, normocephalic, normal inspection Eye exam: Present: normal appearance, PERRL, EOMI. Absent: scleral icterus, conjunctival injection, periorbital swelling ENT exam: Present: normal exam, mucous membranes moist Neck exam: Present: normal inspection. Absent: tenderness, meningismus, lymphadenopathy Respiratory exam: Present: normal lung sounds bilaterally. Absent: respiratory distress, wheezes, rales, rhonchi, stridor Cardiovascular Exam: Present: regular rate, normal rhythm, normal heart sounds. Absent: systolic murmur, diastolic murmur, rubs, gallop, clicks GI/Abdominal exam: Present: soft, normal bowel sounds. Absent: distended, tenderness, guarding, rebound, rigid Back exam: Present: normal inspection Neurological exam: Present: alert, oriented X3 Psychiatric exam: Present: normal affect, normal mood Skin exam: Present: warm, dry, other (Chronic appearing wound with surrounding erythema and serosanguineous drainage on right buttock). Absent: intact Course Vital Signs 09/05/23 09/05/23 09/05/23 18:01 21:55 23:59 Temperature 98.2 F 98.4 F 98.0 F Pulse Rate 87 82 88 Respiratory 17 18 18 Rate Blood Pressure 109/69 112/79 110/74 O2 Sat by Pulse 96 98 99 Oximetry Medical Decision Making - Medical Decision Making I preformed the quick note portion of this chart. Electronically signed by Nuha Craft PA-C Was pt. sent in by a medical professional or institution (ANNALISE Hernandez, SHIPYARD SUPERVISOR, urgent care, hospital, or [facility]...) When possible be specific @ -No Did you speak to anyone other than the patient for history (EMS, parent, family, police, friend...)? What history was obtained from this source @ -No Did you review nursing and triage notes (agree or disagree)? Why? @ -I reviewed and agree with nursing and triage notes Were old charts reviewed (outside hosp., previous admission, EMS record, old EKG, old radiological studies, urgent care reports/EKG's, [facility] records)? Report findings @ -No old charts were reviewed Differential Diagnosis (chest pain, altered mental status, abdominal pain women, abdominal pain men, vaginal bleeding, weakness, fever, dyspnea, syncope, headache, dizziness, GI bleed, back pain, seizure, CVA, palpatations, mental health, musculoskeletal)? @ -Cellulitis, abscess, chronic wound, this list is not all inclusive EKG interpreted by me (3pts min.). @ -none X-rays interpreted by me (1pt min.). @ -None done CT interpreted by me (1pt min.). @ -None done U/S interpreted by me (1pt. min.). @ -None done What testing was considered but not performed or refused? (CT, X-rays, U/S, labs)? Why? @ -None What meds were considered but not given or refused? Why? @ -None Did you discuss the management of the patient with other professionals (professionals i.e. , PA, SHIPYARD SUPERVISOR, lab, RT, psych nurse, professor of social work, machine rigger, teacher, electronic intelligence officer, telephonic nurse case manager)? Give summary @ -No Was smoking cessation discussed for >3mins.? @ -No Was critical care preformed (if so, how long)? @ -No Were there social determinants of health that impacted care today? How? (Homelessness, low income, unemployed, alcoholism, drug addiction, transportation, low edu. Level, literacy, decrease access to med. care, longterm, rehab)? @ -No Was there de-escalation of care discussed even if they declined (Discuss DNR or withdrawal of care, Hospice)? DNR status @ -No What co-morbidities impacted this encounter? (DM, HTN, Smoking, COPD, CAD, Cancer, CVA, ARF, Chemo, Hep., AIDS, mental health diagnosis, sleep apnea, morbid obesity)? @ -None Was patient admitted / discharged? Hospital course, mention meds given and r oute, prescriptions, significant lab abnormalities, going to OR and other pertinent info. @ -discharged. Patient presented to the emergency department for chief complaint of chronic buttock wound with drainage. He states that he follows with. He has not been on any antibiotics recently for this. Laboratory studies obtained which showed WBC 11.9, otherwise unremarkable. Patient will be started on Keflex for this. Advised to follow up with his wound care provider. Patient stable at time of discharge. Case discussed with Dr. Becerra Undiagnosed new problem with uncertain prognosis? @ -No Drug Therapy requiring intensive monitoring for toxicity (Heparin, Nitro, Insulin, Cardizem)? @ -No Were any procedures done? @ -No Diagnosis/symptom? @ -chronic wound Acute, or Chronic, or Acute on Chronic? @ -acute Uncomplicated (without systemic symptoms) or Complicated (systemic symptoms)? @ -uncomplicated Side effects of treatment? @ -No Exacerbation, Progression, or Severe Exacerbation? @ -No Poses a threat to life or bodily function? How? (Chest pain, [place], [place], pneumonia, PE, COPD, DKA, ARF, appy, cholecystitis, CVA, Diverticulitis, Homicidal, Suici robbin, threat to staff... and all critical care pts) @ -No - Lab Data Result diagrams: 09/05/23 20:52 09/05/23 20:52 Lab Results 09/05/23 09/05/23 09/05/23 Range/Units 20:52 20:52 20:52 WBC 11.9 H (3.8-10.6) k/uL RBC 4.34 (4.30-5.90) m/uL Hgb 14.2 (13.0-17.5) gm/dL Hct 42.5 (39.0-53.0) % MCV 98.0 (80.0-100.0) fL MCH 32.7 (25.0-35.0) pg MCHC 33.3 (31.0-37.0) g/dL RDW 13.8 (11.5-15.5) % Plt Count 419 (150-450) k/uL MPV 7.1 Neutrophils % 67 % Lymphocytes % 20 % Monocytes % 5 % Eosinophils % 4 % Basophils % 1 % Neutrophils # 8.0 H (1.3-7.7) k/uL Lymphocytes # 2.3 (1.0-4.8) k/uL Monocytes # 0.6 (0-1.0) k/uL Eosinophils # 0.5 (0-0.7) k/uL Basophils # 0.1 (0-0.2) k/uL Sodium 139 (137-145) mmol/L Potassium 3.9 (3.5-5.1) mmol/L Chloride 103 (98-107) mmol/L Carbon Dioxide 24 (22-30) mmol/L Anion Gap 12 mmol/L BUN 14 (9-20) mg/dL Creatinine 0.83 (0.66-1.25) mg/dL Est GFR (CKD-EPI)AfAm >90 (>60 ml/min/1.73 sqM) Est GFR (CKD-EPI)NonAf >90 (>60 ml/min/1.73 sqM) Glucose 87 (74-99) mg/dL Plasma Lactic Acid Shimon 0.9 (0.7-2.0) mmol/L Calcium 9.4 (8.4-10.2) mg/dL Total Bilirubin 0.3 (0.2-1.3) mg/dL AST 23 (17-59) U/L ALT 26 (4-49) U/L Alkaline Phosphatase 89 (38-126) U/L Total Protein 7.6 (6.3-8.2) g/dL Albumin 4.3 (3.5-5.0) g/dL Disposition Clinical Impression: Chronic wound Disposition: HOME SELF-CARE Condition: Stable Prescriptions: Cephalexin [Keflex] 500 mg PO Q6HR #28 cap Is patient prescribed a controlled substance at d/c from ED?: No Referrals: None,Stated [Primary Care Provider] - 1-2 days
[2023-09-05 21:12] LABS: Basophils # (A) 0.1 k/uL (0-0.2); Basophils % (A) 1 %; Eosinophils # (A) 0.5 k/uL (0-0.7); Eosinophils % (A) 4 %; HCT 42.5 % (39.0-53.0); HGB 14.2 gm/dL (13.0-17.5); Lymphocytes # (A) 2.3 k/uL (1.0-4.8); Lymphocytes % (A) 20 %; MCH 32.7 pg (25.0-35.0); MCHC 33.3 g/dL (31.0-37.0); Mean Platelet Volume 7.1; Monocytes # (A) 0.6 k/uL (0-1.0); Monocytes % (A) 5 %; Neutrophils % (A) 67 %; Platelet Count 419 k/uL (150-450); RBC 4.34 m/uL (4.30-5.90); RDW 13.8 % (11.5-15.5); WBC 11.9 k/uL (3.8-10.6)
[2023-09-05] MEDS ORDERED: KETOROLAC 15 MG/ML 1 ML VIAL IVP STA (21:19)
[2023-09-05 21:25] LABS: ALT 26 U/L (4-49); AST 23 U/L (17-59); African American GFR (CKD) >90 (>60 ml/min/1.73 sqM); Albumin 4.3 g/dL (3.5-5.0); Alkaline Phosphatase 89 U/L (38-126); Anion Gap 12 mmol/L; Blood Urea Nitrogen 14 mg/dL (9-20); Calcium 9.4 mg/dL (8.4-10.2); Carbon Dioxide 24 mmol/L (22-30); Chloride 103 mmol/L (98-107); Glucose 87 mg/dL (74-99); Non-African American GFR(CKD) >90 (>60 ml/min/1.73 sqM); Potassium 3.9 mmol/L (3.5-5.1); Sodium 139 mmol/L (137-145); Total Bilirubin 0.3 mg/dL (0.2-1.3); Total Protein 7.6 g/dL (6.3-8.2)
[2023-09-05 22:26] VITALS: RESP 18
[2023-09-05] MEDS ORDERED: MORPHINE SULFATE 4 MG/ML SYRINGE IVP STA (23:20)
[2023-09-05] MEDS ORDERED: CEPHALEXIN 500 MG CAP PO STA (23:20)
[2023-09-06 00:16] VITALS: BP 110/74; PULSE 88; TEMP 98
== END 2023-09-06 00:01 | disposition home or self-care (01) ==
LOC: EC 17:42
DX: S31.819A Unspecified open wound of right buttock, initial encounter (principal); B95.61 Methicillin susceptible Staphylococcus aureus infection as the cause of diseases classified elsewhere; J45.909 Unspecified asthma, uncomplicated; F17.200 Nicotine dependence, unspecified, uncomplicated; Z86.59 Personal history of other mental and behavioral disorders; X58.XXXA Exposure to other specified factors, initial encounter
CPT/HCPCS: 36415; 80053; 83605; 85025; 87070; 87205; 99283; 96374; 96375; J2270; J1885

== ENCOUNTER 2023-09-06 12:10 | Emergency (ER) | payer OTHER ==
--- NOTE | 2023-09-06 12:24 | ED ---
Psych HPI - General Source: patient, RN notes reviewed <Filomena Rojas - Last Filed: 09/06/23 12:24> <Ruben Mendez - Last Filed: 09/06/23 18:07> - General Stated Complaint: mental health Time Seen by Provider: 09/06/23 12:22 - History of Present Illness Initial Comments: patient is a 48-year-old male presented ER with chief complaint of suicidal ideation. Patient denies plan. He denies any drug or alcohol use today. Patient states he is homeless and has a wound on his bottom. (Filomena Rojas) - Related Data Previous Rx's Medication Instructions Recorded ARIPiprazole [Abilify] 10 mg PO DAILY 15 Days #15 tab 06/03/23 Amoxic-Pot Clav 875-125Mg 1 tab PO Q12HR 1 Days #2 tab 06/03/23 [Augmentin 875-125] FLUoxetine HCL [PROzac] 40 mg PO DAILY 15 Days #30 cap 06/03/23 Ibuprofen [Motrin] 400 mg PO Q8HR PRN #20 tab 06/03/23 predniSONE [Deltasone] 40 mg PO DAILY #2 tab 06/03/23 Hydrocolloid Dressing [Duoderm] 1 applicate TOPICAL DAILY #10 each 06/28/23 Cephalexin [Keflex] 500 mg PO Q6HR #28 cap 09/05/23 Allergies Allergy/AdvReac Type Severity Reaction Status Date / Time No Known Allergies Allergy Verified 09/06/23 12:46 Review of Systems ROS Other: All systems not noted in ROS Statement are negative. <Filomena Rojas - Last Filed: 09/06/23 12:24> ROS Other: All systems not noted in ROS Statement are negative. <Ruben Mendez - Last Filed: 09/06/23 18:07> ROS Statement: Those systems with pertinent positive or pertinent negative responses have been documented in the HPI. Past Medical History Past Medical History: Asthma Additional Past Medical History / Comment(s): back pain, spinal and sacral fractures, chronic foot and shoulder pain History of Any Multi-Drug Resistant Organisms: None Reported Past Surgical History: Back Surgery, Orthopedic Surgery Additional Past Surgical History / Comment(s): pins and plates in feet Past Psychological History: Anxiety, Bipolar, Depression Smoking Status: Current every day smoker Past Alcohol Use History: None Reported Past Drug Use History: None Reported - Past Family History Mother Family Medical History: CVA/TIA <Filomena Rojas - Last Filed: 09/06/23 12:24> General Exam <Filomena Rojas - Last Filed: 09/06/23 12:24> General appearance: alert, in no apparent distress Head exam: Present: atraumatic, normocephalic Eye exam: Present: normal appearance, PERRL ENT exam: Present: normal exam Neck exam: Present: normal inspection Respiratory exam: Present: wheezes. Absent: respiratory distress Cardiovascular Exam: Present: regular rate, normal rhythm GI/Abdominal exam: Present: soft. Absent: distended, tenderness, guarding Neurological exam: Present: alert, oriented X3, CN II-XII intact. Absent: motor sensory deficit Psychiatric exam: Present: suicidal ideation Skin exam: Present: warm, dry <Ruben Mendez - Last Filed: 09/06/23 18:07> - General Exam Comments Initial Comments: Visual Physical Exam Vital signs reviewed General: Well-appearing, nontoxic, no acute distress. Head: Normocephalic, atraumatic Eyes: PERRLA, EOMI ENT: Airway patent Chest: Nonlabored breathing Skin: No visual rash, normal skin tone Neuro: Alert and oriented 3 Musculoskeletal: No gross abnormalities (Filomena Rojas) Course <Ruben Mendez - Last Filed: 09/06/23 18:07> Vital Signs 09/06/23 12:43 Temperature 98.2 F Pulse Rate 102 H Respiratory 18 Rate Blood Pressure 124/83 O2 Sat by Pulse 98 Oximetry - Reevaluation(s) Reevaluation #1: 09/06/23 18:05 Clear for EPS (Ruben Mendez) Medical Decision Making <Filomena Rojas - Last Filed: 09/06/23 12:24> <Ruben Mendez - Last Filed: 09/06/23 18:07> - Medical Decision Making I performed the quick note portion of the exam. Electronically signed by Filomena Rojas PA-C (Filomena Rojas) Was pt. sent in by a medical professional or institution (ANNALISE Hernandez, LAP GR[employer]ER, urgent care, hospital, or jail...) When possible be specific @ -No Did you speak to anyone other than the patient for history (EMS, parent, family, police, friend...)? What history was obtained from this source @ -No Did you review nursing and triage notes (agree or disagree)? Why? @ -I reviewed and agree with nursing and triage notes Were old charts reviewed (outside hosp., previous admission, EMS record, old EKG, old radiological studies, urgent care reports/EKG's, jail records)? Report findings @ -No old charts were reviewed Differential Diagnosis (chest pain, altered mental status, abdominal pain women, abdominal pain men, vaginal bleeding, weakness, fever, dyspnea, syncope, headache, dizziness, GI bleed, back pain, seizure, CVA, palpatations, mental health, musculoskeletal)? @ -[Differential Mental Health Depression, anxiety, bipolar, psychosis, schizophrenia, borderline personality, situational depression, adjustment disorder, behavioral disorder, brain tumor, malingering, substance abuse, encephalopathy, medication reaction, dementia, hypothyroidism, degenerative neurologic disorder, lupus.... This is not meant to be all-inclusive list EKG interpreted by me (3pts min.). @ -As above X-rays interpreted by me (1pt min.). @ -None done CT interpreted by me (1pt min.). @ -None done U/S interpreted by me (1pt. min.). @ -None done What testing was considered but not performed or refused? (CT, X-rays, U/S, labs)? Why? @ -None What meds were considered but not given or refused? Why? @ -None Did you discuss the management of the patient with other professionals (professionals i.e. , PA, [employer] GR[employer]ER, lab, RT, psych nurse, director of social services, senior manager mergers & acquisitions, teacher, branch officer, welfare case worker)? Give summary @ -Discussed with the EPS nurse, patient stable for discharge. Was smoking cessation discussed for >3mins.? @ -No Was critical care preformed (if so, how long)? @ -No Were there social determinants of health that impacted care today? How? (Homelessness, low income, unemployed, alcoholism, drug addiction, transportation, low edu. Level, literacy, decrease access to med. care, correction, rehab)? @ -No Was there de-escalation of care discussed even if they declined (Discuss DNR or withdrawal of care, Hospice)? DNR status @ -No What co-morbidities impacted this encounter? (DM, HTN, Smoking, COPD, CAD, Canc er, CVA, ARF, Chemo, Hep., AIDS, mental health diagnosis, sleep apnea, morbid obesity)? @ -Depression, homelessness Was patient admitted / discharged? Hospital course, mention meds given and route, prescriptions, significant lab abnormalities, going to OR and other pertinent info. @ -[Discharge with outpatient resources Undiagnosed new problem with uncertain prognosis? @ -No Drug Therapy requiring intensive monitoring for toxicity (Heparin, Nitro, Insulin, Cardizem)? @ -No Were any procedures done? @ -No Diagnosis/symptom? @ -Depression Acute, or Chronic, or Acute on Chronic? @ -[Chronic Uncomplicated (without systemic symptoms) or Complicated (systemic symptoms)? @ -default Side effects of treatment? @ -No Exacerbation, Progression, or Severe Exacerbation? @ -No Poses a threat to life or bodily function? How? (Chest pain, [place], [place], pneumonia, PE, COPD, DKA, ARF, appy, cholecystitis, CVA, Diverticulitis, Homicidal, Suicidal, threat to staff... and all critical care pts) @ -[Low risk at this time (Ruben Mendez) - Lab Data Lab Results 09/06/23 Range/Units 13:51 Urine Color Colorless Urine Appearance Clear (Clear) Urine pH 6.5 (5.0-8.0) Ur Specific [place] 1.009 (1.001-1.035) Urine Protein Negative (Negative) Urine Glucose (UA) Negative (Negative) Urine Ketones 1+ H (Negative) Urine Blood Negative (Negative) Urine Nitrite Negative (Negative) Urine Bilirubin Negative (Negative) Urine Urobilinogen <2.0 (<2.0) mg/dL Ur Leukocyte Esterase Negative (Negative) Urine Opiates Screen Detected H (NotDetected) Ur Oxycodone Screen Not Detected (NotDetected) Urine Methadone Screen Not Detected (NotDetected) Ur Propoxyphene Screen Not Detected (NotDetected) Ur Barbiturates Screen Not Detected (NotDetected) U Tricyclic Antidepress Not Detected (NotDetected) Ur Phencyclidine Scrn Not Detected (NotDetected) Ur Amphetamines Screen Not Detected (NotDetected) U Methamphetamines Scrn Not Detected (NotDetected) U Benzodiazepines Scrn Not Detected (NotDetected) Urine Cocaine Screen Not Detected (NotDetected) U Marijuana (THC) Screen Detected H (NotDetected) Disposition <Filomena Rojas - Last Filed: 09/06/23 12:24> Is patient prescribed a controlled substance at d/c from ED?: No <Ruben Mendez - Last Filed: 09/06/23 18:07> Clinical Impression: Depression Disposition: HOME SELF-CARE Condition: Fair Instructions (If sedation given, give patient instructions): Depression (ED) Additional Instructions: Please follow up with community mental health Referrals: None,Stated [Primary Care Provider] - 1-2 days Theo Nielsen MD [REFERRING] - 1-2 days
[2023-09-06 14:03] LABS: Appearance,Urine Clear (Clear); Bilirubin,Urine Negative (Negative); Blood,Urine Negative (Negative); Color,Urine Colorless; Glucose,Urine (UA) Negative (Negative); Ketones,Urine 1+ (Negative); Leukocyte Esterase,Urine Negative (Negative); Nitrite,Urine Negative (Negative); PH, Urine 6.5 (5.0-8.0); Protein,Urine Negative (Negative); Specific Gravity,Urine 1.009 (1.001-1.035); Urobilinogen,Urine <2.0 mg/dL (<2.0)
[2023-09-06 14:22] LABS: Amphetamine Screen,Urine Not Detected (NotDetected); Cocaine Screen,Urine Not Detected (NotDetected); Opiate Screen,Urine Detected (NotDetected); Phencyclidine Screen,Urine Not Detected (NotDetected); Urn Cannabinoid Scrn Detected (NotDetected)
[2023-09-06 14:23] LABS: Barbiturate Screen,Urine Not Detected (NotDetected); Benzodiazepines Screen,Urine Not Detected (NotDetected); Methadone Screen, Urine Not Detected (NotDetected); Oxycodone Screen, Urine Not Detected (NotDetected); Tricyclic Antidepressant,Urine Not Detected (NotDetected)
[2023-09-06] MEDS ORDERED: KETOROLAC 15 MG/ML 1 ML VIAL IM STA (18:03)
[2023-09-06 18:44] VITALS: BP 122/80; PULSE 98; RESP 20; TEMP 98
== END 2023-09-06 18:45 | disposition home or self-care (01) ==
LOC: EC 12:10
DX: F32.A Depression, unspecified (principal); J45.909 Unspecified asthma, uncomplicated; F17.200 Nicotine dependence, unspecified, uncomplicated; Z59.00 Homelessness unspecified
CPT/HCPCS: 82075; 81003; 80306; 99285; 96372; J1885

== ENCOUNTER 2023-09-06 21:01 | Emergency (ER) | payer OTHER ==
[2023-09-06 21:15] VITALS: RESP 18; TEMP 98.4
--- NOTE | 2023-09-06 22:33 | ED ---
Back Pain HPI - General Chief Complaint: Back Pain/Injury Stated Complaint: Lower Back pain, feet pain Time Seen by Provider: 09/06/23 21:51 Source: patient Limitations: no limitations - History of Present Illness Initial Comments: 48-year-old male presenting to the ED with a chief complaint of pain. Patient notes chronic pain of his buttock, lower back. Patient seen earlier and was provided a shot of Toradol. However, patient states he is homeless. Since walking around outside reports Toradol has not provided him relief and now has pain of his bilateral feet. Also notes Toradol did not provide much relief of his chronic buttock and back pain prompting presentation to the ED for further evaluation. No incontinence or saddle anesthesia. No recent injury or trauma. No chest pain shortness of breath. No other complaints. - Related Data Previous Rx's Medication Instructions Recorded ARIPiprazole [Abilify] 10 mg PO DAILY 15 Days #15 tab 06/03/23 Amoxic-Pot Clav 875-125Mg 1 tab PO Q12HR 1 Days #2 tab 06/03/23 [Augmentin 875-125] FLUoxetine HCL [PROzac] 40 mg PO DAILY 15 Days #30 cap 06/03/23 Ibuprofen [Motrin] 400 mg PO Q8HR PRN #20 tab 06/03/23 predniSONE [Deltasone] 40 mg PO DAILY #2 tab 06/03/23 Hydrocolloid Dressing [Duoderm] 1 applicate TOPICAL DAILY #10 each 06/28/23 Cephalexin [Keflex] 500 mg PO Q6HR #28 cap 09/05/23 Allergies Allergy/AdvReac Type Severity Reaction Status Date / Time No Known Allergies Allergy Verified 09/06/23 12:46 Review of Systems ROS Statement: Those systems with pertinent positive or pertinent negative responses have been documented in the HPI. ROS Other: All systems not noted in ROS Statement are negative. Past Medical History Past Medical History: Asthma Additional Past Medical History / Comment(s): back pain, spinal and sacral fractures, chronic foot and shoulder pain History of Any Multi-Drug Resistant Organisms: None Reported Past Surgical History: Back Surgery, Orthopedic Surgery Additional Past Surgical History / Comment(s): pins and plates in feet Past Psychological History: Anxiety, Bipolar, Depression Smoking Status: Current every day smoker Past Alcohol Use History: None Reported Past Drug Use History: None Reported - Past Family History Mother Family Medical History: CVA/TIA General Exam Limitations: no limitations General appearance: alert, in no apparent distress Eye exam: Present: normal appearance Neck exam: Present: normal inspection Respiratory exam: Present: normal lung sounds bilaterally Cardiovascular Exam: Present: regular rate, normal rhythm GI/Abdominal exam: Present: soft Extremities exam: Present: other (Strength And sensation equal and intact in bilateral upper and lower extremity is.) Neurological exam: Present: alert, oriented X3 Skin exam: Present: warm, dry Course Vital Signs 09/06/23 21:11 Temperature 98.4 F Pulse Rate 100 Respiratory 18 Rate Blood Pressure 119/76 O2 Sat by Pulse 98 Oximetry Medical Decision Making - Medical Decision Making Was pt. sent in by a medical professional or institution (, PA, HEAT TREATING OPERATOR, urgent care, hospital, or longterm...) When possible be specific @ -No Did you speak to anyone other than the patient for history (EMS, parent, family, police, friend...)? What history was obtained from this source @ -No Did you review nursing and triage notes (agree or disagree)? Why? @ -I reviewed and agree with nursing and triage notes Were old charts reviewed (outside hosp., previous admission, EMS record, old EKG, old radiological studies, urgent care reports/EKG's, longterm records)? Report findings @ -No old charts were reviewed Differential Diagnosis (chest pain, altered mental status, abdominal pain women, abdominal pain men, vaginal bleeding, weakness, fever, dyspnea, syncope, headache, dizziness, GI bleed, back pain, seizure, CVA, palpatations, mental health, musculoskeletal)? @ -Differential Musculoskeletal Muscular strain, contusion, ligament sprain, fracture, arthritis, septic arthrit is, bursitis, cellulitis, muscle spasm, nerve compression, DVT, arterial occlusion, herpes zoster, electrolyte abnormality, tumor.... This is not meant to be in all inclusive list EKG interpreted by me (3pts min.). @ -As above X-rays interpreted by me (1pt min.). @ -None done CT interpreted by me (1pt min.). @ -None done U/S interpreted by me (1pt. min.). @ -None done What testing was considered but not performed or refused? (CT, X-rays, U/S, labs)? Why? @ -None What meds were considered but not given or refused? Why? @ -None Did you discuss the management of the patient with other professionals (professionals i.e. , PA, HEAT TREATING OPERATOR, lab, RT, psych nurse, licensed social worker, uat tester, teacher, officer lieutenant, pillowcase cleaner)? Give summary @ -No Was smoking cessation discussed for >3mins.? @ -No Was critical care preformed (if so, how long)? @ -No Were there social determinants of health that impacted care today? How? (Homelessness, low income, unemployed, alcoholism, drug addiction, transportation, low edu. Level, literacy, decrease access to med. care, [facility], rehab)? @ -No Was there de-escalation of care discussed even if they declined (Discuss DNR or withdrawal of care, Hospice)? DNR status @ -No What co-morbidities impacted this encounter? (DM, HTN, Smoking, COPD, CAD, Cancer, CVA, ARF, Chemo, Hep., AIDS, mental health diagnosis, sleep apnea, morbid obesity)? @ -None Was patient admitted / discharged? Hospital course, mention meds given and route, prescriptions, significant lab abnormalities, going to OR and other pertinent info. @ -Discharge 48-year-old male presented to the ED with complaints of chronic pain. Patient seen earlier and was provided Toradol. Patient reports no relief with Toradol prompted presentation to the ED for further evaluation. Denies any new symptoms. Patient provided starter pack of Tylenol 3's. Discharged home in stable condition. Discussed return precautions with patient verbalizes agreement. Undiagnosed new problem with uncertain prognosis? @ -No Drug Therapy requiring intensive monitoring for toxicity (Heparin, Nitro, Insulin, Cardizem)? @ -No Were any procedures done? @ -No Diagnosis/symptom? @ -Chronic pain Acute, or Chronic, or Acute on Chronic? @ -Acute On chronic Uncomplicated (without systemic symptoms) or Complicated (systemic symptoms)? @ -Uncomplicated Side effects of treatment? @ -No Exacerbation, Progression, or Severe Exacerbation? @ -No Poses a threat to life or bodily function? How? (Chest pain, [place], [place], pneumonia, PE, COPD, DKA, ARF, appy, cholecystitis, CVA, Diverticulitis, Homicidal, Suicidal, threat to staff... and all critical care pts) @ -No Disposition Clinical Impression: Chronic pain Disposition: HOME SELF-CARE Condition: Good Additional Instructions: Please return to the Emergency Department if symptoms worsen or any other conc erns. Is patient prescribed a controlled substance at d/c from ED?: No Referrals: None,Stated [Primary Care Provider] - 1-2 days Time of Disposition: 22:38
[2023-09-06] MEDS ORDERED: ACET/COD 300 MG/30 MG STARTER PACK 6 TAB BTL PO STA (22:38)
[2023-09-06 23:01] VITALS: BP 126/71; PULSE 57
== END 2023-09-06 22:57 | disposition home or self-care (01) ==
LOC: EC 21:01
DX: G89.29 Other chronic pain (principal); M54.50 Low back pain, unspecified; F17.200 Nicotine dependence, unspecified, uncomplicated; J45.909 Unspecified asthma, uncomplicated; Z86.59 Personal history of other mental and behavioral disorders; Z59.00 Homelessness unspecified
CPT/HCPCS: 99283

== ENCOUNTER 2023-09-25 08:41 | Emergency (ER) | payer OTHER ==
[2023-09-25 09:13] VITALS: BP 112/69; PULSE 93; RESP 18; TEMP 97.8
--- NOTE | 2023-09-25 10:14 | ED ---
General Adult HPI - General Source: patient Mode of arrival: ambulatory Limitations: no limitations <Kathie Rodriguez - Last Filed: 09/25/23 10:10> - General Source: RN notes reviewed, old records reviewed <Josh Turner - Last Filed: 09/25/23 12:47> - General Chief complaint: Wound/Laceration Stated complaint: feet/head/lumbar pain open wound on right buttock Time Seen by Provider: 09/25/23 12:00 - History of Present Illness Initial comments: Quick Note: The patient complains of an open wound on his buttocks for the last 8 years. Is requesting to have the wound closed. Patient also states he has Covid. Refusing to see anyone but a physician. (Kathie Rodriguez) This is a 48-year-old male who presents emergency Department complaining about a chronic 8-year-old wound on his right buttocks. Patient was swearing at staff prior to my arrival. Patient was demanding pain medicine and wanting to be admitted and stated that he wanted his wound sewn up immediately. When I informed him that I would not be slowing up this morning and that he needed to get a primary medical care doctor he states he's been trying to but they're 6-8 weeks out for an appointment but he states he has not had primary doctor for the last 8 years either even always been told to get one multiple times. Patient then reexamined his requests and just asked for some pain meds at which point I refused to give him any narcotics and then he asked for Motrin and stated he would follow-up with a primary medical care doctor. (Josh uTrner) - Related Data Previous Rx's Medication Instructions Recorded ARIPiprazole [Abilify] 10 mg PO DAILY 15 Days #15 tab 06/03/23 Amoxic-Pot Clav 875-125Mg 1 tab PO Q12HR 1 Days #2 tab 06/03/23 [Augmentin 875-125] FLUoxetine HCL [PROzac] 40 mg PO DAILY 15 Days #30 cap 06/03/23 Ibuprofen [Motrin] 400 mg PO Q8HR PRN #20 tab 06/03/23 predniSONE [Deltasone] 40 mg PO DAILY #2 tab 06/03/23 Hydrocolloid Dressing [Duoderm] 1 applicate TOPICAL DAILY #10 each 06/28/23 Cephalexin [Keflex] 500 mg PO Q6HR #28 cap 09/05/23 Ibuprofen [Motrin] 600 mg PO Q6HR PRN #20 tab 09/25/23 Allergies Allergy/AdvReac Type Severity Reaction Status Date / Time No Known Allergies Allergy Verified 09/25/23 09:08 Review of Systems ROS Other: All systems not noted in ROS Statement are negative. <Kathie Rodriguez - Last Filed: 09/25/23 10:10> ROS Other: All systems not noted in ROS Statement are negative. <Josh Turner - Last Filed: 09/25/23 12:47> ROS Statement: Those systems with pertinent positive or pertinent negative responses have been documented in the HPI. Past Medical History Past Medical History: Asthma Additional Past Medical History / Comment(s): back pain, spinal and sacral fractures, chronic foot and shoulder pain History of Any Multi-Drug Resistant Organisms: None Reported Past Surgical History: Back Surgery, Orthopedic Surgery Additional Past Surgical History / Comment(s): pins and plates in feet Past Psychological History: Anxiety, Bipolar, Depression Smoking Status: Current every day smoker Past Alcohol Use History: None Reported Past Drug Use History: None Reported - Past Family History Mother Family Medical History: CVA/TIA <Kathie Rodriguez - Last Filed: 09/25/23 10:10> General Exam Limitations: no limitations <Kathie Rodriguez - Last Filed: 09/25/23 10:10> <Josh Turner - Last Filed: 09/25/23 12:47> - General Exam Comments Initial Comments: Visual Physical Exam Vital signs reviewed General: Well-appearing, nontoxic, no acute distress. Head: Normocephalic, atraumatic Eyes: PERRLA, EOMI ENT: Airway patent Chest: Nonlabored breathing Skin: No visual rash, normal skin tone Neuro: Alert and oriented 3 Musculoskeletal: No gross abnormalities (Kathie Rodriguez) GENERAL Patient is well-developed and well-nourished. Patient is in mild distress. EYES Patient's pupils are equal and round. Extraocular motion is intact SKIN Unremarkable NEURO The patient is alert and oriented 3 PYSCH Patient has normal interpersonal interactions. MUSCULOSKELETAL Patient has an open wound on his right buttocks. Wound is not erythematous and is not warm. There is no drainage that appears infected. It is very clear translucent drainage (Josh Turner) Course Vital Signs 09/25/23 09:04 Temperature 97.8 F Pulse Rate 93 Respiratory 18 Rate Blood Pressure 112/69 O2 Sat by Pulse 96 Oximetry Medical Decision Making <Kathie Rodriguez - Last Filed: 09/25/23 10:10> <Josh Turner - Last Filed: 09/25/23 12:47> - Medical Decision Making Quick note portion completed by myself, electronically signed Kathie Rodriguez PAC. (Kathie Rodriguez) Was pt. sent in by a medical professional or institution (, [facility], [facility], urgent care, hospital, or [place] [facility]...) When possible be specific @ -No Did you speak to anyone other than the patient for history (EMS, parent, family, police, friend...)? What history was obtained from this source @ -No Did you review nursing and triage notes (agree or disagree)? Why? @ -I reviewed and agree with nursing and triage notes Were old charts reviewed (outside hosp., previous admission, EMS record, old EKG, old radiological studies, urgent care reports/EKG's, [place] [facility] records)? Report findings @ -I reviewed prior charts apart elaborate on this patient Differential Diagnosis (chest pain, altered mental status, abdominal pain women, abdominal pain men, vaginal bleeding, weakness, fever, dyspnea, syncope, headache, dizziness, GI bleed, back pain, seizure, CVA, palpatations, mental health, musculoskeletal)? @ -not applicable EKG interpreted by me (3pts min.). @ -As above X-rays interpreted by me (1pt min.). @ -None done CT interpreted by me (1pt min.). @ -None done U/S interpreted by me (1pt. min.). @ -None done What testing was considered but not performed or refused? (CT, X-rays, U/S, labs)? Why? @ -None What meds were considered but not given or refused? Why? @ -None Did you discuss the management of the patient with other professionals (professionals i.e. , ANNALISE, MERCHANDISE SHOPPER, lab, RT, psych nurse, social worker health services, toy electric train repairer, teacher, business liaison officer, rn case mgr)? Give summary @ -No Was smoking cessation discussed for >3mins.? @ -No Was critical care preformed (if so, how long)? @ -No Were there social determinants of health that impacted care today? How? (Homelessness, low income, unemployed, alcoholism, drug addiction, transportation, low edu. Level, literacy, decrease access to med. care, assisted, rehab)? @ -No Was there de-escalation of care discussed even if they declined (Discuss DNR or withdrawal of care, Hospice)? DNR status @ -No What co-morbidities impacted this encounter? (DM, HTN, Smoking, COPD, CAD, Cancer, CVA, ARF, Chemo, Hep., AIDS, mental health diagnosis, sleep apnea, morbid obesity)? @ -None Was patient admitted / discharged? Hospital course, mention meds given and route, prescriptions, significant lab abnormalities, going to OR and other pert inent info. @ -Patient was making unreasonable demands about wanting to be admitted and having someone so up his wound immediately even though it's been there for 8 years and he has refused or been unwilling to get a primary medical care doctor to direct his care. Patient agreed as what he needs to do and he will be discharged home with some Motrin for the discomfort and he will try to get a primary medical care doctor Undiagnosed new problem with uncertain prognosis? @ -No Drug Therapy requiring intensive monitoring for toxicity (Heparin, Nitro, Insulin, Cardizem)? @ -No Were any procedures done? @ -No Diagnosis/symptom? @ -Chronic wound Acute, or Chronic, or Acute on Chronic? @ -Chronic Uncomplicated (without systemic symptoms) or Complicated (systemic symptoms)? @ -Uncomplicated Side effects of treatment? @ -No Exacerbation, Progression, or Severe Exacerbation? @ -No Poses a threat to life or bodily function? How? (Chest pain, [place], [place], pneumonia, PE, COPD, DKA, ARF, appy, cholecystitis, CVA, Diverticulitis, Homicidal, Suicidal, threat to staff... and all critical care pts) @ -No (Josh Turner) Disposition <Kathie Rodriguez - Last Filed: 09/25/23 10:10> Is patient prescribed a controlled substance at d/c from ED?: No Time of Disposition: 12:46 <Josh Turner - Last Filed: 09/25/23 12:47> Clinical Impression: Chronic wound Disposition: HOME SELF-CARE Condition: Good Prescriptions: Ibuprofen [Motrin] 600 mg PO Q6HR PRN #20 tab PRN Reason: For pain Referrals: None,Stated [Primary Care Provider] - 1-2 days
== END 2023-09-25 13:26 | disposition home or self-care (01) ==
LOC: EC 08:41
DX: U07.1 COVID-19 (principal); S31.819A Unspecified open wound of right buttock, initial encounter; J45.909 Unspecified asthma, uncomplicated; Z86.59 Personal history of other mental and behavioral disorders; F17.200 Nicotine dependence, unspecified, uncomplicated; X58.XXXA Exposure to other specified factors, initial encounter
CPT/HCPCS: 99283

== ENCOUNTER 2023-10-08 09:27 | Emergency (ER) | payer OTHER ==
--- NOTE | 2023-10-08 09:30 | ED ---
General Adult HPI - General Stated complaint: Feet pain Time Seen by Provider: 10/08/23 09:28 Source: patient, RN notes reviewed Mode of arrival: ambulatory Limitations: no limitations - History of Present Illness Initial comments: 48-year-old male presents emergency Department chief complaint of pain. Patient had multiple visits for similar complaints. Patient has had no new injuries. He complains of bilateral foot pain and buttocks pain from chronic wound. Patient states he needs narcotic past for this. - Related Data Previous Rx's Medication Instructions Recorded ARIPiprazole [Abilify] 10 mg PO DAILY 15 Days #15 tab 06/03/23 Amoxic-Pot Clav 875-125Mg 1 tab PO Q12HR 1 Days #2 tab 06/03/23 [Augmentin 875-125] FLUoxetine HCL [PROzac] 40 mg PO DAILY 15 Days #30 cap 06/03/23 Ibuprofen [Motrin] 400 mg PO Q8HR PRN #20 tab 06/03/23 predniSONE [Deltasone] 40 mg PO DAILY #2 tab 06/03/23 Hydrocolloid Dressing [Duoderm] 1 applicate TOPICAL DAILY #10 each 06/28/23 Cephalexin [Keflex] 500 mg PO Q6HR #28 cap 09/05/23 Ibuprofen [Motrin] 600 mg PO Q6HR PRN #20 tab 09/25/23 Naproxen [EC-Naproxen] 500 mg PO BID #30 tab 10/08/23 Allergies Allergy/AdvReac Type Severity Reaction Status Date / Time No Known Allergies Allergy Verified 10/08/23 10:17 Review of Systems ROS Statement: Those systems with pertinent positive or pertinent negative responses have been documented in the HPI. ROS Other: All systems not noted in ROS Statement are negative. Past Medical History Past Medical History: Asthma Additional Past Medical History / Comment(s): back pain, spinal and sacral fractures, chronic foot and shoulder pain History of Any Multi-Drug Resistant Organisms: None Reported Past Surgical History: Back Surgery, Orthopedic Surgery Additional Past Surgical History / Comment(s): pins and plates in feet Past Psychological History: Anxiety, Bipolar, Depression Smoking Status: Current every day smoker Past Alcohol Use History: None Reported Past Drug Use History: None Reported - Past Family History Mother Family Medical History: CVA/TIA General Exam - General Exam Comments Initial Comments: Visual Physical Exam Vital signs reviewed General: Well-appearing, nontoxic, no acute distress. Head: Normocephalic, atraumatic Eyes: PERRLA, EOMI ENT: Airway patent Chest: Nonlabored breathing Skin: No visual rash, normal skin tone Neuro: Alert and oriented 3 Musculoskeletal: No gross abnormalities Limitations: no limitations General appearance: alert, in no apparent distress Head exam: Present: atraumatic, normocephalic, normal inspection Eye exam: Present: normal appearance, PERRL, EOMI. Absent: scleral icterus, conjunctival injection, periorbital swelling Respiratory exam: Present: normal lung sounds bilaterally. Absent: respiratory distress, wheezes, rales, rhonchi, stridor Cardiovascular Exam: Present: regular rate, normal rhythm, normal heart sounds. Absent: systolic murmur, diastolic murmur, rubs, gallop, clicks Extremities exam: Present: normal inspection, full ROM, normal capillary refill. Absent: tenderness, pedal edema, joint swelling, calf tenderness Course Vital Signs 10/08/23 10:16 Temperature 98 F Pulse Rate 81 Respiratory 18 Rate Blood Pressure 110/71 O2 Sat by Pulse 98 Oximetry Medical Decision Making - Medical Decision Making I completed the quick note portion of this chart signed Joaquin Keller PA-C Was pt. sent in by a medical professional or institution ([facility] Hernandez, [facility], urgent care, hospital, or skilled nursing...) When possible be specific @ -No Did you speak to anyone other than the patient for history (EMS, parent, family, police, friend...)? What history was obtained from this source @ -No Did you review nursing and triage notes (agree or disagree)? Why? @ -I reviewed and agree with nursing and triage notes Were old charts reviewed (outside hosp., previous admission, EMS record, old EKG, old radiological studies, urgent care reports/EKG's, skilled nursing records)? Report findings @ -No old charts were reviewed Differential Diagnosis (chest pain, altered mental status, abdominal pain women, abdominal pain men, vaginal bleeding, weakness, fever, dyspnea, syncope, headache, dizziness, GI bleed, back pain, seizure, CVA, palpatations, mental health, musculoskeletal)? @ -Chronic pain, foot pain, chronic wound EKG interpreted by me (3pts min.). @ -None X-rays interpreted by me (1pt min.). @ -None done CT interpreted by me (1pt min.). @ -None done U/S interpreted by me (1pt. min.). @ -None done What testing was considered but not performed or refused? (CT, X-rays, U/S, labs)? Why? @ -None What meds were considered but not given or refused? Why? @ -None Did you discuss the management of the patient with other professionals (professionals i.e. DrKiki, PA, [facility], lab, RT, psych nurse, social media content specialist, systems test engineer, teacher, complaint investigations officer, onsite case manager)? Give summary @ -No Was smoking cessation discussed for >3mins.? @ -No Was critical care preformed (if so, how long)? @ -No Were there social determinants of health that impacted care today? How? (Homelessness, low income, unemployed, alcoholism, drug addiction, transportation, low edu. Level, literacy, decrease access to med. care, half-way, rehab)? @ -No Was there de-escalation of care discussed even if they declined (Discuss DNR or withdrawal of care, Hospice)? DNR status @ -No What co-morbidities impacted this encounter? (DM, HTN, Smoking, COPD, CAD, Cancer, CVA, ARF, Chemo, Hep., AIDS, mental health diagnosis, sleep apnea, morbid obesity)? @ -Chronic pain Was patient admitted / discharged? Hospital course, mention meds given and route, prescriptions, significant lab abnormalities, going to OR and other pertinent info. @ -Discharge patient has no acute injuries is chronic pain in nature patient is well-known emergency department requesting narcotic pain meds. Patient discharged with naproxen. Undiagnosed new problem with uncertain prognosis? @ -No Drug Therapy requiring intensive monitoring for toxicity (Heparin, Nitro, Insulin, Cardizem)? @ -No Were any procedures done? @ -No Diagnosis/symptom? @ -Chronic pain Acute, or Chronic, or Acute on Chronic? @ -Chronic Uncomplicated (without systemic symptoms) or Complicated (systemic symptoms)? @ -Uncomplicated Side effects of treatment? @ -No Exacerbation, Progression, or Severe Exacerbation? @ -No Poses a threat to life or bodily function? How? (Chest pain, [place], [place], pneumonia, PE, COPD, DKA, ARF, appy, cholecystitis, CVA, Diverticulitis, Homicidal, Suicidal, threat to staff... and all critical care pts) @ -No Disposition Clinical Impression: Chronic pain Disposition: HOME SELF-CARE Condition: Stable Additional Instructions: Please return to the Emergency Department if symptoms worsen or any other concerns. Prescriptions: Naproxen [EC-Naproxen] 500 mg PO BID #30 tab Is patient prescribed a controlled substance at d/c from ED?: No Referrals: None,Stated [Primary Care Provider] - 1-2 days Time of Disposition: 10:20
[2023-10-08 10:36] VITALS: BP 110/71; PULSE 81; RESP 18; TEMP 98
== END 2023-10-08 11:05 | disposition home or self-care (01) ==
LOC: EC 09:27
DX: G89.29 Other chronic pain (principal); M79.672 Pain in left foot; M79.671 Pain in right foot; J45.909 Unspecified asthma, uncomplicated; F17.200 Nicotine dependence, unspecified, uncomplicated; Z86.59 Personal history of other mental and behavioral disorders
CPT/HCPCS: 99283

== ENCOUNTER 2023-10-22 11:24 | Emergency (ER) | payer OTHER ==
[2023-10-22] MEDS ORDERED: KETOROLAC 15 MG/ML 1 ML VIAL IM STA (13:06)
--- NOTE | 2023-10-22 13:06 | ED ---
Lower Extremity Injury HPI - General Chief Complaint: Extremity Injury, Lower Stated Complaint: Right knee pain Time Seen by Provider: 10/22/23 11:30 Source: patient, RN notes reviewed Mode of arrival: EMS Limitations: physical limitation - History of Present Illness Initial Comments: 48-year-old male presents emergency Department chief complaint right knee pain. Patient states that he injured about a week ago but worse today. Patient states started after stepping on some uneven concrete he states he twisted today states he attempted to walk a few blocks and states it was too painful. Patient offers no complaints. - Related Data Previous Rx's Medication Instructions Recorded ARIPiprazole [Abilify] 10 mg PO DAILY 15 Days #15 tab 06/03/23 Amoxic-Pot Clav 875-125Mg 1 tab PO Q12HR 1 Days #2 tab 06/03/23 [Augmentin 875-125] FLUoxetine HCL [PROzac] 40 mg PO DAILY 15 Days #30 cap 06/03/23 Ibuprofen [Motrin] 400 mg PO Q8HR PRN #20 tab 06/03/23 predniSONE [Deltasone] 40 mg PO DAILY #2 tab 06/03/23 Hydrocolloid Dressing [Duoderm] 1 applicate TOPICAL DAILY #10 each 06/28/23 Cephalexin [Keflex] 500 mg PO Q6HR #28 cap 09/05/23 Ibuprofen [Motrin] 600 mg PO Q6HR PRN #20 tab 09/25/23 Naproxen [EC-Naproxen] 500 mg PO BID #30 tab 10/08/23 Allergies Allergy/AdvReac Type Severity Reaction Status Date / Time No Known Allergies Allergy Verified 10/22/23 11:32 Review of Systems ROS Statement: Those systems with pertinent positive or pertinent negative responses have been documented in the HPI. ROS Other: All systems not noted in ROS Statement are negative. Past Medical History Past Medical History: Asthma Additional Past Medical History / Comment(s): back pain, spinal and sacral fractures, chronic foot and shoulder pain History of Any Multi-Drug Resistant Organisms: None Reported Past Surgical History: Back Surgery, Orthopedic Surgery Additional Past Surgical History / Comment(s): pins and plates in feet Past Psychological History: Anxiety, Bipolar, Depression Smoking Status: Current every day smoker Past Alcohol Use History: None Reported Past Drug Use History: None Reported - Past Family History Mother Family Medical History: CVA/TIA General Exam Limitations: no limitations, physical limitation General appearance: alert, in no apparent distress Head exam: Present: atraumatic, normocephalic, normal inspection Eye exam: Present: normal appearance, PERRL, EOMI. Absent: scleral icterus, conjunctival injection, periorbital swelling ENT exam: Present: normal exam, mucous membranes moist Neck exam: Present: normal inspection. Absent: tenderness, meningismus, lymphadenopathy Respiratory exam: Present: normal lung sounds bilaterally. Absent: respiratory distress, wheezes, rales, rhonchi, stridor Cardiovascular Exam: Present: regular rate, normal rhythm, normal heart sounds. Absent: systolic murmur, diastolic murmur, rubs, gallop, clicks Extremities exam: Present: other (Right knee there is minimal swelling, neurovascular intact no laxity negative anterior posterior no pain with valgus or varus) Course Vital Signs 10/22/23 11:29 Temperature 98.4 F Pulse Rate 82 Respiratory 16 Rate Blood Pressure 115/74 O2 Sat by Pulse 99 Oximetry Medical Decision Making - Medical Decision Making Was pt. sent in by a medical professional or institution (, PA, SECURITY RESEARCHER, urgent care, hospital, or skilled nursing...) When possible be specific @ -No Did you speak to anyone other than the patient for history (EMS, parent, family, police, friend...)? What history was obtained from this source @ -No Did you review nursing and triage notes (agree or disagree)? Why? @ -I reviewed and agree with nursing and triage notes Were old charts reviewed (outside hosp., previous admission, EMS record, old EKG, old radiological studies, urgent care reports/EKG's, skilled nursing records)? Report findings @ -No old charts were reviewed Differential Diagnosis (chest pain, altered mental status, abdominal pain women, abdominal pain men, vaginal bleeding, weakness, fever, dyspnea, syncope, headache, dizziness, GI bleed, back pain, seizure, CVA, palpatations, mental health, musculoskeletal)? @ -Knee sprain, ligamentous injury, right fracture EKG interpreted by me (3pts min.). @ -None X-rays interpreted by me (1pt min.). @ -X-ray shows no acute fracture minimal swelling, no osseus abnormality CT interpreted by me (1pt min.). @ -None done U/S interpreted by me (1pt. min.). @ -None done What testing was considered but not performed or refused? (CT, X-rays, U/S, labs)? Why? @ -None What meds were considered but not given or refused? Why? @ -None Did you discuss the management of the patient with other professionals (professionals i.e. , PA, SECURITY RESEARCHER, lab, RT, psych nurse, social worker psychiatric, supervisor dairy sanitation, teacher, home lending officer, immigration case worker)? Give summary @ -No Was smoking cessation discussed for >3mins.? @ -No Was critical care preformed (if so, how long)? @ -No Were there social determinants of health that impacted care today? How? (Homelessness, low income, unemployed, alcoholism, drug addiction, transportation, low edu. Level, literacy, decrease access to med. care, nursing home, rehab)? @ -No Was there de-escalation of care discussed even if they declined (Discuss DNR or withdrawal of care, Hospice)? DNR status @ -No What co-morbidities impacted this encounter? (DM, HTN, Smoking, COPD, CAD, Cancer, CVA, ARF, Chemo, Hep., AIDS, mental health diagnosis, sleep apnea, morbid obesity)? @ -None Was patient admitted / discharged? Hospital course, mention meds given and route, prescriptions, significant lab abnormalities, going to OR and other pertinent info. @ -Discharge patient x-rays are negative patient is right knee sprain will be given Andrea wrap, continue with anti-inflammatories. Undiagnosed new problem with uncertain prognosis? @ -No Drug Therapy requiring intensive monitoring for toxicity (Heparin, Nitro, Insulin, Cardizem)? @ -No Were any procedures done? @ -No Diagnosis/symptom? @ -[Right knee sprain Acute, or Chronic, or Acute on Chronic? @ -Acute Uncomplicated (without systemic symptoms) or Complicated (systemic symptoms)? @ -Uncomplicated Side effects of treatment? @ -No Exacerbation, Progression, or Severe Exacerbation? @ -No Poses a threat to life or bodily function? How? (Chest pain, [place], [place], pneumonia, PE, COPD, DKA, ARF, appy, cholecystitis, CVA, Diverticulitis, Homicidal, Suicidal, threat to staff... and all critical care pts) @ -No Disposition Clinical Impression: Right knee sprain Disposition: HOME SELF-CARE Condition: Stable Instructions (If sedation given, give patient instructions): Knee Sprain (ED) Additional Instructions: Please return to the Emergency Department if symptoms worsen or any other concerns. Is patient prescribed a controlled substance at d/c from ED?: No Referrals: None,Stated [Primary Care Provider] - 1-2 days Time of Disposition: 13:05
--- NOTE | 2023-10-22 13:16 | XR ---
EXAMINATION TYPE: XR knee complete RT DATE OF EXAM: 10/22/2023 12:54 PM CLINICAL INDICATION:Male, 48 years old with history of pain; [facility] COMPARISON: None. TECHNIQUE: XR knee complete RT; examined in Frontal, lateral and oblique projections. FINDINGS: Osseous mineralization appears mildly diminished. No osseous destructive lesion. No acute fracture or dislocation. There is mild tricompartmental osteoarthropathy. Possible small joint effusion. No radi opaque foreign body. IMPRESSION: 1. No acute fracture or dislocation. 2. Mild tricompartment osteoarthropathy. 3. Possible small joint effusion.
[2023-10-22 13:50] VITALS: BP 121/76; PULSE 78; RESP 18; TEMP 98.1
== END 2023-10-22 13:34 | disposition home or self-care (01) ==
LOC: EC 11:24
DX: S83.91XA Sprain of unspecified site of right knee, initial encounter (principal); J45.909 Unspecified asthma, uncomplicated; F17.200 Nicotine dependence, unspecified, uncomplicated; Z86.59 Personal history of other mental and behavioral disorders; W52.XXXA Crushed, pushed or stepped on by crowd or human stampede, initial encounter
CPT/HCPCS: 73562; 99284; 96372; J1885

== ENCOUNTER 2023-10-28 10:04 | Emergency (ER) | payer OTHER ==
[2023-10-28 10:40] VITALS: RESP 20; TEMP 98
--- NOTE | 2023-10-28 10:47 | ED ---
General Adult HPI - General Chief complaint: Extremity Problem,Nontraumatic Stated complaint: Knee pain Time Seen by Provider: 10/28/23 10:28 Source: patient, RN notes reviewed Mode of arrival: ambulatory Limitations: no limitations - History of Present Illness Initial comments: 48-year-old male presents to the emergency department for evaluation of right knee pain. Patient states that he injured his knee about one week ago. He states that he put a knee brace on it but states it does not feel secure enough. He is requesting a different brace. He states that he feels like the knee is rubbing. He denies any new injury, denies redness, swelling. - Related Data Previous Rx's Medication Instructions Recorded ARIPiprazole [Abilify] 10 mg PO DAILY 15 Days #15 tab 06/03/23 Amoxic-Pot Clav 875-125Mg 1 tab PO Q12HR 1 Days #2 tab 06/03/23 [Augmentin 875-125] FLUoxetine HCL [PROzac] 40 mg PO DAILY 15 Days #30 cap 06/03/23 Ibuprofen [Motrin] 400 mg PO Q8HR PRN #20 tab 06/03/23 predniSONE [Deltasone] 40 mg PO DAILY #2 tab 06/03/23 Hydrocolloid Dressing [Duoderm] 1 applicate TOPICAL DAILY #10 each 06/28/23 Cephalexin [Keflex] 500 mg PO Q6HR #28 cap 09/05/23 Ibuprofen [Motrin] 600 mg PO Q6HR PRN #20 tab 09/25/23 Naproxen [EC-Naproxen] 500 mg PO BID #30 tab 10/08/23 Allergies Allergy/AdvReac Type Severity Reaction Status Date / Time No Known Allergies Allergy Verified 10/28/23 10:20 Review of Systems ROS Statement: Those systems with pertinent positive or pertinent negative responses have been documented in the HPI. ROS Other: All systems not noted in ROS Statement are negative. Past Medical History Past Medical History: Asthma Additional Past Medical History / Comment(s): back pain, spinal and sacral f ractures, chronic foot and shoulder pain History of Any Multi-Drug Resistant Organisms: None Reported Past Surgical History: Back Surgery, Orthopedic Surgery Additional Past Surgical History / Comment(s): pins and plates in feet Past Psychological History: Anxiety, Bipolar, Depression Smoking Status: Current every day smoker Past Alcohol Use History: None Reported Past Drug Use History: None Reported - Past Family History Mother Family Medical History: CVA/TIA General Exam Limitations: no limitations General appearance: alert, in no apparent distress Head exam: Present: atraumatic, normocephalic, normal inspection Eye exam: Present: normal appearance, PERRL, EOMI. Absent: scleral icterus, conjunctival injection, periorbital swelling ENT exam: Present: normal exam, mucous membranes moist Neck exam: Present: normal inspection. Absent: tenderness, meningismus, lymphadenopathy Respiratory exam: Present: normal lung sounds bilaterally. Absent: respiratory distress, wheezes, rales, rhonchi, stridor Cardiovascular Exam: Present: regular rate, normal rhythm, normal heart sounds. Absent: systolic murmur, diastolic murmur, rubs, gallop, clicks Extremities exam: Present: normal inspection, full ROM, normal capillary refill. Absent: tenderness, pedal edema, joint swelling, calf tenderness Back exam: Present: normal inspection Neurological exam: Present: alert, oriented X3 Psychiatric exam: Present: normal affect, normal mood Skin exam: Present: warm, dry, intact, normal color. Absent: rash Course Vital Signs 10/28/23 10:18 Temperature 98 F Pulse Rate 75 Respiratory 20 Rate Blood Pressure 110/74 O2 Sat by Pulse 96 Oximetry Medical Decision Making - Medical Decision Making Was pt. sent in by a medical professional or institution (ANNALISE Hernandez, FLOOR W[employer]ER, urgent care, hospital, or usp...) When possible be specific @ -No Did you speak to anyone other than the patient for history (EMS, parent, family, police, friend...)? What history was obtained from this source @ -No Did you review nursing and triage notes (agree or disagree)? Why? @ -I reviewed and agree with nursing and triage notes Were old charts reviewed (outside hosp., previous admission, EMS record, old EKG, old radiological studies, urgent care reports/EKG's, usp records)? Report findings @ -No old charts were reviewed Differential Diagnosis (chest pain, altered mental status, abdominal pain women, abdominal pain men, vaginal bleeding, weakness, fever, dyspnea, syncope, headache, dizziness, GI bleed, back pain, seizure, CVA, palpatations, mental health, musculoskeletal)? @ -Differential Musculoskeletal Muscular strain, contusion, ligament sprain, fracture, arthritis, septic arthritis, bursitis, cellulitis, muscle spasm, nerve compression, DVT, arterial occlusion, herpes zoster, electrolyte abnormality, tumor.... This is not meant to be in all inclusive list EKG interpreted by me (3pts min.). @ -None X-rays interpreted by me (1pt min.). @ -None done CT interpreted by me (1pt min.). @ -None done U/S interpreted by me (1pt. min.). @ -None done What testing was considered but not performed or refused? (CT, X-rays, U/S, labs)? Why? @ -XR considered patient had 6 days ago with no new symptoms. What meds were considered but not given or refused? Why? @ -None Did you discuss the management of the patient with other professionals (professionals i.e. , PA, FLOOR WAXER, lab, RT, psych nurse, social media marketer, casing crew, teacher, community reinvestment act officer, correctional counselor/case manager)? Give summary @ -No Was smoking cessation discussed for >3mins.? @ -No Was critical care preformed (if so, how long)? @ -No Were there social determinants of health that impacted care today? How? (Homelessness, low income, unemployed, alcoholism, drug addiction, transportation, low edu. Level, literacy, decrease access to med. care, prison, rehab)? @ -No Was there de-escalation of care discussed even if they declined (Discuss DNR or withdrawal of care, Hospice)? DNR status @ -No What co-morbidities impacted this encounter? (DM, HTN, Smoking, COPD, CAD, Cancer, CVA, ARF, Chemo, Hep., AIDS, mental health diagnosis, sleep apnea, morbid obesity)? @ -None Was patient admitted / discharged? Hospital course, mention meds given and route, prescriptions, significant lab abnormalities, going to OR and other pertinent info. @ -discharged. Patient presented to the emergency department for evaluation of right knee pain. He states that he recently fell and the pain started after this. He had this evaluated and has been utilizing a brace that he had. He states that he feels the knee continues to rub. Patient denies any new injury. Patient discharged in stable condition. Case discussed with Dr. Mendez. Undiagnosed new problem with uncertain prognosis? @ -No Drug Therapy requiring intensive monitoring for toxicity (Heparin, Nitro, Insulin, Cardizem)? @ -No Were any procedures done? @ -No Diagnosis/symptom? @ -knee sprain Acute, or Chronic, or Acute on Chronic? @ -acute Uncomplicated (without systemic symptoms) or Complicated (systemic symptoms)? @ -uncomplicated Side effects of treatment? @ -No Exacerbation, Progression, or Severe Exacerbation? @ -No Poses a threat to life or bodily function? How? (Chest pain, [place], [place], pneumonia, PE, COPD, DKA, ARF, appy, cholecystitis, CVA, Diverticulitis, Homicidal, Suicidal, threat to staff... and all critical care pts) @ -No Disposition Clinical Impression: Knee sprain Disposition: HOME SELF-CARE Condition: Stable Instructions (If sedation given, give patient instructions): Knee Sprain (ED) Is patient prescribed a controlled substance at d/c from ED?: No Referrals: Raymond Johnson DO [Primary Care Provider] - 1-2 days Joaquin Esposito DO [Doctor of Osteopathic Medicine] - 1-2 days
[2023-10-28 12:15] VITALS: BP 145/86; PULSE 86
== END 2023-10-28 12:02 | disposition home or self-care (01) ==
LOC: EC 10:04
DX: S83.91XA Sprain of unspecified site of right knee, initial encounter (principal); J45.909 Unspecified asthma, uncomplicated; F17.200 Nicotine dependence, unspecified, uncomplicated; Z86.59 Personal history of other mental and behavioral disorders; X58.XXXA Exposure to other specified factors, initial encounter
CPT/HCPCS: 99283

== ENCOUNTER → 2023-11-04 | Outpatient (CLI) | payer OTHER ==
--- NOTE | 2023-11-04 09:13 | XR ---
EXAMINATION TYPE: XR cervical spine limited DATE OF EXAM: 11/04/2023 8:58 AM CLINICAL INDICATION:Male, 48 years old with history of M54.2 Cervicalgia; COMPARISON: None TECHNIQUE: The cervical spine was imaged in frontal, lateral, and odontoid. FINDINGS: The osseous structures show normal alignment without evidence of an acute fracture. Minimal osteophyt e formation present throughout the vertebral bodies in the anterior and lateral aspects. Mild facet a nd uncovertebral joint arthropathy. The intervertebral disk spaces are preserved. Pedicles are intact . Soft tissues are within normal limits. The odontoid appears intact. IMPRESSION: 1. No fracture or dislocation. 2. Mild degenerative disc disease changes of the cervical spine.
== END | disposition home or self-care (01) ==
LOC: RADXRMAIN 08:45
PROVIDERS: ATTEND Family Medicine
DX: M50.30 Other cervical disc degeneration, unspecified cervical region (principal)
CPT/HCPCS: 72040